=== PATIENT | female | born 1985 | race African-American/Black ===

== ENCOUNTER 2020-01-31 15:51 | Emergency (ER) | payer OTHER, SELFPAY ==
[2020-01-31 16:11] VITALS: BP 137/83; PULSE 110; RESP 18; TEMP 36.8; O2SAT 100
--- NOTE | 2020-01-31 16:49 | ED.GENADULT ---
HPI - General Adult General Chief complaint: Wound/Laceration Stated complaint: cyst on vagina Time Seen by Provider: 01/31/20 16:15 Source: patient Mode of arrival: ambulatory Limitations: no limitations History of Present Illness HPI narrative: Patient is a 34-year-old female who presents to emergency department for evaluation of small tender swollen area in the vaginal area for the last 2 days noting mild aching pain worse with touch and activity patient notes similar occurrence but in the axilla patient has not been seen for this complaint presents in no distress Related Data Allergies Allergy/AdvReac Type Severity Reaction Status Date / Time Penicillins Allergy Intermediate Swelling Verified 01/05/16 15:25 Review of Systems Review of Systems: All systems reviewed & are unremarkable except as noted in HPI and below PMFSH Past Medical History Medical History (Updated 01/31/20 @ 17:43 by Charles Lang PA-C) Obesity Social History Social History Gender identity (if verbalized by the patient): Female Exam Narrative: Exam Narrative: GENERAL: Well-appearing, obese, and in no acute distress. HEAD: Normocephalic, atraumatic. EYES: PERRLA and EOMI. ENT: Nares clear, no rhinorrhea or epistaxis. Mucous membranes moist. CHEST: Clear to auscultation. No respiratory distress. No wheezes rales or rhonchi HEART: Regular rate and rhythm. No murmur heard. EXTREMITIES: Normal range of motion. No edema. SKIN: Warm, dry, no rash. Patient with red tender draining lesion along the right labia groin region without surrounding cellulitic changes area measures 1 cm in diameter with large central opening draining purulent drainage NEURO: No focal deficits. Alert and oriented x3. Cranial nerves II through XII grossly intact. Normal speech and gait PSYCH: Normal mood and affect. Course Course Emergency Course: Patient with draining lesion of the right groin no deformity afebrile nontoxic-appearing Vital Signs Vital signs: Vital Signs Temperature 98.3 F 01/31/20 16:11 Pulse Rate 110 H 01/31/20 16:11 Respiratory Rate 18 01/31/20 16:11 Blood Pressure 137/83 01/31/20 16:11 Pulse Oximetry 100 01/31/20 16:11 Temperature 98.3 F 01/31/20 16:11 Pulse Rate 110 H 01/31/20 16:11 Respiratory Rate 18 01/31/20 16:11 Blood Pressure 137/83 01/31/20 16:11 Pulse Oximetry 100 01/31/20 16:11 Medical Decision Making MDM Narrative Medical decision making narrative: Patient with abscess draining to the right groin with out cellulitic changes already draining felt appropriate for outpatient reevaluation advised to follow with gynecology given reasons to return Vital Signs Vital Signs: Vital Signs Temperature 98.3 F 01/31/20 16:11 Pulse Rate 110 H 01/31/20 16:11 Respiratory Rate 18 01/31/20 16:11 Blood Pressure 137/83 01/31/20 16:11 Pulse Oximetry 100 01/31/20 16:11 Temperature 98.3 F 01/31/20 16:11 Pulse Rate 110 H 01/31/20 16:11 Respiratory Rate 18 01/31/20 16:11 Blood Pressure 137/83 01/31/20 16:11 Pulse Oximetry 100 01/31/20 16:11 Discharge Plan Discharge Clinical Impression: Abscess Patient Disposition: Home, Self-Care Condition: Stable Instructions: Antibiotic Form, Abscess (ED) Additional Instructions: Follow up with teacher industrial arts in the next 2-3 days for re-evaluation take antibiotics as directed. return if symptoms worsen or concerns, any increase in redness swelling pain or fever over 100.5 Clean wound with mild soapy water. Apply antibiotic ointment and clean dressing at least three times daily Warm compresses 4 times a day for 15 minutes each Prescriptions: New doxycycline hyclate 100 mg capsule 100 mg PO Q12H 10 Days Qty: 20 RF: 0 Follow-up/Referrals: PHYSICIAN,BASEBALL PITCHER [Primary Care Provider] - Mulugeta Moore MD [Physician] - Stand Alone Forms: Work/School Release
== END 2020-01-31 18:20 | disposition home or self-care (01) ==
LOC: ANHED 17:46
PROVIDERS: Emergency Provider Emergency Medicine
DX: L02.214 Cutaneous abscess of groin (principal)
CPT/HCPCS: 99283

== ENCOUNTER 2020-03-21 17:49 | Emergency (ER) | payer OTHER, SELFPAY ==
--- NOTE | ~2020-03-21 | XR_ITS ---
EXAMINATION: XR chest 2V DATE: 03/21/2020 20:45 INDICATION: Midsternal chest pain TECHNIQUE: PA and lateral views of the chest were obtained. COMPARISON: None FINDINGS: Small lung volumes with no focal airspace opacities, pulmonary edema, pleural effusion or pneumothora x. The cardiomediastinal silhouette is normal. Visualized bones and soft tissues are unremarkable. IMPRESSION: 1. No acute cardiopulmonary disease. Reviewed, dictated and finalized at location A.
--- NOTE | 2020-03-21 18:11 | ECG_ITS ---
Measurements Intervals [place] Rate: 89 P: 29 NE: 156 QRS: 5 QRSD: 88 T: 13 QT: 332 QTc: 404 Interpretive Statements SINUS RHYTHM VOLTAGE CRITERIA FOR LVH MINIMAL Q WAVES- HIGH LATERAL LEADS BASELINE WANDER- I, II BORDERLINE ECG Electronically Signed On 03-21-2020 21:06:46 CDT by Collin Gonzalez D.O.
[2020-03-21 18:12] VITALS: BP 162/84; PULSE 98; RESP 15; TEMP 36.9; O2SAT 99
[2020-03-21 18:36] LABS: Basophils Percent Auto 0.2 % (0.2-1.2); Eosinophils Absolute Auto 0.5 K/mm3 (0-0.3); Hematocrit 40.2 % (37.0-47.0); Hemoglobin 12.5 g/dL (12.0-15.0); Immature Granulocyte Absolute 0.03 K/mm3 (0.00-0.031); Immature Granulocyte Percent A 0.3 % (0-0.5); Lymphocytes Absolute Auto 4.12 K/mm3 (0.9-3.2); Lymphocytes Percent Auto 41.8 % (18.3-44.2); Mean Corpuscular HGB Conc 31.1 g/dl (32-36); Mean Corpuscular Hemoglobin 25.6 pg (26-34); Mean Corpuscular Volume 82.4 fl (80-100); Mean Platelet Volume 11.1 fl (7.4-10.4); Monocytes Absolute Auto 0.6 K/mm3 (0.1-0.6); Monocytes Percent Auto 6.2 % (2.6-8.5); Neutrophils Absolute Auto 4.6 K/mm3 (1.3-6.7); Neutrophils Percent Auto 46.5 % (45.5-73.1); Platelet Count Result 251 k/mm3 (150-375); Red Blood Count 4.88 M/mm3 (4.2-5.4); Red Cell Distribution Width 13.8 % (11.5-14.5); White Blood Count 9.9 K/mm3 (4.5-10.0)
[2020-03-21 18:46] LABS: Prothrombin Time 12.7 Seconds (11.1-14.7)
[2020-03-21 18:49] LABS: Anion Gap 6 mmol/L (8-16); Blood Urea Nitrogen 16 mg/dL (7-17); Calcium 9.1 mg/dL (8.4-10.2); Carbon Dioxide 30 mmol/L (22-30); Chloride 102 mmol/L (98-107); Estimated CRCL calculation 99 ml/min; Estimated Glomerular Filt Rate > 60; Glucose 132 mg/dL (65-105); Potassium 4.1 mmol/L (3.4-5.0); Sodium 138 mmol/L (137-145)
[2020-03-21 19:00] LABS: Troponin I < 0.012 ng/mL (0.000-0.034)
[2020-03-21 19:08] LABS: Atypical Lymphocytes Present; Platelet Estimate Adequate (Adequate)
[2020-03-21 22:20] VITALS: BP 145/79; PULSE 89; RESP 20; TEMP 37.3; O2SAT 100
--- NOTE | 2020-03-21 22:38 | PC.NURSE ---
Patient's named called multiple times in waiting room to go back to emergency room bed. Patient not in waiting room at this time.
--- NOTE | 2020-03-21 22:50 | PC.NURSE ---
Pt called again no answer
== END 2020-03-21 20:50 | disposition left against medical advice (07) ==
PROVIDERS: Emergency Provider Emergency Medicine
DX: R07.9 Chest pain, unspecified (principal)
CPT/HCPCS: 36415; 71046; 80048; 81025; 84484; 85025; 85610; 85730; 93005; 99199

== ENCOUNTER 2020-06-15 13:10 | Emergency (ER) | payer OTHER, SELFPAY ==
[2020-06-15 13:21] VITALS: BP 150/76; PULSE 103; RESP 16; TEMP 36.7; O2SAT 100
--- NOTE | 2020-06-15 13:55 | ED.GENADULT ---
HPI - General Adult General Chief complaint: Extremity Injury, Upper Stated complaint: INJURED FINGER Time Seen by Provider: 06/15/20 13:48 Source: patient and RN notes reviewed Mode of arrival: ambulatory Limitations: no limitations History of Present Illness HPI narrative: Patient presents today complaining of pain and swelling to her right third finger. States symptoms began 3 days ago. States she had a manicure 2 days prior to onset of symptoms. Currently rates her pain 9/10 and has been taking ibuprofen with mild relief. Denies numbness or tingling in the finger. MD complaint: Swelling and pain to finger Related Data Allergies Allergy/AdvReac Type Severity Reaction Status Date / Time Penicillins Allergy Intermediate Swelling Verified 06/15/20 13:23 Review of Systems Review of Systems: Narrative: CONSTITUTIONAL: Denies body aches, fever, chills, or sweats. EYES: Denies visual changes, redness, or discharge. ENT: Denies rhinorrhea, congestion, sore throat, or otalgia. CARDIOVASCULAR: Denies chest pain, palpitations, or edema. RESPIRATORY: Denies cough or dyspnea. GASTROINTESTINAL: Denies abdominal pain, nausea, vomiting, or diarrhea. GENITOURINARY: Denies dysuria or hematuria. SKIN: Denies rash, itching, or wounds. MUSCULOSKELETAL: Denies back pain, or myalgia. + Right third finger swelling and pain NEUROLOGIC: Denies headache, numbness, tingling, or weakness. PSYCH: Denies depression or anxiety. [facility] Past Medical History Medical History Obesity Social History Social History Gender identity (if verbalized by the patient): Female Comments At time of signature, I have reviewed and agree with nursing past medical, surgical, social and family history unless otherwise noted. Please see nursing chart for further information. There is no relevant family history pertinent to the presenting complaint Exam Narrative: Exam Narrative: GENERAL: Well-appearing, well-nourished, and in no acute distress. HEAD: Normocephalic, atraumatic. EYES: EOMI. No redness or drainage. Conjunctivae normal. ENT: Mucous membranes pink and moist. NECK: Normal AROM. CHEST: No respiratory distress. EXTREMITIES: Right third finger: Distal phalanx is erythematous and edematous. No fluctuance noted. No purulence or pustular area noted. No induration. Distal sensation intact. Capillary refill normal. Tender to palpation. Full range of motion with increased pain. SKIN: Warm, dry, no rash. Capillary refill normal. Normal skin turgor. NEURO: No focal deficits. Alert and oriented x3. Gait steady. PSYCH: Normal affect. No signs of depression or anxiety. Course Vital Signs Vital signs: Vital Signs Temperature 98.1 F 06/15/20 13:21 Pulse Rate 103 H 06/15/20 13:21 Respiratory Rate 16 06/15/20 13:21 Blood Pressure 150/76 H 06/15/20 13:21 Pulse Oximetry 100 06/15/20 13:21 Temperature 98.1 F 06/15/20 13:21 Pulse Rate 103 H 06/15/20 13:21 Respiratory Rate 16 06/15/20 13:21 Blood Pressure 150/76 H 06/15/20 13:21 Pulse Oximetry 100 06/15/20 13:21 Reviewed. Pt has been instructed to follow up with her PCP regarding her elevated blood pressure today. Medical Decision Making Differential Diagnosis Differential Diagnosis: Cellulitis, paronychia, abscess, felon, herpetic fish Vital Signs Vital Signs: Vital Signs Temperature 98.1 F 06/15/20 13:21 Pulse Rate 103 H 06/15/20 13:21 Respiratory Rate 16 06/15/20 13:21 Blood Pressure 150/76 H 06/15/20 13:21 Pulse Oximetry 100 06/15/20 13:21 Temperature 98.1 F 06/15/20 13:21 Pulse Rate 103 H 06/15/20 13:21 Respiratory Rate 16 06/15/20 13:21 Blood Pressure 150/76 H 06/15/20 13:21 Pulse Oximetry 100 06/15/20 13:21 Critical Care Time Critical Care Time Critical Care Time: No Discharge Plan Discharg
== END 2020-06-15 14:06 | disposition home or self-care (01) ==
PROVIDERS: Emergency Provider Nurse Practitioner
DX: L03.011 Cellulitis of right finger (principal); E66.9 Obesity, unspecified; Z68.30 Body mass index [BMI] 30.0-30.9, adult; R03.0 Elevated blood-pressure reading, without diagnosis of hypertension
CPT/HCPCS: 99213; G0463

== ENCOUNTER 2020-11-09 18:35 | Observation (INO) | payer OTHER, SELFPAY ==
--- NOTE | ~2020-11-09 | CT_ITS ---
EXAMINATION: CT abdomen pelvis w con INDICATION: Abdominal pain TECHNIQUE: Computed tomographic images of the abdomen and pelvis were obtained after the administrati on of 100 cc of Omnipaque 350 intravenous contrast. The dose-length product (DLP) was 1546.59 mGy-cm. Automated exposure control and iterative reconstruction technique were employed. COMPARISON: None available FINDINGS: Minimal dependent atelectasis is present in the lung bases. The heart size is normal. The l iver, spleen, pancreas, gallbladder, and left adrenal gland are normal. There is a 10 mm low-attenuat ion mass of the right adrenal gland. The kidneys are unremarkable. No pathologically enlarged abdomin al or pelvic lymph nodes are identified. There is no free intraperitoneal gas or evidence of bowel ob struction. The appendix is normal. There is a fat-containing umbilical hernia. IMPRESSION: 1. No CT correlate for the patient's symptoms. 2. 10 mm low-attenuation mass of the right adrenal gland, probably benign in the absence of known mal ignancy. Consider follow-up adrenal CT in 12 months. Reviewed, dictated and finalized at location A. IMPRESSION: 1. No CT correlate for the patient's symptoms. 2. 10 mm low-attenuation mass of the right adrenal gland, probably benign in th e absence of known malignancy. Consider follow-up adrenal CT in 12 months.
[2020-11-09 19:22] VITALS: BP 133/71; PULSE 92; RESP 16; TEMP 36.6; O2SAT 100
[2020-11-09 19:48] VITALS: BP 162/107; PULSE 99; RESP 20; O2SAT 96
--- NOTE | 2020-11-09 20:09 | ED.GENADULT ---
HPI - General Adult General Chief complaint: Abdominal Pain Stated complaint: ABD since this morning Time Seen by Provider: 11/09/20 19:45 Source: RN notes reviewed History of Present Illness HPI narrative: Patient presents to emergency department from home for abdominal pain. Patient states abdominal pain began this morning and is located across the mid abdomen. Describes pain as cramping in nature and she denies any fevers or chills, chest pain, shortness of breath, nausea, vomiting, diarrhea or any other symptoms states she took Advil earlier for the pain with minimal relief. Patient states she did work out a little harder than normal yesterday but states she had no pain when she initially woke this morning Related Data Allergies Allergy/AdvReac Type Severity Reaction Status Date / Time Penicillins Allergy Intermediate Swelling Verified 06/15/20 13:23 Review of Systems Review of Systems: Narrative: Gen.: Denies fevers or chills ENT: Denies congestion Respiratory: Denies shortness of breath or cough CV: Denies chest pain or palpitations GI: HPI denies burning, urgency, frequency or hematuria Musculoskeletal: Denies back pain or muscle pain Neuro: Denies numbness, tingling, weakness or focal weakness Skin: Denies rash Except as documented, all other systems reviewed and negative [facility] Past Medical History Medical History (Updated 11/09/20 @ 22:36 by Devin Gaitan DO) Obesity Patient denies significant medical history Social History Social History (Updated 11/09/20 @ 20:10 by Devin Gaitan DO) Smoking status: Current every day smoker Gender identity (if verbalized by the patient): Female Exam Narrative: Exam Narrative: APPEARANCE: No acute distress, nontoxic, resting in bed HEENT: Normocephalic, atraumatic, OMM RESPIRATORY: No respiratory distress, clear to auscultation bilaterally with no rhonchi wheezing or rales CARDIOVASCULAR: RRR s murmur ABDOMINAL: Soft nondistended diffusely tender to palpation no rebound or guarding MUSCULOSKELETAl: Moves all extremities. No clubbing, cyanosis or edema. NEURO: Awake and alert. Following commands, speech normal, no focal deficits SKIN:: Warm, dry. Normal Color PSYCHIATRIC: Normal affect/mood Course Course Emergency Course: Discussed with Dr. Gordillo presentation work-up agrees with admission at this time Discussed with patient and family results of workup and diagnosis. Discussed need for admission. Patient and family understand and agree to current treatment plan Vital Signs Vital signs: Vital Signs Temperature 97.8 F 11/09/20 19:22 Pulse Rate 92 11/09/20 19:22 Respiratory Rate 16 11/09/20 19:22 Blood Pressure 133/71 11/09/20 19:22 Pulse Oximetry 100 11/09/20 19:22 Temperature 98.2 F 11/09/20 20:50 Pulse Rate 86 11/09/20 20:50 Respiratory Rate 20 11/09/20 20:50 Blood Pressure 162/107 H 11/09/20 20:50 Pulse Oximetry 99 11/09/20 20:50 Medical Decision Making MDM Narrative Medical decision making narrative: Patient's abdomen is soft without significant pain or signs of surgical abdomen on serial exams. Lab and x-ray evaluations are reviewed and patient is felt to be a reasonable candidate for outpatient management. Patient was instructed as to limitations of x-ray and laboratory evaluation and encouraged to return to ED or primary physician for repeat exam in 12 hours if continued or worsening pain Vital Signs Vital Signs: Vital Signs Temperature 97.8 F 11/09/20 19:22 Pulse Rate 92 11/09/20 19:22 Respiratory Rate 16 11/09/20 19:22 Blood Pressure 133/71 11/09/20 19:22 Pulse Oximetry 100 11/09/20 19:22 Temperature 98.2 F 11/09/20 20:50 Pulse Rate 86 11/09/20 20:50 Respiratory Rate 20 11/09/20 20:50 Blood Pressure 162/107 H 11/09/20 20:50 Pulse Oximetry 99 11/09/20 20:50 Lab Data Result diagrams: 11/09/20 20:13 11/09/20 20:13 Labs: Lab Result
[2020-11-09] MEDS: SODIUM CHLORIDE 0.9% IV 1,000 ML 999 ML IV CONT ×2 (20:23→22:24)
[2020-11-09 20:39] LABS: Basophils Percent Auto 0.3 % (0.2-1.2); Eosinophils Absolute Auto 0.6 K/mm3 (0-0.3); Eosinophils Percent Auto 6.8 % (0-4.4); Hemoglobin 11.7 g/dL (12.0-15.0); Immature Granulocyte Absolute 0.05 K/mm3 (0.00-0.031); Immature Granulocyte Percent A 0.5 % (0-0.5); Lymphocytes Absolute Auto 3.69 K/mm3 (0.9-3.2); Lymphocytes Percent Auto 39.8 % (18.3-44.2); Mean Corpuscular HGB Conc 30.8 g/dl (32-36); Mean Corpuscular Hemoglobin 25.8 pg (26-34); Mean Corpuscular Volume 83.7 fl (80-100); Monocytes Absolute Auto 0.6 K/mm3 (0.1-0.6); Monocytes Percent Auto 6.8 % (2.6-8.5); Neutrophils Absolute Auto 4.3 K/mm3 (1.3-6.7); Neutrophils Percent Auto 45.8 % (45.5-73.1); Platelet Count Result 230 k/mm3 (150-375); Red Blood Count 4.54 M/mm3 (4.2-5.4); Red Cell Distribution Width 14.3 % (11.5-14.5); White Blood Count 9.3 K/mm3 (4.5-10.0)
[2020-11-09 20:49] LABS: Add Urine Microscopic? YES; Appearance Urine Clear (Clear); Bilirubin Urine Negative (Negative); Blood Urine Negative (Negative); Color Urine Yellow (Yellow); Glucose Urine UA 2+ mg/dL (Negative); Ketones Urine Negative (Negative); Leukocyte Esterase Ur Negative LEU/UL (Negative); Mucus Urine Few /lpf; Nitrate Urine Negative (Negative); Protein Urine 1+ mg/dL (Negative); RBC Urine 0-2 /hpf (0-2); Squamous Epithelial Cell Urine Many /hpf (Few); Urobilinogen Urine Negative mg/dL (<2.0); WBC Urine 0-3 /hpf
[2020-11-09 20:50] VITALS: BP 162/107; PULSE 86; RESP 20; TEMP 36.8; O2SAT 99
[2020-11-09 20:50] LABS: Alanine Aminotransferase 30 U/L (4-35); Albumin Level 3.6 g/dL (3.5-5.1); Alkaline Phosphatase 84 U/L (38-126); Anion Gap 5 mmol/L (8-16); Aspartate Amino Transferase 60 U/L (14-36); Bilirubin,Total 0.2 mg/dL (0.2-1.3); Blood Urea Nitrogen 12 mg/dL (7-17); Calcium 8.6 mg/dL (8.4-10.2); Carbon Dioxide 27 mmol/L (22-30); Chloride 103 mmol/L (98-107); Estimated CRCL calculation 140 ml/min; Estimated Glomerular Filt Rate > 60; Glucose 253 mg/dL (65-105); Lipase 28 U/L (23-300); Sodium 135 mmol/L (137-145)
[2020-11-09 20:51] LABS: Specific Grav Ur 1.031 (1.001-1.035)
[2020-11-09 21:57] LABS: Creatine Kinase 1538 U/L (30-135)
--- NOTE | 2020-11-09 22:13 | PM.IMHP ---
H&P: HPI History of Present Illness Date/Time: 11/09/20 22:13 Chief Complaint: abdominal pain Narrative: Patient presents to emergency department from home for abdominal pain. abdominal pain starte this am which is mid abdomen in location. the pain is rated at 9/10. assocaited nausea, no vomiting. no fever, chills. chest pian or sob. she rpeorts she worked out yesterday after a very logn time. CT abodmen without any acute findings exxcept for right adrenal gland nodule. she is noted to have elevated CK level but normal renal function.she is admitted for observation for iv hydration. she denies any other complaints except for the abdominal pain. Review of Systems Review of Systems: Narrative: - CONSTITUTIONAL: Denies weight loss, fever and chills. - HEENT: Denies changes in vision and hearing - RESPIRATORY: Denies SOB and cough. - CV: Denies palpitations and CP. - GI: reports abdominal pain, nausea, denies vomiting and diarrhea. - : Denies dysuria and urinary frequency. - MSK: Denies myalgia and joint pain. - SKIN: Denies rash and pruritus. - NEUROLOGICAL: Denies headache and syncope. - PSYCHIATRIC: Denies recent changes in mood. Denies anxiety and depression. All systems reviewed & are unremarkable except as noted in HPI and below PMFSH Past Medical History Medical History (Updated 11/09/20 @ 23:03 by Steve Gordillo MD) Obesity Patient denies significant medical history Social History Social History (Updated 11/09/20 @ 20:10 by Devin Gaitan DO) Smoking status: Current every day smoker Gender identity (if verbalized by the patient): Female Meds Home Medications and Allergies Home Medications Medication Instructions Recorded Confirmed Type clindamycin HCl 300 mg PO Q6H 10 Days #40 cap 06/15/20 Rx Allergies Allergy/AdvReac Type Severity Reaction Status Date / Time Penicillins Allergy Intermediate Swelling Verified 06/15/20 13:23 Vital Signs Vital Signs - 24 hr 11/09/20 19:22 11/09/20 19:48 11/09/20 20:50 Temperature 97.8 F 98.2 F Pulse Rate 92 99 86 Respiratory Rate 16 20 20 Blood Pressure 133/71 162/107 H 162/107 H Pulse Oximetry 100 96 99 Exam Narrative: Exam Narrative: GENERAL: The patient is well developed, not in acute distress HEENT: Nonicteric sclerae, PERRLA, EOMI. Oropharynx clear. Moist mucous membranes. Conjunctivae appear well perfused. CHEST: Chest wall is nontender. HEART: Regular rate and rhythm without murmur, rubs, or gallops LUNGS: Clear to auscultation bilaterally. no respiratory distress ABDOMEN: Soft, positive bowel sounds, tender epigastrium and periumbilical area, no organomegaly. SKIN: No rash, no excessive bruising, petechiae, or purpura. NEUROLOGIC: Cranial nerves II-XII intact, alert and oriented x 3, no gross motor deficits EXTREMITIES: no edema, cyanosis or clubbing H&P: Results Labs Labs: Short CBC 11/09/20 11/09/20 Range/Units 20:12 20:13 WBC 9.3 (4.5-10.0) K/mm3 Hgb 11.7 L (12.0-15.0) g/dL Hct 38.0 (37.0-47.0) % Plt Count 230 (150-375) k/mm3 Total Creatine Kinase 1538 H (30-135) U/L BMP 11/09/20 20:13 Sodium 135 L Potassium 4.0 Chloride 103 Carbon Dioxide 27 BUN 12 Creatinine 0.70 Glucose 253 H Calcium 8.6 Cardiac Enzymes 11/09/20 Range/Units 20:12 Total Creatine Kinase 1538 H (30-135) U/L Liver Function 11/09/20 Range/Units 20:13 Total Bilirubin 0.2 (0.2-1.3) mg/dL AST 60 H (14-36) U/L ALT 30 (4-35) U/L Alkaline Phosphatase 84 (38-126) U/L Albumin 3.6 (3.5-5.1) g/dL Urine 11/09/20 Range/Units 20:33 Urine Color Yellow (Yellow) Urine Appearance Clear (Clear) Urine pH 6.0 (5.0-9.0) Ur Specific [place] 1.031 (1.001-1.035) Urine Protein 1+ H (Negative) mg/dL Urine Glucose (UA) 2+ H (Negative) mg/dL Assessment and Plan Assessment and plan (1) Abdominal pain: Qualifiers: Abdominal
[2020-11-09] MEDS: MORPHINE SULFATE (*CRX) 4 MG/ML INJ IV PUSH (22:24)
[2020-11-09 22:57] LABS: Hemoglobin A1C 7.7 % (<5.7)
[2020-11-09 23:03] VITALS: BP 160/97; PULSE 86; RESP 20; O2SAT 100
[2020-11-09] MEDS: SODIUM CHLORIDE 0.9% IV 1,000 ML 150 ML IV CONT (23:13)
--- NOTE | 2020-11-09 23:14 | ADMGEN ---
This patient, Nancy Trevino, was admitted to Medical Room 250-01. Patient/family oriented to hospital policies and general routines including ID bracelet, bed and alarms, visiting hours, pain management, procedures, bathroom and other care routines, personal items, smoking policy, room service/diet, and visiting hours. Information on how to activate the Rapid Response Team has been discussed. Patient/Family are encouraged to report perceived risks to care and to ask questions if they do not understand what they are told or what they should do.
[2020-11-09 23:46] VITALS: BMI 43.8
[2020-11-09 23:51] VITALS: BMI 43.8
[2020-11-10 00:17] VITALS: O2SAT 97
[2020-11-10] MEDS: MORPHINE SULFATE (*CRX) 2 MG/ML INJ IV PUSH (00:39)
[2020-11-10 00:48] LABS: Glucose Point of Care 126 mg/dl (65-105)
[2020-11-10 02:00] VITALS: BP 121/72; PULSE 77; RESP 21; TEMP 36.1; O2SAT 100
[2020-11-10 05:41] LABS: Basophils Percent Auto 0.3 % (0.2-1.2); Eosinophils Absolute Auto 0.5 K/mm3 (0-0.3); Eosinophils Percent Auto 7.8 % (0-4.4); Hematocrit 35.5 % (37.0-47.0); Hemoglobin 11.3 g/dL (12.0-15.0); Immature Granulocyte Absolute 0.02 K/mm3 (0.00-0.031); Immature Granulocyte Percent A 0.3 % (0-0.5); Lymphocytes Absolute Auto 3.44 K/mm3 (0.9-3.2); Lymphocytes Percent Auto 49.7 % (18.3-44.2); Mean Corpuscular HGB Conc 31.8 g/dl (32-36); Mean Corpuscular Hemoglobin 25.9 pg (26-34); Mean Corpuscular Volume 81.4 fl (80-100); Mean Platelet Volume 10.4 fl (7.4-10.4); Monocytes Absolute Auto 0.5 K/mm3 (0.1-0.6); Monocytes Percent Auto 7.1 % (2.6-8.5); Neutrophils Absolute Auto 2.4 K/mm3 (1.3-6.7); Neutrophils Percent Auto 34.8 % (45.5-73.1); Platelet Count Result 202 k/mm3 (150-375); Red Blood Count 4.36 M/mm3 (4.2-5.4); Red Cell Distribution Width 14.2 % (11.5-14.5); White Blood Count 6.9 K/mm3 (4.5-10.0)
[2020-11-10 05:58] LABS: Alanine Aminotransferase 27 U/L (4-35); Alkaline Phosphatase 74 U/L (38-126); Anion Gap 2 mmol/L (8-16); Aspartate Amino Transferase 44 U/L (14-36); Bilirubin,Total 0.3 mg/dL (0.2-1.3); Blood Urea Nitrogen 9 mg/dL (7-17); Carbon Dioxide 28 mmol/L (22-30); Chloride 105 mmol/L (98-107); Creatine Kinase 1013 U/L (30-135); Estimated CRCL calculation 136 ml/min; Estimated Glomerular Filt Rate > 60; Glucose 132 mg/dL (65-105); Potassium 4.2 mmol/L (3.4-5.0); Sodium 135 mmol/L (137-145)
[2020-11-10 06:00] VITALS: BP 108/53; PULSE 81; RESP 21; TEMP 36.3; O2SAT 100
[2020-11-10] MEDS: ACETAMINOPHEN 325 MG TABLET 650 MG PO ×3 (06:25→16:14)
[2020-11-10] MEDS: SODIUM CHLORIDE 0.9% IV 1,000 ML 150 ML IV CONT ×2 (06:29→14:13)
[2020-11-10 07:22] LABS: Glucose Point of Care 142 mg/dl (65-105)
[2020-11-10] MEDS: NICOTINE (*PBKC) 14 MG PATCH 1 PATCH TRANSDERM (08:08)
--- NOTE | 2020-11-10 10:30 | PC.NURSE ---
Wood Planer called and left message for clinical educator to see pt with new onset DM
--- NOTE | 2020-11-10 10:52 | PC.NURSE ---
Fuel Management Handler called and reports will not likely be able to see pt today, Mysql Database Administrator notified Lorena Waldrop for trace clerk consult.
--- NOTE | 2020-11-10 11:39 | PCDIET ---
Nutrition Consult for new on set of DM type 2. Please see Nutritional Teaching Intervention.
[2020-11-10 12:27] LABS: Glucose Point of Care 88 mg/dl (65-105)
[2020-11-10 14:00] VITALS: BP 131/74; PULSE 86; RESP 20; TEMP 35.7; O2SAT 100
[2020-11-10 14:59] LABS: Creatine Kinase 738 U/L (30-135)
--- NOTE | 2020-11-10 15:34 | PM.DS ---
DS: Admitting Diagnosis Admitting Diagnosis Admitting Diagnosis: Rhabdomyolysis DS: Discharge Diagnosis Discharge Diagnosis (1) Abdominal pain: Qualifiers: Abdominal location: generalized Qualified Code(s): R10.84 - Generalized abdominal pain Code(s): R10.9 - Unspecified abdominal pain Status: Acute (2) Rhabdomyolysis: Code(s): M62.82 - Rhabdomyolysis Status: Acute (3) Hyperglycemia: Code(s): R73.9 - Hyperglycemia, unspecified Status: Acute (4) Elevated blood pressure reading without diagnosis of hypertension: Code(s): R03.0 - Elevated blood-pressure reading, without diagnosis of hypertension Status: Acute (5) Adrenal nodule: Code(s): E27.8 - Other specified disorders of adrenal gland Status: Acute (6) Diabetes mellitus: Code(s): E11.9 - Type 2 diabetes mellitus without complications Status: Acute DS: Summary Hospital Course Hospital Course: Patient is a 34-year-old female who presented emergency room for abdominal pain after a hard workout the day prior. Vitals in the ER were temperature 97.8?, pulse 92, respiratory rate 16, blood pressure 133/71, pulse ox 100 on room air. Initial white blood cell count 9.3, hemoglobin 11.7, hematocrit 38.0, platelets 230. BMP within normal limits with the exception of random glucose 253. CK was 1538. Hemoglobin A1c was 7.7. UA negative for infection. Urine test negative. CT of the abdomen pelvis showed no correlation with the patient's symptoms. It did, however, show a 10 mm low-attenuation mass of the right adrenal gland which is likely benign the absence of known malignancy. It is recommended that she repeat a CT in 12 months. Patient was admitted to the hospitalist service and started on IV fluids. Her CK improved with IV hydration and was down to 738 the afternoon of discharge. Her abdominal pain improved was very minimal the day of discharge. She also had no muscle pain. She had no diarrhea, nausea or problems eating. She was ready for discharge. I spoke with her extensively about her new diagnosis of her diabetes and she also saw the dietitian. She was unable to see the hematology nurse educator and I gave her her information. She was given a glucometer by the nursing staff and educated on how to use it. I talked to the patient about metformin and the side effects to look out for. The patient is going to continue with diet control and an exercise routine but will start slowly this time. I educated her about the worrisome signs and symptoms come back to emergency room for and discharged stable condition. She does not have a primary care physician is going to follow up with 1. A list of primary care physicians was provided and when she establishes with 1 she is going to be sure to schedule a repeat CT in 1 year for the adrenal nodule. She was also told to come back to emergency room if she has Tea/blood/dark urine or she starts to feel worse. She verbalized understanding and was discharged in stable condition. Status at Discharge Functional status at discharge: independent ambulation Overall status at discharge: patient is back to baseline Time Spent with Patient Time attestation: Total time spent providing and/or coordinating discharge services:36 min Time spent: Greater than 30 minutes Exam Narrative: Exam Narrative: General: Overweight patient resting comfortably in bed in no acute distress HEENT: normocephalic Neck: supple Neuro: Alert and oriented x4 CV:RRR Resp:CTA Abd: Soft, non distended. No pain to palpation. Positive bowel sounds. Extremities: No swelling, erythema, or pain to palpation. DS: Data Data Completed and Pending Labs on day of discharge: Labs from last 24 hours 11/10/20 11/10/20 11/10/20 14:04 12:14 07:13 WBC RBC Hgb Hct MCV MCH MCHC RDW Plt Count MPV Immature Gran % (Auto) Neut % (Auto) Lymph % (Auto) M
[2020-11-10 16:48] LABS: Glucose Point of Care 98 mg/dl (65-105)
--- NOTE | 2020-11-15 07:14 | PC.NURSE ---
Outpatient referral for Initial DSMT started. [facility]
== END 2020-11-10 17:13 | disposition home or self-care (01) ==
LOC: ANHED 22:36 → ANH2MED 23:16
PROVIDERS: Admitting Provider Internal Medicine; Emergency Provider Emergency Medicine; PCP Internal Medicine; Visit Provider Physician Assistant
DX: R10.84 Generalized abdominal pain (principal); M62.82 Rhabdomyolysis; E11.65 Type 2 diabetes mellitus with hyperglycemia; R03.0 Elevated blood-pressure reading, without diagnosis of hypertension; E27.8 Other specified disorders of adrenal gland; E66.01 Morbid (severe) obesity due to excess calories; Z68.41 Body mass index [BMI] 40.0-44.9, adult
CPT/HCPCS: 36415; 74177; 80053; 81001; 81025; 82550; 82948; 83036; 83690; 85025; 96360; 96361; 96365; 96375; 99285; A9270; G0378; G0379; J0131; J2270; J7030; Q9967

== ENCOUNTER 2022-01-05 16:26 | Emergency (ER) | payer OTHER, SELFPAY ==
--- NOTE | ~2022-01-05 | XR_ITS ---
EXAMINATION: XR chest 2V 01/05/2022 19:32 INDICATION: Left-sided chest pain PROCEDURE: 2 view chest COMPARISON: 03/21/2020 FINDINGS: The lungs are clear. The cardiomediastinal silhouette is within normal limits. There are no pleural effusions. There is no pneumothorax suspected. IMPRESSION: 1: NO ACUTE CARDIOPULMONARY DISEASE. Reviewed, dictated and finalized at location A.
[2022-01-05 16:59] VITALS: BP 144/77; PULSE 85; RESP 16; TEMP 36.3; O2SAT 100
--- NOTE | 2022-01-05 18:51 | ECG_ITS ---
Measurements Intervals [place] Rate: 64 P: 96 [place]: 128 QRS: 12 QRSD: 74 T: 7 QT: 369 QTc: 382 Interpretive Statements SINUS RHYTHM VOLTAGE CRITERIA FOR LVH BORDERLINE T WAVE ABNORMALITY- ANTERIOR LEADS BORDERLINE ECG Electronically Signed On 01-05-2022 20:39:38 CDT by Collin Gonzalez D.O.
--- NOTE | 2022-01-05 18:53 | ED.EXTPRO ---
HPI - Extremity Problem General Chief complaint: Extremity Problem,Nontraumatic <Craly Cobian PA-C - Last Filed: 01/06/22 02:29> Stated complaint: all over L sided pain <Carly Cobian PA-C - Last Filed: 01/06/22 02:29> Time Seen by Provider: 01/05/22 18:25 <Carly Cobian PA-C - Last Filed: 01/06/22 02:29> History of Present Illness HPI Narrative: Patient is a 36-year-old female with history of hypertension and diabetes here for evaluation of left arm pain and chest pain for the past day. Pain is sharp and shooting in nature, starts in her neck and radiates down her left arm and into her left chest. Patient states that she was seated when she developed her pain. She states is intermittent in nature, coming and going without obvious triggers. Denies any alleviating factors including ibuprofen or positions. Denies shortness of breath, cough, fevers, chills, back pain, weakness, numbness or tingling. <Carly Cobian PA-C - Last Filed: 01/06/22 02:29> Related Data Allergies/Adverse reactions: Allergies Allergy/AdvReac Type Severity Reaction Status Date / Time Penicillins Allergy Intermediate Swelling Verified 11/09/20 23:25 <Carly Cobian PA-C - Last Filed: 01/06/22 02:29> Review of Systems Review of Systems: Gen: Denies fevers or chills Eyes: Denies eye pain or visual change ENT: Denies congestion Respiratory: Denies shortness of breath or cough CV: Reports left chest pain GI: Denies abdominal pain nausea, emesis or diarrhea denies burning, urgency, frequency or hematuria Musculoskeletal: Reports left arm pain Neuro: Denies numbness, tingling, weakness or focal weakness Skin: Denies rash Except as documented, all other systems reviewed and negative <Carly Cobian PA-C - Last Filed: 01/06/22 02:29> [facility] Past Medical History Medical History: Medical History Obesity Patient denies significant medical history <Carly Cobian PA-C - Last Filed: 01/06/22 02:29> Family History Family History: Family History (Updated 11/09/20 @ 23:31 by Brianna Trinh RN) Father Diabetes mellitus <Carly Cobian PA-C - Last Filed: 01/06/22 02:29> Social History Social History: Social History (Updated 11/09/20 @ 20:10 by Devin Gaitan DO) Smoking packs per day: 0.5 Smoking cigarettes per day: 10.0 Smoking status: Current every day smoker Tobacco type: cigarettes Second hand tobacco smoke exposure: Yes Alcohol intake: current Substance use: never Substance use type: does not use Gender identity (if verbalized by the patient): Female Spiritual care concerns: No <Carly Cobian PA-C - Last Filed: 01/06/22 02:29> Exam Narrative: APPEARANCE: Well appearing, no pain in distress, well-nourished. Head: Normocephalic and atraumatic. EYES: PERRLA/EOMI, conjunctivae clear NOSE: No nasal drainage EARS: External ear normal in appearance THROAT: Oropharynx is clear. Mucous membranes are moist. NECK: Supple. No adenopathy, no masses. RESPIRATORY: Airway patent, respirations nonlabored. Clear to auscultation bilaterally, no rales, rhonchi, wheezing. CARDIOVASCULAR: Regular rate and rhythm without murmurs, rubs, or gallops. ABDOMINAL: Normoactive bowel sounds. Soft, nontender, nondistended. No rebound tenderness or guarding. MUSCULOSKELETAL: Spurling's test positive. No bony tenderness along hand or forearm. Mildly tender along deltoid muscle. Equal line puller strength bilaterally. NEURO: Normal speech. No focal neurologic deficits. SKIN: Skin is warm and dry. No rashes. PSYCHIATRIC: Normal affect/mood. <Carly Cobian PA-C - Last Filed: 01/06/22 02:29> Course FISHING VESSEL MATE/PA Physician Supervision I saw and evaluated the patient. Discussed the patient and plan with SANJU Cobian and agree with the findings and plan as
[2022-01-05 19:06] LABS: Basophils Percent Auto 0.4 % (0.2-1.2); Eosinophils Absolute Auto 0.3 K/mm3 (0-0.3); Eosinophils Percent Auto 2.7 % (0-4.4); Hematocrit 41.1 % (37.0-47.0); Hemoglobin 12.9 g/dL (12.0-15.0); Immature Granulocyte Absolute 0.02 K/mm3 (0.00-0.031); Immature Granulocyte Percent A 0.2 % (0-0.5); Lymphocytes Absolute Auto 4.78 K/mm3 (0.9-3.2); Lymphocytes Percent Auto 47.9 % (18.3-44.2); Mean Corpuscular HGB Conc 31.4 g/dl (32-36); Mean Corpuscular Hemoglobin 26.9 pg (26-34); Mean Corpuscular Volume 85.8 fl (80-100); Mean Platelet Volume 10.5 fl (7.4-10.4); Monocytes Absolute Auto 0.5 K/mm3 (0.1-0.6); Monocytes Percent Auto 5.4 % (2.6-8.5); Neutrophils Absolute Auto 4.3 K/mm3 (1.3-6.7); Neutrophils Percent Auto 43.4 % (45.5-73.1); Platelet Count Result 244 k/mm3 (150-375); Red Blood Count 4.79 M/mm3 (4.2-5.4); Red Cell Distribution Width 15.1 % (11.5-14.5)
[2022-01-05 19:19] LABS: Alanine Aminotransferase 15 U/L (6-35); Albumin Level 3.7 g/dL (3.5-5.1); Alkaline Phosphatase 62 U/L (38-126); Anion Gap 1 mmol/L (8-16); Aspartate Amino Transferase 21 U/L (14-36); Bilirubin,Total 0.3 mg/dL (0.2-1.3); Blood Urea Nitrogen 13 mg/dL (7-17); Calcium 8.1 mg/dL (8.4-10.2); Carbon Dioxide 27 mmol/L (22-30); Chloride 107 mmol/L (98-107); Estimated CRCL calculation 111 ml/min; Estimated Glomerular Filt Rate > 60; Glucose 82 mg/dL (65-110); Potassium 4.1 mmol/L (3.4-5.0); Sodium 135 mmol/L (137-145)
[2022-01-05] MEDS: ASPIRIN 81 MG CHEWABLE TABLET 324 MG PO (19:29)
[2022-01-05 19:30] LABS: Troponin I < 0.012 ng/mL (0.000-0.034)
[2022-01-05 20:04] VITALS: BP 133/77; PULSE 65; RESP 16; TEMP 36.6; O2SAT 100
[2022-01-05 20:20] LABS: INR 1.1; Partial Thromboplastin Time 28.8 SECONDS (22.3-36.8); Prothrombin Time 13.5 Seconds (11.1-14.7)
[2022-01-05 21:13] LABS: Creatine Kinase 89 U/L (30-135)
[2022-01-05 22:34] LABS: Troponin I < 0.012 ng/mL (0.000-0.034)
[2022-01-05 22:54] VITALS: BP 132/70; PULSE 78; RESP 18; O2SAT 99
== END 2022-01-05 22:56 | disposition home or self-care (01) ==
PROVIDERS: Physician Assistant; Emergency Provider Preventive Medicine Aerospace Medicine; PCP Internal Medicine
DX: M54.12 Radiculopathy, cervical region (principal); I10 Essential (primary) hypertension; E11.9 Type 2 diabetes mellitus without complications; E66.9 Obesity, unspecified; Z68.39 Body mass index [BMI] 39.0-39.9, adult; F17.210 Nicotine dependence, cigarettes, uncomplicated; R94.31 Abnormal electrocardiogram [ECG] [EKG]
CPT/HCPCS: 36415; 71046; 80053; 82550; 84484; 85025; 85610; 85730; 93005; 99284; A9270

== ENCOUNTER 2022-08-18 02:39 | Emergency (ER) | payer OTHER, SELFPAY ==
--- NOTE | ~2022-08-18 | XR_ITS ---
XR shoulder LT min 2V DATE: 08/18/2022 04:23 INDICATION: Fall. Left shoulder injury, pain TECHNIQUE: 4 views COMPARISON: None FINDINGS: No fracture or dislocation. Normal alignment at the acromioclavicular and glenohumeral join ts. No abnormal soft tissue calcification. IMPRESSION: Negative Reviewed, dictated and finalized at location A. DRILLER HELPER IMPRESSION: Negative
--- NOTE | ~2022-08-18 | CT_ITS ---
EXAMINATION: CT cervical spine wo con DATE: 08/18/2022 03:41 INDICATION: Previous fall at work. Left arm radiculopathy for one week. TECHNIQUE: Computed tomography (CT) of the cervical spine was performed without intravenous contrast. Automated exposure control and iterative reconstruction technique were employed. Exam dose: 565.57 mGy-cm total exam DLP. COMPARISON: None FINDINGS: There is straightening of the cervical spine which may be due to muscle spasm or positionin g. C1 and C2 are normally aligned and the odontoid process is intact. No fracture or dislocation or lock ed facet or prevertebral soft tissue swelling. Mild cervical spondylosis... IMPRESSION: Mild cervical spondylosis; no fracture or dislocation or locked facet Reviewed, dictated and finalized at Location A. Reviewed, dictated and finalized at location A. WARE IMPLEMENTATION PROJECT MANAGER IMPRESSION: Mild cervical spondylosis; no fracture or dislocation or locked fa cet
[2022-08-18 02:39] VITALS: PULSE 79; RESP 14; TEMP 36.9; O2SAT 100
--- NOTE | 2022-08-18 03:31 | ED.GENADULT ---
HPI - General Adult General Chief complaint: Extremity Injury, Upper <Tino Zaragoza MD - Last Filed: 08/18/22 03:32> Stated complaint: shoulder pain <Tino Zaragoza MD - Last Filed: 08/18/22 03:32> Time Seen by Provider: 08/18/22 03:09 <Tino Zaragoza MD - Last Filed: 08/18/22 03:32> History of Present Illness HPI narrative: Patient 36-year-old female who presents emergency department with chief complaint of left arm pain and left arm numbness. Patient states approximately 1 week ago she fell and reports that she has been having pain in her left shoulder and her left side of her neck since that time. Patient states she is noticed that she has some tingling and has developed and that has been ongoing for over a week. Patient states that she does not feel as strong in that arm as well but this is also been ongoing for the week as well. <Tino Zaragoza MD - Last Filed: 08/18/22 03:32> Related Data Allergies/adverse reactions: Allergies Allergy/AdvReac Type Severity Reaction Status Date / Time Penicillins Allergy Intermediate Swelling Verified 08/18/22 02:44 <Tino Zaragoza MD - Last Filed: 08/18/22 03:32> Review of Systems Review of Systems: A 10 system review of systems was completed on the patient and is negative except for what is stated in the HPI. Nursing and ancillary documentation was reviewed. <Tino Zaragoza MD - Last Filed: 08/18/22 03:32> [facility] Past Medical History Medical History: Medical History Obesity Patient denies significant medical history <Tino Zaragoza MD - Last Filed: 08/18/22 03:32> Family History Family History: Family History Father Diabetes mellitus <Tino Zaragoza MD - Last Filed: 08/18/22 03:32> Social History Social History: Social History Smoking packs per day: 0.5 Smoking cigarettes per day: 10.0 Smoking status: Current every day smoker Tobacco type: cigarettes Second hand tobacco smoke exposure: Yes Alcohol intake: current Substance use: never Substance use type: does not use Gender identity (if verbalized by the patient): Female Spiritual care concerns: No <Tino Zaragoza MD - Last Filed: 08/18/22 03:32> Exam Narrative: GENERAL: Well-appearing, well-nourished, and in no acute distress. HEAD: Normocephalic, atraumatic. EYES: PERRLA and EOMI. ENT: Nares clear, no rhinorrhea or epistaxis. Mucous membranes moist. NECK: Supple. Tenderness to palpation the paraspinous muscles of the left side of the neck CHEST: Clear to auscultation. No respiratory distress. HEART: Regular rate and rhythm. No murmur heard. Normal peripheral pulses. ABDOMEN: Soft, nontender, nondistended, normal active bowel sounds. EXTREMITIES: Normal range of motion. No edema. SKIN: Warm, dry, no rash. NEURO: No focal deficits. Alert and oriented x3. PSYCH: Normal mood and affect. <Tino Zaragoza MD - Last Filed: 08/18/22 03:32> Course Course Emergency Course: Patient resting comfortably. Pain improved. Discussed results. Discharge home with anti-inflammatories muscle lectures. <Ross Briceno MD - Last Filed: 08/18/22 08:23> Vital Signs Vital signs: Vital Signs Temperature 98.4 F 08/18/22 02:39 Pulse Rate 79 08/18/22 02:39 Respiratory Rate 14 08/18/22 02:39 Pulse Oximetry 100 08/18/22 02:39 Oxygen Delivery Room Air 08/18/22 02:39 Temperature 98.4 F 08/18/22 02:39 Pulse Rate 84 08/18/22 07:32 Respiratory Rate 15 08/18/22 07:32 Blood Pressure 134/93 H 08/18/22 07:32 Pulse Oximetry 100 08/18/22 07:32 Oxygen Delivery Room Air 08/18/22 02:39 <Tino Zaragoza MD - Last Filed: 08/18/22 03
[2022-08-18] MEDS: KETOROLAC 30 MG/ML VIAL (*BKC) IV PUSH (03:32)
[2022-08-18] MEDS: CYCLOBENZAPRINE HCL 10 MG TABLET PO (03:32)
[2022-08-18 05:27] VITALS: BP 135/79; PULSE 79; O2SAT 99
[2022-08-18 07:02] VITALS: BP 127/80; PULSE 83; O2SAT 98
[2022-08-18 07:32] VITALS: BP 134/93; PULSE 84; RESP 15; O2SAT 100
[2022-08-18 08:39] VITALS: BP 124/87; PULSE 81; RESP 14; TEMP 36.8; O2SAT 100
== END 2022-08-18 08:40 | disposition home or self-care (01) ==
PROVIDERS: Emergency Provider Emergency Medicine; PCP Internal Medicine
DX: S16.1XXA Strain of muscle, fascia and tendon at neck level, initial encounter (principal); M54.12 Radiculopathy, cervical region; E66.9 Obesity, unspecified; Z68.36 Body mass index [BMI] 36.0-36.9, adult; F17.210 Nicotine dependence, cigarettes, uncomplicated; W19.XXXA Unspecified fall, initial encounter
CPT/HCPCS: 72125; 73030; 96374; 99284; A9270; J1885

== ENCOUNTER 2023-04-26 15:27 | Emergency (ER) | payer OTHER, SELFPAY ==
--- NOTE | ~2023-04-26 | XR_ITS ---
XR_[id number] 04/26/2023 18:01 Indication: Left-sided neck pain Procedure: 4 view cervical spine Comparison: No prior studies for comparison. Findings: Straightening of cervical lordosis. Vertebral body heights are maintained. No significant d isc narrowing. No prevertebral soft tissue abnormality. Lung apices are normal. Odontoid process with in normal limits. Impression: 1: No acute abnormality of the cervical spine. Reviewed, dictated and finalized at location A. Impression: 1: No acute abnormality of the cervical spine.
[2023-04-26 15:55] VITALS: BP 143/80; PULSE 72; RESP 16; TEMP 36.4; O2SAT 100
--- NOTE | 2023-04-26 17:50 | ED.NECK ---
HPI - Neck Pain/Injury General Chief Complaint: Neck Pain/Injury Stated Complaint: left sided neck pain x4 days Time Seen by Provider: 04/26/23 17:11 Source: patient Mode of arrival: ambulatory Limitations: no limitations History of Present Illness HPI Narrative: This is a 37-year-old female that presents to the emergency department for left-sided neck pain. Ongoing over the last 4 days. No known injury or trauma. Reports the pain radiates from the left side of her neck into her shoulder. Her neck feels stiff. She has been taking anti-inflammatories with little relief. Denies fever, headache, numbness or weakness. Related Data Allergies Allergy/AdvReac Type Severity Reaction Status Date / Time Penicillins Allergy Intermediate Swelling Verified 04/26/23 15:27 Review of Systems Review of Systems: CONSTITUTIONAL: Denies fever SKIN: Denies rash MUSCULOSKELETAL: Reports joint pain, and myalgia. NEUROLOGIC: Denies headache, numbness, or weakness. All systems reviewed & are unremarkable except as noted in HPI and below PMFSH Past Medical History Medical History Obesity Patient denies significant medical history Family History Family History Father Diabetes mellitus Social History Social History Smoking packs per day: 0.5 Smoking cigarettes per day: 10.0 Smoking status: Current every day smoker Tobacco type: cigarettes Second hand tobacco smoke exposure: Yes Alcohol intake: current Substance use: never Substance use type: does not use Gender identity (if verbalized by the patient): Female Spiritual care concerns: No Exam Narrative: GENERAL: Well-appearing, well-nourished, and in no acute distress. HEAD: Normocephalic, atraumatic. EYES: EOMI. NECK: Supple. No adenopathy or masses. Tender to palpation of the left trapezius musculature CHEST: Clear to auscultation. No respiratory distress. No wheezes rales or rhonchi HEART: Regular rate and rhythm. No murmur heard. Normal peripheral pulses. EXTREMITIES: Normal range of motion. No edema. Strength equal in bilateral upper and lower extremities (5/5) SKIN: Warm, dry, no rash. NEURO: No focal deficits. Alert and oriented x3. PSYCH: Normal mood and affect 60 Course Course Emergency Course: Patient updated on work-up and agrees with plan of care. Resting comfortably Vital Signs Vital signs: Vital Signs Temperature 97.6 F 04/26/23 15:55 Pulse Rate 72 04/26/23 15:55 Respiratory Rate 16 04/26/23 15:55 Blood Pressure 143/80 H 04/26/23 15:55 Pulse Oximetry 100 04/26/23 15:55 Oxygen Delivery Room Air 04/26/23 15:55 Temperature 97.6 F 04/26/23 15:55 Pulse Rate 72 04/26/23 15:55 Respiratory Rate 16 04/26/23 15:55 Blood Pressure 143/80 H 04/26/23 15:55 Pulse Oximetry 100 04/26/23 15:55 Oxygen Delivery Room Air 04/26/23 15:55 MDM - Neck Pain/Injury MDM Narrative Medical decision making narrative: Patient presents to the emergency department for left-sided neck pain. No recent injury or trauma. Patient is neurologically intact. Cervical spine x-rays without acute abnormalities. Does show straightening of normal cervical lordosis consistent with muscle spasm. Patient given muscle relaxer, anti-inflammatory and Tylenol with improvement. Instructed on continued care. She is to follow-up with primary provider. She was given warnings to return to the ER Differential Diagnosis Differential diagnosis: Likely disc disorder of cervical region, cervical radiculopathy, cervical spondylosis and strain of neck muscle Imaging Data Radiologist's impression: ITS Impressions Cervical Spine X-Ray 04/26/23 18:07 Impression: 1: No acute abnormality of the cervical spine. Critical Care Time Critical Care
[2023-04-26] MEDS: ACETAMINOPHEN 500 MG TABLET 1000 MG PO (18:04)
[2023-04-26] MEDS: diazePAM INJ (*CRX) 10 MG/2 ML SYRINGE 5 MG IM (18:05)
[2023-04-26] MEDS: KETOROLAC 30 MG/ML VIAL (*BKC) IM (18:05)
== END 2023-04-26 19:12 | disposition home or self-care (01) ==
PROVIDERS: Emergency Provider Physician Assistant; PCP Internal Medicine
DX: M62.838 Other muscle spasm (principal); E66.9 Obesity, unspecified; F17.210 Nicotine dependence, cigarettes, uncomplicated
CPT/HCPCS: 72040; 96372; 99284; A9270; J1885; J3360

== ENCOUNTER 2023-08-13 07:18 | Emergency (ER) | payer OTHER, SELFPAY ==
[2023-08-13 07:38] VITALS: BP 127/67; PULSE 89; RESP 16; TEMP 36.6; O2SAT 99
--- NOTE | 2023-08-13 10:59 | PC.NURSE ---
called for to place in room. not found in lobby.
== END 2023-08-13 10:59 | disposition left against medical advice (07) ==
PROVIDERS: PCP Internal Medicine
DX: L02.92 Furuncle, unspecified (principal)
CPT/HCPCS: 99199

== ENCOUNTER 2024-09-25 19:05 | Observation (INO) | payer OTHER, SELFPAY ==
--- NOTE | 2024-09-25 19:05 | PC.NURSE ---
PT OF DR. GRAHAM PRESENTS VIA EMS WITH COMPLAINTS OF LOWER LEFT ABDOMINAL PAIN AND RIGHT ARM NUMBNESS FROM THE SHOULDER TO THE FINGERTIPS. PT STATED THAT THE NUMBNESS BEGAN AROUND 0945 WHILE SHE WAS ARGUING OVER THE PHONE WITH HER BOYFRIEND. EDC 12/31/2024, [place] 26.1. PT DENIES LOF OR VAGINAL BLEEDING. PT STATES SHE HASN'T FELT MOVEMENT SINCE LAST EVENING. PT THINKS HER FEET APPEAR MORE SWOLLEN THAN NORMAL. NO EDEMA NOTED TO LOWER EXTREMITIES. 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
--- OUTSIDE RECORDS SUMMARY | 2024-09-25 19:20 | XMS_ITS | Clinical Summary ---
Author Organization [facility] Address [address] [place] [id number] Care Team Providers Care Parts Data Writer Name Role Phone None, Provider Primary Care Provider Unavaila ble Allergies Active Allergy Reactions Criticality Noted Date Comments Codeine Swelling 07/20/2023 Medications No known medications Social History Tobacco Use Types Packs/Day Years Used Date Smoking Tobacco: Never Smokeless Tobacco: Never Tobacco Cessation:Counseling Given: Not Answered Alcohol Use Standard Drinks/Week Comments Not Currently 0 (1 standard drink = 0.6 oz pur e alcohol) Comments No Sex and Gender Information Value Date Recorded Sex Assigned at Not on file Legal Sex Female 11:21 PM CDT Gender Identity Not on file Sexual Orientation Not on file Last Filed Vital Signs Vital Sign Reading Time Taken Comments Blood Pressure 146/82 07/20/2023 6:49 PM SALES DEVELOPMENT DIRECTOR Pulse 98 07/20/2023 6:49 PM SALES DEVELOPMENT DIRECTOR Temperature 36.7 C (98 F) 07/20/2023 6:49 PM SALES DEVELOPMENT DIRECTOR Respiratory Rate 16 07/20/2023 6:49 PM SALES DEVELOPMENT DIRECTOR Oxygen Saturation 100% 07/20/2023 6:49 PM SALES DEVELOPMENT DIRECTOR Inhaled Oxygen Concentration - - Weight 90.7 kg (200 lb) 07/20/2023 6:49 PM SALES DEVELOPMENT DIRECTOR Height 167.6 cm (5' 6 ) 07/20/2023 6:49 PM SALES DEVELOPMENT DIRECTOR Body Mass Index 32.28 07/20/2023 6:49 PM SALES DEVELOPMENT DIRECTOR Plan of Treatment Health Maintenance Due Date Last Done Comments Cervical Cancer Screening Pa p Smear (Age 30 to 64) Every 3 Years 1986 Annual Physical 1989 Hepatitis C 2004 DTaP, Tdap and Td Vaccines ( 1 - Tdap) 2005 Hepatitis B Vaccines (1 of 3 - 19+ 3-dose series) 2005 Cervical Cancer Screening Pa p with HPV Testing (Age 30 to 64) Every 5 Years 2016 Cervical Cancer Screening with HPV 2016 COVID-19 Vaccine ( - 2023-2 5 season) 2024 HPV Vaccines Aged Out No longer eligi ble based on patient's age to complete this topic Meningococcal B Vaccine Aged Out No l onger eligible based on patient's age to complete this topic Meningococcal Vaccine Aged Out No aliyah thor eligible based on patient's age to complete this topic Pneumococcal Vaccine: Pediat rics (0 to 5 Years) and At-Risk Patients (6 to 64 Years) Aged Out No longer eligible b ased on patient's age to complete this topic RSV Immunizations Under 20 Months Aged Out No longer eligible based on patient's age to complete this topic Insurance [employer] Care Teams Parts Data Writer Relationship Specialty Start Date End Date None, Provider, MD PCP - General UNKNOWN PHYSICIAN SPECIALTY 07/20/23
[2024-09-25 19:21] VITALS: BP 134/78; PULSE 97
[2024-09-25 19:45] VITALS: BP 132/67; PULSE 101
--- NOTE | 2024-09-25 19:46 | PC.NURSE ---
DR. GRAHAM NOTIFIED OF PT ARRIVAL AND CURRENT PT STATUS. FHR DOPPLED. PT ABLE TO YOUTH COURT JUDGE AND SQUEEZE EQUALLY. DISCHARGE ORDERS RECEIVED.
[2024-09-25 20:00] VITALS: BMI 35.4
[2024-09-25 20:01] VITALS: BP 137/78; PULSE 99
--- NOTE | 2024-09-25 20:04 | OBADM ---
This patient, Nancy Trevino, admitted to the OB room OB Post 117 for observation. Patient/family oriented to hospital policies and general routines including ID bracelet, bed and alarms, visiting hours, pain management, procedures, bathroom and other care routines, personal items, smoking policy, room service/diet, and visiting hours. Patient/Family are encouraged to report perceived risks to care and to ask questions if they do not understand what they are told or what they should do.
--- NOTE | 2024-09-25 20:15 | PC.NURSE ---
PT GIVEN OB DISCHARGE INSTRUCTIONS. PT DENIES QUESTIONS OR CONCERNS AND VERBALIZES UNDERSTANDING. PT TAKEN TO THE ER FOR FURTHER EVALUATION OF HER ARM NUMBNESS.
--- NOTE | 2024-10-21 09:15 | PM.OBTRLD ---
OB - Triage/Final Diagnosis Visit Information Comments/Additional reasons for admission: I have assessed the risk for this patient, Nancy Trevino, and determined that she would benefit from observation care. Final Diagnosis (1) Abdominal pain: Qualifiers: Abdominal location: generalized Qualified Code(s): R10.84 - Generalized abdominal pain Code(s): R10.9 - Unspecified abdominal pain Status: Acute
== END 2024-09-25 20:15 | disposition home or self-care (01) ==
PROVIDERS: Admitting Provider Obstetrics & Gynecology; PCP Internal Medicine; Visit Provider Obstetrics & Gynecology
DX: O26.892 Other specified pregnancy related conditions, second trimester (principal); R10.84 Generalized abdominal pain; Z3A.26 26 weeks gestation of pregnancy
CPT/HCPCS: G0378; G0379

== ENCOUNTER 2024-09-25 20:14 | Emergency (ER) | payer OTHER, SELFPAY ==
--- NOTE | ~2024-09-25 | XR_ITS ---
HISTORY: R shoulder pain 5 MONTHS (SHIELDED) COMPARISON: None TECHNIQUE: 2 views of the right shoulder were performed FINDINGS: No acute fracture. The glenohumeral and acromioclavicular joint space is maintained The visualized portion of the adjacent right lung is clear. The humeral head is well seated within the glenoid fossa. IMPRESSION: No acute fracture or anterior dislocation is identified. Reviewed, dictated and finalized at location A.
--- OUTSIDE RECORDS SUMMARY | 2024-09-25 20:16 | XMS_ITS | Clinical Summary ---
Author Organization [facility] Address [facility] [place] [address] Care Team Providers Care Seaming Machine Operator Name Role Phone Khanh Blackwood MD Primary Care Provider [phone] Allergies Active Allergy Reactions Criticality Noted Date Comments Codeine Hives Medium 01/18/2018 Penicillins Angioedema High 01/07/2022 Medications ondansetron (ZOFRAN) 4 mg tablet Take 1 tablet (4 mg total) by mouth daily as needed for nausea 30 tablet 4 Active polyethylene glycol (Miralax) 17 gram/dose bulk powder Take 17 g by mouth daily Mix 1 scoop (17g) in 8oz of water and drink daily. 255 g 4 Active PNV with [id number] 27 mg iron- 1 mg tablet Take 1 tablet by mouth daily 30 tablet 4 Active lidocaine (LIDODERM) 5 % Place 1 patch on the skin once for 1 dose Remove & discard patch within 12 hours or as directed by . 9 patch 1 5 Active acetaminophen (TYLENOL) 500 mg tablet Take 2 tablets (1,000 mg total) by mouth every 6 (six) hours as needed for pain 30 tablet 1 5 Active PNV with [id number]-SD 27 mg iron- 1 mg tablet Take 1 tablet by mouth daily 30 tablet 1 5 Active ketorolac (TORADOL) 10 mg tablet Take 1 tablet (10 mg total) by mouth every 6 (six) hours as needed for pain 20 tablet 2 09/03/19 25 Discontinu ed(Stop Taking at Discharge) lidocaine (LIDODERM) 5 % Place 1 patch on the skin daily Remove & discard patch within 12 hours or as directed by . 30 patch 2 09/03/19 25 Discontinu ed(Stop Taking at Discharge) cyclobenzaprine (FLEXERIL) 10 mg tablet Take 1 tablet (10 mg total) by mouth 2 (two) times a day as needed for muscle spasms 20 tablet 2 09/03/19 25 Discontinu ed(Stop Taking at Discharge) lidocaine (LIDODERM) 5 % Place 1 patch on the skin daily Remove & discard patch within 12 hours or as directed by MD. 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 Estimated Date of Delivery Comme nts Yes 12/19/2024 Based on Ultraso und Encounters Date Type Department Care Team Description 09/02/2024 6:16 PM CDT - 09/02/2024 9:00 PM CDT Hospital Encounter [address] [address] Sherly Amin MD Discharge Disposition: Discharge to home or self care 09/02/2024 4:58 PM CDT - 09/02/2024 6:16 PM CDT Emergency [facility] Emergency Department [address] [place] [id number] Abdominal pain (Primary Dx); Chest pain, unspecified type; 21 weeks gestation of Discharge Disposition: Discharge to home or self care 07/11/2024 11:50 PM PROFESSOR OF MUSICOLOGY - 07/12/2024 6:50 AM [facility] Emergency [facility] Emergency Department [address] [place] [phone] Eric Arevalo MD Abdominal pain (Primary Dx); , unspecified gestational age Discharge Disposition: Discharge to home or self care from Last 3 Months Surgical History Surgery Date Site/Laterality Comments OTHER SURGICAL HISTORY Exc left axillary abscess 2008 Family History Medical History Relation Name Comments Diabetes Father Diabetes mellit us; Hypertension Father Hypertension; Breast cancer Paternal Grandmother Cancer , breast; Diabetes Paternal Grandmother Diabete s mellitus; Heart disease Paternal Grandmother Heart disease; Hypertension Paternal Grandmother Hyperte nsion; Relation Name Status Comments Father Paternal Grandmother Social History Tobacco Use Types Packs/Day Years Used Date Smoking Tobacco: Never Smokeless Tobacco: Never Tobacco Cessation:Counseling Given: Not Answered Alcohol Use Standard Drinks/Week Comments No 0 (1 standard drink = 0.6 oz pur e alcohol) Personal Safety Answer Date Recorded Have you ever been in or are you currently in a harmful physical or emotional relationship or is someone making you feel afraid or unsafe? Denies 09/02/2024 Estimated Date of Delivery Comme nts Yes 12/19/2024 Based on Ultraso und Sex and Gender Information Value Date Recorded Sex Assigned at Not on file Legal Sex Female 9:33 PM PROFESSOR OF MUSICOLOGY Gender Identity Not on file Sexual Orientation Not on file Obstetrics History Para Term AB IAB SAB Ectopic Multiple Livin g Live Births 2 1 1 1 1 Date Outcome GA Total Labor Labor/2nd/3rd Weight Sex Type Anes PTL Vilma A1 A5 Name Clin 2016 Term CS-Un spec Living Current Summary Episode Dates Number of Fetuses Estimated Date of Delivery 09/02/2024 - Present (09/25/2024) 12/19/2024 (set by Lorena Scales RN on 09/02/2024 based on Ultrasound on 09/02/2024) Dating Summary Based On JAIR GA Diff Last Menstrual Period on 04/04/2024 (Exact Date) 01/09/2025 -3w0d Ultrasound on 09/02/2024 12/19/2024 Working GA:24w4d Vitals Date GA Fund Present FHR Mvmt BP Weight Edema Alb Glu Ket Dil/ Eff/Sta 24w4d Inpatient data not displayed here. See encounter summary. Last Filed Vital Signs Vital Sign Reading Time Taken Comments Blood Pressure 116/63 09/02/2024 6:17 PM CDT Pulse 91 09/02/2024 6:17 PM CDT Temperature 36.7 C (98.1 F) 09/02/2024 6:17 PM CDT Respiratory Rate 18 09/02/2024 6:17 PM CDT Oxygen Saturation 100% 09/02/2024 6:17 PM CDT Inhaled Oxygen Concentration - - Weight 104.3 kg (230 lb) 09/02/2024 4:20 PM CDT Height 168.9 cm (5' 6.5 ) 09/02/2024 4:20 PM CDT Body Mass Index 36.57 09/02/2024 4:20 PM CDT Plan of Treatment Upcoming Encounters Date Type Department Care Team (Late st Contact Info) Description 12/19/2024 Hospital Encounter [facility] [address] [place] [address] Sherly Amin MD [address] [place] [address] Health Maintenance Due Date Last Done Comments Cervical Cancer Screening 1986 Depression Screening 1986 Hepatitis C Screening 1986 Varicella Vaccines (1 of 2 - 13+ 2-dose series) 11/26/1999 Regular Well Visit/Exam 18-64 2004 Covid-19 Vaccine ( season) 2024 04/19/2021, 08/26/2020, 08/05/2020 Influenza Vaccine (#1) 2024 04/06/2021 DTaP/Tdap/Td Vaccine (7 - Td or Tdap) 01/14/2026 01/15/2016, 10/04/1997, 01/09/1991, Additional history exists Hepatitis B Screening Completed 01/27/1997 , 09/16/1996, 07/14/1996 HPV Vaccines Aged Out No longer eligi ble based on patient's age to complete this topic Pneumococcal vaccine <65 Aged Out No longer eligible based on patient's age to complete this topic Procedures Procedure Name Priority Date/Time Associated Diagnosis Comments URINALYSIS AND REFLEX TO MICROSCOPIC STAT 09/02/2024 5:48 PM CDT POCT HCG, URINE Routine 09/02/2024 5:47 PM CDT EGFR STAT 09/02/2024 4:28 PM CDT DIFFERENTIAL AUTO STAT 09/02/2024 4:2 8 PM CDT TYPE AND SCREEN STAT 09/02/2024 4:28 PM CDT HCG, BLOOD, QUANTITATIVE STAT 09/02/2024 4:28 PM CDT LIPASE STAT 09/02/2024 4:28 PM CDT COMPREHENSIVE METABOLIC PANEL STAT 09/02/2024 4:28 PM CDT CBC WITH AUTO DIFFERENTIAL STAT 09/02/2024 4:28 PM CDT ECG 12-LEAD STAT 09/02/2024 3:52 PM CDT ECG 12-LEAD STAT 07/12/2024 7:52 AM PROFESSOR OF MUSICOLOGY POCT GLUCOSE DEVICE Routine 07/12/2024 3 :15 AM PROFESSOR OF MUSICOLOGY URINALYSIS, MICROSCOPIC ONLY STAT 07/12/2024 3:09 AM PROFESSOR OF MUSICOLOGY URINALYSIS AND REFLEX TO MICROSCOPIC AND CULTURE STAT 07/12/2024 3:09 AM PROFESSOR OF MUSICOLOGY B CHECK SAMPLE STAT 07/12/2024 1:52 AM PROFESSOR OF MUSICOLOGY TROPONIN I HIGH-SENSITIVITY 2-HOUR Timed 07/12/2024 1:52 AM PROFESSOR OF MUSICOLOGY POCUS FEMALE TAB PELVIC, NON- 07/12/2024 12:22 AM PROFESSOR OF MUSICOLOGY TROPONIN I HIGH-SENSITIVITY SERIES (BASELINE, 2HR, 4HR, 6HR) STAT 07/12/2024 12:12 AM PROFESSOR OF MUSICOLOGY EGFR STAT 07/12/2024 12:10 AM PROFESSOR OF MUSICOLOGY DIFFERENTIAL AUTO STAT 07/12/2024 12: 10 AM PROFESSOR OF MUSICOLOGY TYPE AND SCREEN STAT 07/12/2024 12:10 AM PROFESSOR OF MUSICOLOGY HCG, BLOOD, QUANTITATIVE STAT 07/12/2024 12:10 AM PROFESSOR OF MUSICOLOGY LIPASE STAT 07/12/2024 12:10 AM PROFESSOR OF MUSICOLOGY COMPREHENSIVE METABOLIC PANEL STAT 07/12/2024 12:10 AM PROFESSOR OF MUSICOLOGY CBC WITH AUTO DIFFERENTIAL STAT 07/12/2024 12:10 AM PROFESSOR OF MUSICOLOGY POCT GLUCOSE DEVICE Routine 07/11/2024 1 1:47 PM PROFESSOR OF MUSICOLOGY from Last 3 Months Results * (ABNORMAL) Urinalysis reflex to microscopic (09/02/2024 5:48 PM CDT) Color, ur Straw Yellow Clarity, ur Clear Clear [facility] Specific gravity, ur 1.027 1.003 - 1.030 [facility] pH, urine 6.5 [facility] Comment: Interpretive Data U rine pH is affected by diet, medications, systemic acid-base disturbances, and renal tubular function. pH may affect urinary stone formation. For example, urine pH below 6.0 may help reduce the tendency for calcium phosphate stones and pH greater than 6.0 may reduce the tendency for uric acid stone formation. Source: [facility] [employer] Current Interpretive Data was last revised on 2017 Protein, ur ql Trace Negative [facility] Glucose, ur ql Negative Negative [facility] Ketones, ur 1+(A) Negative [facility] Bilirubin, ur Negative Negative [facility] Blood, ur Negative Negative [facility] Urobilinogen, ur <2.0 <2.0 mg/dL [facility] Nitrite, ur Negative Negative [facility] Leukocyte esterase, ur Negative Negative [facility] UA reflex comment Reflex conditions for microscopic UA not met. [facility] Urine 09/02/2024 5:48 PM CDT 09/02/2024 5:53 PM CDT us Nicolle Abbasi MD LAB URINE ORDERABLES Jenni sauceda Result [facility] Department [place] [address] * (ABNORMAL) POCT hCG, urine (09/02/2024 5:47 PM CDT) HCG, ur, POC Positive(A) Negative Lot Number [id number] QC Backgroud Clear Acceptable QC Control Line Acceptable Urine 09/02/2024 5:47 PM CDT Nicolle Abbasi MD POINT OF CARE TEST ORDERA BLES Final Result * eGFR (09/02/2024 4:28 PM CDT) Pathologist [facility] eGFR >90 >=60 mL/min/1. 73 m2 Comment: Interpretive Data Reference Interval Normal >/= 90 mL/min/1.73m2 Mildly decreased* 60 - 89 mL/min/1.73m2 Mildly to moderately decreased 45 - 59 mL/min/1.73m2 Moderately to severely decreased 30 - 44 mL/min/1.73m2 Severely decreased 15 - 29 mL/min/1.73m2 Kidney Failure < 15 mL/min/1.73m2 *Relative to young adult level Estimated glomerular filtration rate is determined by the 2020 CKD-EPI equation recommended by the National Kidney Foundation (A Unifying Approach to GFR Estimation: Recommendations of the NKF-ASK Task Force on Reassessing the Inclusion of Race in Diagnosing Kidney Disease, JASN 2020). The CKD-EPI equation should not be used for patients with unstable renal function and has not been validated in children and those over 70. Current interpretive data was last reviewed 2021. Blood 09/02/2024 4:28 PM CDT 09/02/2024 4:38 PM CDT Nicolle Abbasi MD LAB BLOOD ORDERABLES Jenni l Result ESTHELA [facility] [place] [address] * Differential, auto (09/02/2024 4:28 PM CDT) Pathologist [facility] Neutrophil abs 5.3 1.5 - 6.5 K/cumm Imm gran abs 0.0 0.0 - 0.1 K/cumm [facility] Lymphocyte abs 2.6 0.8 - 3.3 K/cumm [facility] Monocyte abs 0.5 0.2 - 0.8 K/cumm [facility] Eosinophil abs 0.1 0.0 - 0.5 K/cumm [facility] Basophil abs 0.0 0.0 - 0.1 K/cumm [facility] Neutrophil pct 61.9 % [facility] Comment: Interpretive Data Percent cell count reference ranges are not reported, since discordance with absolute values may lead to misinterpretation of CBC data. Current Interpretive Data was last revised on 2017. Imm gran pct 0.5 % [facility] Comment: Interpretive Data Percent cell count reference ranges are not reported, since discordance with absolute values may lead to misinterpretation of CBC data. Current Interpretive Data was last revised on 2017. Lymphocyte pct 30.6 % [facility] Comment: Interpretive Data Percent cell count reference ranges are not reported, since discordance with absolute values may lead to misinterpretation of CBC data. Current Interpretive Data was last revised on 2017. Monocyte pct 6.2 % [facility] Comment: Interpretive Data Percent cell count reference ranges are not reported, since discordance with absolute values may lead to misinterpretation of CBC data. Current Interpretive Data was last revised on 2017. Eosinophil pct 0.7 % [facility] Comment: Interpretive Data Percent cell count reference ranges are not reported, since discordance with absolute values may lead to misinterpretation of CBC data. Current Interpretive Data was last revised on 2017. Basophil pct 0.1 % [facility] Comment: Interpretive Data Percent cell count reference ranges are not reported, since discordance with absolute values may lead to misinterpretation of CBC data. Current Interpretive Data was last revised on 2017. Blood 09/02/2024 4:28 PM CDT 09/02/2024 4:38 PM CDT us Nicolle Abbasi MD LAB BLOOD ORDERABLES Jenni sauceda Result [facility] Department [place] [address] * (ABNORMAL) CBC with auto differential (09/02/2024 4:28 PM CDT) [facility] WBC 8.5 3.8 - 9.9 K/cumm Hgb 10.9(L) 11.9 - 15.5 g/dL [facility] Hct 32.8(L) 35.6 - 45.5 % [facility] Plt 187 150 - 400 K/cumm [facility] MPV 10.8 9.1 - 12.3 fL [facility] RBC 3.89(L) 3.90 - 5.20 M/cumm [facility] MCV 84.3 81.3 - 96.4 fL [facility] MCH 28.0 27.1 - 33.3 pg [facility] MCHC 33.2 32.3 - 35.7 g/dL [facility] RDW CV 17.0(H) 11.1 - 14.9 % [facility] RDW SD 51.8(H) 35.7 - 48.1 fL [facility] NRBC abs 0.00 0.00 - 0.01 K/cumm [facility] Blood Venous blood specimen / Unknown 09/02/2024 4:28 PM CDT 09/02/2024 4:38 PM CDT Nicolle Abbasi MD LAB BLOOD ORDERABLES Jenni l Result [facility] Department [place] [address] * Type and screen (09/02/2024 4:28 PM CDT) [facility] Maye, indirect Negative ABO Rh O Negative [facility] Blood 09/02/2024 4:28 PM CDT 09/02/2024 5:11 PM CDT Narrative [facility] - 09/02/2024 6:02 PM CDT Has the patient had Daratumumab or Isatuximab in the past 6 months?->Unknown Nicolle Abbasi MD LAB BLOOD BANK TEST ORDER RICO Final Result Performing Organization Address City/[facility] Co de Phone Number ESTHELA [facility] Department [place] [employer] [place] [address] * (ABNORMAL) hCG, blood, quantitative (09/02/2024 4:28 PM CDT) Pathologist [facility] hCG, quant 22,893.0( H) 0.0 - 5.0 IUnits/L Comment: Interpretive Data Male: < 5 IU/L Non- premenopausal Female: <5 IU/L The Jerry hCG Beta Quant assay procedure was used. Results from different manufacturers or methods may not be comparable. Serial testing should be performed using the same method. Interpretive Data was last revised on 2023 Blood 09/02/2024 4:28 PM CDT 09/02/2024 4:38 PM CDT Nicolle Abbasi MD LAB BLOOD ORDERABLES Jenni l Result Performing Organization Address [facility] Co de Phone Number [facility] Department [place] [employer] [place] [address] * (ABNORMAL) Lipase (09/02/2024 4:28 PM CDT) Pathologist [facility] Lipase 7(L) 10 - 99 Units/L Blood Venous blood specimen / Unknown 09/02/2024 4:28 PM CDT 09/02/2024 4:38 PM CDT Nicolle Abbasi MD LAB BLOOD ORDERABLES Jenni l Result Performing Organization Address City/[facility]/ZIP Co de Phone Number [facility] [place] [address] * Comprehensive metabolic panel (09/02/2024 4:28 PM CDT) Pathologist [facility] Sodium 136 135 - 145 mmol/L Potassium, pl 4.0 3.3 - 4.9 mmol/L [facility] Chloride 105 97 - 110 mmol/L [facility] CO2 24 22 - 32 mmol/L [facility] Anion gap 7 2 - 15 mmol/L [facility] BUN 6 6 - 25 mg/dL [facility] Creatinine 0.68 0.60 - 1.10 mg/dL [facility] Glucose 77 70 - 199 mg/dL [facility] Comment: Interpretive Data Fasting glucose >/= 126 mg/dl is diagnostic for diabetes. Fasting is defined as no caloric intake for at least 8 hours. Fasting glucose between 100 mg/dl to 125 mg/dl is diagnostic of prediabetes. In a patient with classic symptoms of hyperglycemia or hyperglycemic crisis, a random glucose >/= 200 mg/dl is diagnostic for diabetes. In the absence of unequivocal hyperglycemia, results should be confirmed by repeat testing. The classification and Diagnosis of Diabetes Diabetes Care 2021; 46: S19-S40. Current interpretive data was last revised 2022. Calcium 8.9 8.5 - 10.3 mg/dL [facility] Bilirubin, total 0.3 0.1 - 1.2 mg/dL [facility] Protein, pl 7.0 6.5 - 8.5 g/dL [facility] Albumin 3.6 3.5 - 5.0 g/dL [facility] Alk phos 70 40 - 130 Units/L [facility] ALT 25 7 - 45 Units/L [facility] AST 27 10 - 45 Units/L [facility] Blood 09/02/2024 4:28 PM CDT 09/02/2024 4:38 PM CDT us Nicolle Abbasi MD LAB BLOOD ORDERABLES Jenni l Result [facility] Department [place] [address] * ECG 12-LEAD (09/02/2024 3:52 PM CDT) Narrative [facility] - 09/02/2024 3:52 PM CDT Saloni Becerra MD 09/02/2024 3:53 PM ECG 12 lead Date/Time: 09/02/2024 3:52 PM Performed by: Saloni Becerra MD Authorized by: Nicolle Abbasi MD Rate: ECG rate: 87 ECG rate assessment: normal Rhythm: Rhythm: sinus rhythm QRS: QRS axis: Normal QRS intervals: Normal Conduction: Conduction: normal ST segments: ST segments: Normal T waves: T waves: normal Other findings: Other findings: LVH Previous ECG: Previous ECG: Compared to current Date of previous EC07/12/2024 Similarity: No change Interpretation: Interpretation: No significant change Recommended Follow-up: Recommended follow up: further workup in the ED Procedure Note Saloni Becerra MD - 09/02/2024 3:52 PM CDT Procedure ECG 12 lead Date/Time: 09/02/2024 3:52 PM Performed by: Saloni Becerra MD Authorized by: Nicolle Abbasi MD Rate: ECG rate: 87 ECG rate assessment: normal Rhythm: Rhythm: sinus rhythm QRS: QRS axis: Normal QRS intervals: Normal Conduction: Conduction: normal ST segments: ST segments: Normal T waves: T waves: normal Other findings: Other findings: LVH Previous ECG: Previous ECG: Compared to current Date of previous EC07/12/2024 Similarity: No change Interpretation: Interpretation: No significant change Recommended Follow-up: Recommended follow up: further workup in the ED Saloni Becerra MD 09/02/24 [id number] Nicolle Abbasi MD ECG ORDERABLES Final Res ult [facility] * ECG 12-LEAD (07/12/2024 7:52 AM PROFESSOR OF MUSICOLOGY) Narrative [facility] - 07/12/2024 7:52 AM PROFESSOR OF MUSICOLOGY Eric Arevalo MD 07/12/2024 7:52 AM ECG 12 lead Date/Time: 07/12/2024 7:52 AM Performed by: Eric Arevalo MD Authorized by: Lorena Salazar MD Rate: ECG rate assessment comment: 84, nsr, normal axis normal intervals, borderline LVh, otherwise normal intervals Procedure Note Eric Arevalo MD - 07/12/2024 6:50 AM CST Procedure ECG 12 lead Date/Time: 07/12/2024 7:52 AM Performed by: Eric Arevalo MD Authorized by: Lorena Salazar MD Rate: ECG rate assessment comment: 84, nsr, normal axis normal intervals,borderline LVh, otherwise normal intervals Eric Arevalo MD 07/12/24 0752 us Lorena Salazar MD ECG ORDERABLES Final Resu lt [facility] * POCT glucose (07/12/2024 3:15 AM PROFESSOR OF MUSICOLOGY) Glucose, POC 86 70 - 199 mg/dL Blood 07/12/2024 3:15 AM PROFESSOR OF MUSICOLOGY 07/12/2024 3:15 AM PROFESSOR OF MUSICOLOGY us Eric Arevalo MD LAB POCT ORDERABLES - DEVICE Final Result [facility] Department [place] [address] * (ABNORMAL) Urinalysis reflex to microscopic and culture Urine (07/12/2024 3:09 AM PROFESSOR OF MUSICOLOGY) Color, ur Yellow Yellow Clarity, ur Clear Clear [facility] Specific gravity, ur 1.037(H) 1.003 - 1.030 [facility] pH, urine 6.0 [facility] Comment: Interpretive Data U rine pH is affected by diet, medications, systemic acid-base disturbances, and renal tubular function. pH may affect urinary stone formation. For example, urine pH below 6.0 may help reduce the tendency for calcium phosphate stones and pH greater than 6.0 may reduce the tendency for uric acid stone formation. Source: [facility] [employer] Current Interpretive Data was last revised on 2017 Protein, ur ql 1+(A) Negative [facility] Glucose, ur ql Negative Negative [facility] Ketones, ur 2+(A) Negative [facility] Bilirubin, ur Negative Negative [facility] Blood, ur Negative Negative [facility] Urobilinogen, ur <2.0 <2.0 mg/dL [facility] Nitrite, ur Negative Negative [facility] Leukocyte esterase, ur Negative Negative [facility] UA reflex comment Reflex to microscopic UA will be performed. [facility] Urine 07/12/2024 3:09 AM PROFESSOR OF MUSICOLOGY 07/12/2024 5:17 AM PROFESSOR OF MUSICOLOGY Lorena Salazar MD LAB MICROBIOLOGY - GENERAL ORDERABLES Final Result Performing Organization Address [facility] Co de Phone Number [facility] Department [place] [address] * (ABNORMAL) Urinalysis, microscopic only (07/12/2024 3:09 AM PROFESSOR OF MUSICOLOGY) WBC, ur 0-5 0 - 5 /HPF RBC, ur 11-20(A) 0 - 2 /HPF [facility] Epithelial cells, squamous, ur 1-5 0 - 5 /HPF [facility] Mucous, ur Present(A) [facility] Calcium oxalate crystals, ur 3+(A) [facility] Culture Reflex Comment Reflex conditions for urine culture (WBC >10) not met. [facility] Urine 07/12/2024 3:09 AM PROFESSOR OF MUSICOLOGY 07/12/2024 5:17 AM PROFESSOR OF MUSICOLOGY Lorena Salazar MD LAB URINE ORDERABLES Final Result Performing Organization Address City/[facility]/ZIP Co de Phone Number [facility] Department [place] [address] * Troponin I high-sensitivity 2-hour (07/12/2024 1:52 AM PROFESSOR OF MUSICOLOGY) Trop I hs <4 <=17 ng/L Comment: Interpretive Data For further hscTnI resources including the diagnostic algorithm and an aid in interpretation, copy and paste this link: [email or web address].[email or web address]/show/[email or web address] Current Interpretive Data last revised 2020. Trop I hs delta 0 ng/L [facility] Trop I hs interp Insignificant [facility] Blood 07/12/2024 1:52 AM PROFESSOR OF MUSICOLOGY 07/12/2024 1:59 AM PROFESSOR OF MUSICOLOGY Lorena Salazar MD LAB BLOOD ORDERABLES Final Result Performing Organization Address [facility] de Phone Number [facility] Department [place] [address] * Check Sample (07/12/2024 1:52 AM PROFESSOR OF MUSICOLOGY) ABO Rh O Negative [facility] HCLL OTHER 07/12/2024 1:52 AM PROFESSOR OF MUSICOLOGY 07/12/2024 2:06 AM PROFESSOR OF MUSICOLOGY us Hernando Little MD LAB BLOOD ORDERABLES Final R esult Performing Organization Address [facility] de Phone Number [facility] Department [place] [address] [facility] * POCUS Female TAB Pelvic, Non- (07/12/2024 12:22 AM PROFESSOR OF MUSICOLOGY) Anatomical Region Laterality Modality Other 07/12/2024 12:0 9 AM PROFESSOR OF MUSICOLOGY Narrative 07/21/2024 4:37 PM PROFESSOR OF MUSICOLOGY Performed by: Lorena Salazar Transabdominal: Exam Information: Exam type: Diagnostic Indication(s) for Exam: by history, Abdominal/pelvic pain Findings: IUP: Present Intrauterine findings: heart rate heart rate =: 169 Pelvic free fluid: Absent Interpretation: Live IUP Electronically signed by Lorena Salazar on Friday, July 12, 2024 at 7:06 AM I have reviewed the images & the resident's interpretation. I agree with the findings. Electronically signed by John Arevalo on Sunday, July 21, 2024 at 4:37 PM I have reviewed the images & the resident's interpretation. I agree with the findings. Procedure Note Eric Arevalo MD - 07/21/2024 Performed by: Lorena Salzaar Transabdominal: Exam Information: Exam type: Diagnostic Indication(s) for Exam: by history, Abdominal/pelvic pain Findings: IUP: Present Intrauterine findings: heart rate heart rate =: 169 Pelvic free fluid: Absent Interpretation: Live IUP Electronically signed by Lorena Salazar on Friday, July 12, 2024 at7:06 AM I have reviewed the images & the resident's interpretation. I agree withthe findings. Electronically signed by John Arevalo on Sunday, July 21, 2024 at 4:37PM I have reviewed the images & the resident's interpretation. I agree withthe findings. us Eric Arevalo MD POCUS ORDERABLES Final Result * Troponin I high-sensitivity series (baseline, 2hr, 4hr, 6hr) (07/12/2024 12:12 AM PROFESSOR OF MUSICOLOGY) Trop I hs <4 <=17 ng/L Comment: Interpretive Data For further hscTnI resources including the diagnostic algorithm and an aid in interpretation, copy and paste this link: https://bjhlab.testcatalog.org/show/[email or web address]-[email or web address] Current Interpretive Data last revised 2020. Blood 07/12/2024 12:1 2 AM PROFESSOR OF MUSICOLOGY 07/12/2024 12:23 AM PROFESSOR OF MUSICOLOGY us Lorena Salazar MD LAB BLOOD ORDERABLES Final Result [facility] Department [place] [address] * eGFR (07/12/2024 12:10 AM PROFESSOR OF MUSICOLOGY) eGFR >90 >=60 mL/min/1. 73 m2 Comment: Interpretive Data Reference Interval Normal >/= 90 mL/min/1.73m2 Mildly decreased* 60 - 89 mL/min/1.73m2 Mildly to moderately decreased 45 - 59 mL/min/1.73m2 Moderately to severely decreased 30 - 44 mL/min/1.73m2 Severely decreased 15 - 29 mL/min/1.73m2 Kidney Failure < 15 mL/min/1.73m2 *Relative to young adult level Estimated glomerular filtration rate is determined by the 2020 CKD-EPI equation recommended by the National Kidney Foundation (A Unifying Approach to GFR Estimation: Recommendations of the NKF-ASK Task Force on Reassessing the Inclusion of Race in Diagnosing Kidney Disease, JASN 2020). The CKD-EPI equation should not be used for patients with unstable renal function and has not been validated in children and those over 70. Current interpretive data was last reviewed 2021. Blood 07/12/2024 12:1 0 AM PROFESSOR OF MUSICOLOGY 07/12/2024 12:22 AM PROFESSOR OF MUSICOLOGY us Hernando Little MD LAB BLOOD ORDERABLES Final R esult [facility] Department [place] [address] * Differential, auto (07/12/2024 12:10 AM PROFESSOR OF MUSICOLOGY) Neutrophil abs 5.7 1.5 - 6.5 K/cumm Imm gran abs 0.1 0.0 - 0.1 K/cumm [facility] Lymphocyte abs 2.7 0.8 - 3.3 K/cumm [facility] Monocyte abs 0.8 0.2 - 0.8 K/cumm [facility] Eosinophil abs 0.1 0.0 - 0.5 K/cumm [facility] Basophil abs 0.0 0.0 - 0.1 K/cumm [facility] Neutrophil pct 61.2 % [facility] Comment: Interpretive Data Percent cell count reference ranges are not reported, since discordance with absolute values may lead to misinterpretation of CBC data. Current Interpretive Data was last revised on 2017. Imm gran pct 0.8 % [facility] Comment: Interpretive Data Percent cell count reference ranges are not reported, since discordance with absolute values may lead to misinterpretation of CBC data. Current Interpretive Data was last revised on 2017. Lymphocyte pct 28.9 % [facility] Comment: Interpretive Data Percent cell count reference ranges are not reported, since discordance with absolute values may lead to misinterpretation of CBC data. Current Interpretive Data was last revised on 2017. Monocyte pct 8.1 % [facility] Comment: Interpretive Data Percent cell count reference ranges are not reported, since discordance with absolute values may lead to misinterpretation of CBC data. Current Interpretive Data was last revised on 2017. Eosinophil pct 0.8 % [facility] Comment: Interpretive Data Percent cell count reference ranges are not reported, since discordance with absolute values may lead to misinterpretation of CBC data. Current Interpretive Data was last revised on 2017. Basophil pct 0.2 % [facility] Comment: Interpretive Data Percent cell count reference ranges are not reported, since discordance with absolute values may lead to misinterpretation of CBC data. Current Interpretive Data was last revised on 2017. Blood 07/12/2024 12:1 0 AM PROFESSOR OF MUSICOLOGY 07/12/2024 12:23 AM PROFESSOR OF MUSICOLOGY us Eric Arevalo MD LAB BLOOD ORDERABLES Final Re sult [facility] Department [place] [address] * (ABNORMAL) CBC with auto differential (07/12/2024 12:10 AM PROFESSOR OF MUSICOLOGY) WBC 9.3 3.8 - 9.9 K/cumm Hgb 11.3(L) 11.9 - 15.5 g/dL [facility] Hct 35.1(L) 35.6 - 45.5 % [facility] Plt 220 150 - 400 K/cumm [facility] MPV 10.6 9.1 - 12.3 fL [facility] RBC 4.42 3.90 - 5.20 M/cumm [facility] MCV 79.4(L) 81.3 - 96.4 fL [facility] MCH 25.6(L) 27.1 - 33.3 pg [facility] MCHC 32.2(L) 32.3 - 35.7 g/dL [facility] RDW CV 16.0(H) 11.1 - 14.9 % [facility] RDW SD 46.3 35.7 - 48.1 fL [facility] NRBC abs 0.00 0.00 - 0.01 K/cumm [facility] Blood Venous blood specimen / Unknown 07/12/2024 12:10 AM PROFESSOR OF MUSICOLOGY 07/12/2024 12:23 AM PROFESSOR OF MUSICOLOGY Eric Arevalo MD LAB BLOOD ORDERABLES Final Re sult Performing Organization Address City/[facility]/ZIP Co de Phone Number [facility] Department [place] [address] * Type and screen (07/12/2024 12:10 AM PROFESSOR OF MUSICOLOGY) Maye, indirect Negative ABO Rh O Negative [facility] Blood 07/12/2024 12:1 0 AM PROFESSOR OF MUSICOLOGY 07/12/2024 12:23 AM PROFESSOR OF MUSICOLOGY Narrative [facility] - 07/12/2024 1:13 AM PROFESSOR OF MUSICOLOGY Has the patient had Daratumumab or Isatuximab in the past 6 months?->Unknown Eric Arevalo MD LAB BLOOD BANK TEST ORDERABLE S Final Result Performing Organization Address City/[facility]/ZIP Co de Phone Number [facility] Department [place] [address] * (ABNORMAL) hCG, blood, quantitative (07/12/2024 12:10 AM PROFESSOR OF MUSICOLOGY) hCG, quant 41,075.0( H) 0.0 - 5.0 IUnits/L Comment: Interpretive Data Male: < 5 IU/L Non- premenopausal Female: <5 IU/L The Jerry hCG Beta Quant assay procedure was used. Results from different manufacturers or methods may not be comparable. Serial testing should be performed using the same method. Interpretive Data was last revised on 2023 Blood 07/12/2024 12:1 0 AM PROFESSOR OF MUSICOLOGY 07/12/2024 12:22 AM PROFESSOR OF MUSICOLOGY us Eric Arevalo MD LAB BLOOD ORDERABLES Final Re sult Performing Organization Address City/[facility]/ZIP Co de Phone Number [facility] [place] [address] * (ABNORMAL) Lipase (07/12/2024 12:10 AM PROFESSOR OF MUSICOLOGY) Pathologist [facility] Lipase 8(L) 10 - 99 Units/L Blood Venous blood specimen / Unknown 07/12/2024 12:10 AM PROFESSOR OF MUSICOLOGY 07/12/2024 12:22 AM PROFESSOR OF MUSICOLOGY Eric Arevalo MD LAB BLOOD ORDERABLES Final Re sult Performing Organization Address [facility] de Phone Number [facility] [place] [address] * Comprehensive metabolic panel (07/12/2024 12:10 AM PROFESSOR OF MUSICOLOGY) [facility] Sodium 135 135 - 145 mmol/L Potassium, pl 4.2 3.3 - 4.9 mmol/L [facility] Chloride 103 97 - 110 mmol/L [facility] CO2 23 22 - 32 mmol/L [facility] Anion gap 9 2 - 15 mmol/L [facility] BUN 11 6 - 25 mg/dL [facility] Creatinine 0.76 0.60 - 1.10 mg/dL [facility] Glucose 88 70 - 199 mg/dL [facility] Comment: Interpretive Data Fasting glucose >/= 126 mg/dl is diagnostic for diabetes. Fasting is defined as no caloric intake for at least 8 hours. Fasting glucose between 100 mg/dl to 125 mg/dl is diagnostic of prediabetes. In a patient with classic symptoms of hyperglycemia or hyperglycemic crisis, a random glucose >/= 200 mg/dl is diagnostic for diabetes. In the absence of unequivocal hyperglycemia, results should be confirmed by repeat testing. The classification and Diagnosis of Diabetes Diabetes Care 2021; 46: S19-S40. Current interpretive data was last revised 2022. Calcium 9.5 8.5 - 10.3 mg/dL [facility] Bilirubin, total 0.3 0.1 - 1.2 mg/dL [facility] Protein, pl 7.5 6.5 - 8.5 g/dL [facility] Albumin 4.0 3.5 - 5.0 g/dL [facility] Alk phos 73 40 - 130 Units/L [facility] ALT 14 7 - 45 Units/L [facility] AST 18 10 - 45 Units/L [facility] Blood 07/12/2024 12:1 0 AM PROFESSOR OF MUSICOLOGY 07/12/2024 12:22 AM PROFESSOR OF MUSICOLOGY Eric Arevalo MD LAB BLOOD ORDERABLES Final Re sult Performing Organization Address [facility]/ZIP Co de Phone Number [facility] Department [place] [address] * POCT glucose (07/11/2024 11:47 PM PROFESSOR OF MUSICOLOGY) Glucose, POC 87 70 - 199 mg/dL Blood 07/11/2024 11:4 7 PM PROFESSOR OF MUSICOLOGY 07/11/2024 11:47 PM PROFESSOR OF MUSICOLOGY Notinfile Unknown LAB POCT ORDERABLES - DEVICE F inal Result Performing Organization Address [facility] Co de Phone Number [facility] Department [place] [address] from Last 3 Months Insurance [facility] Care Teams Seaming Machine Operator Relationship Specialty Start Date End Date Khanh Blackwood MD PCP - General 01/18/18
--- OUTSIDE RECORDS SUMMARY | 2024-09-25 20:17 | XMS_ITS | Encounter Summary ---
Author Organization [facility] Healthcare Address [address] [place] [address] Care Team Providers Care Noteman Name Role Phone Khanh Blackwood MD Primary Care Provider [phone] Encounter Details Date Type Department Care Team (Late st Contact Info) Description 03/02/2024 Documentation [facility] Social Work [address] [place] [phone] Trinity Swann Social History Tobacco Use Types Packs/Day Years Used Date Smoking Tobacco: Never Assessed Alcohol Use Standard Drinks/Week Comments No 0 (1 standard drink = 0.6 oz pur e alcohol) Personal Safety Answer Date Recorded Have you ever been in or are you currently in a harmful physical or emotional relationship or is someone making you feel afraid or unsafe? 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
--- OUTSIDE RECORDS SUMMARY | 2024-09-25 20:17 | XMS_ITS | Referral Summary ---
Author Organization [facility] Address [address] [place] [phone] Care Team Providers Care Copper Flotation Operator Name Role Phone Khanh Blackwood MD Primary Care Provider Encounters Date Type Department Care Team Description 09/02/2024 6:16 PM CDT - 09/02/2024 9:00 PM CDT Hospital Encounter [address] [phone] Sherly Amin MD Discharge Disposition: Discharge to home or self care 09/02/2024 4:58 PM CDT - 09/02/2024 6:16 PM CDT Emergency [facility] Emergency Department [address] [place] [phone] Abdominal pain (Primary Dx); Chest pain, unspecified type; 21 weeks gestation of Discharge Disposition: Discharge to home or self care 07/11/2024 11:50 PM HEALTH INFORMATION CLERK - 07/12/2024 6:50 AM HEALTH INFORMATION CLERK Emergency [facility] Emergency Department [address] [place] [phone] Eric Arevalo MD Abdominal pain (Primary Dx); , unspecified gestational age Discharge Disposition: Discharge to home or self care from Last 3 Months Allergies Active Allergy Reactions Criticality Noted Date Comments Codeine Hives Medium 01/18/2018 Penicillins Angioedema High 01/07/2022 Medications ondansetron (ZOFRAN) 4 mg tablet Take 1 tablet (4 mg total) by mouth daily as needed for nausea 30 tablet Active polyethylene glycol (Miralax) 17 gram/dose bulk powder Take 17 g by mouth daily Mix 1 scoop (17g) in 8oz of water and drink daily. 255 g 4 Active PNV with [id number] 27 mg iron- 1 mg tablet Take 1 tablet by mouth daily 30 tablet 4 Active lidocaine (LIDODERM) 5 % Place 1 patch on the skin once for 1 dose Remove & discard patch within 12 hours or as directed by MD. 9 patch 1 5 Active acetaminophen (TYLENOL) 500 mg tablet Take 2 tablets (1,000 mg total) by mouth every 6 (six) hours as needed for pain 30 tablet 1 5 Active PNV with [id number] 27 mg iron- 1 mg tablet Take [...] 12 hours or as directed by . 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 Estimated Date of Delivery Comme nts Yes 12/19/2024 Based on Ultraso und Social History Tobacco Use Types Packs/Day Years [...] on file Legal Sex Female 9:33 PM HEALTH INFORMATION CLERK Gender Identity Not on file Sexual Orientation [...] st Contact Info) Description 12/19/2024 Hospital Encounter [address] [phone] Sherly Amin MD [address] [place] [address] Procedures Procedure Name Priority Date/Time Associated Diagnosis [...] CDT ECG 12-LEAD STAT 07/12/2024 7:52 AM HEALTH INFORMATION CLERK POCT GLUCOSE DEVICE Routine 07/12/2024 3 :15 AM HEALTH INFORMATION CLERK URINALYSIS, MICROSCOPIC ONLY STAT 07/12/2024 3:09 AM HEALTH INFORMATION CLERK URINALYSIS AND REFLEX TO MICROSCOPIC AND CULTURE STAT 07/12/2024 3:09 AM HEALTH INFORMATION CLERK B CHECK SAMPLE STAT 07/12/2024 1:52 AM HEALTH INFORMATION CLERK TROPONIN I HIGH-SENSITIVITY 2-HOUR Timed 07/12/2024 1:52 AM HEALTH INFORMATION CLERK POCUS FEMALE TAB PELVIC, NON- 07/12/2024 12:22 AM HEALTH INFORMATION CLERK TROPONIN I HIGH-SENSITIVITY SERIES (BASELINE, 2HR, 4HR, 6HR) STAT 07/12/2024 12:12 AM HEALTH INFORMATION CLERK EGFR STAT 07/12/2024 12:10 AM HEALTH INFORMATION CLERK DIFFERENTIAL AUTO STAT 07/12/2024 12: 10 AM HEALTH INFORMATION CLERK TYPE AND SCREEN STAT 07/12/2024 12:10 AM HEALTH INFORMATION CLERK HCG, BLOOD, QUANTITATIVE STAT 07/12/2024 12:10 AM HEALTH INFORMATION CLERK LIPASE STAT 07/12/2024 12:10 AM HEALTH INFORMATION CLERK COMPREHENSIVE METABOLIC PANEL STAT 07/12/2024 12:10 AM HEALTH INFORMATION CLERK CBC WITH AUTO DIFFERENTIAL STAT 07/12/2024 12:10 AM HEALTH INFORMATION CLERK POCT GLUCOSE DEVICE Routine 07/11/2024 1 1:47 PM HEALTH INFORMATION CLERK from Last 3 Months Results * (ABNORMAL) Urinalysis reflex to microscopic (09/02/2024 5:48 PM CDT) Color, ur Straw Yellow Clarity, ur Clear Clear [facility] Specific gravity, ur 1.027 1.003 - 1.030 [facility] pH, urine 6.5 [facility] Comment: Interpretive Data U rine pH is affected by diet, medications, systemic acid-base disturbances, and renal tubular function. pH may affect urinary stone formation. For example, urine pH below 6.0 may help reduce the tendency for calcium phosphate stones and pH greater than 6.0 may reduce the tendency for uric acid stone formation. Source: [facility] [place] Current Interpretive Data was last revised on 2017 Protein, ur ql Trace Negative [facility] Glucose, ur ql Negative Negative [facility] Ketones, ur 1+(A) Negative [facility] Bilirubin, ur Negative Negative [facility] Blood, ur Negative Negative [facility] Urobilinogen, ur <2.0 <2.0 mg/dL [facility] Nitrite, ur Negative Negative [facility] Leukocyte esterase, ur Negative Negative [facility] UA reflex comment Reflex conditions for microscopic UA not met. [facility] Urine 09/02/2024 5:48 PM CDT 09/02/2024 5:53 PM CDT us Nicolle Abbasi MD LAB URINE ORDERABLES Jenni sauceda Result [facility] Department [place] [address] * (ABNORMAL) POCT hCG, urine (09/02/2024 5:47 PM CDT) HCG, ur, POC Positive(A) Negative Lot Number [id number] QC Backgroud Clear Acceptable QC Control Line Acceptable Urine 09/02/2024 5:47 PM CDT Nicolle Abbasi MD POINT OF CARE TEST ORDERA BLES Final Result * eGFR (09/02/2024 4:28 PM CDT) Pathologist [facility] [place] eGFR >90 >=60 mL/min/1. 73 m2 Comment: [...] MD LAB BLOOD ORDERABLES Jenni l Result [facility] Department [place] [address] * Differential, auto (09/02/2024 4:28 PM CDT) Pathologist [facility] [place] Neutrophil abs 5.3 1.5 - 6.5 K/cumm Imm gran abs 0.0 0.0 - 0.1 K/cumm [facility] Lymphocyte abs 2.6 0.8 - 3.3 K/cumm [facility] Monocyte abs 0.5 0.2 - 0.8 K/cumm [facility] Eosinophil abs 0.1 0.0 - 0.5 K/cumm [facility] Basophil abs 0.0 0.0 - 0.1 K/cumm [facility] Neutrophil pct 61.9 % [facility] Comment: Interpretive Data Percent cell count reference ranges are not reported, since discordance with absolute values may lead to misinterpretation of CBC data. Current Interpretive Data was last revised on 2017. Imm gran pct 0.5 % [facility] Comment: Interpretive Data Percent cell count reference ranges are not reported, since discordance with absolute values may lead to misinterpretation of CBC data. Current Interpretive Data was last revised on 2017. Lymphocyte pct 30.6 % [facility] Comment: Interpretive Data Percent cell count reference ranges are not reported, since discordance with absolute values may lead to misinterpretation of CBC data. Current Interpretive Data was last revised on 2017. Monocyte pct 6.2 % [facility] Comment: Interpretive Data Percent cell count reference ranges are not reported, since discordance with absolute values may lead to misinterpretation of CBC data. Current Interpretive Data was last revised on 2017. Eosinophil pct 0.7 % [facility] Comment: Interpretive Data Percent cell count reference ranges are not reported, since discordance with absolute values may lead to misinterpretation of CBC data. Current Interpretive Data was last revised on 2017. Basophil pct 0.1 % [facility] Comment: Interpretive Data Percent cell count reference ranges are not reported, since discordance with absolute values may lead to misinterpretation of CBC data. Current Interpretive Data was last revised on 2017. Blood 09/02/2024 4:28 PM CDT 09/02/2024 4:38 PM CDT us Nicolle Abbasi MD LAB BLOOD ORDERABLES Jenni sauceda Result [facility] [place] [address] * (ABNORMAL) CBC with auto differential (09/02/2024 4:28 PM CDT) WBC 8.5 3.8 - 9.9 K/cumm Hgb 10.9(L) 11.9 - 15.5 g/dL [facility] Hct 32.8(L) 35.6 - 45.5 % [facility] Plt 187 150 - 400 K/cumm [facility] MPV 10.8 9.1 - 12.3 fL [facility] RBC 3.89(L) 3.90 - 5.20 M/cumm [facility] MCV 84.3 81.3 - 96.4 fL [facility] MCH 28.0 27.1 - 33.3 pg [facility] MCHC 33.2 32.3 - 35.7 g/dL [facility] RDW CV 17.0(H) 11.1 - 14.9 % [facility] RDW SD 51.8(H) 35.7 - 48.1 fL [facility] NRBC abs 0.00 0.00 - 0.01 K/cumm [facility] Blood Venous blood specimen / Unknown 09/02/2024 4:28 PM CDT 09/02/2024 4:38 PM CDT Nicolle Abbasi MD LAB BLOOD ORDERABLES Jenni l Result [facility] Department [place] [address] * Type and screen (09/02/2024 4:28 PM CDT) Pathologist [facility] [place] Maye, indirect Negative ABO Rh O Negative [facility] Blood 09/02/2024 4:28 PM CDT 09/02/2024 5:11 PM CDT Narrative [facility] - 09/02/2024 6:02 PM CDT Has the patient had Daratumumab or Isatuximab in the past 6 months?->Unknown Nicolle Abbasi MD LAB BLOOD BANK TEST ORDER RICO Final Result [facility] [place] [address] * (ABNORMAL) hCG, blood, quantitative (09/02/2024 4:28 PM CDT) Pathologist [facility] [place] hCG, quant 22,893.0( H) 0.0 - 5.0 [...] ORDERABLES Jenni l Result Performing Organization Address City/[facility]/ZIP Co de Phone Number [facility] [place] [address] * (ABNORMAL) Lipase (09/02/2024 4:28 PM CDT) [facility] Lipase 7(L) 10 - 99 Units/L Blood Venous blood specimen / Unknown 09/02/2024 4:28 PM CDT 09/02/2024 4:38 PM CDT Nicolle Abbasi MD LAB BLOOD ORDERABLES Jenni l Result [facility] [place] [address] * Comprehensive metabolic panel (09/02/2024 4:28 PM CDT) Pathologist [facility] [place] Sodium 136 135 - 145 mmol/L Potassium, pl 4.0 3.3 - 4.9 mmol/L [facility] Chloride 105 97 - 110 mmol/L [facility] CO2 24 22 - 32 mmol/L [facility] Anion gap 7 2 - 15 mmol/L [facility] BUN 6 6 - 25 mg/dL [facility] Creatinine 0.68 0.60 - 1.10 mg/dL [facility] Glucose 77 70 - 199 mg/dL [facility] Comment: Interpretive Data Fasting glucose >/= 126 [...] 2022. Calcium 8.9 8.5 - 10.3 mg/dL [facility] Bilirubin, total 0.3 0.1 - 1.2 mg/dL [facility] Protein, pl 7.0 6.5 - 8.5 g/dL [facility] Albumin 3.6 3.5 - 5.0 g/dL [facility] Alk phos 70 40 - 130 Units/L [facility] ALT 25 7 - 45 Units/L [facility] AST 27 10 - 45 Units/L [facility] Blood 09/02/2024 4:28 PM CDT 09/02/2024 4:38 PM CDT us Nicolle Abbasi MD LAB BLOOD ORDERABLES Jenni l Result [facility] Department [place] [address] * ECG 12-LEAD (09/02/2024 3:52 PM CDT) Narrative [facility] - 09/02/2024 3:52 PM CDT Saloni Becerra [...] in the ED Saloni Becerra MD 09/02/24 1553 Nicolle Abbasi MD ECG ORDERABLES Final Res ult [facility] * ECG 12-LEAD (07/12/2024 7:52 AM HEALTH INFORMATION CLERK) Narrative [facility] - 07/12/2024 7:52 AM HEALTH INFORMATION CLERK Eric Arevalo MD 07/12/2024 7:52 AM ECG [...] Salazar MD ECG ORDERABLES Final Resu lt [facility] * POCT glucose (07/12/2024 3:15 AM HEALTH INFORMATION CLERK) Glucose, POC 86 70 - 199 mg/dL Blood 07/12/2024 3:15 AM HEALTH INFORMATION CLERK 07/12/2024 3:15 AM HEALTH INFORMATION CLERK Eric Arevalo MD LAB POCT ORDERABLES - DEVICE Final Result Performing Organization Address [facility]/ZIP Co de Phone Number [facility] Department [place] [address] * (ABNORMAL) Urinalysis reflex to microscopic and culture Urine (07/12/2024 3:09 AM HEALTH INFORMATION CLERK) Color, ur Yellow Yellow Clarity, ur Clear Clear [facility] Specific gravity, ur 1.037(H) 1.003 - 1.030 [facility] pH, urine 6.0 [facility] Comment: Interpretive Data U rine pH is affected by diet, medications, systemic acid-base disturbances, and renal tubular function. pH may affect urinary stone formation. For example, urine pH below 6.0 may help reduce the tendency for calcium phosphate stones and pH greater than 6.0 may reduce the tendency for uric acid stone formation. Source: [employer] Current Interpretive Data was last revised on 2017 Protein, ur ql 1+(A) Negative [facility] Glucose, ur ql Negative Negative [facility] Ketones, ur 2+(A) Negative [facility] Bilirubin, ur Negative Negative [facility] Blood, ur Negative Negative [facility] Urobilinogen, ur <2.0 <2.0 mg/dL [facility] Nitrite, ur Negative Negative [facility] Leukocyte esterase, ur Negative Negative [facility] UA reflex comment Reflex to microscopic UA will be performed. [facility] Urine 07/12/2024 3:09 AM HEALTH INFORMATION CLERK 07/12/2024 5:17 AM HEALTH INFORMATION CLERK Lorena Salazar MD LAB MICROBIOLOGY - GENERAL ORDERABLES Final Result Performing Organization Address [facility] de Phone Number [facility] Department [place] [address] * (ABNORMAL) Urinalysis, microscopic only (07/12/2024 3:09 AM HEALTH INFORMATION CLERK) WBC, ur 0-5 0 - 5 /HPF RBC, ur 11-20(A) 0 - 2 /HPF [facility] Epithelial cells, squamous, ur 1-5 0 - 5 /HPF [facility] Mucous, ur Present(A) [facility] Calcium oxalate crystals, ur 3+(A) [facility] Culture Reflex Comment Reflex conditions for urine culture (WBC >10) not met. [facility] Urine 07/12/2024 3:09 AM HEALTH INFORMATION CLERK 07/12/2024 5:17 AM HEALTH INFORMATION CLERK us Lorena Salazar MD LAB URINE ORDERABLES Final Result Performing Organization Address [facility] Co de Phone Number [facility] Department [place] [address] * Troponin I high-sensitivity 2-hour (07/12/2024 1:52 AM HEALTH INFORMATION CLERK) Trop I hs <4 <=17 ng/L Comment: Interpretive Data For further hscTnI resources including the diagnostic algorithm and an aid in interpretation, copy and paste this link: https://bjhlab.testcatalog.org/show/hsTrop-1 Current Interpretive Data last revised 2020. Trop I hs delta 0 ng/L [facility] Trop I hs interp Insignificant [facility] Blood 07/12/2024 1:52 AM HEALTH INFORMATION CLERK 07/12/2024 1:59 AM HEALTH INFORMATION CLERK us Lorena Salazar MD LAB BLOOD ORDERABLES Final Result Performing Organization Address [facility] de Phone Number [facility] Department [place] [address] * Check Sample (07/12/2024 1:52 AM HEALTH INFORMATION CLERK) ABO Rh O Negative [facility] HCLL OTHER 07/12/2024 1:52 AM HEALTH INFORMATION CLERK 07/12/2024 2:06 AM HEALTH INFORMATION CLERK us Hernando Little MD LAB BLOOD ORDERABLES Final R esult Performing Organization Address [facility] de Phone Number [facility] [place] [address] [facility] * POCUS Female TAB Pelvic, Non- (07/12/2024 12:22 AM HEALTH INFORMATION CLERK) Anatomical Region Laterality Modality Other 07/12/2024 12:0 9 AM HEALTH INFORMATION CLERK Narrative 07/21/2024 4:37 PM HEALTH INFORMATION CLERK Performed by: Lorena Salazar Transabdominal: Exam Information: [...] Arevalo MD - 07/21/2024 Performed by: Lorena Salazar Transabdominal: Exam Information: [...] (baseline, 2hr, 4hr, 6hr) (07/12/2024 12:12 AM HEALTH INFORMATION CLERK) Pathologist [facility] [place] Trop I hs <4 <=17 ng/L Comment: Interpretive Data For further hscTnI resources including the diagnostic algorithm and an aid in interpretation, copy and paste this link: https://bjhlab.testcatalog.org/show/hsTrop-1 Current Interpretive Data last revised 2020. Blood 07/12/2024 12:1 2 AM HEALTH INFORMATION CLERK 07/12/2024 12:23 AM HEALTH INFORMATION CLERK Lorena Salazar MD LAB BLOOD ORDERABLES Final Result [facility] Department of Laboratories [place], [place] [id number] * eGFR (07/12/2024 12:10 AM HEALTH INFORMATION CLERK) Pathologist [facility] [place] eGFR >90 >=60 mL/min/1. 73 m2 Comment: [...] of Race in Diagnosing Kidney Disease, JASN 202). The CKD-EPI equation should not be used for patients with unstable renal function and has not been validated in children and those over 70. Current interpretive data was last reviewed 2021. Blood 07/12/2024 12:1 0 AM HEALTH INFORMATION CLERK 07/12/2024 12:22 AM HEALTH INFORMATION CLERK us Hernando Little MD LAB BLOOD ORDERABLES Final R esult [facility] Department [place] [address] * Differential, auto (07/12/2024 12:10 AM HEALTH INFORMATION CLERK) Neutrophil abs 5.7 1.5 - 6.5 K/cumm Imm gran abs 0.1 0.0 - 0.1 K/cumm [facility] Lymphocyte abs 2.7 0.8 - 3.3 K/cumm [facility] Monocyte abs 0.8 0.2 - 0.8 K/cumm [facility] Eosinophil abs 0.1 0.0 - 0.5 K/cumm [facility] Basophil abs 0.0 0.0 - 0.1 K/cumm [facility] Neutrophil pct 61.2 % [facility] Comment: Interpretive Data Percent cell count reference ranges are not reported, since discordance with absolute values may lead to misinterpretation of CBC data. Current Interpretive Data was last revised on 2017. Imm gran pct 0.8 % [facility] Comment: Interpretive Data Percent cell count reference ranges are not reported, since discordance with absolute values may lead to misinterpretation of CBC data. Current Interpretive Data was last revised on 2017. Lymphocyte pct 28.9 % [facility] Comment: Interpretive Data Percent cell count reference ranges are not reported, since discordance with absolute values may lead to misinterpretation of CBC data. Current Interpretive Data was last revised on 2017. Monocyte pct 8.1 % [facility] Comment: Interpretive Data Percent cell count reference ranges are not reported, since discordance with absolute values may lead to misinterpretation of CBC data. Current Interpretive Data was last revised on 2017. Eosinophil pct 0.8 % [facility] Comment: Interpretive Data Percent cell count reference ranges are not reported, since discordance with absolute values may lead to misinterpretation of CBC data. Current Interpretive Data was last revised on 2017. Basophil pct 0.2 % [facility] Comment: Interpretive Data Percent cell count reference ranges are not reported, since discordance with absolute values may lead to misinterpretation of CBC data. Current Interpretive Data was last revised on 2017. Blood 07/12/2024 12:1 0 AM HEALTH INFORMATION CLERK 07/12/2024 12:23 AM HEALTH INFORMATION CLERK us Eric Arevalo MD LAB BLOOD ORDERABLES Final Re sult [facility] [place] [address] * (ABNORMAL) CBC with auto differential (07/12/2024 12:10 AM HEALTH INFORMATION CLERK) WBC 9.3 3.8 - 9.9 K/cumm Hgb 11.3(L) 11.9 - 15.5 g/dL [facility] Hct 35.1(L) 35.6 - 45.5 % [facility] Plt 220 150 - 400 K/cumm [facility] MPV 10.6 9.1 - 12.3 fL [facility] RBC 4.42 3.90 - 5.20 M/cumm [facility] MCV 79.4(L) 81.3 - 96.4 fL [facility] MCH 25.6(L) 27.1 - 33.3 pg [facility] MCHC 32.2(L) 32.3 - 35.7 g/dL [facility] RDW CV 16.0(H) 11.1 - 14.9 % [facility] RDW SD 46.3 35.7 - 48.1 fL [facility] NRBC abs 0.00 0.00 - 0.01 K/cumm [facility] Blood Venous blood specimen / Unknown 07/12/2024 12:10 AM HEALTH INFORMATION CLERK 07/12/2024 12:23 AM HEALTH INFORMATION CLERK Eric Arevalo MD LAB BLOOD ORDERABLES Final Re sult [facility] [place] [address] * Type and screen (07/12/2024 12:10 AM HEALTH INFORMATION CLERK) Maye, indirect Negative ABO Rh O Negative [facility] Blood 07/12/2024 12:1 0 AM HEALTH INFORMATION CLERK 07/12/2024 12:23 AM HEALTH INFORMATION CLERK Narrative [facility] - 07/12/2024 1:13 AM HEALTH INFORMATION CLERK Has the patient had Daratumumab or Isatuximab in the past 6 months?->Unknown Eric Arevalo MD LAB BLOOD BANK TEST ORDERABLE S Final Result Performing Organization Address City/[facility]/ZIP Co de Phone Number [facility] [place] [address] * (ABNORMAL) hCG, blood, quantitative (07/12/2024 12:10 AM HEALTH INFORMATION CLERK) hCG, quant 41,075.0( H) 0.0 - 5.0 IUnits/L Comment: Interpretive Data Male: < 5 IU/L Non- premenopausal Female: <5 IU/L The Jerry hCG Beta Quant assay procedure was used. Results from different manufacturers or methods may not be comparable. Serial testing should be performed using the same method. Interpretive Data was last revised on 2023 Blood 07/12/2024 12:1 0 AM HEALTH INFORMATION CLERK 07/12/2024 12:22 AM HEALTH INFORMATION CLERK Eric Arevalo MD LAB BLOOD ORDERABLES Final Re sult [facility] [place] [address] * (ABNORMAL) Lipase (07/12/2024 12:10 AM HEALTH INFORMATION CLERK) Pathologist [facility] [place] Lipase 8(L) 10 - 99 Units/L Blood Venous blood specimen / Unknown 07/12/2024 12:10 AM HEALTH INFORMATION CLERK 07/12/2024 12:22 AM HEALTH INFORMATION CLERK Eric Arevalo MD LAB BLOOD ORDERABLES Final Re sult Performing Organization Address City/[facility] Co de Phone Number [facility] [place] [address] * Comprehensive metabolic panel (07/12/2024 12:10 AM HEALTH INFORMATION CLERK) Pathologist [facility] [place] Sodium 135 135 - 145 mmol/L Potassium, pl 4.2 3.3 - 4.9 mmol/L [facility] Chloride 103 97 - 110 mmol/L [facility] CO2 23 22 - 32 mmol/L [facility] Anion gap 9 2 - 15 mmol/L [facility] BUN 11 6 - 25 mg/dL [facility] Creatinine 0.76 0.60 - 1.10 mg/dL [facility] Glucose 88 70 - 199 mg/dL [facility] Comment: Interpretive Data Fasting glucose >/= 126 [...] 2022. Calcium 9.5 8.5 - 10.3 mg/dL [facility] Bilirubin, total 0.3 0.1 - 1.2 mg/dL [facility] Protein, pl 7.5 6.5 - 8.5 g/dL [facility] Albumin 4.0 3.5 - 5.0 g/dL [facility] Alk phos 73 40 - 130 Units/L [facility] ALT 14 7 - 45 Units/L [facility] AST 18 10 - 45 Units/L [facility] Blood 07/12/2024 12:1 0 AM HEALTH INFORMATION CLERK 07/12/2024 12:22 AM HEALTH INFORMATION CLERK us Eric Arevalo MD LAB BLOOD ORDERABLES Final Re sult Performing Organization Address City/[facility]/ZIP Co de Phone Number [facility] [place] [address] * POCT glucose (07/11/2024 11:47 PM HEALTH INFORMATION CLERK) Glucose, POC 87 70 - 199 mg/dL Blood 07/11/2024 11:4 7 PM HEALTH INFORMATION CLERK 07/11/2024 11:47 PM HEALTH INFORMATION CLERK Notinfile Unknown LAB POCT ORDERABLES - DEVICE F inal Result Performing Organization Address City/[facility]/ZIP Co de Phone Number [facility] [place] [address] from Last 3 Months Insurance [facility] [place] Care Teams Copper Flotation Operator Relationship Specialty Start Date End Date Khanh Blackwood MD PCP - General 01/18/18
--- OUTSIDE RECORDS SUMMARY | 2024-09-25 20:17 | XMS_ITS | Clinical Summary ---
Author Organization [facility] Address [address] [place] [id number] Care Team Providers Care Optician Name Role Phone None, Provider Primary Care [...] Comments Blood Pressure 146/82 07/20/2023 6:49 PM TRAIN OPERATIONS SUPERVISOR Pulse 98 07/20/2023 6:49 PM TRAIN OPERATIONS SUPERVISOR Temperature 36.7 C (98 F) 07/20/2023 6:49 PM TRAIN OPERATIONS SUPERVISOR Respiratory Rate 16 07/20/2023 6:49 PM TRAIN OPERATIONS SUPERVISOR Oxygen Saturation 100% 07/20/2023 6:49 PM TRAIN OPERATIONS SUPERVISOR Inhaled Oxygen Concentration - - Weight 90.7 kg (200 lb) 07/20/2023 6:49 PM TRAIN OPERATIONS SUPERVISOR Height 167.6 cm (5' 6 ) 07/20/2023 6:49 PM TRAIN OPERATIONS SUPERVISOR Body Mass Index 32.28 07/20/2023 6:49 PM TRAIN OPERATIONS SUPERVISOR Plan of Treatment Health Maintenance Due Date [...] complete this topic Insurance [employer] Care Teams Optician Relationship Specialty Start Date End Date None, Provider, MD PCP - General UNKNOWN PHYSICIAN SPECIALTY 07/20/23
--- OUTSIDE RECORDS SUMMARY | 2024-09-25 20:17 | XMS_ITS | Clinical Summary ---
Author Organization [facility] Address [address] [place] [address] Care Team Providers Care Engagement Mgr Name Role Phone Unavailable Primary Care Provider Unavailabl e Source Comments [facility],non-owned Affiliates and Associated Physician Practices is amultiple site organization consisting of ambulatory clinics and hospital sitesin [place], [place], [place] and [place]. This disclosure is being madepursuant to the Care Everywhere program and may not contain all information available regarding this patient. Last updated 18.[facility] Allergies Active Allergy Reactions Criticality Noted Date Comments Codeine 02/22/2011 Medications * Be aware that medications may not be up to date on this document. Alwaysverify current medications with the patient. Medication Sig Dispensed Refills Start Date End Date Status hydrocodone-acetamino phen (VICODIN ES) 7.5-750 MG tablet Take 1 Tab by mouth every 6 hours as needed for Pain. 20 Tab 0 02/22/2011 Active omeprazole (PRILOSEC) 40 MG capsule Take 1 Cap by mouth daily before breakfast 30 Cap 0 04/26/2015 Active traMADol (ULTRAM) 50 MG tablet Take 1 Tab by mouth every 4 hours as needed for Pain 20 Tab 0 04/26/2015 Active promethazine (PHENERGAN) 25 MG tablet Take 1 Tab by mouth every 6 hours as needed for Nausea/Vomiting 10 Tab 0 04/26/2015 Active Encounters Date Type Department Care Team Description 09/04/2024 Telephone [facility] [address] [place] [address] John Riggins Scheduling 09/02/2024 Telephone [facility] [address] [place] [address] Yuliya Shrestha Appointment 09/02/2024 Telephone [facility] [address] [place] [address] Yuliya Shrestha Appointment 08/21/2024 Telephone [facility] [address] [place] [address] Yuliya Shrestha Appointment 07/30/2024 Telephone [facility] [address] [place] [address] Yuliya Shrestha Appointment from Last 3 Months Social History Tobacco Use Types Packs/Day Years Used Date Smoking Tobacco: Never Smokeless Tobacco: Never Alcohol Use Standard Drinks/Week Comments Yes 0 (1 standard drink = 0.6 oz pur e alcohol) socially Sex and Gender Information Value Date Recorded Sex Assigned at Not on file Gender Identity Not on file Sexual Orientation Not on file Last Filed Vital Signs Vital Sign Reading Time Taken Comments Blood Pressure 119/62 04/26/2015 9:11 AM AIR FORCE PILOT Pulse 67 04/26/2015 9:11 AM AIR FORCE PILOT Temperature 36.6 C (97.8 F) 04/26/2015 9:11 AM AIR FORCE PILOT Respiratory Rate 16 04/26/2015 9:11 AM AIR FORCE PILOT Oxygen Saturation 100% 04/26/2015 9:11 AM AIR FORCE PILOT Inhaled Oxygen Concentration - - Weight 86.6 kg (191 lb) 04/26/2015 6:29 AM AIR FORCE PILOT Height 170.2 cm (5' 7 ) 04/26/2015 6:29 AM AIR FORCE PILOT Body Mass Index 29.91 04/26/2015 6:29 AM AIR FORCE PILOT Plan of Treatment Health Maintenance Due Date Last Done Comments HIV SCREENING 2001 HEPATITIS C SCREENING 11/20/2004 DTAP/TDAP/TD VACCINES (1 - Tdap) 2005 HEPATITIS B VACCINE (1 of 3 - 19+ 3-dose series) 2005 PAP SMEAR 12/28/2013 12/28/2010 COVID-19 VACCINE (4 - 2023-2 5 season) 2024 04/19/2021, 08/26/2020, 08/05/2020 DEPRESSION SCREENING 06/24/2024 INFLUENZA VACCINE (Season Ended) 2025 ZOSTER VACCINE (1 of 2) 2036 HIB VACCINE Aged Out No longer eligi ble based on patient's age to complete this topic HPV VACCINE Aged Out No longer eligi ble based on patient's age to complete this topic MENINGOCOCCAL (Group B) VACCINE SHARED DECISION-MAKING Aged Out No longer eligible based on patient's age to complete this topic MENINGOCOCCAL GROUPS A/C/Y/W VACCINE Aged Out No longer eligible b ased on patient's age to complete this topic PNEUMOCOCCAL VACCINE Aged Out No long er eligible based on patient's age to complete this topic Procedures Procedure Name Priority Date/Time Associated Diagnosis Comments PAP THINPREP Routine 12/28/2010 from Last 3 Months or Most Recently Relevant to Health Maintenance Results * PAP THINPREP (12/28/2010) Other (qualifier value) PART OF UTERINE CERVIX / Unknown 12/28/2010 Narrative [facility] - 01/08/2011 10:37 AM CDT Preferred Lab:->OTHER EXTERNAL LAB Osei Cervantes MD LAB - PATHOLOGY/CYTO LOGY ORDERABLES [facility] from Last 3 Months or Most Recently Relevant to Health Maintenance
[2024-09-25 20:53] VITALS: BP 111/64; PULSE 91; RESP 15; O2SAT 100
--- OUTSIDE RECORDS SUMMARY | 2024-09-25 20:56 | XMS_ITS | Clinical Summary ---
Author Organization 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 REPAIRER Pulse 98 07/20/2023 6:49 PM BRAKESHOE REPAIRER Temperature 36.7 C (98 F) 07/20/2023 6:49 PM BRAKESHOE REPAIRER Respiratory Rate 16 07/20/2023 6:49 PM BRAKESHOE REPAIRER Oxygen Saturation 100% 07/20/2023 6:49 PM BRAKESHOE REPAIRER Inhaled Oxygen Concentration - - Weight 90.7 kg (200 lb) 07/20/2023 6:49 PM BRAKESHOE REPAIRER Height 167.6 cm (5' 6 ) 07/20/2023 6:49 PM BRAKESHOE REPAIRER Body Mass Index 32.28 07/20/2023 6:49 PM BRAKESHOE REPAIRER Plan of Treatment Health Maintenance Due Date [...] Insurance [employer] Care Teams Youth Associate Relationship Specialty Start Date End Date None, Provider, MD PCP - General UNKNOWN PHYSICIAN SPECIALTY 07/20/23
--- OUTSIDE RECORDS SUMMARY | 2024-09-25 20:56 | XMS_ITS | Clinical Summary ---
Author Organization [facility] Address [address] [facility] [place] [address] Care Team Providers Care Belting Cutter Name Role Phone Unavailable Primary Care Provider Unavailabl e Source Comments [facility],non-owned Affiliates and Associated Physician Practices is amultiple site organization consisting of ambulatory clinics and hospital sitesin [place], [place], [place] and [place]. This disclosure is being madepursuant to the Care Everywhere program and may not contain all information available regarding this patient. Last updated 18.[facility] Allergies Active Allergy Reactions Criticality Noted Date [...] Type Department Care Team Description 09/04/2024 Telephone [facility] [address] [place] [address] John Riggins Scheduling 09/02/2024 Telephone [facility] [address] [place] [address] Yuliya Shrestha Appointment 09/02/2024 Telephone [facility]/ [facility] [address] [place] [address] Yuliya Shrestha Appointment 08/21/2024 Telephone [facility]/ [facility] [address] [place] [address] Yuliya Shrestha Appointment 07/30/2024 Telephone [facility]/ [facility] [address] [place] [address] Yuliya Shrestha Appointment from Last 3 Months [...] Comments Blood Pressure 119/62 04/26/2015 9:11 AM RAW STOCK DYEING MACHINE TENDER Pulse 67 04/26/2015 9:11 AM RAW STOCK DYEING MACHINE TENDER Temperature 36.6 C (97.8 F) 04/26/2015 9:11 AM RAW STOCK DYEING MACHINE TENDER Respiratory Rate 16 04/26/2015 9:11 AM RAW STOCK DYEING MACHINE TENDER Oxygen Saturation 100% 04/26/2015 9:11 AM RAW STOCK DYEING MACHINE TENDER Inhaled Oxygen Concentration - - Weight 86.6 kg (191 lb) 04/26/2015 6:29 AM RAW STOCK DYEING MACHINE TENDER Height 170.2 cm (5' 7 ) 04/26/2015 6:29 AM RAW STOCK DYEING MACHINE TENDER Body Mass Index 29.91 04/26/2015 6:29 AM RAW STOCK DYEING MACHINE TENDER Plan of Treatment Health Maintenance Due Date [...] OF UTERINE CERVIX / Unknown 12/28/2010 Narrative [facility] - 01/08/2011 10:37 AM CDT Preferred Lab:->OTHER EXTERNAL LAB Osei Cervantes MD LAB - PATHOLOGY/CYTO LOGY ORDERABLES [facility] from Last 3 Months or Most Recently Relevant to Health Maintenance
--- OUTSIDE RECORDS SUMMARY | 2024-09-25 20:56 | XMS_ITS | Referral Summary ---
Author Organization [facility] Address [address] [place] [phone] Care Team Providers Care Floral Manager Name Role Phone Khanh Blackwood MD Primary Care Provider Encounters Date Type Department Care Team Description 09/02/2024 6:16 PM CDT - 09/02/2024 9:00 PM CDT Hospital Encounter [address] [phone] Sherly Amin MD Discharge Disposition: Discharge to home or self care 09/02/2024 4:58 PM CDT - 09/02/2024 6:16 PM CDT Emergency [facility] Emergency Department [address] [place] [phone] Abdominal pain (Primary Dx); Chest pain, unspecified type; 21 weeks gestation of Discharge Disposition: Discharge to home or self care 07/11/2024 11:50 PM GAS BLENDER - 07/12/2024 6:50 AM GAS BLENDER Emergency [facility] Emergency Department [address] [place] [phone] Eric Arevalo MD Abdominal pain (Primary Dx); [...] daily. 255 g 4 Active PNV with [id number] 27 mg iron- 1 mg tablet Take [...] 30 tablet 1 5 Active PNV with [id number] 27 mg iron- 1 mg tablet Take [...] on file Legal Sex Female 9:33 PM GAS BLENDER Gender Identity Not on file Sexual Orientation [...] st Contact Info) Description 12/19/2024 Hospital Encounter [address] [phone] Sherly Amin MD [address] [place] [address] Procedures Procedure Name Priority Date/Time Associated Diagnosis [...] CDT ECG 12-LEAD STAT 07/12/2024 7:52 AM GAS BLENDER POCT GLUCOSE DEVICE Routine 07/12/2024 3 :15 AM GAS BLENDER URINALYSIS, MICROSCOPIC ONLY STAT 07/12/2024 3:09 AM GAS BLENDER URINALYSIS AND REFLEX TO MICROSCOPIC AND CULTURE STAT 07/12/2024 3:09 AM GAS BLENDER B CHECK SAMPLE STAT 07/12/2024 1:52 AM GAS BLENDER TROPONIN I HIGH-SENSITIVITY 2-HOUR Timed 07/12/2024 1:52 AM GAS BLENDER POCUS FEMALE TAB PELVIC, NON- 07/12/2024 12:22 AM GAS BLENDER TROPONIN I HIGH-SENSITIVITY SERIES (BASELINE, 2HR, 4HR, 6HR) STAT 07/12/2024 12:12 AM GAS BLENDER EGFR STAT 07/12/2024 12:10 AM GAS BLENDER DIFFERENTIAL AUTO STAT 07/12/2024 12: 10 AM GAS BLENDER TYPE AND SCREEN STAT 07/12/2024 12:10 AM GAS BLENDER HCG, BLOOD, QUANTITATIVE STAT 07/12/2024 12:10 AM GAS BLENDER LIPASE STAT 07/12/2024 12:10 AM GAS BLENDER COMPREHENSIVE METABOLIC PANEL STAT 07/12/2024 12:10 AM GAS BLENDER CBC WITH AUTO DIFFERENTIAL STAT 07/12/2024 12:10 AM GAS BLENDER POCT GLUCOSE DEVICE Routine 07/11/2024 1 1:47 PM GAS BLENDER from Last 3 Months Results * (ABNORMAL) Urinalysis reflex to microscopic (09/02/2024 5:48 PM CDT) Color, ur Straw Yellow Clarity, ur Clear Clear [facility] Specific gravity, ur 1.027 1.003 - 1.030 [facility] pH, urine 6.5 [facility] Comment: Interpretive Data U rine pH is affected by diet, medications, systemic acid-base disturbances, and renal tubular function. pH may affect urinary stone formation. For example, urine pH below 6.0 may help reduce the tendency for calcium phosphate stones and pH greater than 6.0 may reduce the tendency for uric acid stone formation. Source: [facility] [employer] Current Interpretive Data was last revised on 2017 Protein, ur ql Trace Negative [facility] Glucose, ur ql Negative Negative [facility] Ketones, ur 1+(A) Negative [facility] Bilirubin, ur Negative Negative [facility] Blood, ur Negative Negative [facility] Urobilinogen, ur <2.0 <2.0 mg/dL [facility] Nitrite, ur Negative Negative [facility] Leukocyte esterase, ur Negative Negative [facility] UA reflex comment Reflex conditions for microscopic UA not met. [facility] Urine 09/02/2024 5:48 PM CDT 09/02/2024 5:53 PM CDT us Nicolle Abbasi MD LAB URINE ORDERABLES Jenni sauceda Result [facility] Department [place] [address] * (ABNORMAL) POCT hCG, urine (09/02/2024 5:47 [...] MD LAB BLOOD ORDERABLES Jenni l Result [facility] [place] [address] * Differential, auto (09/02/2024 4:28 PM CDT) Pathologist [facility] Neutrophil abs 5.3 1.5 - 6.5 K/cumm Imm gran abs 0.0 0.0 - 0.1 K/cumm [facility] Lymphocyte abs 2.6 0.8 - 3.3 K/cumm [facility] Monocyte abs 0.5 0.2 - 0.8 K/cumm [facility] Eosinophil abs 0.1 0.0 - 0.5 K/cumm [facility] Basophil abs 0.0 0.0 - 0.1 K/cumm [facility] Neutrophil pct 61.9 % [facility] Comment: Interpretive Data Percent cell count reference ranges are not reported, since discordance with absolute values may lead to misinterpretation of CBC data. Current Interpretive Data was last revised on 2017. Imm gran pct 0.5 % [facility] Comment: Interpretive Data Percent cell count reference ranges are not reported, since discordance with absolute values may lead to misinterpretation of CBC data. Current Interpretive Data was last revised on 2017. Lymphocyte pct 30.6 % [facility] Comment: Interpretive Data Percent cell count reference ranges are not reported, since discordance with absolute values may lead to misinterpretation of CBC data. Current Interpretive Data was last revised on 2017. Monocyte pct 6.2 % [facility] Comment: Interpretive Data Percent cell count reference ranges are not reported, since discordance with absolute values may lead to misinterpretation of CBC data. Current Interpretive Data was last revised on 2017. Eosinophil pct 0.7 % [facility] Comment: Interpretive Data Percent cell count reference ranges are not reported, since discordance with absolute values may lead to misinterpretation of CBC data. Current Interpretive Data was last revised on 2017. Basophil pct 0.1 % [facility] Comment: Interpretive Data Percent cell count reference ranges are not reported, since discordance with absolute values may lead to misinterpretation of CBC data. Current Interpretive Data was last revised on 2017. Blood 09/02/2024 4:28 PM CDT 09/02/2024 4:38 PM CDT us Nicolle Abbasi MD LAB BLOOD ORDERABLES Jenni sauceda Result [facility] [place] [address] * (ABNORMAL) CBC with auto differential (09/02/2024 4:28 PM CDT) WBC 8.5 3.8 - 9.9 K/cumm Hgb 10.9(L) 11.9 - 15.5 g/dL [facility] Hct 32.8(L) 35.6 - 45.5 % [facility] Plt 187 150 - 400 K/cumm [facility] MPV 10.8 9.1 - 12.3 fL [facility] RBC 3.89(L) 3.90 - 5.20 M/cumm [facility] MCV 84.3 81.3 - 96.4 fL [facility] MCH 28.0 27.1 - 33.3 pg [facility] MCHC 33.2 32.3 - 35.7 g/dL [facility] RDW CV 17.0(H) 11.1 - 14.9 % [facility] RDW SD 51.8(H) 35.7 - 48.1 fL [facility] NRBC abs 0.00 0.00 - 0.01 K/cumm [facility] Blood Venous blood specimen / Unknown 09/02/2024 4:28 PM CDT 09/02/2024 4:38 PM CDT Nicolle Abbasi MD LAB BLOOD ORDERABLES Jenni l Result [facility] Department [place] [address] * Type and screen (09/02/2024 4:28 PM CDT) Pathologist [facility] Maye, indirect Negative ABO Rh O Negative [facility] Blood 09/02/2024 4:28 PM CDT 09/02/2024 5:11 PM CDT Narrative [facility] - 09/02/2024 6:02 PM CDT Has the patient had Daratumumab or Isatuximab in the past 6 months?->Unknown Nicolle Abbasi MD LAB BLOOD BANK TEST ORDER RICO Final Result [facility] [place] [employer] [place] [address] * (ABNORMAL) hCG, blood, quantitative (09/02/2024 4:28 [...] ORDERABLES Jenni l Result Performing Organization Address City/[facility]/ZIP Co de Phone Number [facility] [place] [address] * (ABNORMAL) Lipase (09/02/2024 4:28 PM CDT) [facility] Lipase 7(L) 10 - 99 Units/L Blood Venous blood specimen / Unknown 09/02/2024 4:28 PM CDT 09/02/2024 4:38 PM CDT Nicolle Abbasi MD LAB BLOOD ORDERABLES Jenni l Result [facility] [place] [address] * Comprehensive metabolic panel (09/02/2024 4:28 PM CDT) Pathologist [facility] Sodium 136 135 - 145 mmol/L Potassium, pl 4.0 3.3 - 4.9 mmol/L [facility] Chloride 105 97 - 110 mmol/L [facility] CO2 24 22 - 32 mmol/L [facility] Anion gap 7 2 - 15 mmol/L [facility] BUN 6 6 - 25 mg/dL [facility] Creatinine 0.68 0.60 - 1.10 mg/dL [facility] Glucose 77 70 - 199 mg/dL [facility] Comment: Interpretive Data Fasting glucose [...] 2022. Calcium 8.9 8.5 - 10.3 mg/dL [facility] Bilirubin, total 0.3 0.1 - 1.2 mg/dL [facility] Protein, pl 7.0 6.5 - 8.5 g/dL [facility] Albumin 3.6 3.5 - 5.0 g/dL [facility] Alk phos 70 40 - 130 Units/L [facility] ALT 25 7 - 45 Units/L [facility] AST 27 10 - 45 Units/L [facility] Blood 09/02/2024 4:28 PM CDT 09/02/2024 4:38 PM CDT us Nicolle Abbasi MD LAB BLOOD ORDERABLES Jenni l Result [facility] [place] [address] * ECG 12-LEAD (09/02/2024 3:52 PM CDT) Narrative [facility] - 09/02/2024 3:52 PM CDT Saloni Becerra [...] MD ECG ORDERABLES Final Res ult [facility] * ECG 12-LEAD (07/12/2024 7:52 AM GAS BLENDER) Narrative [facility] - 07/12/2024 7:52 AM GAS BLENDER Eric Arevalo MD 07/12/2024 7:52 AM ECG [...] Salazar MD ECG ORDERABLES Final Resu lt [facility] * POCT glucose (07/12/2024 3:15 AM GAS BLENDER) Glucose, POC 86 70 - 199 mg/dL Blood 07/12/2024 3:15 AM GAS BLENDER 07/12/2024 3:15 AM GAS BLENDER Eric Arevalo MD LAB POCT ORDERABLES - DEVICE Final Result Performing Organization Address [facility]/ZIP Co de Phone Number [facility] Department [place] [address] * (ABNORMAL) Urinalysis reflex to microscopic and culture Urine (07/12/2024 3:09 AM GAS BLENDER) Color, ur Yellow Yellow Clarity, ur Clear Clear [facility] Specific gravity, ur 1.037(H) 1.003 - 1.030 [facility] pH, urine 6.0 [facility] Comment: Interpretive Data U rine pH is affected by diet, medications, systemic acid-base disturbances, and renal tubular function. pH may affect urinary stone formation. For example, urine pH below 6.0 may help reduce the tendency for calcium phosphate stones and pH greater than 6.0 may reduce the tendency for uric acid stone formation. Source: [facility] [employer] [facility] [employer] Current Interpretive Data was last revised on 2017 Protein, ur ql 1+(A) Negative [facility] Glucose, ur ql Negative Negative [facility] Ketones, ur 2+(A) Negative [facility] Bilirubin, ur Negative Negative [facility] Blood, ur Negative Negative [facility] Urobilinogen, ur <2.0 <2.0 mg/dL [facility] Nitrite, ur Negative Negative [facility] Leukocyte esterase, ur Negative Negative [facility] UA reflex comment Reflex to microscopic UA will be performed. [facility] Urine 07/12/2024 3:09 AM GAS BLENDER 07/12/2024 5:17 AM GAS BLENDER Lorena Salazar MD LAB MICROBIOLOGY - GENERAL ORDERABLES Final Result Performing Organization Address [facility] de Phone Number [facility] Department [place] [address] * (ABNORMAL) Urinalysis, microscopic only (07/12/2024 3:09 AM GAS BLENDER) WBC, ur 0-5 0 - 5 /HPF RBC, ur 11-20(A) 0 - 2 /HPF [facility] Epithelial cells, squamous, ur 1-5 0 - 5 /HPF [facility] Mucous, ur Present(A) [facility] Calcium oxalate crystals, ur 3+(A) [facility] Culture Reflex Comment Reflex conditions for urine culture (WBC >10) not met. [facility] Urine 07/12/2024 3:09 AM GAS BLENDER 07/12/2024 5:17 AM GAS BLENDER us Lorena Salazar MD LAB URINE ORDERABLES Final Result Performing Organization Address [facility] Co de Phone Number [facility] Department [place] [address] * Troponin I high-sensitivity 2-hour (07/12/2024 1:52 AM GAS BLENDER) Trop I hs <4 <=17 ng/L Comment: Interpretive Data For further hscTnI resources including the diagnostic algorithm and an aid in interpretation, copy and paste this link: https://bjhlab.testcatalog.org/show/[email or web address] Current Interpretive Data last revised 2020. Trop I hs delta 0 ng/L [facility] Trop I hs interp Insignificant [facility] Blood 07/12/2024 1:52 AM GAS BLENDER 07/12/2024 1:59 AM GAS BLENDER us Lorena Salazar MD LAB BLOOD ORDERABLES Final Result Performing Organization Address [facility] de Phone Number [facility] Department [place] [address] * Check Sample (07/12/2024 1:52 AM GAS BLENDER) ABO Rh O Negative [facility] HCLL OTHER 07/12/2024 1:52 AM GAS BLENDER 07/12/2024 2:06 AM GAS BLENDER us Hernando Little MD LAB BLOOD ORDERABLES Final R esult Performing Organization Address [facility] de Phone Number [facility] [place] [address] [facility] * POCUS Female TAB Pelvic, Non- (07/12/2024 12:22 AM GAS BLENDER) Anatomical Region Laterality Modality Other 07/12/2024 12:0 9 AM GAS BLENDER Narrative 07/21/2024 4:37 PM GAS BLENDER Performed by: Lorena Salazar Transabdominal: Exam Information: [...] (baseline, 2hr, 4hr, 6hr) (07/12/2024 12:12 AM GAS BLENDER) Pathologist [facility] Trop I hs <4 <=17 ng/L Comment: Interpretive Data For further hscTnI resources including the diagnostic algorithm and an aid in interpretation, copy and paste this link: https://bjhlab.testcatalog.org/show/[email or web address] Current Interpretive Data last revised 2020. Blood 07/12/2024 12:1 2 AM GAS BLENDER 07/12/2024 12:23 AM GAS BLENDER Lorena Salazar MD LAB BLOOD ORDERABLES Final Result [facility] Department of Laboratories [place], [place] [id number] * eGFR (07/12/2024 12:10 AM GAS BLENDER) Pathologist [facility] eGFR >90 >=60 [...] reviewed 2021. Blood 07/12/2024 12:1 0 AM GAS BLENDER 07/12/2024 12:22 AM GAS BLENDER us Hernando Little MD LAB BLOOD ORDERABLES Final R esult [facility] Department [place] [address] * Differential, auto (07/12/2024 12:10 AM GAS BLENDER) Neutrophil abs 5.7 1.5 - 6.5 K/cumm Imm gran abs 0.1 0.0 - 0.1 K/cumm [facility] Lymphocyte abs 2.7 0.8 - 3.3 K/cumm [facility] Monocyte abs 0.8 0.2 - 0.8 K/cumm [facility] Eosinophil abs 0.1 0.0 - 0.5 K/cumm [facility] Basophil abs 0.0 0.0 - 0.1 K/cumm [facility] Neutrophil pct 61.2 % [facility] Comment: Interpretive Data Percent cell count reference ranges are not reported, since discordance with absolute values may lead to misinterpretation of CBC data. Current Interpretive Data was last revised on 2017. Imm gran pct 0.8 % [facility] Comment: Interpretive Data Percent cell count reference ranges are not reported, since discordance with absolute values may lead to misinterpretation of CBC data. Current Interpretive Data was last revised on 2017. Lymphocyte pct 28.9 % [facility] Comment: Interpretive Data Percent cell count reference ranges are not reported, since discordance with absolute values may lead to misinterpretation of CBC data. Current Interpretive Data was last revised on 2017. Monocyte pct 8.1 % [facility] Comment: Interpretive Data Percent cell count reference ranges are not reported, since discordance with absolute values may lead to misinterpretation of CBC data. Current Interpretive Data was last revised on 2017. Eosinophil pct 0.8 % [facility] Comment: Interpretive Data Percent cell count reference ranges are not reported, since discordance with absolute values may lead to misinterpretation of CBC data. Current Interpretive Data was last revised on 2017. Basophil pct 0.2 % [facility] Comment: Interpretive Data Percent cell count reference ranges are not reported, since discordance with absolute values may lead to misinterpretation of CBC data. Current Interpretive Data was last revised on 2017. Blood 07/12/2024 12:1 0 AM GAS BLENDER 07/12/2024 12:23 AM GAS BLENDER us Eric Arevalo MD LAB BLOOD ORDERABLES Final Re sult [facility] [place] [address] * (ABNORMAL) CBC with auto differential (07/12/2024 12:10 AM GAS BLENDER) WBC 9.3 3.8 - 9.9 K/cumm Hgb 11.3(L) 11.9 - 15.5 g/dL [facility] Hct 35.1(L) 35.6 - 45.5 % [facility] Plt 220 150 - 400 K/cumm [facility] MPV 10.6 9.1 - 12.3 fL [facility] RBC 4.42 3.90 - 5.20 M/cumm [facility] MCV 79.4(L) 81.3 - 96.4 fL [facility] MCH 25.6(L) 27.1 - 33.3 pg [facility] MCHC 32.2(L) 32.3 - 35.7 g/dL [facility] RDW CV 16.0(H) 11.1 - 14.9 % [facility] RDW SD 46.3 35.7 - 48.1 fL [facility] NRBC abs 0.00 0.00 - 0.01 K/cumm [facility] Blood Venous blood specimen / Unknown 07/12/2024 12:10 AM GAS BLENDER 07/12/2024 12:23 AM GAS BLENDER Eric Arevalo MD LAB BLOOD ORDERABLES Final Re sult [facility] [place] [address] * Type and screen (07/12/2024 12:10 AM GAS BLENDER) Maye, indirect Negative ABO Rh O Negative [facility] Blood 07/12/2024 12:1 0 AM GAS BLENDER 07/12/2024 12:23 AM GAS BLENDER Narrative [facility] - 07/12/2024 1:13 AM GAS BLENDER Has the patient had Daratumumab or Isatuximab in the past 6 months?->Unknown Eric Arevalo MD LAB BLOOD BANK TEST ORDERABLE S Final Result Performing Organization Address City/[facility]/ZIP Co de Phone Number [facility] [place] [address] * (ABNORMAL) hCG, blood, quantitative (07/12/2024 12:10 AM GAS BLENDER) hCG, quant 41,075.0( H) 0.0 - 5.0 IUnits/L Comment: Interpretive Data Male: < 5 IU/L Non- premenopausal Female: <5 IU/L The Jerry hCG Beta Quant assay procedure was used. Results from different manufacturers or methods may not be comparable. Serial testing should be performed using the same method. Interpretive Data was last revised on 2023 Blood 07/12/2024 12:1 0 AM GAS BLENDER 07/12/2024 12:22 AM GAS BLENDER Eric Arevalo MD LAB BLOOD ORDERABLES Final Re sult [facility] [place] [address] * (ABNORMAL) Lipase (07/12/2024 12:10 AM GAS BLENDER) Pathologist [facility] Lipase 8(L) 10 - 99 Units/L Blood Venous blood specimen / Unknown 07/12/2024 12:10 AM GAS BLENDER 07/12/2024 12:22 AM GAS BLENDER Eric Arevalo MD LAB BLOOD ORDERABLES Final Re sult Performing Organization Address City/[facility] Co de Phone Number [facility] [place] [address] * Comprehensive metabolic panel (07/12/2024 12:10 AM GAS BLENDER) Pathologist [facility] Sodium 135 135 - 145 mmol/L Potassium, pl 4.2 3.3 - 4.9 mmol/L [facility] Chloride 103 97 - 110 mmol/L [facility] CO2 23 22 - 32 mmol/L [facility] Anion gap 9 2 - 15 mmol/L [facility] BUN 11 6 - 25 mg/dL [facility] Creatinine 0.76 0.60 - 1.10 mg/dL [facility] Glucose 88 70 - 199 mg/dL [facility] Comment: Interpretive Data Fasting glucose [...] 2022. Calcium 9.5 8.5 - 10.3 mg/dL [facility] [place] Bilirubin, total 0.3 0.1 - 1.2 mg/dL [facility] Protein, pl 7.5 6.5 - 8.5 g/dL [facility] Albumin 4.0 3.5 - 5.0 g/dL [facility] Alk phos 73 40 - 130 Units/L [facility] ALT 14 7 - 45 Units/L [facility] AST 18 10 - 45 Units/L [facility] Blood 07/12/2024 12:1 0 AM GAS BLENDER 07/12/2024 12:22 AM GAS BLENDER us Eric Arevalo MD LAB BLOOD ORDERABLES Final Re sult Performing Organization Address City/[facility]/ZIP Co de Phone Number [facility] [place] [address] * POCT glucose (07/11/2024 11:47 PM GAS BLENDER) Glucose, POC 87 70 - 199 mg/dL Blood 07/11/2024 11:4 7 PM GAS BLENDER 07/11/2024 11:47 PM GAS BLENDER Notinfile Unknown LAB POCT ORDERABLES - DEVICE F inal Result Performing Organization Address City/[facility]/ZIP Co de Phone Number [facility] [place] [address] from Last 3 Months Insurance [facility] [employer] [place] Care Teams Floral Manager Relationship Specialty Start Date End Date Khanh Blackwood MD PCP - General 01/18/18
--- OUTSIDE RECORDS SUMMARY | 2024-09-25 20:56 | XMS_ITS | Clinical Summary ---
Author Organization [facility] Address [facility] [place] [address] Care Team Providers Care Data Processing Manager Name Role Phone Khanh Blackwood MD Primary Care Provider [phone] Allergies Active Allergy Reactions Criticality Noted Date [...] daily. 255 g 4 Active PNV with [id number] 27 mg iron- 1 mg tablet Take [...] 30 tablet 1 5 Active PNV with [id number] 27 mg iron- 1 mg tablet Take [...] - 09/02/2024 9:00 PM CDT Hospital Encounter [address] [phone] Sherly Amin MD Discharge Disposition: Discharge to home or self care 09/02/2024 4:58 PM CDT - 09/02/2024 6:16 PM CDT Emergency [facility] Emergency Department [address] [place] [phone] Abdominal pain (Primary Dx); Chest pain, unspecified type; 21 weeks gestation of Discharge Disposition: Discharge to home or self care 07/11/2024 11:50 PM SHUTTLECOCK ASSEMBLER - 07/12/2024 6:50 AM [facility] Emergency [facility] Emergency Department [address] [place] [phone] Eric Arevalo MD Abdominal pain (Primary Dx); [...] on file Legal Sex Female 9:33 PM SHUTTLECOCK ASSEMBLER Gender Identity Not on file Sexual Orientation [...] st Contact Info) Description 12/19/2024 Hospital Encounter [facility] [address] [place] [address] Sherly Amin MD [address] [facility] [place] [address] Health Maintenance Due Date Last Done Comments [...] CDT ECG 12-LEAD STAT 07/12/2024 7:52 AM SHUTTLECOCK ASSEMBLER POCT GLUCOSE DEVICE Routine 07/12/2024 3 :15 AM SHUTTLECOCK ASSEMBLER URINALYSIS, MICROSCOPIC ONLY STAT 07/12/2024 3:09 AM SHUTTLECOCK ASSEMBLER URINALYSIS AND REFLEX TO MICROSCOPIC AND CULTURE STAT 07/12/2024 3:09 AM SHUTTLECOCK ASSEMBLER B CHECK SAMPLE STAT 07/12/2024 1:52 AM SHUTTLECOCK ASSEMBLER TROPONIN I HIGH-SENSITIVITY 2-HOUR Timed 07/12/2024 1:52 AM SHUTTLECOCK ASSEMBLER POCUS FEMALE TAB PELVIC, NON- 07/12/2024 12:22 AM SHUTTLECOCK ASSEMBLER TROPONIN I HIGH-SENSITIVITY SERIES (BASELINE, 2HR, 4HR, 6HR) STAT 07/12/2024 12:12 AM SHUTTLECOCK ASSEMBLER EGFR STAT 07/12/2024 12:10 AM SHUTTLECOCK ASSEMBLER DIFFERENTIAL AUTO STAT 07/12/2024 12: 10 AM SHUTTLECOCK ASSEMBLER TYPE AND SCREEN STAT 07/12/2024 12:10 AM SHUTTLECOCK ASSEMBLER HCG, BLOOD, QUANTITATIVE STAT 07/12/2024 12:10 AM SHUTTLECOCK ASSEMBLER LIPASE STAT 07/12/2024 12:10 AM SHUTTLECOCK ASSEMBLER COMPREHENSIVE METABOLIC PANEL STAT 07/12/2024 12:10 AM SHUTTLECOCK ASSEMBLER CBC WITH AUTO DIFFERENTIAL STAT 07/12/2024 12:10 AM SHUTTLECOCK ASSEMBLER POCT GLUCOSE DEVICE Routine 07/11/2024 1 1:47 PM SHUTTLECOCK ASSEMBLER from Last 3 Months Results * (ABNORMAL) Urinalysis reflex to microscopic (09/02/2024 5:48 PM CDT) Color, ur Straw Yellow Clarity, ur Clear Clear [facility] Specific gravity, ur 1.027 1.003 - 1.030 [facility] pH, urine 6.5 [facility] Comment: Interpretive Data U rine pH is affected by diet, medications, systemic acid-base disturbances, and renal tubular function. pH may affect urinary stone formation. For example, urine pH below 6.0 may help reduce the tendency for calcium phosphate stones and pH greater than 6.0 may reduce the tendency for uric acid stone formation. Source: [facility] i.Meter Current Interpretive Data was last revised on 2017 Protein, ur ql Trace Negative [facility] Glucose, ur ql Negative Negative [facility] Ketones, ur 1+(A) Negative [facility] Bilirubin, ur Negative Negative [facility] Blood, ur Negative Negative [facility] Urobilinogen, ur <2.0 <2.0 mg/dL [facility] Nitrite, ur Negative Negative [facility] Leukocyte esterase, ur Negative Negative [facility] UA reflex comment Reflex conditions for microscopic UA not met. [facility] Urine 09/02/2024 5:48 PM CDT 09/02/2024 5:53 PM CDT us Nicolle Abbasi MD LAB URINE ORDERABLES Jenni sauceda Result [facility] Department [place] [address] * (ABNORMAL) POCT hCG, urine (09/02/2024 5:47 PM CDT) HCG, ur, POC Positive(A) Negative Lot Number [id number] QC Backgroud Clear Acceptable QC Control Line Acceptable Urine 09/02/2024 5:47 PM CDT Nicolle Abbasi MD POINT OF CARE TEST ORDERA BLES Final Result * eGFR (09/02/2024 4:28 PM CDT) Pathologist [facility] eGFR >90 >=60 mL/min/1. 73 m2 Comment: [...] ORDERABLES Jenni l Result ESTHELA SINGH [facility] Department [place] [address] * Differential, auto (09/02/2024 4:28 PM CDT) Pathologist [facility] Neutrophil abs 5.3 1.5 - 6.5 K/cumm Imm gran abs 0.0 0.0 - 0.1 K/cumm [facility] Lymphocyte abs 2.6 0.8 - 3.3 K/cumm [facility] Monocyte abs 0.5 0.2 - 0.8 K/cumm [facility] Eosinophil abs 0.1 0.0 - 0.5 K/cumm [facility] Basophil abs 0.0 0.0 - 0.1 K/cumm [facility] Neutrophil pct 61.9 % [facility] Comment: Interpretive Data Percent cell count reference ranges are not reported, since discordance with absolute values may lead to misinterpretation of CBC data. Current Interpretive Data was last revised on 2017. Imm gran pct 0.5 % [facility] Comment: Interpretive Data Percent cell count reference ranges are not reported, since discordance with absolute values may lead to misinterpretation of CBC data. Current Interpretive Data was last revised on 2017. Lymphocyte pct 30.6 % [facility] Comment: Interpretive Data Percent cell count reference ranges are not reported, since discordance with absolute values may lead to misinterpretation of CBC data. Current Interpretive Data was last revised on 2017. Monocyte pct 6.2 % [facility] Comment: Interpretive Data Percent cell count reference ranges are not reported, since discordance with absolute values may lead to misinterpretation of CBC data. Current Interpretive Data was last revised on 2017. Eosinophil pct 0.7 % [facility] Comment: Interpretive Data Percent cell count reference ranges are not reported, since discordance with absolute values may lead to misinterpretation of CBC data. Current Interpretive Data was last revised on 2017. Basophil pct 0.1 % [facility] Comment: Interpretive Data Percent cell count reference ranges are not reported, since discordance with absolute values may lead to misinterpretation of CBC data. Current Interpretive Data was last revised on 2017. Blood 09/02/2024 4:28 PM CDT 09/02/2024 4:38 PM CDT us Nicolle Abbasi MD LAB BLOOD ORDERABLES Jenni sauceda Result [facility] Department [place] [address] * (ABNORMAL) CBC with auto differential (09/02/2024 4:28 PM CDT) [facility] WBC 8.5 3.8 - 9.9 K/cumm Hgb 10.9(L) 11.9 - 15.5 g/dL [facility] Hct 32.8(L) 35.6 - 45.5 % [facility] Plt 187 150 - 400 K/cumm [facility] MPV 10.8 9.1 - 12.3 fL [facility] RBC 3.89(L) 3.90 - 5.20 M/cumm [facility] MCV 84.3 81.3 - 96.4 fL [facility] MCH 28.0 27.1 - 33.3 pg [facility] MCHC 33.2 32.3 - 35.7 g/dL [facility] RDW CV 17.0(H) 11.1 - 14.9 % [facility] RDW SD 51.8(H) 35.7 - 48.1 fL [facility] NRBC abs 0.00 0.00 - 0.01 K/cumm [facility] Blood Venous blood specimen / Unknown 09/02/2024 4:28 PM CDT 09/02/2024 4:38 PM CDT Nicolle Abbasi MD LAB BLOOD ORDERABLES Jenni l Result [facility] Department [place] [address] * Type and screen (09/02/2024 4:28 PM CDT) [facility] Maye, indirect Negative ABO Rh O Negative [facility] Blood 09/02/2024 4:28 PM CDT 09/02/2024 5:11 PM CDT Narrative [facility] - 09/02/2024 6:02 PM CDT Has the patient had Daratumumab or Isatuximab in the past 6 months?->Unknown Nicolle Abbasi MD LAB BLOOD BANK TEST ORDER RICO Final Result Performing Organization Address City/[facility] Co de Phone Number ESTHELA [facility] Department [place] [address] * (ABNORMAL) hCG, blood, quantitative (09/02/2024 4:28 PM CDT) Pathologist [facility] hCG, quant 22,893.0( H) 0.0 - 5.0 [...] ORDERABLES Jenni l Result Performing Organization Address [facility] Co de Phone Number [facility] Department [place] [address] * (ABNORMAL) Lipase (09/02/2024 4:28 PM CDT) Pathologist [facility] Lipase 7(L) 10 - 99 Units/L Blood Venous blood specimen / Unknown 09/02/2024 4:28 PM CDT 09/02/2024 4:38 PM CDT Nicolle Abbasi MD LAB BLOOD ORDERABLES Jenni l Result Performing Organization Address City/[facility]/ZIP Co de Phone [facility] [place] [address] * Comprehensive metabolic panel (09/02/2024 4:28 PM CDT) Pathologist [facility] Sodium 136 135 - 145 mmol/L Potassium, pl 4.0 3.3 - 4.9 mmol/L [facility] Chloride 105 97 - 110 mmol/L [facility] CO2 24 22 - 32 mmol/L [facility] Anion gap 7 2 - 15 mmol/L [facility] BUN 6 6 - 25 mg/dL [facility] Creatinine 0.68 0.60 - 1.10 mg/dL [facility] Glucose 77 70 - 199 mg/dL [facility] Comment: Interpretive Data Fasting glucose >/= 126 [...] Calcium 8.9 8.5 - 10.3 mg/dL [facility] Bilirubin, total 0.3 0.1 - 1.2 mg/dL [facility] Protein, pl 7.0 6.5 - 8.5 g/dL [facility] Albumin 3.6 3.5 - 5.0 g/dL [facility] Alk phos 70 40 - 130 Units/L [facility] ALT 25 7 - 45 Units/L [facility] AST 27 10 - 45 Units/L [facility] Blood 09/02/2024 4:28 PM CDT 09/02/2024 4:38 PM CDT us Nicolle Abbasi MD LAB BLOOD ORDERABLES Jenni l Result [facility] Department [place] [address] * ECG 12-LEAD (09/02/2024 3:52 PM CDT) [...] in the ED Saloni Becerra MD 09/02/24 [id number] Nicolle Abbasi MD ECG ORDERABLES Final Res ult [facility] * ECG 12-LEAD (07/12/2024 7:52 AM SHUTTLECOCK ASSEMBLER) Narrative [facility] - 07/12/2024 7:52 AM SHUTTLECOCK ASSEMBLER Eric Arevalo MD 07/12/2024 7:52 AM ECG [...] Salazar MD ECG ORDERABLES Final Resu lt [facility] * POCT glucose (07/12/2024 3:15 AM SHUTTLECOCK ASSEMBLER) Glucose, POC 86 70 - 199 mg/dL Blood 07/12/2024 3:15 AM SHUTTLECOCK ASSEMBLER 07/12/2024 3:15 AM SHUTTLECOCK ASSEMBLER us Eric Arevalo MD LAB POCT ORDERABLES - DEVICE Final Result [facility] Department [place] [address] * (ABNORMAL) Urinalysis reflex to microscopic and culture Urine (07/12/2024 3:09 AM SHUTTLECOCK ASSEMBLER) Color, ur Yellow Yellow Clarity, ur Clear Clear [facility] Specific gravity, ur 1.037(H) 1.003 - 1.030 [facility] pH, urine 6.0 [facility] Comment: Interpretive Data U rine pH is affected by diet, medications, systemic acid-base disturbances, and renal tubular function. pH may affect urinary stone formation. For example, urine pH below 6.0 may help reduce the tendency for calcium phosphate stones and pH greater than 6.0 may reduce the tendency for uric acid stone formation. Source: [facility] i.Meter Current Interpretive Data was last revised on 2017 Protein, ur ql 1+(A) Negative [facility] Glucose, ur ql Negative Negative [facility] Ketones, ur 2+(A) Negative [facility] Bilirubin, ur Negative Negative [facility] Blood, ur Negative Negative [facility] Urobilinogen, ur <2.0 <2.0 mg/dL [facility] Nitrite, ur Negative Negative [facility] Leukocyte esterase, ur Negative Negative [facility] UA reflex comment Reflex to microscopic UA will be performed. [facility] Urine 07/12/2024 3:09 AM SHUTTLECOCK ASSEMBLER 07/12/2024 5:17 AM SHUTTLECOCK ASSEMBLER Lorena Salazar MD LAB MICROBIOLOGY - GENERAL ORDERABLES Final Result Performing Organization Address [facility] Co de Phone Number [facility] Department [place] [address] * (ABNORMAL) Urinalysis, microscopic only (07/12/2024 3:09 AM SHUTTLECOCK ASSEMBLER) WBC, ur 0-5 0 - 5 /HPF RBC, ur 11-20(A) 0 - 2 /HPF [facility] Epithelial cells, squamous, ur 1-5 0 - 5 /HPF [facility] Mucous, ur Present(A) [facility] Calcium oxalate crystals, ur 3+(A) [facility] Culture Reflex Comment Reflex conditions for urine culture (WBC >10) not met. [facility] Urine 07/12/2024 3:09 AM SHUTTLECOCK ASSEMBLER 07/12/2024 5:17 AM SHUTTLECOCK ASSEMBLER Lorena Salazar MD LAB URINE ORDERABLES Final Result Performing Organization Address City/[facility]/ZIP Co de Phone Number [facility] Department [place] [address] * Troponin I high-sensitivity 2-hour (07/12/2024 1:52 AM SHUTTLECOCK ASSEMBLER) Trop I hs <4 <=17 ng/L Comment: Interpretive Data For further hscTnI resources including the diagnostic algorithm and an aid in interpretation, copy and paste this link: https://bjhlab.testcatalog.org/show/hsTrop-1 Current Interpretive Data last revised 2020. Trop I hs delta 0 ng/L [facility] Trop I hs interp Insignificant [facility] Blood 07/12/2024 1:52 AM SHUTTLECOCK ASSEMBLER 07/12/2024 1:59 AM SHUTTLECOCK ASSEMBLER Lorena Salazar MD LAB BLOOD ORDERABLES Final Result Performing Organization Address [facility] de Phone Number [facility] Department [place] [address] * Check Sample (07/12/2024 1:52 AM SHUTTLECOCK ASSEMBLER) ABO Rh O Negative [facility] HCLL OTHER 07/12/2024 1:52 AM SHUTTLECOCK ASSEMBLER 07/12/2024 2:06 AM SHUTTLECOCK ASSEMBLER us Hernando Little MD LAB BLOOD ORDERABLES Final R esult Performing Organization Address [facility] de Phone Number [facility] Department [place] [address] [facility] * POCUS Female TAB Pelvic, Non- (07/12/2024 12:22 AM SHUTTLECOCK ASSEMBLER) Anatomical Region Laterality Modality Other 07/12/2024 12:0 9 AM SHUTTLECOCK ASSEMBLER Narrative 07/21/2024 4:37 PM SHUTTLECOCK ASSEMBLER Performed by: Lorena Salazar Transabdominal: Exam Information: [...] (baseline, 2hr, 4hr, 6hr) (07/12/2024 12:12 AM SHUTTLECOCK ASSEMBLER) Trop I hs <4 <=17 ng/L Comment: Interpretive Data For further hscTnI resources including the diagnostic algorithm and an aid in interpretation, copy and paste this link: https://bjhlab.testcatalog.org/show/hsTrop-1 Current Interpretive Data last revised 2020. Blood 07/12/2024 12:1 2 AM SHUTTLECOCK ASSEMBLER 07/12/2024 12:23 AM SHUTTLECOCK ASSEMBLER us Lorena Salazar MD LAB BLOOD ORDERABLES Final Result ESTHELA [facility] Department [place] [address] * eGFR (07/12/2024 12:10 AM SHUTTLECOCK ASSEMBLER) eGFR >90 >=60 mL/min/1. 73 m2 Comment: [...] reviewed 2021. Blood 07/12/2024 12:1 0 AM SHUTTLECOCK ASSEMBLER 07/12/2024 12:22 AM SHUTTLECOCK ASSEMBLER us Hernando Little MD LAB BLOOD ORDERABLES Final R esult [facility] Department [place] [address] * Differential, auto (07/12/2024 12:10 AM SHUTTLECOCK ASSEMBLER) Neutrophil abs 5.7 1.5 - 6.5 K/cumm Imm gran abs 0.1 0.0 - 0.1 K/cumm [facility] Lymphocyte abs 2.7 0.8 - 3.3 K/cumm [facility] Monocyte abs 0.8 0.2 - 0.8 K/cumm [facility] Eosinophil abs 0.1 0.0 - 0.5 K/cumm [facility] Basophil abs 0.0 0.0 - 0.1 K/cumm [facility] Neutrophil pct 61.2 % [facility] Comment: Interpretive Data Percent cell count reference ranges are not reported, since discordance with absolute values may lead to misinterpretation of CBC data. Current Interpretive Data was last revised on 2017. Imm gran pct 0.8 % [facility] Comment: Interpretive Data Percent cell count reference ranges are not reported, since discordance with absolute values may lead to misinterpretation of CBC data. Current Interpretive Data was last revised on 2017. Lymphocyte pct 28.9 % [facility] Comment: Interpretive Data Percent cell count reference ranges are not reported, since discordance with absolute values may lead to misinterpretation of CBC data. Current Interpretive Data was last revised on 2017. Monocyte pct 8.1 % [facility] Comment: Interpretive Data Percent cell count reference ranges are not reported, since discordance with absolute values may lead to misinterpretation of CBC data. Current Interpretive Data was last revised on 2017. Eosinophil pct 0.8 % [facility] Comment: Interpretive Data Percent cell count reference ranges are not reported, since discordance with absolute values may lead to misinterpretation of CBC data. Current Interpretive Data was last revised on 2017. Basophil pct 0.2 % [facility] Comment: Interpretive Data Percent cell count reference ranges are not reported, since discordance with absolute values may lead to misinterpretation of CBC data. Current Interpretive Data was last revised on 2017. Blood 07/12/2024 12:1 0 AM SHUTTLECOCK ASSEMBLER 07/12/2024 12:23 AM SHUTTLECOCK ASSEMBLER us Eric Arevalo MD LAB BLOOD ORDERABLES Final Re sult [facility] Department [place] [address] * (ABNORMAL) CBC with auto differential (07/12/2024 12:10 AM SHUTTLECOCK ASSEMBLER) WBC 9.3 3.8 - 9.9 K/cumm Hgb 11.3(L) 11.9 - 15.5 g/dL [facility] Hct 35.1(L) 35.6 - 45.5 % [facility] Plt 220 150 - 400 K/cumm [facility] MPV 10.6 9.1 - 12.3 fL [facility] RBC 4.42 3.90 - 5.20 M/cumm [facility] MCV 79.4(L) 81.3 - 96.4 fL [facility] MCH 25.6(L) 27.1 - 33.3 pg [facility] MCHC 32.2(L) 32.3 - 35.7 g/dL [facility] RDW CV 16.0(H) 11.1 - 14.9 % [facility] RDW SD 46.3 35.7 - 48.1 fL [facility] NRBC abs 0.00 0.00 - 0.01 K/cumm [facility] Blood Venous blood specimen / Unknown 07/12/2024 12:10 AM SHUTTLECOCK ASSEMBLER 07/12/2024 12:23 AM SHUTTLECOCK ASSEMBLER Eric Arevalo MD LAB BLOOD ORDERABLES Final Re sult Performing Organization Address City/[facility]/ZIP Co de Phone Number [facility] Department [place] [address] * Type and screen (07/12/2024 12:10 AM SHUTTLECOCK ASSEMBLER) Maye, indirect Negative ABO Rh O Negative [facility] Blood 07/12/2024 12:1 0 AM SHUTTLECOCK ASSEMBLER 07/12/2024 12:23 AM SHUTTLECOCK ASSEMBLER Narrative [facility] - 07/12/2024 1:13 AM SHUTTLECOCK ASSEMBLER Has the patient had Daratumumab or Isatuximab in the past 6 months?->Unknown Eric Arevalo MD LAB BLOOD BANK TEST ORDERABLE S Final Result Performing Organization Address City/[facility]/ZIP Co de Phone Number [facility] Department [place] [address] * (ABNORMAL) hCG, blood, quantitative (07/12/2024 12:10 AM SHUTTLECOCK ASSEMBLER) hCG, quant 41,075.0( H) 0.0 - 5.0 IUnits/L Comment: Interpretive Data Male: < 5 IU/L Non- premenopausal Female: <5 IU/L The Jerry hCG Beta Quant assay procedure was used. Results from different manufacturers or methods may not be comparable. Serial testing should be performed using the same method. Interpretive Data was last revised on 2023 Blood 07/12/2024 12:1 0 AM SHUTTLECOCK ASSEMBLER 07/12/2024 12:22 AM SHUTTLECOCK ASSEMBLER us Eric Arevalo MD LAB BLOOD ORDERABLES Final Re sult Performing Organization Address City/[facility]/ZIP Co de Phone Number [facility] [place] [address] * (ABNORMAL) Lipase (07/12/2024 12:10 AM SHUTTLECOCK ASSEMBLER) Pathologist [facility] Lipase 8(L) 10 - 99 Units/L Blood Venous blood specimen / Unknown 07/12/2024 12:10 AM SHUTTLECOCK ASSEMBLER 07/12/2024 12:22 AM SHUTTLECOCK ASSEMBLER Eric Arevalo MD LAB BLOOD ORDERABLES Final Re sult Performing Organization Address [facility] de Phone Number [facility] [place] [address] * Comprehensive metabolic panel (07/12/2024 12:10 AM SHUTTLECOCK ASSEMBLER) [facility] Sodium 135 135 - 145 mmol/L Potassium, pl 4.2 3.3 - 4.9 mmol/L [facility] Chloride 103 97 - 110 mmol/L [facility] CO2 23 22 - 32 mmol/L [facility] Anion gap 9 2 - 15 mmol/L [facility] BUN 11 6 - 25 mg/dL [facility] Creatinine 0.76 0.60 - 1.10 mg/dL [facility] Glucose 88 70 - 199 mg/dL [facility] Comment: Interpretive Data Fasting glucose >/= 126 [...] Calcium 9.5 8.5 - 10.3 mg/dL [facility] Bilirubin, total 0.3 0.1 - 1.2 mg/dL [facility] Protein, pl 7.5 6.5 - 8.5 g/dL [facility] Albumin 4.0 3.5 - 5.0 g/dL [facility] Alk phos 73 40 - 130 Units/L [facility] ALT 14 7 - 45 Units/L [facility] AST 18 10 - 45 Units/L [facility] Blood 07/12/2024 12:1 0 AM SHUTTLECOCK ASSEMBLER 07/12/2024 12:22 AM SHUTTLECOCK ASSEMBLER Eric Arevalo MD LAB BLOOD ORDERABLES Final Re sult Performing Organization Address [facility]/ZIP Co de Phone Number [facility] Department [place] [address] * POCT glucose (07/11/2024 11:47 PM SHUTTLECOCK ASSEMBLER) Glucose, POC 87 70 - 199 mg/dL Blood 07/11/2024 11:4 7 PM SHUTTLECOCK ASSEMBLER 07/11/2024 11:47 PM SHUTTLECOCK ASSEMBLER Notinfile Unknown LAB POCT ORDERABLES - DEVICE F inal Result Performing Organization Address [facility] Co de Phone Number [facility] Department [place] [address] from Last 3 Months Insurance [facility] Care Teams Data Processing Manager Relationship Specialty Start Date End Date Khanh Blackwood MD PCP - General 01/18/18
--- OUTSIDE RECORDS SUMMARY | 2024-09-25 20:56 | XMS_ITS | Encounter Summary ---
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
--- NOTE | 2024-09-25 21:48 | ED_ITS ---
HPI - General Adult General Chief complaint: Unspecified Stated complaint: 26 wks, Numbness right arm since AM Time Seen by Provider: 09/25/24 20:45 History of Present Illness HPI narrative: Patient is a 38-year-old female who presents to the ER with right shoulder pain. She reports the pain started abruptly around 930 this morning. She endorses numbness and tingling down her arm. Patient reports her shoulder joint is tender to the touch and worsens with movement. She reports she has never had this sensation before. Patient also reports she is 5 months . She denies any recent injury or strenuous movement to the joint. Patient denies any chest pain, shortness of breath, recent fevers, decreased range of motion in R elbow, decreased range of motion in her R wrist or R hand. Related Data Allergies Allergy/AdvReac Type Severity Reaction Status Date / Time Penicillins Allergy Intermediate Swelling Verified 09/25/24 20:16 codeine Allergy Unknown Verified 09/25/24 20:16 Review of Systems Review of Systems: All systems reviewed & are unremarkable except as noted in HPI and below PMFSH Past Medical History Medical History Patient denies significant medical history Obesity Family History Family History Father Diabetes mellitus Social History Social History Smoking packs per day: 0.5 Smoking cigarettes per day: 10.0 Smoking status: Current every day smoker Tobacco type: cigarettes Second hand tobacco smoke exposure: Yes Alcohol intake: current Substance use: never Substance use type: does not use Do You Feel Safe in your Home?: Yes Lack of Transportation: YES Lack of Food: Sometimes True Current Housing: I Do Not Have Housing Concerned About Future Housing: No Difficulty Paying Gas/Electric Bills: No Difficulty Paying for Meds: No Currently Unemployed: YES Education: High School Diploma/GED Difficulty w/ Childcare or Family Care: No Gender identity (if verbalized by the patient): Female Spiritual care concerns: No Exam Narrative: GENERAL: Well appearing, well-nourished, non-toxic, in no acute distress. HEAD: Normocephalic, atraumatic. NECK: Supple. No adenopathy, no masses. RESPIRATORY: Airway patent, respirations nonlabored. Clear to auscultation bilaterally, no rales, rhonchi, wheezing. CARDIOVASCULAR: Regular rate and rhythm without murmurs, rubs, or gallops. Peripheral pulses 2+ and equal bilaterally. ABDOMINAL: Soft, nontender, nondistended, no hepatosplenomegaly. Normoactive BS. MUSCULOSKELETAL: Moves all extremities. Strength/ROM intact without gross deformities. + tenderness with any manipulation or palpation of R shoulder, + point tenderness SKIN: Warm, dry, normal color. No rashes. NEURO: A&O X3. Speech clear. Cranial nerves II-XII intact. No ataxic movements. PSYCHIATRIC: Appropriate mood and affect. Normal interaction. Course Vital Signs Vital signs: Vital Signs Pulse Rate 91 09/25/24 20:53 Respiratory Rate 15 09/25/24 20:53 Blood Pressure 111/64 09/25/24 20:53 Pulse Oximetry 100 09/25/24 20:53 Pulse Rate 83 09/26/24 00:20 Respiratory Rate 15 09/26/24 00:20 Blood Pressure 132/74 09/26/24 00:20 Pulse Oximetry 100 09/26/24 00:20 Medical Decision Making MDM Narrative Medical decision making narrative: Patient is a 38-year-old female who presents to the ER with right shoulder pain. She reports the pain started abruptly around 930 this morning. She endorses numbness and tingling down her arm. Patient reports her shoulder joint is tender to the touch and worsens with movement. She reports she has never had this sensation before. Patient also reports she is 5 months . She denies any recent injury or strenuous movement to the joint. Patient denies any chest pain, shortness of breath, recent fevers, decreased range of motion in R elbow, decreased range of motion in her R wrist or R hand. Labs Ordered: None necessary Imaging Ordered: Her right shoulder x-ray Medications Ordered: Tylenol 1000 mg p.o. Results: Pt's x-ray indicates no acute fracture. The glenohumeral and acromioclavicular joint space is maintained The visualized portion of the adjacent right lung is clear. The humeral head is well seated within the glenoid fossa. Diagnosis: Right shoulder pain, R shoulder bursitis Patient Education/Shared MDM: Results of imaging shared with patient. She endorses mild improvement following pain medication administration. Patient will be given a 1 time dose of a muscle relaxant and be placed in a sling for comfort prior to discharge. Patient strongly advised to maintain hydration status upon discharge and follow-up with her PCP as soon as possible. She will be discharged home with no new prescriptions. Strict return precautions provided. Patient verbalized understanding is in agreement with plan. Vital signs stable at time of discharge. All questions answered. Differential Diagnosis Differential Diagnosis: Right shoulder strain, right shoulder bursitis, R shoulder dislocation, R dena l fracture Vital Signs Vital Signs: Vital Signs Pulse Rate 91 09/25/24 20:53 Respiratory Rate 15 09/25/24 20:53 Blood Pressure 111/64 09/25/24 20:53 Pulse Oximetry 100 09/25/24 20:53 Pulse Rate 83 09/26/24 00:20 Respiratory Rate 15 09/26/24 00:20 Blood Pressure 132/74 09/26/24 00:20 Pulse Oximetry 100 09/26/24 00:20 Imaging Data Attestation: I personally reviewed and interpreted this imaging study as follows: Radiologist's impression: Impressions Shoulder X-Ray 09/25/24 21:59 IMPRESSION: No acute fracture or anterior dislocation is identified. Discharge Plan Discharge Clinical Impression: Pain in right shoulder, Acute bursitis of right shoulder Patient Disposition: Home, Self-Care Condition: Stable Instructions: Antibiotic Form, Shoulder Pain (ED) Additional Instructions: Please return to the ER with any worsening symptoms. Follow-up with primary care provider as soon as possible. You may take Tylenol as needed for pain control. Patient Language: Chinese Prescriptions: No Action (DME) blood-glucose meter [OneTouch Verio Flex meter] [facility] Qty: 1 0RF Rx Instructions: May substitute to in-stock meter and/or covered by insurance. Use As Directed (DME) OneTouch Verio test strips Strip Qty: 1 0RF Rx Instructions: May substitute to in-stock and/or covered by insurance strips. Use As Directed (DME) lancets [OneTouch Delica Plus Lancet] 30 gauge Misc Qty: 1 0RF Rx Instructions: May substitute to in-stock and/or covered by insurance lancets. Use As Directed cyclobenzaprine 10 mg tablet 10 mg PO TID PRN (Reason: muscle spasm) Qty: 20 0RF cyclobenzaprine 10 mg tablet 10 mg PO TID PRN (Reason: muscle spasm) Qty: 20 0RF naproxen 375 mg tablet 375 mg PO BID Qty: 14 0RF Follow-up/Referrals: Ampadu,MD Khanh [Primary Care Provider] - Time of Disposition: 01:42
[2024-09-25] MEDS: ACETAMINOPHEN 500 MG TABLET 1000 MG PO (21:57)
[2024-09-25 23:39] VITALS: BP 127/69; PULSE 79; RESP 16; O2SAT 100
[2024-09-26 00:20] VITALS: BP 132/74; PULSE 83; RESP 15; O2SAT 100
[2024-09-26] MEDS: CYCLOBENZAPRINE HCL 10 MG TABLET PO (01:46)
[2024-09-26 02:22] VITALS: BP 130/84; PULSE 84; RESP 16; O2SAT 99
[2024-09-26 02:23] VITALS: BP 130/84; PULSE 84; RESP 16; O2SAT 99
== END 2024-09-26 02:24 | disposition home or self-care (01) ==
PROVIDERS: Emergency Provider Registered Nurse; PCP Internal Medicine
DX: O26.892 Other specified pregnancy related conditions, second trimester (principal); M75.51 Bursitis of right shoulder; O99.332 Smoking (tobacco) complicating pregnancy, second trimester; F17.210 Nicotine dependence, cigarettes, uncomplicated; Z3A.26 26 weeks gestation of pregnancy
CPT/HCPCS: 73030; 99283; A4565; A9270

== ENCOUNTER 2024-10-05 10:04 | Outpatient (RCR) | payer OTHER, SELFPAY ==
--- OUTSIDE RECORDS SUMMARY | 2024-10-05 11:14 | XMS_ITS | Clinical Summary ---
Author Organization [facility] Address [facility] [place] [address] Care Team Providers Care Line Producer Name Role Phone Khanh Blackwood MD Primary Care Provider Allergies Active Allergy Reactions Criticality Noted Date Comments Codeine Hives Medium 01/18/2018 Penicillins Angioedema High 01/07/2022 Medications ondansetron (ZOFRAN) 4 mg tablet Take 1 tablet (4 mg total) by mouth daily as needed for nausea 30 tablet 03/02/2024 Active polyethylene glycol (Miralax) 17 gram/dose bulk powder Take 17 g by mouth daily Mix 1 scoop (17g) in 8oz of water and drink daily. 255 g 06/21/2024 Active PNV with [id number] 27 mg iron- 1 mg tablet Take 1 tablet by mouth daily 30 tablet 06/21/2024 Active lidocaine (LIDODERM) 5 % Place 1 patch on the skin once for 1 dose Remove & discard patch within 12 hours or as directed by MD. 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 Estimated Date of Delivery Comme nts Yes 12/19/2024 Based on Ultraso und Encounters Date Type Department Care Team Description 09/02/2024 6:16 PM CDT - 09/02/2024 9:00 PM CDT Hospital Encounter [address] [phone] Sherly Amin MD Discharge Disposition: Discharge to home or self care 09/02/2024 4:58 PM CDT - 09/02/2024 6:16 PM CDT Emergency [facility] Emergency Department [address] [place] [address] Abdominal pain (Primary Dx); Chest pain, unspecified type; 21 weeks gestation of Discharge Disposition: Discharge to home or self care 07/11/2024 11:50 PM PHYSIOGNOMIST - 07/12/2024 6:50 AM PHYSIOGNOMIST Emergency [facility] Emergency Department [address] [place] [address] Eric Arevalo MD Abdominal pain (Primary Dx); [...] on file Legal Sex Female 9:33 PM PHYSIOGNOMIST Gender Identity Not on file Sexual Orientation Not on file Obstetrics History Para Term AB IAB SAB Ectopic Multiple Livin g Live Births 2 1 1 1 1 Date Outcome GA Total Labor Labor/2nd/3rd Weight Sex Type Anes PTL Vilma A1 A5 Name Clin 2016 Term CS-Un spec Living Current Summary Episode Dates Number of Fetuses Estimated Date of Delivery 09/02/2024 - Present (10/05/2024) 12/19/2024 (set by Lorena Scales RN on [...] 4:20 PM CDT Height 168.9 cm (5' 6.5) 09/02/2024 4:20 PM CDT Body Mass Index 36.57 09/02/2024 4:20 PM CDT Plan of Treatment Upcoming Encounters Date Type Department Care Team (Late st Contact Info) Description 12/19/2024 Hospital Encounter [address] [phone] Sherly Amin MD [address] [place] [address] Health Maintenance Due Date Last Done Comments [...] CDT ECG 12-LEAD STAT 07/12/2024 7:52 AM PHYSIOGNOMIST POCT GLUCOSE DEVICE Routine 07/12/2024 3 :15 AM PHYSIOGNOMIST URINALYSIS, MICROSCOPIC ONLY STAT 07/12/2024 3:09 AM PHYSIOGNOMIST URINALYSIS AND REFLEX TO MICROSCOPIC AND CULTURE STAT 07/12/2024 3:09 AM PHYSIOGNOMIST B CHECK SAMPLE STAT 07/12/2024 1:52 AM PHYSIOGNOMIST TROPONIN I HIGH-SENSITIVITY 2-HOUR Timed 07/12/2024 1:52 AM PHYSIOGNOMIST POCUS FEMALE TAB PELVIC, NON- 07/12/2024 12:22 AM PHYSIOGNOMIST TROPONIN I HIGH-SENSITIVITY SERIES (BASELINE, 2HR, 4HR, 6HR) STAT 07/12/2024 12:12 AM PHYSIOGNOMIST EGFR STAT 07/12/2024 12:10 AM PHYSIOGNOMIST DIFFERENTIAL AUTO STAT 07/12/2024 12: 10 AM PHYSIOGNOMIST TYPE AND SCREEN STAT 07/12/2024 12:10 AM PHYSIOGNOMIST HCG, BLOOD, QUANTITATIVE STAT 07/12/2024 12:10 AM PHYSIOGNOMIST LIPASE STAT 07/12/2024 12:10 AM PHYSIOGNOMIST COMPREHENSIVE METABOLIC PANEL STAT 07/12/2024 12:10 AM PHYSIOGNOMIST CBC WITH AUTO DIFFERENTIAL STAT 07/12/2024 12:10 AM PHYSIOGNOMIST POCT GLUCOSE DEVICE Routine 07/11/2024 1 1:47 PM PHYSIOGNOMIST from Last 3 Months Results * (ABNORMAL) Urinalysis reflex to microscopic (09/02/2024 5:48 PM CDT) Color, ur Straw Yellow Clarity, ur Clear Clear [facility] Specific gravity, ur 1.027 1.003 - 1.030 [facility] pH, urine 6.5 [facility] Comment: Interpretive Data U rine pH is affected by diet, medications, systemic acid-base disturbances, and renal tubular function. pH may affect urinary stone formation. For example, urine pH below 6.0 may help reduce the tendency for calcium phosphate stones and pH greater than 6.0 may reduce the tendency for uric acid stone formation. Source: [facility] Current Interpretive Data was last revised on 2017 Protein, ur ql Trace Negative [facility] Glucose, ur ql Negative Negative [facility] Ketones, ur 1+(A) Negative [facility] Bilirubin, ur Negative Negative [facility] Blood, ur Negative Negative [facility] Urobilinogen, ur <2.0 <2.0 mg/dL [facility] Nitrite, ur Negative Negative [facility] Leukocyte esterase, ur Negative Negative [facility] UA reflex comment Reflex conditions for microscopic UA not met. [facility] Urine 09/02/2024 5:48 PM CDT 09/02/2024 5:53 PM CDT Nicolle Abbasi MD LAB URINE ORDERABLES Jenni l Result [facility] Department [place] [address] * (ABNORMAL) POCT hCG, urine (09/02/2024 5:47 PM CDT) Pathologist [facility] HCG, ur, POC Positive(A) Negative Lot Number [id number] QC Backgroud Clear Acceptable QC Control Line Acceptable Urine 09/02/2024 5:47 PM CDT Nicolle Abbasi MD POINT OF CARE TEST ORDERA BLES Final Result * eGFR (09/02/2024 4:28 PM CDT) Pathologist [facility] eGFR >90 >=60 mL/min/1. 73 m2 [...] MD LAB BLOOD ORDERABLES Jenni sauceda Result [facility] Department [place] [address] * Differential, auto (09/02/2024 4:28 PM CDT) Pathologist [facility] Neutrophil abs 5.3 1.5 - 6.5 K/cumm Imm gran abs 0.0 0.0 - 0.1 K/cumm [facility] Lymphocyte abs 2.6 0.8 - 3.3 K/cumm [facility] Monocyte abs 0.5 0.2 - 0.8 K/cumm [facility] Eosinophil abs 0.1 0.0 - 0.5 K/cumm [facility] Basophil abs 0.0 0.0 - 0.1 K/cumm [facility] Neutrophil pct 61.9 % [facility] Comment: Interpretive Data Percent cell count reference ranges are not reported, since discordance with absolute values may lead to misinterpretation of CBC data. Current Interpretive Data was last revised on 2017. Imm gran pct 0.5 % [facility] Comment: Interpretive Data Percent cell count reference ranges are not reported, since discordance with absolute values may lead to misinterpretation of CBC data. Current Interpretive Data was last revised on 2017. Lymphocyte pct 30.6 % [facility] Comment: Interpretive Data Percent cell count reference ranges are not reported, since discordance with absolute values may lead to misinterpretation of CBC data. Current Interpretive Data was last revised on 2017. Monocyte pct 6.2 % [facility] Comment: Interpretive Data Percent cell count reference ranges are not reported, since discordance with absolute values may lead to misinterpretation of CBC data. Current Interpretive Data was last revised on 2017. Eosinophil pct 0.7 % [facility] Comment: Interpretive Data Percent cell count reference ranges are not reported, since discordance with absolute values may lead to misinterpretation of CBC data. Current Interpretive Data was last revised on 2017. Basophil pct 0.1 % [facility] Comment: Interpretive Data Percent cell count reference ranges are not reported, since discordance with absolute values may lead to misinterpretation of CBC data. Current Interpretive Data was last revised on 2017. Blood 09/02/2024 4:28 PM CDT 09/02/2024 4:38 PM CDT us Nicolle Abbasi MD LAB BLOOD ORDERABLES Jenni l Result [facility] Department [place] [address] * (ABNORMAL) CBC with auto differential (09/02/2024 4:28 PM CDT) WBC 8.5 3.8 - 9.9 K/cumm Hgb 10.9(L) 11.9 - 15.5 g/dL [facility] Hct 32.8(L) 35.6 - 45.5 % [facility] Plt 187 150 - 400 K/cumm [facility] MPV 10.8 9.1 - 12.3 fL [facility] RBC 3.89(L) 3.90 - 5.20 M/cumm [facility] MCV 84.3 81.3 - 96.4 fL [facility] MCH 28.0 27.1 - 33.3 pg [facility] MCHC 33.2 32.3 - 35.7 g/dL [facility] RDW CV 17.0(H) 11.1 - 14.9 % [facility] RDW SD 51.8(H) 35.7 - 48.1 fL [facility] NRBC abs 0.00 0.00 - 0.01 K/cumm [facility] Blood Venous blood specimen / Unknown 09/02/2024 4:28 PM CDT 09/02/2024 4:38 PM CDT Nicolle Abbasi MD LAB BLOOD ORDERABLES Jenni l Result Performing Organization Address City/[facility] Co de Phone Number [facility] [place] [address] * Type and screen (09/02/2024 4:28 PM CDT) Maye, indirect Negative ABO Rh O Negative [facility] Blood 09/02/2024 4:28 PM CDT 09/02/2024 5:11 PM CDT Narrative [facility] - 09/02/2024 6:02 PM CDT Has the patient had Daratumumab or Isatuximab in the past 6 months?->Unknown Nicolle Abbasi MD LAB BLOOD BANK TEST ORDER RICO Final Result Performing Organization Address [facility] de Phone Number [facility] [place] [address] * (ABNORMAL) hCG, blood, quantitative (09/02/2024 4:28 PM CDT) hCG, quant 22,893.0( H) 0.0 - 5.0 [...] MD LAB BLOOD ORDERABLES Jenni l Result [facility] Department [place] [address] * (ABNORMAL) Lipase (09/02/2024 4:28 PM CDT) [facility] Lipase 7(L) 10 - 99 Units/L Blood Venous blood specimen / Unknown 09/02/2024 4:28 PM CDT 09/02/2024 4:38 PM CDT Nicolle Abbasi MD LAB BLOOD ORDERABLES Jenni l Result Performing Organization Address [facility] Co de Phone Number [facility] Department [place] [address] * Comprehensive metabolic panel (09/02/2024 4:28 PM CDT) [facility] Sodium 136 135 - 145 mmol/L Potassium, pl 4.0 3.3 - 4.9 mmol/L [facility] Chloride 105 97 - 110 mmol/L [facility] CO2 24 22 - 32 mmol/L [facility] Anion gap 7 2 - 15 mmol/L [facility] BUN 6 6 - 25 mg/dL [facility] Creatinine 0.68 0.60 - 1.10 mg/dL [facility] Glucose 77 70 - 199 mg/dL [facility] Comment: Interpretive Data Fasting glucose >/= 126 [...] classification and Diagnosis of Diabetes Diabetes Care 202; 46: S19-S40. Current interpretive data was last revised 2022. Calcium 8.9 8.5 - 10.3 mg/dL [facility] Bilirubin, total 0.3 0.1 - 1.2 mg/dL [facility] Protein, pl 7.0 6.5 - 8.5 g/dL [facility] Albumin 3.6 3.5 - 5.0 g/dL [facility] Alk phos 70 40 - 130 Units/L [facility] ALT 25 7 - 45 Units/L [facility] AST 27 10 - 45 Units/L [facility] Blood 09/02/2024 4:28 PM CDT 09/02/2024 4:38 PM CDT us Nicolle Abbasi MD LAB BLOOD ORDERABLES Jenni l Result [facility] Department [place] [address] * ECG 12-LEAD (09/02/2024 3:52 PM CDT) [...] in the ED Saloni Becerra MD 09/02/24 [id number] us Nicolle Abbasi MD ECG ORDERABLES Final Res ult Performing Organization Address [facility] Co de Phone Number [facility] * ECG 12-LEAD (07/12/2024 7:52 AM PHYSIOGNOMIST) Narrative [facility] - 07/12/2024 7:52 AM PHYSIOGNOMIST Eric Arevalo MD 07/12/2024 7:52 AM ECG [...] Salazar MD ECG ORDERABLES Final Resu lt Performing Organization Address [facility] Co de Phone Number [facility] * POCT glucose (07/12/2024 3:15 AM PHYSIOGNOMIST) Glucose, POC 86 70 - 199 mg/dL Blood 07/12/2024 3:15 AM PHYSIOGNOMIST 07/12/2024 3:15 AM PHYSIOGNOMIST us Eric Arevalo MD LAB POCT ORDERABLES - DEVICE Final Result Performing Organization Address [facility]/ZIP Co de Phone Number [facility] Department [place] [address] * (ABNORMAL) Urinalysis reflex to microscopic and culture Urine (07/12/2024 3:09 AM PHYSIOGNOMIST) Color, ur Yellow Yellow Clarity, ur Clear Clear [facility] Specific gravity, ur 1.037(H) 1.003 - 1.030 [facility] pH, urine 6.0 [facility] Comment: Interpretive Data U rine pH is affected by diet, medications, systemic acid-base disturbances, and renal tubular function. pH may affect urinary stone formation. For example, urine pH below 6.0 may help reduce the tendency for calcium phosphate stones and pH greater than 6.0 may reduce the tendency for uric acid stone formation. Source: [facility] Current Interpretive Data was last revised on 2017 Protein, ur ql 1+(A) Negative [facility] Glucose, ur ql Negative Negative [facility] Ketones, ur 2+(A) Negative [facility] Bilirubin, ur Negative Negative [facility] Blood, ur Negative Negative [facility] Urobilinogen, ur <2.0 <2.0 mg/dL [facility] Nitrite, ur Negative Negative [facility] Leukocyte esterase, ur Negative Negative [facility] UA reflex comment Reflex to microscopic UA will be performed. [facility] Urine 07/12/2024 3:09 AM PHYSIOGNOMIST 07/12/2024 5:17 AM PHYSIOGNOMIST us Lorena Salazar MD LAB MICROBIOLOGY - GENERAL ORDERABLES Final Result Performing Organization Address [facility] Co de Phone Number [facility] Department [place] [address] * (ABNORMAL) Urinalysis, microscopic only (07/12/2024 3:09 AM PHYSIOGNOMIST) Pathologist [facility] WBC, ur 0-5 0 - 5 /HPF RBC, ur 11-20(A) 0 - 2 /HPF [facility] Epithelial cells, squamous, ur 1-5 0 - 5 /HPF [facility] Mucous, ur Present(A) [facility] Calcium oxalate crystals, ur 3+(A) [facility] Culture Reflex Comment Reflex conditions for urine culture (WBC >10) not met. [facility] Urine 07/12/2024 3:09 AM PHYSIOGNOMIST 07/12/2024 5:17 AM PHYSIOGNOMIST us Lorena Salazar MD LAB URINE ORDERABLES Final Result Performing Organization Address City/[facility]/ZIP Co de Phone Number [facility] [place] [address] * Troponin I high-sensitivity 2-hour (07/12/2024 1:52 AM PHYSIOGNOMIST) Pathologist [facility] Trop I hs <4 <=17 ng/L Comment: Interpretive Data For further hscTnI resources including the diagnostic algorithm and an aid in interpretation, copy and paste this link: https://bjhlab.testcatalog.org/show/hsTrop-1 Current Interpretive Data last revised 2020. Trop I hs delta 0 ng/L [facility] Trop I hs interp Insignificant [facility] Blood 07/12/2024 1:52 AM PHYSIOGNOMIST 07/12/2024 1:59 AM PHYSIOGNOMIST us Lorena Salazar MD LAB BLOOD ORDERABLES Final Result [facility] [place] [address] * Check Sample (07/12/2024 1:52 AM PHYSIOGNOMIST) Pathologist [facility] ABO Rh O Negative [facility] HCLL OTHER 07/12/2024 1:52 AM PHYSIOGNOMIST 07/12/2024 2:06 AM PHYSIOGNOMIST us Hernando Little MD LAB BLOOD ORDERABLES Final R esult [facility] Department [place] [address] [facility] * POCUS Female TAB Pelvic, Non- (07/12/2024 12:22 AM PHYSIOGNOMIST) Anatomical Region Laterality Modality Other 07/12/2024 12:0 9 AM PHYSIOGNOMIST Narrative 07/21/2024 4:37 PM PHYSIOGNOMIST Performed by: Lorena Salazar Transabdominal: Exam Information: [...] (baseline, 2hr, 4hr, 6hr) (07/12/2024 12:12 AM PHYSIOGNOMIST) Trop I hs <4 <=17 ng/L Comment: Interpretive Data For further hscTnI resources including the diagnostic algorithm and an aid in interpretation, copy and paste this link: https://bjhlab.testcatalog.org/show/hsTrop-1 Current Interpretive Data last revised 2020. Blood 07/12/2024 12:1 2 AM PHYSIOGNOMIST 07/12/2024 12:23 AM PHYSIOGNOMIST us Lorena Salazar MD LAB BLOOD ORDERABLES Final Result [facility] Department [place] [address] * eGFR (07/12/2024 12:10 AM PHYSIOGNOMIST) eGFR >90 >=60 mL/min/1. 73 m2 Comment: [...] reviewed 2021. Blood 07/12/2024 12:1 0 AM PHYSIOGNOMIST 07/12/2024 12:22 AM PHYSIOGNOMIST us Hernando Little MD LAB BLOOD ORDERABLES Final R esult [facility] Department [place] [address] * Differential, auto (07/12/2024 12:10 AM PHYSIOGNOMIST) Neutrophil abs 5.7 1.5 - 6.5 K/cumm Imm gran abs 0.1 0.0 - 0.1 K/cumm [facility] Lymphocyte abs 2.7 0.8 - 3.3 K/cumm [facility] Monocyte abs 0.8 0.2 - 0.8 K/cumm [facility] Eosinophil abs 0.1 0.0 - 0.5 K/cumm [facility] Basophil abs 0.0 0.0 - 0.1 K/cumm [facility] Neutrophil pct 61.2 % [facility] Comment: Interpretive Data Percent cell count reference ranges are not reported, since discordance with absolute values may lead to misinterpretation of CBC data. Current Interpretive Data was last revised on 2017. Imm gran pct 0.8 % [facility] Comment: Interpretive Data Percent cell count reference ranges are not reported, since discordance with absolute values may lead to misinterpretation of CBC data. Current Interpretive Data was last revised on 2017. Lymphocyte pct 28.9 % [facility] Comment: Interpretive Data Percent cell count reference ranges are not reported, since discordance with absolute values may lead to misinterpretation of CBC data. Current Interpretive Data was last revised on 2017. Monocyte pct 8.1 % [facility] Comment: Interpretive Data Percent cell count reference ranges are not reported, since discordance with absolute values may lead to misinterpretation of CBC data. Current Interpretive Data was last revised on 2017. Eosinophil pct 0.8 % [facility] Comment: Interpretive Data Percent cell count reference ranges are not reported, since discordance with absolute values may lead to misinterpretation of CBC data. Current Interpretive Data was last revised on 2017. Basophil pct 0.2 % [facility] Comment: Interpretive Data Percent cell count reference ranges are not reported, since discordance with absolute values may lead to misinterpretation of CBC data. Current Interpretive Data was last revised on 2017. Blood 07/12/2024 12:1 0 AM PHYSIOGNOMIST 07/12/2024 12:23 AM PHYSIOGNOMIST Eric Arevalo MD LAB BLOOD ORDERABLES Final Re sult Performing Organization Address City/[facility]/ZIP Co de Phone Number [facility] Department [place] [address] * (ABNORMAL) CBC with auto differential (07/12/2024 12:10 AM PHYSIOGNOMIST) Pathologist [facility] WBC 9.3 3.8 - 9.9 K/cumm Hgb 11.3(L) 11.9 - 15.5 g/dL [facility] Hct 35.1(L) 35.6 - 45.5 % [facility] Plt 220 150 - 400 K/cumm [facility] MPV 10.6 9.1 - 12.3 fL [facility] RBC 4.42 3.90 - 5.20 M/cumm [facility] MCV 79.4(L) 81.3 - 96.4 fL [facility] MCH 25.6(L) 27.1 - 33.3 pg [facility] MCHC 32.2(L) 32.3 - 35.7 g/dL [facility] RDW CV 16.0(H) 11.1 - 14.9 % [facility] RDW SD 46.3 35.7 - 48.1 fL [facility] NRBC abs 0.00 0.00 - 0.01 K/cumm [facility] Blood Venous blood specimen / Unknown 07/12/2024 12:10 AM PHYSIOGNOMIST 07/12/2024 12:23 AM PHYSIOGNOMIST Eric Arevalo MD LAB BLOOD ORDERABLES Final Re sult [facility] Department [place] [address] * Type and screen (07/12/2024 12:10 AM PHYSIOGNOMIST) Maye, indirect Negative ABO Rh O Negative [facility] Blood 07/12/2024 12:1 0 AM PHYSIOGNOMIST 07/12/2024 12:23 AM PHYSIOGNOMIST Narrative [facility] - 07/12/2024 1:13 AM PHYSIOGNOMIST Has the patient had Daratumumab or Isatuximab in the past 6 months?->Unknown Eric Arevalo MD LAB BLOOD BANK TEST ORDERABLE S Final Result Performing Organization Address City/[facility] Co de Phone Number [facility] Department [place] [address] * (ABNORMAL) hCG, blood, quantitative (07/12/2024 12:10 AM PHYSIOGNOMIST) hCG, quant 41,075.0( H) 0.0 - 5.0 IUnits/L Comment: Interpretive Data Male: < 5 IU/L Non- premenopausal Female: <5 IU/L The Jerry hCG Beta Quant assay procedure was used. Results from different manufacturers or methods may not be comparable. Serial testing should be performed using the same method. Interpretive Data was last revised on 2023 Blood 07/12/2024 12:1 0 AM PHYSIOGNOMIST 07/12/2024 12:22 AM PHYSIOGNOMIST Eric Arevalo MD LAB BLOOD ORDERABLES Final Re sult [facility] [place] [address] * (ABNORMAL) Lipase (07/12/2024 12:10 AM PHYSIOGNOMIST) Lipase 8(L) 10 - 99 Units/L Blood Venous blood specimen / Unknown 07/12/2024 12:10 AM PHYSIOGNOMIST 07/12/2024 12:22 AM PHYSIOGNOMIST Eric Arevalo MD LAB BLOOD ORDERABLES Final Re sult Performing Organization Address City/[facility]/ZIP Co de Phone Number [facility] Department [place] [address] * Comprehensive metabolic panel (07/12/2024 12:10 AM PHYSIOGNOMIST) Sodium 135 135 - 145 mmol/L Potassium, pl 4.2 3.3 - 4.9 mmol/L [facility] Chloride 103 97 - 110 mmol/L [facility] CO2 23 22 - 32 mmol/L [facility] Anion gap 9 2 - 15 mmol/L [facility] BUN 11 6 - 25 mg/dL [facility] Creatinine 0.76 0.60 - 1.10 mg/dL [facility] Glucose 88 70 - 199 mg/dL [facility] Comment: Interpretive Data Fasting glucose >/= 126 [...] classification and Diagnosis of Diabetes Diabetes Care 202; 46: S19-S40. Current interpretive data was last revised 2022. Calcium 9.5 8.5 - 10.3 mg/dL [facility] Bilirubin, total 0.3 0.1 - 1.2 mg/dL [facility] Protein, pl 7.5 6.5 - 8.5 g/dL [facility] Albumin 4.0 3.5 - 5.0 g/dL [facility] Alk phos 73 40 - 130 Units/L [facility] ALT 14 7 - 45 Units/L [facility] AST 18 10 - 45 Units/L [facility] Blood 07/12/2024 12:1 0 AM PHYSIOGNOMIST 07/12/2024 12:22 AM PHYSIOGNOMIST Eric Arevalo MD LAB BLOOD ORDERABLES Final Re sult Performing Organization Address City/[facility]/ZIP Co de Phone Number [facility] Department [place] [address] * POCT glucose (07/11/2024 11:47 PM PHYSIOGNOMIST) Glucose, POC 87 70 - 199 mg/dL Blood 07/11/2024 11:4 7 PM PHYSIOGNOMIST 07/11/2024 11:47 PM PHYSIOGNOMIST us Notinfile Unknown LAB POCT ORDERABLES - DEVICE F inal Result [facility] [place] [address] from Last [address] [place] [address] [facility] [place] [address] Care Teams Line Producer Relationship Specialty Start Date End Date Khanh Blackwood MD PCP - General 01/18/18
--- OUTSIDE RECORDS SUMMARY | 2024-10-05 11:14 | XMS_ITS | Referral Summary ---
Author Organization [facility] Address [address] [place] [id number] Care Team Providers Care Rod Straightener Name Role Phone Khanh Blackwood MD Primary Care Provider Encounters Date Type Department Care Team Description 09/02/2024 6:16 PM CDT - 09/02/2024 9:00 PM CDT Hospital Encounter [address] [phone] Sherly Amin MD Discharge Disposition: Discharge to home or self care 09/02/2024 4:58 PM CDT - 09/02/2024 6:16 PM CDT Emergency [facility] Emergency Department [address] [place] [phone] Abdominal pain (Primary Dx); Chest pain, unspecified type; 21 weeks gestation of Discharge Disposition: Discharge to home or self care 07/11/2024 11:50 PM GRADUATE STUDIES DEAN - 07/12/2024 6:50 AM GRADUATE STUDIES DEAN Emergency [facility] Emergency Department [address] [place] [phone] Eric Arevalo MD Abdominal pain (Primary Dx); [...] daily. 255 g 06/21/2024 Active PNV with [id number]-caai-BI 27 mg iron- 1 mg tablet Take 1 tablet by mouth daily 30 tablet 06/21/2024 Active lidocaine (LIDODERM) 5 % Place 1 patch on the skin once for 1 dose Remove & discard patch within 12 hours or as directed by . 9 patch 1 09/02/2024 Active acetaminophen (TYLENOL) 500 mg tablet Take 2 tablets (1,000 mg total) by mouth every 6 (six) hours as needed for pain 30 tablet 1 09/02/2024 Active PNV with pkoqjvo-etep-YF 27 mg iron- 1 mg tablet Take [...] on file Legal Sex Female 9:33 PM GRADUATE STUDIES DEAN Gender Identity Not on file Sexual Orientation [...] st Contact Info) Description 12/19/2024 Hospital Encounter [facility] [address] [place] [address] Sherly Amin MD [address] [place] [address] Procedures Procedure Name Priority Date/Time Associated Diagnosis [...] CDT ECG 12-LEAD STAT 07/12/2024 7:52 AM GRADUATE STUDIES DEAN POCT GLUCOSE DEVICE Routine 07/12/2024 3 :15 AM GRADUATE STUDIES DEAN URINALYSIS, MICROSCOPIC ONLY STAT 07/12/2024 3:09 AM GRADUATE STUDIES DEAN URINALYSIS AND REFLEX TO MICROSCOPIC AND CULTURE STAT 07/12/2024 3:09 AM GRADUATE STUDIES DEAN B CHECK SAMPLE STAT 07/12/2024 1:52 AM GRADUATE STUDIES DEAN TROPONIN I HIGH-SENSITIVITY 2-HOUR Timed 07/12/2024 1:52 AM GRADUATE STUDIES DEAN POCUS FEMALE TAB PELVIC, NON- 07/12/2024 12:22 AM GRADUATE STUDIES DEAN TROPONIN I HIGH-SENSITIVITY SERIES (BASELINE, 2HR, 4HR, 6HR) STAT 07/12/2024 12:12 AM GRADUATE STUDIES DEAN EGFR STAT 07/12/2024 12:10 AM GRADUATE STUDIES DEAN DIFFERENTIAL AUTO STAT 07/12/2024 12: 10 AM GRADUATE STUDIES DEAN TYPE AND SCREEN STAT 07/12/2024 12:10 AM GRADUATE STUDIES DEAN HCG, BLOOD, QUANTITATIVE STAT 07/12/2024 12:10 AM GRADUATE STUDIES DEAN LIPASE STAT 07/12/2024 12:10 AM GRADUATE STUDIES DEAN COMPREHENSIVE METABOLIC PANEL STAT 07/12/2024 12:10 AM GRADUATE STUDIES DEAN CBC WITH AUTO DIFFERENTIAL STAT 07/12/2024 12:10 AM GRADUATE STUDIES DEAN POCT GLUCOSE DEVICE Routine 07/11/2024 1 1:47 PM GRADUATE STUDIES DEAN from Last 3 Months Results * (ABNORMAL) Urinalysis reflex to microscopic (09/02/2024 5:48 PM CDT) Color, ur Straw Yellow Clarity, ur Clear Clear [facility] Specific gravity, ur 1.027 1.003 - 1.030 [facility] pH, urine 6.5 [facility] Comment: Interpretive Data U rine pH is affected by diet, medications, systemic acid-base disturbances, and renal tubular function. pH may affect urinary stone formation. For example, urine pH below 6.0 may help reduce the tendency for calcium phosphate stones and pH greater than 6.0 may reduce the tendency for uric acid stone formation. Source: [facility] Current Interpretive Data was last revised on 2017 Protein, ur ql Trace Negative [facility] Glucose, ur ql Negative Negative [facility] Ketones, ur 1+(A) Negative [facility] Bilirubin, ur Negative Negative [facility] Blood, ur Negative Negative [facility] Urobilinogen, ur <2.0 <2.0 mg/dL [facility] Nitrite, ur Negative Negative [facility] Leukocyte esterase, ur Negative Negative [facility] UA reflex comment Reflex conditions for microscopic UA not met. [facility] Urine 09/02/2024 5:48 PM CDT 09/02/2024 5:53 PM CDT Nicolle Abbasi MD LAB URINE ORDERABLES Jenni l Result [facility] Department [place] [address] * (ABNORMAL) POCT hCG, urine (09/02/2024 5:47 PM CDT) Pathologist [facility] HCG, ur, POC Positive(A) Negative Lot Number [id number] QC Backgroud Clear Acceptable QC Control Line Acceptable Urine 09/02/2024 5:47 PM CDT Nicolle Abbasi MD POINT OF CARE TEST ORDERA BLES Final Result * eGFR (09/02/2024 4:28 PM CDT) eGFR >90 >=60 mL/min/1. 73 m2 Comment: [...] MD LAB BLOOD ORDERABLES Jenni sauceda Result [facility] Department [place] [address] * Differential, auto (09/02/2024 4:28 PM CDT) Pathologist [facility] Neutrophil abs 5.3 1.5 - 6.5 K/cumm Imm gran abs 0.0 0.0 - 0.1 K/cumm [facility] Lymphocyte abs 2.6 0.8 - 3.3 K/cumm [facility] Monocyte abs 0.5 0.2 - 0.8 K/cumm [facility] Eosinophil abs 0.1 0.0 - 0.5 K/cumm [facility] Basophil abs 0.0 0.0 - 0.1 K/cumm [facility] Neutrophil pct 61.9 % [facility] Comment: Interpretive Data Percent cell count reference ranges are not reported, since discordance with absolute values may lead to misinterpretation of CBC data. Current Interpretive Data was last revised on 2017. Imm gran pct 0.5 % [facility] Comment: Interpretive Data Percent cell count reference ranges are not reported, since discordance with absolute values may lead to misinterpretation of CBC data. Current Interpretive Data was last revised on 2017. Lymphocyte pct 30.6 % [facility] Comment: Interpretive Data Percent cell count reference ranges are not reported, since discordance with absolute values may lead to misinterpretation of CBC data. Current Interpretive Data was last revised on 2017. Monocyte pct 6.2 % [facility] Comment: Interpretive Data Percent cell count reference ranges are not reported, since discordance with absolute values may lead to misinterpretation of CBC data. Current Interpretive Data was last revised on 2017. Eosinophil pct 0.7 % [facility] Comment: Interpretive Data Percent cell count reference ranges are not reported, since discordance with absolute values may lead to misinterpretation of CBC data. Current Interpretive Data was last revised on 2017. Basophil pct 0.1 % [facility] Comment: Interpretive Data Percent cell count reference ranges are not reported, since discordance with absolute values may lead to misinterpretation of CBC data. Current Interpretive Data was last revised on 2017. Blood 09/02/2024 4:28 PM CDT 09/02/2024 4:38 PM CDT Nicolle Abbasi MD LAB BLOOD ORDERABLES Jenni l Result [facility] Department [place] [address] * (ABNORMAL) CBC with auto differential (09/02/2024 4:28 PM CDT) WBC 8.5 3.8 - 9.9 K/cumm Hgb 10.9(L) 11.9 - 15.5 g/dL [facility] Hct 32.8(L) 35.6 - 45.5 % [facility] Plt 187 150 - 400 K/cumm [facility] MPV 10.8 9.1 - 12.3 fL [facility] RBC 3.89(L) 3.90 - 5.20 M/cumm [facility] MCV 84.3 81.3 - 96.4 fL [facility] MCH 28.0 27.1 - 33.3 pg [facility] MCHC 33.2 32.3 - 35.7 g/dL [facility] RDW CV 17.0(H) 11.1 - 14.9 % [facility] RDW SD 51.8(H) 35.7 - 48.1 fL [facility] NRBC abs 0.00 0.00 - 0.01 K/cumm [facility] Blood Venous blood specimen / Unknown 09/02/2024 4:28 PM CDT 09/02/2024 4:38 PM CDT Nicolle Abbasi MD LAB BLOOD ORDERABLES Jenni l Result Performing Organization Address City/[facility] Co de Phone Number [facility] Department [place] [address] * Type and screen (09/02/2024 4:28 PM CDT) Maye, indirect Negative ABO Rh O Negative [facility] Blood 09/02/2024 4:28 PM CDT 09/02/2024 5:11 PM CDT Narrative [facility] - 09/02/2024 6:02 PM CDT Has the patient had Daratumumab or Isatuximab in the past 6 months?->Unknown Nicolle Abbasi MD LAB BLOOD BANK TEST ORDER RICO Final Result Performing Organization Address [facility] de Phone Number [facility] Department [place] [employer] [place] [address] * (ABNORMAL) hCG, blood, quantitative (09/02/2024 4:28 [...] ORDERABLES Jenni l Result Performing Organization Address City/[facility]/ZIP Co de Phone Number [facility] Department [place] [address] * (ABNORMAL) Lipase (09/02/2024 4:28 PM CDT) [facility] Lipase 7(L) 10 - 99 Units/L Blood Venous blood specimen / Unknown 09/02/2024 4:28 PM CDT 09/02/2024 4:38 PM CDT Nicolle Abbasi MD LAB BLOOD ORDERABLES Jenni l Result Performing Organization Address [facility] de Phone Number [facility] [place] [address] * Comprehensive metabolic panel (09/02/2024 4:28 PM CDT) [facility] Sodium 136 135 - 145 mmol/L Potassium, pl 4.0 3.3 - 4.9 mmol/L [facility] Chloride 105 97 - 110 mmol/L [facility] CO2 24 22 - 32 mmol/L [facility] Anion gap 7 2 - 15 mmol/L [facility] BUN 6 6 - 25 mg/dL [facility] Creatinine 0.68 0.60 - 1.10 mg/dL [facility] Glucose 77 70 - 199 mg/dL [facility] Comment: Interpretive Data Fasting glucose >/= [...] 2022. Calcium 8.9 8.5 - 10.3 mg/dL [facility] Bilirubin, total 0.3 0.1 - 1.2 mg/dL [facility] Protein, pl 7.0 6.5 - 8.5 g/dL [facility] Albumin 3.6 3.5 - 5.0 g/dL [facility] Alk phos 70 40 - 130 Units/L [facility] ALT 25 7 - 45 Units/L [facility] AST 27 10 - 45 Units/L [facility] Blood 09/02/2024 4:28 PM CDT 09/02/2024 4:38 PM CDT Nicolle Abbasi MD LAB BLOOD ORDERABLES Jenni l Result [facility] Department [place] [address] * ECG 12-LEAD (09/02/2024 3:52 PM CDT) [...] in the ED Saloni Becerra MD 09/02/24 [id number] us Nicolle Abbasi MD ECG ORDERABLES Final Res ult Performing Organization Address [facility] Co de Phone Number [facility] * ECG 12-LEAD (07/12/2024 7:52 AM GRADUATE STUDIES DEAN) Narrative [facility] - 07/12/2024 7:52 AM GRADUATE STUDIES DEAN Eric Arevalo MD 07/12/2024 7:52 AM ECG [...] ORDERABLES Final Resu lt Performing Organization Address [facility]/ZIP Co de Phone Number [facility] * POCT glucose (07/12/2024 3:15 AM GRADUATE STUDIES DEAN) Glucose, POC 86 70 - 199 mg/dL Blood 07/12/2024 3:15 AM GRADUATE STUDIES DEAN 07/12/2024 3:15 AM GRADUATE STUDIES DEAN us Eric Arevalo MD LAB POCT ORDERABLES - DEVICE Final Result Performing Organization Address [facility] Co de Phone Number [facility] [place] [address] * (ABNORMAL) Urinalysis reflex to microscopic and culture Urine (07/12/2024 3:09 AM GRADUATE STUDIES DEAN) Color, ur Yellow Yellow Clarity, ur Clear Clear [facility] Specific gravity, ur 1.037(H) 1.003 - 1.030 [facility] pH, urine 6.0 [facility] Comment: Interpretive Data U rine pH is affected by diet, medications, systemic acid-base disturbances, and renal tubular function. pH may affect urinary stone formation. For example, urine pH below 6.0 may help reduce the tendency for calcium phosphate stones and pH greater than 6.0 may reduce the tendency for uric acid stone formation. Source: [facility] [employer] Current Interpretive Data was last revised on 2017 Protein, ur ql 1+(A) Negative [facility] Glucose, ur ql Negative Negative [facility] Ketones, ur 2+(A) Negative [facility] Bilirubin, ur Negative Negative [facility] Blood, ur Negative Negative [facility] Urobilinogen, ur <2.0 <2.0 mg/dL [facility] Nitrite, ur Negative Negative [facility] Leukocyte esterase, ur Negative Negative [facility] UA reflex comment Reflex to microscopic UA will be performed. [facility] Urine 07/12/2024 3:09 AM GRADUATE STUDIES DEAN 07/12/2024 5:17 AM GRADUATE STUDIES DEAN us Lorena Salazar MD LAB MICROBIOLOGY - GENERAL ORDERABLES Final Result Performing Organization Address [facility] Co de Phone Number [facility] [place] [address] * (ABNORMAL) Urinalysis, microscopic only (07/12/2024 3:09 AM GRADUATE STUDIES DEAN) WBC, ur 0-5 0 - 5 /HPF RBC, ur 11-20(A) 0 - 2 /HPF [facility] Epithelial cells, squamous, ur 1-5 0 - 5 /HPF [facility] Mucous, ur Present(A) [facility] Calcium oxalate crystals, ur 3+(A) [facility] Culture Reflex Comment Reflex conditions for urine culture (WBC >10) not met. [facility] Urine 07/12/2024 3:09 AM GRADUATE STUDIES DEAN 07/12/2024 5:17 AM GRADUATE STUDIES DEAN Lorena Salazar MD LAB URINE ORDERABLES Final Result Performing Organization Address City/[facility]/ZIP Co de Phone Number [facility] Department [place] [address] * Troponin I high-sensitivity 2-hour (07/12/2024 1:52 AM GRADUATE STUDIES DEAN) Trop I hs <4 <=17 ng/L Comment: Interpretive Data For further hscTnI resources including the diagnostic algorithm and an aid in interpretation, copy and paste this link: https://bjhlab.testcatalog.org/show/hsTrop-1 Current Interpretive Data last revised 2020. Trop I hs delta 0 ng/L [facility] Trop I hs interp Insignificant [facility] Blood 07/12/2024 1:52 AM GRADUATE STUDIES DEAN 07/12/2024 1:59 AM GRADUATE STUDIES DEAN Lorena Salazar MD LAB BLOOD ORDERABLES Final Result [facility] Department [place] [address] * Check Sample (07/12/2024 1:52 AM GRADUATE STUDIES DEAN) ABO Rh O Negative [facility] OTHER 07/12/2024 1:52 AM GRADUATE STUDIES DEAN 07/12/2024 2:06 AM GRADUATE STUDIES DEAN us Hernando Little MD LAB BLOOD ORDERABLES Final R esult [facility] [place] [address] [facility] * POCUS Female TAB Pelvic, Non- (07/12/2024 12:22 AM GRADUATE STUDIES DEAN) Anatomical Region Laterality Modality Other 07/12/2024 12:0 9 AM GRADUATE STUDIES DEAN Narrative 07/21/2024 4:37 PM GRADUATE STUDIES DEAN Performed by: Lorena Salazar Transabdominal: Exam Information: [...] (baseline, 2hr, 4hr, 6hr) (07/12/2024 12:12 AM GRADUATE STUDIES DEAN) Trop I hs <4 <=17 ng/L Comment: Interpretive Data For further hscTnI resources including the diagnostic algorithm and an aid in interpretation, copy and paste this link: https://bjhlab.testcatalog.org/show/hsTrop-1 Current Interpretive Data last revised 2020. Blood 07/12/2024 12:1 2 AM GRADUATE STUDIES DEAN 07/12/2024 12:23 AM GRADUATE STUDIES DEAN us Lorena Salazar MD LAB BLOOD ORDERABLES Final Result [facility] Department [place] [address] * eGFR (07/12/2024 12:10 AM GRADUATE STUDIES DEAN) eGFR >90 >=60 mL/min/1. 73 m2 Comment: [...] reviewed 2021. Blood 07/12/2024 12:1 0 AM GRADUATE STUDIES DEAN 07/12/2024 12:22 AM GRADUATE STUDIES DEAN us Hernando Little MD LAB BLOOD ORDERABLES Final R esult [facility] [place] [address] * Differential, auto (07/12/2024 12:10 AM GRADUATE STUDIES DEAN) Neutrophil abs 5.7 1.5 - 6.5 K/cumm Imm gran abs 0.1 0.0 - 0.1 K/cumm [facility] Lymphocyte abs 2.7 0.8 - 3.3 K/cumm [facility] Monocyte abs 0.8 0.2 - 0.8 K/cumm [facility] Eosinophil abs 0.1 0.0 - 0.5 K/cumm [facility] Basophil abs 0.0 0.0 - 0.1 K/cumm [facility] Neutrophil pct 61.2 % [facility] Comment: Interpretive Data Percent cell count reference ranges are not reported, since discordance with absolute values may lead to misinterpretation of CBC data. Current Interpretive Data was last revised on 2017. Imm gran pct 0.8 % [facility] Comment: Interpretive Data Percent cell count reference ranges are not reported, since discordance with absolute values may lead to misinterpretation of CBC data. Current Interpretive Data was last revised on 2017. Lymphocyte pct 28.9 % [facility] Comment: Interpretive Data Percent cell count reference ranges are not reported, since discordance with absolute values may lead to misinterpretation of CBC data. Current Interpretive Data was last revised on 2017. Monocyte pct 8.1 % [facility] Comment: Interpretive Data Percent cell count reference ranges are not reported, since discordance with absolute values may lead to misinterpretation of CBC data. Current Interpretive Data was last revised on 2017. Eosinophil pct 0.8 % [facility] Comment: Interpretive Data Percent cell count reference ranges are not reported, since discordance with absolute values may lead to misinterpretation of CBC data. Current Interpretive Data was last revised on 2017. Basophil pct 0.2 % [facility] Comment: Interpretive Data Percent cell count reference ranges are not reported, since discordance with absolute values may lead to misinterpretation of CBC data. Current Interpretive Data was last revised on 2017. Blood 07/12/2024 12:1 0 AM GRADUATE STUDIES DEAN 07/12/2024 12:23 AM GRADUATE STUDIES DEAN Eric Arevalo MD LAB BLOOD ORDERABLES Final Re sult Performing Organization Address [facility] Co de Phone Number [facility] [place] [address] * (ABNORMAL) CBC with auto differential (07/12/2024 12:10 AM GRADUATE STUDIES DEAN) [facility] WBC 9.3 3.8 - 9.9 K/cumm Hgb 11.3(L) 11.9 - 15.5 g/dL [facility] Hct 35.1(L) 35.6 - 45.5 % [facility] Plt 220 150 - 400 K/cumm [facility] MPV 10.6 9.1 - 12.3 fL [facility] RBC 4.42 3.90 - 5.20 M/cumm [facility] MCV 79.4(L) 81.3 - 96.4 fL [facility] MCH 25.6(L) 27.1 - 33.3 pg [facility] MCHC 32.2(L) 32.3 - 35.7 g/dL [facility] RDW CV 16.0(H) 11.1 - 14.9 % [facility] RDW SD 46.3 35.7 - 48.1 fL [facility] NRBC abs 0.00 0.00 - 0.01 K/cumm [facility] Blood Venous blood specimen / Unknown 07/12/2024 12:10 AM GRADUATE STUDIES DEAN 07/12/2024 12:23 AM GRADUATE STUDIES DEAN Eric Arevalo MD LAB BLOOD ORDERABLES Final Re sult Performing Organization Address City/[facility]/ZIP Co de Phone Number [facility] [place] [address] * Type and screen (07/12/2024 12:10 AM GRADUATE STUDIES DEAN) [facility] Maye, indirect Negative ABO Rh O Negative [facility] Blood 07/12/2024 12:1 0 AM GRADUATE STUDIES DEAN 07/12/2024 12:23 AM GRADUATE STUDIES DEAN Narrative [facility] - 07/12/2024 1:13 AM GRADUATE STUDIES DEAN Has the patient had Daratumumab or Isatuximab in the past 6 months?->Unknown Eric Arevalo MD LAB BLOOD BANK TEST ORDERABLE S Final Result Performing Organization Address [facility] de Phone Number [facility] Department [place] [address] * (ABNORMAL) hCG, blood, quantitative (07/12/2024 12:10 AM GRADUATE STUDIES DEAN) [facility] hCG, quant 41,075.0( H) 0.0 - 5.0 IUnits/L Comment: Interpretive Data Male: < 5 IU/L Non- premenopausal Female: <5 IU/L The Jerry hCG Beta Quant assay procedure was used. Results from different manufacturers or methods may not be comparable. Serial testing should be performed using the same method. Interpretive Data was last revised on 2023 Blood 07/12/2024 12:1 0 AM GRADUATE STUDIES DEAN 07/12/2024 12:22 AM GRADUATE STUDIES DEAN Eric Arevalo MD LAB BLOOD ORDERABLES Final Re sult Performing Organization Address [facility] de Phone Number [facility] Department [place] [address] * (ABNORMAL) Lipase (07/12/2024 12:10 AM GRADUATE STUDIES DEAN) [facility] Lipase 8(L) 10 - 99 Units/L Blood Venous blood specimen / Unknown 07/12/2024 12:10 AM GRADUATE STUDIES DEAN 07/12/2024 12:22 AM GRADUATE STUDIES DEAN Eric Arevalo MD LAB BLOOD ORDERABLES Final Re sult Performing Organization Address [facility]/ZIP Co de Phone Number [facility] [place] [address] * Comprehensive metabolic panel (07/12/2024 12:10 AM GRADUATE STUDIES DEAN) Sodium 135 135 - 145 mmol/L Potassium, pl 4.2 3.3 - 4.9 mmol/L [facility] Chloride 103 97 - 110 mmol/L [facility] CO2 23 22 - 32 mmol/L [facility] Anion gap 9 2 - 15 mmol/L [facility] BUN 11 6 - 25 mg/dL [facility] Creatinine 0.76 0.60 - 1.10 mg/dL [facility] Glucose 88 70 - 199 mg/dL [facility] Comment: Interpretive Data Fasting glucose >/= [...] 2022. Calcium 9.5 8.5 - 10.3 mg/dL [facility] Bilirubin, total 0.3 0.1 - 1.2 mg/dL [facility] Protein, pl 7.5 6.5 - 8.5 g/dL [facility] Albumin 4.0 3.5 - 5.0 g/dL [facility] Alk phos 73 40 - 130 Units/L [facility] ALT 14 7 - 45 Units/L [facility] AST 18 10 - 45 Units/L [facility] Blood 07/12/2024 12:1 0 AM GRADUATE STUDIES DEAN 07/12/2024 12:22 AM GRADUATE STUDIES DEAN us Eric Arvealo MD LAB BLOOD ORDERABLES Final Re sult [facility] [place] [address] * POCT glucose (07/11/2024 11:47 PM GRADUATE STUDIES DEAN) Glucose, POC 87 70 - 199 mg/dL Blood 07/11/2024 11:4 7 PM GRADUATE STUDIES DEAN 07/11/2024 11:47 PM GRADUATE STUDIES DEAN us Notinfile Unknown LAB POCT ORDERABLES - DEVICE F inal Result Performing Organization Address City/State/[facility] Co de Phone Number [facility] Department [place] [address] from Last [address] [place] [address] [address] [address] [facility] [address] Care Teams Rod Straightener Relationship Specialty Start Date End Date Khanh Blackwood MD PCP - General 01/18/18
--- OUTSIDE RECORDS SUMMARY | 2024-10-05 11:15 | XMS_ITS | Clinical Summary ---
Author Organization [facility] Address [address] [place] [address] Care Team Providers Care Vp Of Customer Experience Strategy Name Role Phone Unavailable Primary Care Provider Unavailabl e Source Comments [facility],non-owned Affiliates and Associated Physician Practices is amultiple site organization consisting of ambulatory clinics and hospital sitesin [place], [place], [place] and [place]. This disclosure is being madepursuant to the Care Everywhere program and may not contain all information available regarding this patient. Last updated 18.[facility] Allergies Active Allergy Reactions Criticality Noted Date Comments Codeine 02/22/2011 Medications * Be aware that medications may not be up to date on this document. Alwaysverify current medications with the patient. hydrocodone-wayne taminophen (VICODIN ES) 7.5-750 MG tablet Take 1 Tab by mouth every 6 hours as needed for Pain. 20 Tab 0 1 Active omeprazole (PRILOSEC) 40 MG capsule Take 1 Cap by mouth daily before breakfast 30 Cap 0 5 Active traMADol (ULTRAM) 50 MG tablet Take 1 Tab by mouth every 4 hours as needed for Pain 20 Tab 0 5 Active promethazine (PHENERGAN) 25 MG tablet Take 1 Tab by mouth every 6 hours as needed for Nausea/Vomitin g 10 Tab 0 5 Active Encounters Date Type Department Care Team Description 09/04/2024 Telephone [facility]/ EVALUATION UNIT [address] [facility] [place] [address] John Riggins Scheduling 09/02/2024 Telephone [facility]/ EVALUATION UNIT [address] [place] [address] Yuliya Shrestha Appointment 09/02/2024 Telephone [facility]/ EVALUATION UNIT [address] [place] [address] Yuliya Shrestha Appointment 08/21/2024 Telephone [facility]/ EVALUATION UNIT [address] [place] [address] Yuliya Shrestha Appointment 07/30/2024 Telephone [facility]/ EVALUATION UNIT 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 Pulse 67 04/26/2015 9:11 AM [employer]NER BEAD OPERATOR Temperature 36.6 C (97.8 F) 04/26/2015 9:11 AM [employer]NER BEAD OPERATOR Respiratory Rate 16 04/26/2015 9:11 AM CORNER BEAD OPERATOR Oxygen Saturation 100% 04/26/2015 9:11 AM CORNER BEAD OPERATOR Inhaled Oxygen Concentration - - Weight 86.6 kg (191 lb) 04/26/2015 6:29 AM CORNER BEAD OPERATOR Height 170.2 cm (5' 7) 04/26/2015 6:29 AM CORNER BEAD OPERATOR Body Mass Index 29.91 04/26/2015 6:29 AM CORNER BEAD OPERATOR Plan of Treatment Health Maintenance Due Date Last Done Comments HIV SCREENING 2001 HEPATITIS C SCREENING 11/20/2004 DTAP/TDAP/TD VACCINES (1 - Tdap) 2005 HEPATITIS B VACCINE (1 of 3 - 19+ 3-dose series) 2005 PAP SMEAR 12/28/2013 12/28/2010 COVID-19 VACCINE (2023-2 5 season) 2024 04/19/2021, 08/26/2020, 08/05/2020 DEPRESSION [...] OF UTERINE CERVIX / Unknown 12/28/2010 Narrative [facility] - 01/08/2011 10:37 AM CDT Preferred Lab:->OTHER EXTERNAL LAB Osei Cervantes MD LAB - PATHOLOGY/CYTOLOGY ORDERAB LES Final Result Performing Organization Address [facility] Co de Phone Number [facility] [address] from Last 3 Months or Most Recently Relevant to Health Maintenance Insurance [facility]
--- OUTSIDE RECORDS SUMMARY | 2024-10-05 11:15 | XMS_ITS | Data Portability ---
Author Organization [place] - [facility], [employer] Address [address] [place] [address] Assessment Encounter Date Assessment Date Assessment LastModified by Organization Details LastModified Time 12/01/2020 12/01/2020 Medication Changes SELINA obtained. Records requested. Labs obtained to evaluate levels. Contacted [facility] regarding CDE who does take [place]. . Order faxed to CDE at . Signs and symptoms of when to seek further care reviewed with patient. Patient to follow up with primary care provider or return to clinic for any worsening signs and symptoms. Always present to ER or Urgent Care with any progression of/alarming symptoms, significant changes in symptoms or any concerning or urgent matters. Patient verbalized agreement and understanding of treatment plan. F/U 1 week, sooner if needed [email or web address] Not available 12/01/2020 14:11:47 12/06/2020 12/06/2020 Medication Changes Increased Metformin ER 500 mg to 1000 mg qD Vitamin D 5,000 units qD Signs and symptoms of when to seek further care reviewed with patient. Patient to follow up with primary care provider or return to clinic for any worsening signs and symptoms. Always present to ER or Urgent Care with any progression of/alarming symptoms, significant changes in symptoms or any concerning or urgent matters. Patient verbalized agreement and understanding of treatment plan. F/U 12 weeks, sooner if needed [email or web address] Not available 12/06/2020 13:57:51 Plan of Treatment Reminders Order Date Submit Date Provider Last Modified By Organization Details Last Modified Time Details Appointments None recorded. Lab vitamin D, 25-hydroxy , total, serum 2020 021 JOHN Not available 19:43:38 CMP, serum or plasma 2020 021 JOHN Not available 19:43:37 CBC 2020 JOHN Not available 19:43:38 magnesium, serum or plasma 2020 JOHN Not available 19:43:38 hemoglobin A1c, QN, blood 2020 JOHN Not available 19:43:38 lipid panel, serum 2020 JOHN Not available 19:43:37 TSH, serum, reflex free T4 2020 [email or web address] Not available 07:50:55 Referral diabetic nutrition education referral - Newly diagnosed Diabetic who needs a lot of education. 2020 ATHENAFAX [facility], [facility] , [address] [address], [place], [address], 14:16:56 Procedures None recorded. Surgeries None recorded. Imaging None recorded. Medication Orders Vitamin D3 125 mcg (5,000 unit) tablet 2020 [email or web address] [employer] #[id number], [address], [place], [id number], 14:56:33 metformin ER 500 mg tablet,ext ended release 24 hr 2020 [email or web address] [employer] #[id number], [address], [place], [id number], 14:56:14 Patient TargetsNo targets recorded. Patient Instructions Encounter Date Encounter Id Patient Instructions Last Modified By Organization Details Last Modified Time 12/01/2020 type 2 diabetes: care instructions [email or web address] Not available 12/01/2020 14:14:06 12/06/2020 smoking cessatio n counseling, greater than 3 minutes up to 10 minutes* [email or web address] Not available 12/06/2020 13:57:54 Reason for Referral Diabetic Nutrition Education Referral for Type 2 diabetes mellitus without complication Newly diagnosed Diabetic who needs a lot of education. Referring Physician: Flora Mabry, Internal Medicine, Encounter Date: 12/01/2020 Results Created Date Observation Date Name Description Value Unit Range Abnormal Flag Note LastModifiedBy Organization Detail LastModifiedTime 12/02/19 21 12/02/2020 lipid panel , serum cholesterol, total 164 mg/dL <200 normal Not Available [employer] [address] [address] [place], [address], 12/02/2020 14:00:41 12/02/19 21 12/02/2020 lipid panel , serum HDL cholesterol 37 mg/dL > or = 50 low Not Available [employer] [address] [address] [place], [address], 12/02/2020 14:00:41 12/02/19 21 12/02/2020 lipid panel , serum triglyceride s 129 mg/dL <150 normal Not Available [employer] [address] [address] [place], [address], 12/02/2020 14:00:41 12/02/1912/02/2020 lipid panel , serum LDL-choleste rol 104 mg/dL _(jaelyn c) high Refer ence range : <100 Jagdeep able range <100 mg/dL for prima ry preve ntion ; <70 mg/dL for patie nts with CHD or diabe tic patie nts with > or = 2 CHD risk facto rs. LDL-C is now calcu lated using the Ivy n-Hop kins calcu latelaine n, which is a valid ated novel tamra gerard than the Fried moose equat ion in the estim ation of LDL-C . Ivy reinoso SS et al. JOE. 2013; 310(1 9): 2061- 2068 (http ://ed cristoferati on.Qu estDi [employer] com/f aq/FA Q164) Not Available [employer] [address] [address] [place], [address], 12/02/2020 14:00:41 12/02/19 21 12/02/2020 lipid panel , serum chol/HDLC ratio 4.4 (calc ) <5.0 normal Not Available [address] [address] [place], [address], 12/02/2020 14:00:41 12/02/19 21 12/02/2020 lipid panel , serum non HDL cholesterol 127 mg/dL _(jaelyn c) <130 normal For patie nts with diabe yuri plus 1 major ASCVD risk facto r, treat ing to a non-H DL-C goal of <100 mg/dL (LDL- C of <70 mg/dL ) is consi dered a thera peuti c optio n. Not Available [address] [address] [place], [address], 12/02/2020 14:00:41 12/02/1912/02/2020 magne sium, serum or plasm a magnesium 2.2 mg/dL 1.5-2. 5 normal Not Available [facility] [address] [address] [place], [address], 12/02/2020 14:00:41 12/02/1912/02/2020 CMP, serum or plasm a glucose 101 mg/dL 65-99 high Fasti ng refer ence inter nolberto For someo ne witho ut known diabe yuri, a gluco se value betwe en 100 and 125 mg/dL is consi stent with predi abete s and shoul d be confi rmed with a follo w-up test. Not Available [facility] [address] [address] [place], [address], 12/02/2020 14:00:42 12/02/1912/02/2020 CMP, serum or plasm a urea nitrogen (BUN) 13 mg/dL 7-25 normal Not Available [facility] [address] [address] [place], [address], 12/02/2020 14:00:42 12/02/19 21 12/02/2020 CMP, serum or plasm a creatinine 0.79 mg/dL 0.50-1 .10 normal Not Available [address], [address], 12/02/2020 14:00:42 12/02/19 21 12/02/2020 CMP, serum or plasm a eGFR non-afr. chadian 98 mL/mi n/1.7 3m2 > or = 60 normal Not Available [address], [address], 12/02/2020 14:00:42 12/02/1912/02/2020 CMP, serum or plasm a eGFR 113 mL/mi n/1.7 3m2 > or = 60 normal Not Available [address], [address], 12/02/2020 14:00:42 12/02/1912/02/2020 CMP, serum or plasm a BUN/creatini ne ratio NOT APPLIC ABLE (calc ) 6-22 Not Available [address], [address], 12/02/2020 14:00:42 12/02/19 21 12/02/2020 CMP, serum or plasm a sodium 137 mmol/ L 135-14 6 normal Not Available [address], [address], 12/02/2020 14:00:42 12/02/1912/02/2020 CMP, serum or plasm a potassium 4.6 mmol/ L 3.5-5. 3 normal Not Available [address], [address], 12/02/2020 14:00:42 12/02/1912/02/2020 CMP, serum or plasm a chloride 105 mmol/ L 98-110 normal Not Available [address], [address], 12/02/2020 14:00:42 12/02/1912/02/2020 CMP, serum or plasm a carbon dioxide 23 mmol/ L 20-32 normal Not Available [address], [address], 12/02/2020 14:00:42 12/02/1912/02/2020 CMP, serum or plasm a calcium 9.1 mg/dL 8.6-10 .2 normal Not Available [address], [address], 12/02/2020 14:00:42 12/02/1912/02/2020 CMP, serum or plasm a protein, total 6.8 g/dL 6.1-8. 1 normal Not Available [address], [address], 12/02/2020 14:00:42 12/02/1912/02/2020 CMP, serum or plasm a albumin 4.1 g/dL 3.6-5. 1 normal Not Available [address], [address], 12/02/2020 14:00:42 12/02/1912/02/2020 CMP, serum or plasm a globulin 2.7 g/dL_ (calc ) 1.9-3. 7 normal Not Available [address], [address], 12/02/2020 14:00:42 12/02/1912/02/2020 CMP, serum or plasm a albumin/glob ulin ratio 1.5 (calc ) 1.0-2. 5 normal Not Available [address], [address], 12/02/2020 14:00:42 12/02/1912/02/2020 CMP, serum or plasm a bilirubin, total 0.4 mg/dL 0.2-1. 2 normal Not Available [address], [address], 12/02/2020 14:00:42 12/02/1912/02/2020 CMP, serum or plasm a alkaline phosphatase 81 U/L 31-125 normal Not Available [facility] [address], [address], 12/02/2020 14:00:42 12/02/19 21 12/02/2020 CMP, serum or plasm a AST 16 U/L 10-30 normal Not Available [address], [address], 12/02/2020 14:00:42 12/02/1912/02/2020 CMP, serum or plasm a ALT 16 U/L 6-29 normal Not Available [facility] [facility] [employer] [address], [address], 12/02/2020 14:00:42 12/02/1912/02/2020 CBC white blood cell count 8.2 thous and/u L 3.8-10 .8 normal Not Available [address], [address], 12/02/2020 14:00:43 12/02/1912/02/2020 CBC red blood cell count 4.96 reina on/uL 3.80-5 .10 normal Not Available [facility] [employer] [address], [address], 12/02/2020 14:00:43 12/02/19 21 12/02/2020 CBC hemoglobin 13.1 g/dL 11.7-1 5.5 normal Not Available [employer] [address], [address], 12/02/2020 14:00:43 12/02/19 21 12/02/2020 CBC hematocrit 40.3 % 35.0-4 5.0 normal Not Available [address], [address], 12/02/2020 14:00:43 12/02/19 21 12/02/2020 CBC MCV 81.3 fL 80.0-1 00.0 normal Not Available [address], [address], 12/02/2020 14:00:43 12/02/19 21 12/02/2020 CBC MCH 26.4 pg 27.0-3 3.0 low Not Available [address], [address], 12/02/2020 14:00:43 12/02/19 21 12/02/2020 CBC MCHC 32.5 g/dL 32.0-3 6.0 normal Not Available [address], [address], 12/02/2020 14:00:43 12/02/1912/02/2020 CBC RDW 14.7 % 11.0-1 5.0 normal Not Available [address], [address], 12/02/2020 14:00:43 12/02/19 21 12/02/2020 CBC platelet count 261 thous and/u L 140-40 0 normal Not Available [address], [address], 12/02/2020 14:00:43 12/02/1912/02/2020 CBC MPV 10.6 fL 7.5-12 .5 normal Not Available [address], [address], 12/02/2020 14:00:43 06/10/20 21 12/02/2020 TSH, serum or plasm a TSH w/reflex to FT4 1.05 mIU/L normal Refer ence Range > or = 20 Years 0.40- 4.50 Pregn shawn Range s First trime ster 0.26- 2.66 Secon d trime ster 0.55- 2.73 Third trime ster 0.43- 2.91 Not Available [facility] [address] [place], [address], 12/02/2020 14:00:43 12/02/19 21 12/02/2020 vitam in D, 25-hy droxy , total , serum vitamin D,25-oh,tota l,ia 10 NG/mL 30-100 low Vitam in D Statu s 25-OH Vitam in D: Defic iency : <20 ng/mL Insuf ficie ncy: 20 - 29 ng/mL Optim al: > or = 30 ng/mL For 25-OH Vitam in D testi ng on patie nts on D2-teixeira pplem entat ion and patie nts for whom quant itati on of D2 and D3 fract ions is requi red, the [facility] e[facility](TM ) 25-OH VIT D, (D2,D 3), LC/MS /MS is recom asif d: order code 96817 (kriss ents >2yrs ). See Note 1 Note 1 For addit ional infor ольга souza refer to http: //enrico reinoso.Minor stDia gnost ics.c om/fa q/FAQ 199 (This link is being provi ded for infor alex [place]lando/ eductaj sauceda purpo ses only. ) Not Available [facility] [address] [address], [place], [address], 12/02/2020 14:00:43 12/02/1912/02/2020 HbA1c (hemo globi n A1c), blood hemoglobin A1C 7.1 %_of_ total _HGB <5.7 high For someo ne witho ut known diabe yuri, a hemog lobin A1c value of 6.5% or great er indic ates that they may have diabe yuri and this shoul d be confi rmed with a follo w-up test. For someo ne with known diabe yuri, a value <7% indic ates that their diabe yuri is well contr olled and a value great er than or equal to 7% indic ates subop timal contr ol. A1c targe ts shoul d be indiv idual ized based on durat ion of diabe yuri, age, comor bid condi tions , and other consi derat ions. Curre ntly, no conse nsus exist s viet hutchinson use of hemog lobin A1c for diagn osis of diabe yuri for child jaqui. Not Available [facility] [address] [address] , [place], [address], 12/02/2020 14:00:44 Result Notes None recorded. Problems Name Problem SNOMED Code Status Onset Date Resolution Date Notes Provider Name and Address Organization Details Recorded Time Elevated blood-pressure reading without diagnosis of hypertension 525291006 Active 2020 CÉSAR Spence-, PMHNP-BC [address] [place], [place], [address] [place] [address] 4, [facility] 12:22:36 Type 2 diabetes mellitus without complication 197685455 Active 2020 CÉSAR Spence-, PMHNP-BC [address] [place], [address], [facility] 14:11:47 Vitamin D deficiency 44244436 [facility] 2020 [facility] [address] [place], [address], [facility] 13:50:20 Problem Notes None recorded. Procedures Surgical History Date Name Laterality Status Provider Name and Address Organization Details Recorded Time section completed Lamont Mabry [facility] 11/18/2020 14:08:17 operative procedure on foot completed Lamont Mabry [facility] 11/18/2020 14:08:37 excision of cyst completed Lamont Mabry [facility] 11/18/2020 14:08:44 Imaging Results None recorded. Procedure Notes None recorded. Medical Equipment None Reported. Allergies Allergen ID Allergen Name Allergen Category Reaction Reaction Severity Criticality Documentation Date Start Date Code Code System Note Provider Name and Address Organization Details Recorded Time 3609 Product containin g penicilli n (product) medicatio n facial swelling moderate Not available 11/18/2020 56254 8001 SNJENY Roberson [facility] 11:30:23 3611 codeine medicatio n Not available Not available Not available 11/18/2020 2670 RxNorm Lamont Mabry [facility], [facility] 14:08:03 Medications Name Sig Start Date Stop Date Status Note LastModified by Organization Details LastModified Time cyclobenzapr ine 10 mg tablet active Not Available Not Available Not Available metformin 500 mg tablet Take 1 tablet every day by oral route. 01/05 completed Not Available Not Available Not Available naproxen 375 mg tablet active Not Available Not Available No t Available ondansetron HCl 4 mg tablet 01/05 completed Not Available Not Available Not Available metformin ER 500 mg tablet,exten ded release 24 hr Take 2 tablets every day by oral route with meals for 30 days. active Not Available Not Available No t Available Vitamin D3 125 mcg (5,000 unit) tablet Take 1 tablet every day by oral route for 30 days. 01/05 completed Not Available Not Available Not Available OneTouch Verio test strips active Not Available Not Available Not Available OneTouch Delica Lancets 30 gauge 01/05 completed Not Available Not Available Not Available OneTouch Verio Flex meter 01/05 completed Not Available Not Available Not Available Vitals Date Recorded Body height Body mass index (BMI) Body weight Heart rate Respiratory rate Oxygen saturation Oxygen saturation in Arterial blood by Pulse oximetry Body temperature Systolic blood pressure Diastolic blood pressure Provider Name and Address Organization Details Last Updated DateTime 167.64 cm 45.4 kg/m2 048009. 46 g 96 /min 18 /min 96 % 96 % 98.4 [degF] 130 mm[Hg] 78 mm[Hg] Shamyra Lucien [facility] 12:01:57 Date Recorded Body height Body temperature Respiratory rate Oxygen saturation Oxygen saturation in Arterial blood by Pulse oximetry Heart rate Body mass index (BMI) Body weight Systolic blood pressure Diastolic blood pressure Provider Name and Address Organization Details Last Updated DateTime 167.64 cm 98.4 [degF] 18 /min 98 % 98 % 104 /min 45.4 kg/m2 625080. 46 g 130 mm[Hg] 82 mm[Hg] SCOTT ROMERO [facility] 13:54:51 Social History Question Answer Notes LastModified by Organizat ion Details LastModified Time Tobacco Smoking Status Current Some Day Smoker Lamont Mabry yakelin [facility] 11/18/2020 14:09:01 Do You Have An Advance Directive? No Information not available 12/01/2020 What Is Your Level Of Alcohol Consumption? Occasional Information not available 12/01/2020 What Is Your Level Of Caffeine Consumption? None Information not available 12/01/2020 Are You Currently Employed? Yes Information not available 12/01/2020 What Type Of Diet Are You Following? REGULAR Information not available 12/01/2020 Do You Or Have You Ever Used E-cigarettes Or Vape? Never Used Electronic Cigarettes Information not available 12/01/2020 Education 12 Information no t available 12/01/2020 What Is Your Occupation? [employer] Information not available 12/01/2020 Are There Any Guns Present In Your Home? No Information not available 12/01/2020 Hard Of Hearing Or Deaf In One Or Both Ears? No Information not available 12/01/2020 Legally Blind In One Or Both Eyes? No Information not available 12/01/2020 Live Alone Or With Others? With Others Information not available 12/01/2020 What Was The Date Of Your Most Recent Tobacco Screening? 12/01/2020 Information not available 12/01/2020 How Many Children Do You Have? 1 Information not available 12/01/2020 Seat Belts Used Routinely Yes Information not available 12/01/2020 Are You Sexually Active? No Information not available 12/01/2020 Smoke Alarm In Home Yes Information not available 12/01/2020 At What Age Did You Start Smoking Tobacco? 34 Information not available 12/01/2020 Are You Passively Exposed To Smoke? No Information not available 12/01/2020 Do You Or Have You Ever Used Smokeless Tobacco? Never Used Smokeless Tobacco Information not available 11/18/2020 How Much Tobacco Do You Smoke? 0.5 PPD Information not available 12/01/2020 General Stress Level High Information not available 12/01/2020 Do You Use Sunscreen Routinely? Yes Information not available 12/01/2020 How Many Years Have You Smoked Tobacco? 6 Information not available 12/01/2020 Sex: Female Functional Status Question Answer Note LastModified by Organization D etails LastModified Time Are you able to care for yourself? Yes Information n ot available 12/01/2020 Mental Status None recorded. Family History Relationship Description Onset Age of this Age Resolved Age Notes LastModified by Organization Details LastModified Time Paternal Grandmother Diabetes mellitus [email or web address] Not available 2020 12:02:04 Paternal Grandmother Heart failure [email or web address] Not available 2020 12:02:20 Paternal Grandmother Heart disease [email or web address] Not available 2020 12:02:28 Father Diabetes mellitus [email or web address] Not available 2020 12:02:04 Unspecified Relation Malignant tumor of breast great grandm other [email or web address] Not available 12/01/2020 12:05:26 Medical History Condition Response Diabetes Y Anxiety Disorder Y Musculoskeletal Diseases / Disorders Y Cellulitis Y Cardiac Diseases / Disorders Y Depression Y Gynecological History Statement/Question Response Date of LMP 11/28/2020 Obstetrics History GPAL:G 0 P 0 0 0 0 Immunizations Vaccine Type Date Status Note Provider Nam e and Address Organization Details Recorded Time Influenza, split virus, quadrivalent, PF 04/06/2021 completed Not Available [employer] 18:35:43 Past Encounters Encounter ID Performer Location Encounter Start Date Encounter Closed Date Diagnosis/Indication Diagnosis SNOMED-CT Code Diagnosis ICD10 Code Diagnosis Note Flora Mabry, [facility], PMHNP-BC Main Office [address] [place] [address] 12/01/2020 11:49:48 12/01/2020 14:34:43 Elevated blood-pressure reading without diagnosis of hypertension 131172043 R03.0 Type 2 sandra betes mellitus without complication 863316159 E11.9 Fatigue 39865275 R53.83 Vitamin D deficiency 347 48974 E55.9 Flora MicahJennifer Mabry [facility] Main Office [address] [place] [address] 12/06/2020 06:23:01 12/06/2020 15:06:51 Type 2 diabetes mellitus without complication 075185519 E11.9 Vitamin D deficiency 347 77089 E55.9 Nicotine d ependence with current use 222863283 F17.200 [id number] Flora SaucedaJenniefr Mabry [facility], [facility] Main Office [address] [place] [address] 04/06/2021 17:22:29 04/06/2021 18:19:48 Administration of influenza vaccine 49581414 Z23 Health Concerns Section Related Observation LastModified by Organization Detai ls LastModified Time None Recorded Concern Status LastModified by Organization Details LastModified Time None Recorded Advance Directives Directive N: Payers Encounter Date Sequence Insurance Name Policy Number Policy Fagan Covered Member ID Fagan Member ID Guarantor Name 12/01/2020 1 [facility] PRIOR TO 12/22/2020 (MEDICAID REPLACEMENT - HMO) Nancy Trevino [id number] Nancy Trevino 12/06/2020 1 [facility] PRIOR TO 12/22/2020 (MEDICAID REPLACEMENT - HMO) Nancy Trevino [id number] Nancy Trevino 04/06/2021 1 [facility] PRIOR TO 12/22/2020 (MEDICAID REPLACEMENT - HMO) Nancy Trevino [id number] Nancy Trevino Notes Date Note Type Note Provider Name and Address Organization Details Recorded Time 12/01/2020 text/html Diabetes F/URepo rted bypatient.Review finger sticks:Variable from 100 to 200s Labs:last A1C result: 7.7; She is newly diagnosed from hospital visit last month. Context:not seeing eye doctor yearly;not checking feet regularly Associated Symptoms:no weight gain; no weight loss; no dizziness; no sweats; no headaches; no confusion; no increased thirst; no increased appetite; no increased urination; no blurred vision; no numbness of feet; no calluses on feet Elevated BP - Does not report any HICKS, blurry vision, dizziness, CP, SOB, or palpitations. Not following a low diet. [facility]IDA Spence, [facility] [address] [place], [address], [facility] 12/01/2020 14:15:07 12/06/2020 text/html Diabetes F/URepo rted bypatient.Review finger sticks:Variable from 100 to 200s Labs:last A1C result: 7.1 Context:not seeing eye doctor yearly;not checking feet regularly Associated Symptoms:no weight gain; no weight loss; no dizziness; no sweats; no headaches; no confusion; no increased thirst; no increased appetite; no increased urination; no blurred vision; no numbness of feet; no calluses on feetHyperlipidemiaRepor evon bypatient.Type of hyperlipidemia:hypercho lesterolemia Duration:new onset Prior Tests:highest LDL level: 104 date: Control:not at goal Compliance:noncompliant with diet;does not exercise Risk Factors:diabetes ZAHIDA Spence, [facility]- [address] [place], [address], [facility] 12/06/2020 13:58:52 OBGyn Episode No OBEpisode recorded.
--- OUTSIDE RECORDS SUMMARY | 2024-10-05 11:15 | XMS_ITS | Encounter Summary ---
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
--- OUTSIDE RECORDS SUMMARY | 2024-10-05 11:15 | XMS_ITS | Data Portability ---
Author Organization [facility] [place] Address [address] [place] [address] [place] [address] Assessment Encounter Date Assessment Date Assessment LastModified by Organization Details LastModified Time 05/27/2023 05/27/2023 Patient left prior to being seen. [email or web address] Not available 05/27/2023 11:15:40 10/01/2024 10/01/2024 Patient is ___weeks . Discussed plan. Not available 10/01/2024 10:46:12 Plan of Treatment Reminders Order Date Submit Date Provider Last Modified By Organization Details Last Modified Time Details Appointments U/S OB GROWTH 2024 11:30A M ULTRASOUND Not available Not available Not available OB ROUTINE 2024 01:00P M Chin GARCIA MD Not available Not available Not available Lab drug screen, urine 2024 025 [address], [place], [address], 09/03/2024 16:57:13 Referral None recorde d. Procedures None recorde d. Surgeries None recorde d. Imaging US, obstetr ic, 2nd or 3rd trimest er 2024 025 [email or web address] [address], [place], [address], 09/05/2024 10:55:25 US, pelvis 2022 023 [email or web address] [address], [place], [address], 05/27/2023 19:42:18 Medication Orders None recorde d. Patient TargetsNo targets recorded. Patient InstructionsNo instructions recorded. Reason for Referral None Reported. Results Created Date Observation Date Name Description Value Unit Range Abnormal Flag Note LastModifiedBy Organization Detail LastModifiedTime 09/04/1909/03/2024 CBC W/DIF F WBC 7.4 10'3/ uL 3.5-10 .5 Not Available [facility] (Lab) [address] [facility], [place], [address], 09/04/2024 15:19:56 09/04/1909/03/2024 CBC W/DIF F RBC 4.07 10'6/ uL (based on docume nted legal sex) 3.80-5 .20 Not Available [facility] (Lab) [address] [facility], [place], [address], 09/04/2024 15:19:56 09/04/1909/03/2024 CBC W/DIF F HGB 11.1 g/dL (based on docume nted legal sex) 11.6-1 5.4 low Not Available [facility] (Lab) [address] [facility], [place], [address], 09/04/2024 15:19:56 09/04/1909/03/2024 CBC W/DIF F HCT 34.6 % (based on docume nted legal sex) 34.0-4 5.0 Not Available [facility] (Lab) [address] [facility], [place], [address], 09/04/2024 15:19:56 09/04/1909/03/2024 CBC W/DIF F MCV 85.0 fL 80.0-9 9.0 Not Available [facility] (Lab) [address] [place], [address], 09/04/2024 15:19:56 09/04/1909/03/2024 CBC W/DIF F MCH 27.3 pg 27.0-3 4.0 Not Available [facility] (Lab) [address] [facility], [place], [address], 09/04/2024 15:19:56 09/04/19 25 09/03/2024 CBC W/DIF F MCHC 32.1 g/dL 32.0-3 5.5 Not Available [facility] (Lab) [address] [facility], [place], [address], 09/04/2024 15:19:56 09/04/19 25 09/03/2024 CBC W/DIF F RDW 16.7 % 11.0-1 5.0 high Not Available [facility] (Lab) [address] [facility], [place], [address], 09/04/2024 15:19:56 09/04/19 25 09/03/2024 CBC W/DIF F plt 210 10'3/ uL 150-40 0 Not Available [facility] (Lab) [address] [facility], [place], [address], 09/04/2024 15:19:56 09/04/19 25 09/03/2024 CBC W/DIF F MPV 12.0 fL 8.8-12 .1 Not Available [facility] (Lab) [address] [facility], [place], [address], 09/04/2024 15:19:56 09/04/19 25 09/03/2024 CBC W/DIF F neutrophils 66.0 % 34.0-7 3.0 Not Available [facility] (Lab) [address], [place], [address], 09/04/2024 15:19:56 09/04/19 25 09/03/2024 CBC W/DIF F lymphocytes 26.4 % 15.0-5 0.0 Not Available [facility] (Lab) [address] [facility], [place], [address], 09/04/2024 15:19:56 09/04/19 25 09/03/2024 CBC W/DIF F monocytes 6.5 % 1.0-15 .0 Not Available [facility] (Lab) [address] [place], [address], 09/04/2024 15:19:56 09/04/19 25 09/03/2024 CBC W/DIF F eosinophils 0.7 % 0.0-8. 0 Not Available [facility] (Lab) [address] [facility], [place], [address], 09/04/2024 15:19:56 09/04/19 25 09/03/2024 CBC W/DIF F basophils 0.1 % 0.0-2. 0 Not Available [facility] (Lab) [address] [facility], [place], [address], 09/04/2024 15:19:56 09/04/19 25 09/03/2024 CBC W/DIF F immature granulocytes 0.3 % no define d refere nce range Immat ure Granu locyt es (IG) repre sents autom ated enume ratio n of Metam yeloc ytes, Myelo cytes and Promy elocy yuri when IG is < 5%. Blast s are not inclu ded in IG and repor evon separ ately if prese nt. Not Available [facility] (Lab) [address] [facility], [place], [address], 09/04/2024 15:19:56 09/04/19 25 09/03/2024 CBC W/DIF F absolute neutrophils 4.9 10'3/ uL 1.5-8. 0 Not Available [facility] (Lab) [address] [facility], [place], [address], 09/04/2024 15:19:56 09/04/19 25 09/03/2024 CBC W/DIF F absolute lymphocytes 1.9 10'3/ uL 1.0-4. 0 Not Available [facility] (Lab) [address] [facility], [place], [address], 09/04/2024 15:19:56 09/04/19 25 09/03/2024 CBC W/DIF F absolute monocytes 0.5 10'3/ uL 0.2-1. 0 Not Available [facility] (Lab) [address] [facility], [place], [address], 09/04/2024 15:19:56 09/04/19 25 09/03/2024 CBC W/DIF F absolute eosinophils 0.1 10'3/ uL 0.0-0. 6 Not Available [facility] (Lab) [address] [facility], [place], [address], 09/04/2024 15:19:56 09/04/19 25 09/03/2024 CBC W/DIF F absolute basophils 0.0 10'3/ uL 0.0-0. 3 Not Available [facility] (Lab) [address] [facility], [place], [address], 09/04/2024 15:19:56 09/04/19 25 09/03/2024 CBC W/DIF F absolute immature granulocytes 0.0 10'3/ uL 0.00-0 .10 : Not Hispa odessa or Latin o Refer ence range s for nonbi nary/ inter sex or unspe cifie d gende r patie nts have not been estab lishe d. Pleas e refer to the [facility] table for range s estab lishe d for cisge nder patie nts and evalu ate in the clini jaelyn bianca xt of the indiv idual patie nt: https ://héctor wetzel book. nm.or g/gen derx Not Available [facility] (Lab) [address], [place], [address], 09/04/2024 15:19:56 09/04/1909/03/2024 HEPAT ITIS B SURFA CE ANTIG EN hepatitis B surface antigen Non-re active non-re active This assay was perfo rmed using [employer] ratio n reage nts and test kits. Value s obtai ragini with other assay metho ds or kits canno t be used inter campos eably . : Not Hispa odessa or Latin o Not Available [facility] (Lab) [address], [place], [address], 09/04/2024 15:19:56 09/04/1909/03/2024 HIV 1/2 ANTIG EN/AN TIBOD Y, REFLE X CONFI RMATI ON HIV antigen/anti body Nonrea ctive nonrea ctive : Not Hispa odessa or Latin o HIV-1 antig en and HIV-1 /HIV- 2 antib odies were not detec evon. No labor atory evide nce of HIV infec tion. Not Available [facility] (Lab) [address], [place], [address], 09/04/2024 15:19:57 09/04/1909/03/2024 HEPAT ITIS C ANTIB LINDA SCREE N, REFLE X TO CONFI RMATI ON hepatitis C antibody Non-re active non-re active Antib odies to HCV Not Detec evon, does not exclu de the possi bilit y of expos ure to HCV. : Not [facility] odessa or Latin o Not Available [facility] (Lab) [address], [place], [address], 09/04/2024 15:19:57 09/04/1909/03/2024 RUBEL LA IGG ANTIB LINDA, QUANT rubella antibodies, IgG Reacti ve reacti ve Not Available [facility] (Lab) [address] [facility], [place], [address], 09/04/2024 15:19:57 09/04/1909/03/2024 RUBEL LA IGG ANTIB LINDA, QUANT rubella antibodies, IgG quant 16.3 IU/mL >=10 : Not Hispa odessa or Latin o Non-r eacti ve (Non- Immun e) <10 IU/mL React torri (Immu ne) > or = 10 IU/mL Not Available [facility] (Lab) [address] [place], [address], 09/04/2024 15:19:57 09/04/19 25 09/03/2024 TYPE/ RH/SC REEN ABO/Rh type O NEG Not Available [facility] (Lab) [address], [place], [address], 09/04/2024 15:19:58 09/04/19 25 09/03/2024 TYPE/ RH/SC REEN antibody screen NEG Not Available [facility] (Lab) [address], [place], [address], 09/04/2024 15:19:58 09/04/1909/03/2024 TYPE/ RH/SC REEN exp date 2024 23:59 Not Available [facility] (Lab) [address], [place], [address], 09/04/2024 15:19:58 09/04/19 25 09/03/2024 HEMOG LOBIN A1C hemoglobin A1C 5.8 % 4.0-5. 6 high : Not Hispa odessa or Latin o The Ameri can Diabe yuri Assoc iatio n recom mends that a prima ry goal of thera py rich rees be a HBA1C of < 7% and that physi cians natalioul d reeva luate the treat ment regim en in patie nts with HBA1C value s consi stent ly > 8%. <5.7% Kimberly l 5.7 - 6.4% Incre ased risk for diabe yuri >=6.5 % Diagn ostic of diabe yuri <7.0% Goal of thera py >8.0% Actio n sugge sted Not Available [facility] (Lab) [address], [place], [address], 09/04/2024 15:19:58 09/04/19 25 09/03/2024 RPR SCREE N, REFLE X TITER /CONF IRMAT ION RPR qualitative Nonrea ctive nonrea ctive : Not Hispa odessa or Latin o Not Available [facility] (Lab) [address], [place], [address], 09/04/2024 15:19:58 09/04/1909/03/2024 LEAD, BLOOD (ADUL T/PED IATRI C) lead, whole blood <1.0 mcg/d L <3.5 See Note 1 Casandra sis was perfo rmed by Anya Lemon ed Plasm a Mass Spect romet ry (ICPM S) Note 1 This test was devel oped and its casandra tical perfo rmanc e leah cteri stics have been deter mined by [employer]. It has not been clear ed or appro matilde by the FDA. This assay has been valid ated pursu ant to the CLIA regul ation s and is used for clini jaelyn purpo ses. : Not Hispa odessa or Latin o Perfo rming Organ izati on Infor matio n: Site ID: CB Name: [employer] [facility] [facility] Fish Addre ss: [id number] [place] [address] Direc tor: Kristie Field s Not Available [facility] (Lab) [address] [address] [facility], [place], [address], 09/04/2024 15:19:59 09/04/1909/03/2024 CT/GC AND TRICH OMONA S VAGIN SONU (RRNA ), URINE chlamydia trachomatis, PCR Negati ve negati ve Not Available [facility] (Lab) [address] [place], [address], 09/05/2024 14:00:57 09/04/19 25 09/03/2024 CT/GC AND TRICH OMONA S VAGIN SONU (RRNA ), URINE neisseria gonorrhoeae, PCR Negati ve negati ve Not Available [facility] (Lab) [address] [facility], [place], [address], 09/05/2024 14:00:57 09/04/19 25 09/03/2024 CT/GC AND TRICH OMONA S VAGIN SONU (RRNA ), URINE trichomonas vaginalis ribosomal RNA (rrna) Negati ve negati ve Not Available [facility] (Lab) [address] [place], [address], 09/05/2024 14:00:57 09/04/19 25 09/03/2024 CULTU RE: URINE result report SEE RESULT S BELOW Test: Cultu re: Urine Speci men Sourc e: Urine - Clean Catch Speci men Type: Urine Speci men Date: 2024 1606 Resul t Date: 2024 1257 Resul t Statu s: Final resul t Abnor mal: No Resul ting Lab: [facility] [address] [facility] [address] Tel: CULTU RE ----- ----- ----- --- Cultu re resul t (>=3 organ isms prese nt) indic ates possi ble conta minat ion. Repea t cultu re if sympt oms indic ate. Not Available [facility] (Lab) [address] [facility], [place], [address], 09/05/2024 14:00:58 09/04/19 25 09/03/2024 drug scree n, urine Amphetamines : negati ve Not Available [address], [place], [address], 09/03/2024 16:56:30 09/04/19 25 09/03/2024 drug scree n, urine Cannabinoids : positi ve Not Available [address], [place], [address], 09/03/2024 16:56:30 09/04/19 25 09/03/2024 drug scree n, urine Cocaine: negati ve Not Available [address], [place], [address], 09/03/2024 16:56:30 09/04/19 25 09/03/2024 drug scree n, urine Opiates: negati ve Not Available [address], [place], [address], 09/03/2024 16:56:30 09/04/19 25 09/03/2024 drug scree n, urine Phenocyclidi ne: negati ve Not Available [address], [place], [address], 09/03/2024 16:56:30 09/04/19 25 09/03/2024 drug scree n, urine Barbiturates : negati ve Not Available [address], [place], [address], 09/03/2024 16:56:30 09/04/19 25 09/03/2024 drug scree n, urine Benzodiazepi robson: negati ve Not Available [address], [place], [address], 09/03/2024 16:56:30 09/04/19 25 09/03/2024 drug scree n, urine Ethanol: negati ve Not Available [address], [place], [address], 09/03/2024 16:56:30 09/04/19 25 09/03/2024 drug scree n, urine Hallucinogen s: negati ve Not Available [address], [place], [address], 09/03/2024 16:56:30 09/04/19 25 09/03/2024 drug scree n, urine Inhalants: negati ve Not Available [address], [place], [address], 09/03/2024 16:56:30 09/04/19 25 09/03/2024 drug scree n, urine Anabolic Steroids: negati ve Not Available [address], [place], [address], 09/03/2024 16:56:30 09/04/19 25 09/03/2024 drug scree n, urine Other: negati ve Not Available [address], [place], [address], 09/03/2024 16:56:30 10/02/19 25 10/01/2024 GTT - GESTA LUCIE L SCREE N, ACOG OB glucose, 1 hour screen 105 mg/dL 70-135 Not Available [facility] (Lab) [address] [facility], [place], [address], 10/02/2024 13:22:15 10/02/19 25 10/01/2024 HIV 1/2 ANTIG EN/AN TIBOD Y, REFLE X CONFI RMATI ON HIV antigen/anti body Nonrea ctive nonrea ctive HIV-1 antig en and HIV-1 /HIV- 2 antib odies were not detec evon. No labor atory evide nce of HIV infec tion. Not Available [facility] (Lab) [address] [facility], [place], [address], 10/02/2024 13:22:15 10/02/19 25 10/01/2024 RPR SCREE N, REFLE X TITER /CONF IRMAT ION RPR qualitative Nonrea ctive nonrea ctive Not Available [facility] (Lab) [address] [facility], [place], [address], 10/02/2024 13:22:16 05/27/20 23 05/27/2023 US, pelvi s No observ ation record ed. [email or web address] [address], [place], [address], 05/27/2023 13:09:47 05/27/20 23 05/27/2023 US, pelvi s No observ ation record ed. [email or web address] [address], [place], [address], 05/28/2023 11:50:24 09/04/19 25 09/03/2024 US, obste tric, 2nd or 3rd trime ster No observ ation record ed. [facility] [address], [place], [address], 09/03/2024 16:45:55 09/04/19 25 09/03/2024 US, obste tric, follo w-up No observ ation record ed. [email or web address] [address], [place], [address], 10/01/2024 10:53:27 Result Notes None recorded. Problems Name Problem SNOMED Code Status Onset Date Resolution Date Notes Provider Name and Address Organization Details Recorded Time Gestation period, 37 weeks 18355072 Active 2015 37 weeks gestation of ;Recorded Elsewhere : No Locati on: [facility] So urce: EHR Chron ic: N Practic e ID: 0001 Bill able Time: 10:00:00 AM Not Available [facility] 0 14:24:21 Gestation period, 12 weeks 14453279 Active 2015 12 weeks gestation of ;Recorded Elsewhere : No Locati on: [facility] So urce: EHR Chron ic: N Practic e ID: 0001 Bill able Time: 02:00:00 PM Not Available [facility] 0 14:24:21 test negative 031977525 Active 2016 Encounter for test, result negative; Recorded Elsewhere : No Locati on: [facility] So urce: EHR Chron ic: N Practic e ID: 0001 Bill able Time: 08:30:00 AM Not Available [facility] 0 14:24:21 , childbirt h and puerperiu m finding Active 2015 Encounter for supervisi on of normal first , third trimester ;Recorded Elsewhere : No Locati on: [facility] So urce: EHR Chron ic: N Practic e ID: 0001 Bill able Time: 04:00:00 PM Not Available [facility] 0 14:24:21 , childbirt h and puerperiu m finding Active 2015 Encounter for supervisi on of normal first , second trimester ;Recorded Elsewhere : No Locati on: [facility] So urce: EHR Chron ic: N Practic e ID: 0001 Bill able Time: 11:30:00 AM Not Available [facility] 0 14:24:21 Depressiv e disorder 01096897 Active 2016 Depressio n;Recorde d Elsewhere : No Locati on: [facility] So urce: EHR Chron ic: N Practic e ID: 0001 Bill able Time: 10:00:00 AM Not Available [facility] 0 14:24:21 Uterine size for dates discrepan cy Active 2015 Uterine size-date discrepan cy, 1st trimester ;Recorded Elsewhere : No Locati on: [facility] So urce: EHR Chron ic: N Practic e ID: 0001 Bill able Time: 02:00:00 PM Not Available [facility] 0 14:24:[address] Concept Active 2016 Encntr for kiln tester exam (general) (routine) w/o abn findings; Recorded Elsewhere : No Locati on: [facility] So urce: EHR Chron ic: N Practic e ID: 0001 Bill able Time: 02:00:00 PM Not Available [facility] 0 14:24:21 Contracep tive sheath status 115853794 Active 2016 Encounter for initial prescript ion of other contracep tives;Rec orded Elsewhere : No Locati on: [facility] So urce: EHR Chron ic: N Practic e ID: 0001 Bill able Time: 03:30:00 PM Not Available [facility] 0 14:24:22 Single liveborn born in hospital by section 741519230 Active 2015 Single liveborn delivered by c section;R ecorded Elsewhere : No Locati on: [facility] So urce: EHR Chron ic: N Practic e ID: 0001 Bill able Time: 10:15:00 AM Not Available [facility] 0 14:24:22 Insertion of intrauter ine contracep tive device Active 2015 Encounter for insertion of intrauter ine contracep tive device;Re corded Elsewhere : No Locati on: [facility] So urce: EHR Chron ic: N Practic e ID: 0001 Bill able Time: 11:45:00 AM Not Available [facility] 0 14:24:22 finding Active 2015 Matern care for oth or susp poor fetl grth, 2nd tri, unsp;Norberto rded Elsewhere : No Locati on: [facility] So urce: EHR Chron ic: N Practic e ID: 0001 Bill able Time: 11:00:00 AM Not Available [facility] 0 14:24:22 Migraine 89177707 Active 2015 Migraine; Recorded Elsewhere : No Locati on: [facility] So urce: EHR Chron ic: N Practic e ID: 0001 Bill able Time: 02:45:00 PM Not Available [facility] 0 14:24:22 Syphilis test finding 057746189 Active 2016 Encntr screen for infection s w sexl mode of transmiss ;Recorded Elsewhere : No Locati on: [facility] So urce: EHR Chron ic: N Practic e ID: 0001 Bill able Time: 08:30:00 AM Not Available [facility] 0 14:24:22 Gestation period, 25 weeks 28321957 Active 2015 25 weeks gestation of ;Recorded Elsewhere : No Locati on: [facility] So urce: EHR Chron ic: N Practic e ID: 0001 Bill able Time: 01:30:00 PM Not Available [facility] 0 14:24:22 Normal in multigrav max 24694677704 4106 Active 2015 Encounter for suprvsn of normal , third trimester ;Recorded Elsewhere : No Locati on: [facility] So urce: EHR Chron ic: N Practic e ID: 0001 Bill able Time: 09:15:00 AM Not Available [facility] 0 14:24:22 Lochia finding Active 2015 Encounter for routine postpartu m follow-up ;Recorded Elsewhere : No Locati on: [facility] So urce: EHR Chron ic: N Practic e ID: 0001 Bill able Time: 02:45:00 PM Not Available [facility] 0 14:24:23 heart finding Active 2015 Abnlt in heart rate and rhythm comp labor and delivery; Recorded Elsewhere : No Locati on: [facility] So urce: EHR Chron ic: N Practic e ID: 0001 Bill able Time: 10:00:00 AM Not Available [facility] 0 14:24:23 Gestation period, 24 weeks 227556475 Active 2015 24 weeks gestation of ;Recorded Elsewhere : No Locati on: [facility] So urce: EHR Chron ic: N Practic e ID: 0001 Bill able Time: 11:00:00 AM Not Available [facility] 0 14:24:23 Infection screening Active 2016 Encounter for screening for oth infec/par astc diseases; Recorded Elsewhere : No Locati on: [facility] So urce: EHR Chron ic: N Practic e ID: 0001 Bill able Time: 08:30:00 AM Not Available [facility] 0 14:24:[address] Concept Active 2016 Encntr for general adult medical exam w/o abnormal findings; Recorded Elsewhere : No Locati on: [facility] So urce: EHR Chron ic: N Practic e ID: 0001 Bill able Time: 02:00:00 PM Not Available [facility] 0 14:24:23 Premature labor 2187927 Active 2015 labor without delivery, second trimester ;Recorded Elsewhere : No Locati on: [facility] So urce: EHR Chron ic: N Practic e ID: 0001 Bill able Time: 01:30:00 PM Not Available [facility] 0 14:24:23 detection examinati on Active 2015 Encounter for test, result positive; Recorded Elsewhere : No Locati on: [facility] So urce: EHR Chron ic: N Practic e ID: 0001 Bill able Time: 12:30:00 PM Not Available [facility] 0 14:24:23 , childbirt h and puerperiu m finding Active 2015 Encntr for suprvsn of normal first preg, first trimester ;Practice ID: 0001 Not Available [facility] 0 14:24:24 False labor at or after 37 completed weeks of gestation 526102081 Active 2015 False labor at or after 37 completed weeks of gestation ;Practice ID: 0001 Not Available [facility] 0 14:24:26 Gestation period, 38 weeks 37454657 Active 2015 38 weeks gestation of ;Practice ID: 0001 Not Available [facility] 0 14:24:26 Head not engaged 29008670 Active 2015 Maternal care for high head at term, not applicabl e or unsp;Prac dionisio ID: 0001 Not Available [facility] 0 14:24:26 Single live 328485359 Active 2015 Single live ;Pra ctice ID: 0001 Not Available [facility] 0 14:24:26 Removal of intrauter ine device Active 2016 Encounter for removal of intrauter ine contracep tive device;Pr actice ID: 0001 Not Available [facility] 0 14:24:27 Bleeding 663299408 Active 2016 Abnormal uterine and vaginal bleeding, unspecifi ed;Practi ce ID: 0001 Not Available [facility] 0 14:24:28 Clinical finding Active 2015 Presence of (intraute rine) contracep tive device;Re corded Elsewhere : No Locati on: [facility] So urce: EHR Chron ic: N Practic e ID: 0001 Bill able Time: 11:45:00 AM Not Available [facility] 0 14:24:29 75741124 Active 2024 Za Tejada null, [facility] 5 14:30:49 Hemoglobi n A1c measureme nt Active Elevated A1C 5.8 early 1hr gtt Lala Mercer null, [facility] 5 13:47:59 Hemoglobi n A1c measureme nt Active Elevated A1C 5.8 early 1hr gtt Lala Mercer null, [facility] 5 13:47:59 Blood group O Rh(D) negative 317544126 Active Rhogam @28wks Lala hamlin, [facility] 5 13:48:41 Body mass index 30+ - obesity 819855708 Active testing @ 37wks Lala hamlin, [facility] 5 13:49:12 Body mass index 30+ - obesity 232715110 Active testing @ 37wks Lala hamlin, [facility] 5 13:49:12 [facility] 13:49:52 section Active history of Lala hamlin, [facility] 5 13:49:52 Notes:Encounter for antenata l screening of mother Recorded Elsewhere: No Location: [facility] Source: EHR Chronic: N Practice ID: [id number] Billable Time: 10:30:00 AM Encounter for screening of mother Practice ID: [id number] Problem Notes None recorded. Procedures Surgical History Date Name Laterality Status Provider Name and Address Organization Details Recorded Time 5 Date of Last Pap Smear completed [place] [facility] 09/03/2024 14:25:22 6 Caesarean Section completed [facility] 09/03/2024 14:29:36 Imaging Results Imaging Date Name Status LastModified by Organiz ation Details LastModified Time 05/27/2023 US, pelvis completed [email or web address] [place] [address], [place], [address], 05/27/2023 13:09:47 05/27/2023 US, pelvis completed [email or web address] [address], [place], [address], 05/28/2023 11:50:24 09/03/2024 US, obstetric, 2nd or 3rd trimester completed [facility] [address], [place], [address], 09/03/2024 16:45:55 09/03/2024 US, obstetric, follow-up completed [email or web address] [address], [place], [address], 10/01/2024 10:53:27 Procedure Notes None recorded. Medical Equipment None Reported. Allergies Allergen ID Allergen Name Allergen Category Reaction Reaction Severity Criticality Documentation Date Start Date Code Code System Note Provider Name and Address Organization Details Recorded Time 9991 codeine medicatio n Not available Not available Not available 06/10/2020 1640 RxNorm Comme nt: [facility]; [facility] 14:14:46 Medications Name Sig Start Date Stop Date Status Note LastModified by Organization Details LastModified Time cyclobenz aprine 10 mg tablet 09/03 completed Not Available Not Available Not Available ondansetr on 8 mg disintegr ating tablet 2024 active Not Available Not Available Not Avai lable Microgest in FE 07/13 (28) 1 mg-20 mcg (21)/75 mg (7) tablet take 1 tablet by oral route every day 09/03 completed Prescrib ed Elsewher e: No Locat ion: [facility] odify By: sandro tz Encou nter DateTime : 12/11/19 17 03:30:00 PM Not Available Not Available Not Available Zoloft 50 mg tablet take 1 tablet by oral route every day 09/03 completed Prescrib ed Elsewher e: No Locat ion: [facility] odify By: nitin Fernandez ter DateTime : 11/15/19 17 03:22:02 PM Not Available Not Available Not Available Flagyl 500 mg tablet take 4 tablets by oral route all at once 04/12 completed Prescrib ed Elsewher e: No Locat ion: [facility] odify By: nitin Fernandez ter DateTime : 04/12/20 17 01:04:12 PM Not Available Not Available Not Available Vitamin D2 1,250 mcg (50,000 unit) capsule take 1 capsule by oral route every week 01/10 completed Prescrib ed Elsewher e: No Locat ion: [facility] odify By: nataly virk DateTime : 07/19/19 16 11:05:56 AM Not Available Not Available Not Available active Not Available Not Avai lable Not Available Triveen-D uo DHA 29 mg-1 mg-400 mg oral pack take 1 by Oral route every day 09/03 completed Prescrib ed Elsewher e: No Locat ion: [facility] odify By: nitin tompkins DateTime : 11/15/19 17 03:22:02 PM Not Available Not Available Not Available Vitals Date Recorded Body height Body mass index (BMI) Body weight Systolic blood pressure Diastolic blood pressure Provider Name and Address Organization Details Last Updated DateTime 09/03/2024 167.64 cm 36.6 kg/m2 041559.4 7 g 135 mm[Hg] 82 mm[Hg] Za Tejada [facility] 14:24:04 Date Recorded Body weight Systolic blood pressure Diastolic blood pressure Provider Name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
--- OUTSIDE RECORDS SUMMARY | 2024-10-05 11:15 | XMS_ITS | Clinical Summary ---
Author Organization [facility] Address [address] [place] [address] Care Team Providers Care Director Of Planning Name Role Phone None, Provider Primary Care [...] Comments Blood Pressure 146/82 07/20/2023 6:49 PM ELECTRONICS TECHNICIAN APPRENTICE Pulse 98 07/20/2023 6:49 PM ELECTRONICS TECHNICIAN APPRENTICE Temperature 36.7 C (98 F) 07/20/2023 6:49 PM ELECTRONICS TECHNICIAN APPRENTICE Respiratory Rate 16 07/20/2023 6:49 PM ELECTRONICS TECHNICIAN APPRENTICE Oxygen Saturation 100% 07/20/2023 6:49 PM ELECTRONICS TECHNICIAN APPRENTICE Inhaled Oxygen Concentration - - Weight 90.7 kg (200 lb) 07/20/2023 6:49 PM ELECTRONICS TECHNICIAN APPRENTICE Height 167.6 cm (5' 6) 07/20/2023 6:49 PM ELECTRONICS TECHNICIAN APPRENTICE Body Mass Index 32.28 07/20/2023 6:49 PM ELECTRONICS TECHNICIAN APPRENTICE Plan of Treatment Health Maintenance Due Date [...] 5 Years) and At-Risk Patients (6 to 49 Years) Aged Out No longer eligible b ased on patient's age to complete this topic RSV Immunizations Under 20 Months Aged Out No longer eligible based on patient's age to complete this topic Insurance [employer] Care Teams Director Of Planning Relationship Specialty Start Date End Date None, Provider, MD PCP - General UNKNOWN PHYSICIAN SPECIALTY 07/20/23
[2024-10-05] MEDS: RHO(D) IMMUNE GLOBULIN 300 MCG/2 ML SYRINGE IM (12:19)
== END 2025-01-03 23:59 | disposition home or self-care (01) ==
LOC: ANHLAB 10:04
PROVIDERS: PCP Internal Medicine; Visit Provider Obstetrics & Gynecology
DX: Z36.89 Encounter for other specified antenatal screening (principal); Z29.13 Encounter for prophylactic Rho(D) immune globulin
CPT/HCPCS: 36415; 85461; 86850; 86900; 86901; 90384; 96372; J2790

== ENCOUNTER 2024-10-31 11:48 | Observation (INO) | payer OTHER, SELFPAY ==
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
--- OUTSIDE RECORDS SUMMARY | 2024-10-31 11:57 | XMS_ITS | Clinical Summary ---
Author Organization [facility] Address [facility] [place] [address] Care Team Providers Care Energy Systems Engineer Name Role Phone Khanh Blackwood MD Primary [...] daily. 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 Estimated Date of Delivery Comme nts Yes 12/19/2024 Based on Ultraso und Encounters Date Type Department Care Team Description 09/02/2024 6:16 PM CDT - 09/02/2024 9:00 PM CDT Hospital Encounter [address] [phone] Sherly Amin MD Discharge Disposition: Discharge to home or self care 09/02/2024 4:58 PM CDT - 09/02/2024 6:16 PM CDT Emergency [facility] Emergency Department 1 [place] [address] Abdominal pain (Primary Dx); Chest pain, unspecified type; 21 weeks gestation of Discharge Disposition: Discharge to home or self care from Last 3 Months Surgical History Surgery Date Site/Laterality Comments OTHER SURGICAL HISTORY Exc left axillary abscess 2007, 2008 Family History Medical History Relation Name [...] on file 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 Gender Identity Not on file Sexual Orientation Not on file Obstetrics History Para Term AB IAB SAB Ectopic Multiple Livin g Live Births 2 1 1 1 1 Date Outcome GA Total Labor Labor/2nd/3rd Weight Sex Type Anes PTL Vilma A1 A5 Name Clin 2016 Term CS-Un spec Living Current Summary Episode Dates Number of Fetuses Estimated Date of Delivery 09/02/2024 - Present (10/31/2024) 12/19/2024 (set by Lorena Scales RN on [...] st Contact Info) Description 12/19/2024 Hospital Encounter [address] [phone] Sherly Amin MD 1 [place] [address] Health Maintenance Due Date Last Done Comments [...] ECG 12-LEAD STAT 09/02/2024 3:52 PM CDT from Last 3 Months Results * (ABNORMAL) Urinalysis reflex to microscopic (09/02/2024 5:48 PM CDT) Color, ur Straw Yellow Clarity, ur Clear Clear [facility] Specific gravity, ur 1.027 1.003 - 1.030 [facility] pH, urine 6.5 [facility] Comment: Interpretive Data U rine pH is affected by diet, medications, systemic acid-base disturbances, and renal tubular function. pH may affect urinary stone formation. For example, urine pH below 6.0 may help reduce the tendency for calcium phosphate stones and pH greater than 6.0 may reduce the tendency for uric acid stone formation. Source: [employer] Current Interpretive Data was last revised on 2017 Protein, ur ql Trace Negative [facility] Glucose, ur ql Negative Negative [facility] Ketones, ur 1+(A) Negative [facility] Bilirubin, ur Negative Negative [facility] Blood, ur Negative Negative [facility] Urobilinogen, ur <2.0 <2.0 mg/dL [facility] Nitrite, ur Negative Negative [facility] Leukocyte esterase, ur Negative Negative [facility] UA reflex comment Reflex conditions for microscopic UA not met. [facility] Urine 09/02/2024 5:48 PM CDT 09/02/2024 5:53 PM CDT Nicolle Abbasi MD LAB URINE ORDERABLES Jenni l Result [facility] Department [place] [address] * (ABNORMAL) POCT hCG, urine (09/02/2024 5:47 [...] Nicolle Abbasi MD LAB BLOOD ORDERABLES Jenni komal Result [facility] Department [place] [address] * Differential, auto (09/02/2024 4:28 PM CDT) Neutrophil abs 5.3 1.5 - 6.5 K/cumm Imm gran abs 0.0 0.0 - 0.1 K/cumm [facility] Lymphocyte abs 2.6 0.8 - 3.3 K/cumm [facility] Monocyte abs 0.5 0.2 - 0.8 K/cumm [facility] Eosinophil abs 0.1 0.0 - 0.5 K/cumm [facility] Basophil abs 0.0 0.0 - 0.1 K/cumm [facility] Neutrophil pct 61.9 % [facility] Comment: Interpretive Data Percent cell count reference ranges are not reported, since discordance with absolute values may lead to misinterpretation of CBC data. Current Interpretive Data was last revised on 2017. Imm gran pct 0.5 % [facility] Comment: Interpretive Data Percent cell count reference ranges are not reported, since discordance with absolute values may lead to misinterpretation of CBC data. Current Interpretive Data was last revised on 2017. Lymphocyte pct 30.6 % [facility] Comment: Interpretive Data Percent cell count reference ranges are not reported, since discordance with absolute values may lead to misinterpretation of CBC data. Current Interpretive Data was last revised on 2017. Monocyte pct 6.2 % [facility] Comment: Interpretive Data Percent cell count reference ranges are not reported, since discordance with absolute values may lead to misinterpretation of CBC data. Current Interpretive Data was last revised on 2017. Eosinophil pct 0.7 % [facility] Comment: Interpretive Data Percent cell count reference ranges are not reported, since discordance with absolute values may lead to misinterpretation of CBC data. Current Interpretive Data was last revised on 2017. Basophil pct 0.1 % [facility] Comment: Interpretive Data Percent cell count reference ranges are not reported, since discordance with absolute values may lead to misinterpretation of CBC data. Current Interpretive Data was last revised on 2017. Blood 09/02/2024 4:28 PM CDT 09/02/2024 4:38 PM CDT Nicolle Abbasi MD LAB BLOOD ORDERABLES Jenni sauceda Result [facility] Department [place] [address] * (ABNORMAL) CBC with auto differential (09/02/2024 4:28 PM CDT) WBC 8.5 3.8 - 9.9 K/cumm Hgb 10.9(L) 11.9 - 15.5 g/dL [facility] Hct 32.8(L) 35.6 - 45.5 % [facility] Plt 187 150 - 400 K/cumm [facility] MPV 10.8 9.1 - 12.3 fL [facility] RBC 3.89(L) 3.90 - 5.20 M/cumm [facility] MCV 84.3 81.3 - 96.4 fL [facility] MCH 28.0 27.1 - 33.3 pg [facility] MCHC 33.2 32.3 - 35.7 g/dL [facility] RDW CV 17.0(H) 11.1 - 14.9 % [facility] RDW SD 51.8(H) 35.7 - 48.1 fL [facility] NRBC abs 0.00 0.00 - 0.01 K/cumm [facility] Blood Venous blood specimen / Unknown 09/02/2024 4:28 PM CDT 09/02/2024 4:38 PM CDT Nicolle Abbasi MD LAB BLOOD ORDERABLES Jenni l Result Performing Organization Address City/[facility] Co de Phone Number [facility] [place] [address] * Type and screen (09/02/2024 4:28 PM CDT) Maye, indirect Negative ABO Rh O Negative [facility] Blood 09/02/2024 4:28 PM CDT 09/02/2024 5:11 PM CDT Narrative [facility] - 09/02/2024 6:02 PM CDT Has the patient had Daratumumab or Isatuximab in the past 6 months?->Unknown Nicolle Abbasi MD LAB BLOOD BANK TEST ORDER RICO Final Result Performing Organization Address [facility] [place] [address] * (ABNORMAL) hCG, blood, quantitative (09/02/2024 4:28 [...] MD LAB BLOOD ORDERABLES Jenni l Result [facility] Department [place] [address] * (ABNORMAL) Lipase (09/02/2024 4:28 PM CDT) [facility] Lipase 7(L) 10 - 99 Units/L Blood Venous blood specimen / Unknown 09/02/2024 4:28 PM CDT 09/02/2024 4:38 PM CDT Nicolle Abbasi MD LAB BLOOD ORDERABLES Jenni l Result Performing Organization Address [facility] Co de Phone Number [facility] Department [place] [address] * Comprehensive metabolic panel (09/02/2024 4:28 PM CDT) [facility] Sodium 136 135 - 145 mmol/L Potassium, pl 4.0 3.3 - 4.9 mmol/L [facility] Chloride 105 97 - 110 mmol/L [facility] CO2 24 22 - 32 mmol/L [facility] Anion gap 7 2 - 15 mmol/L [facility] BUN 6 6 - 25 mg/dL [facility] Creatinine 0.68 0.60 - 1.10 mg/dL [facility] Glucose 77 70 - 199 mg/dL [facility] Comment: Interpretive Data Fasting glucose [...] 2022. Calcium 8.9 8.5 - 10.3 mg/dL [facility] Bilirubin, total 0.3 0.1 - 1.2 mg/dL [facility] Protein, pl 7.0 6.5 - 8.5 g/dL [facility] Albumin 3.6 3.5 - 5.0 g/dL [facility] Alk phos 70 40 - 130 Units/L [facility] ALT 25 7 - 45 Units/L [facility] AST 27 10 - 45 Units/L [facility] Blood 09/02/2024 4:28 PM CDT 09/02/2024 4:38 PM CDT us Nicolle Abbasi MD LAB BLOOD ORDERABLES Jenni l Result [facility] Department [place] [address] * ECG 12-LEAD (09/02/2024 3:52 PM CDT) Narrative [facility] - 09/02/2024 3:52 PM CDT Saloni Becerra [...] in the ED Saloni Becerra MD 09/02/24 1552 us Nicolle Abbasi MD ECG ORDERABLES Final Res ult [facility] from Last 3 Months Insurance [facility] Care Teams Energy Systems Engineer Relationship Specialty Start Date End Date Khanh Blackwood MD PCP - General 01/18/18
--- OUTSIDE RECORDS SUMMARY | 2024-10-31 11:57 | XMS_ITS | Encounter Summary ---
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
--- OUTSIDE RECORDS SUMMARY | 2024-10-31 11:57 | XMS_ITS | Clinical Summary ---
Author Organization [facility] [employer] Address [address] [place] [address] Care Team Providers Care Assembly And Packing Supervisor Name Role Phone Unavailable Primary Care Provider Unavailabl e Source Comments [facility] [employer],non-owned Affiliates and Associated Physician Practices is amultiple site organization consisting of ambulatory clinics and hospital sitesin [place], [place], [place] and [place]. This disclosure is being madepursuant to the Care Everywhere program and may not contain all information available regarding this patient. Last updated 18.[facility] [employer] Allergies Active Allergy Reactions Criticality Noted Date [...] Type Department Care Team Description 09/04/2024 Telephone [facility]/ EVALUATION UNIT [address] [place] [address] John Riggins Scheduling 09/02/2024 Telephone [facility]/ EVALUATION UNIT [address] [place] [address] Yuliya Shrestha Appointment 09/02/2024 Telephone [facility]/ EVALUATION UNIT [address] [place] [address] Yuliya Shrestha Appointment 08/21/2024 Telephone [facility]/ EVALUATION UNIT [address] [place] [address] Yuliya Shrestha Appointment from Last 3 Months Social History Tobacco Use Types Packs/Day Years Used Date Smoking Tobacco: Never Smokeless Tobacco: Never Alcohol Use Standard Drinks/Week Comments Yes 0 (1 standard drink = 0.6 oz pur e alcohol) socially Comments Unknown Sex and Gender Information Value Date Recorded Sex Assigned at Not on file Legal Sex Female 12:14 PM CLIP BAKER Gender Identity Not on file Sexual Orientation Not on file Last Filed Vital Signs Vital Sign Reading Time Taken Comments Blood Pressure 119/62 04/26/2015 9:11 AM CLIP BAKER Pulse 67 04/26/2015 9:11 AM CLIP BAKER Temperature 36.6 C (97.8 F) 04/26/2015 9:11 AM CLIP BAKER Respiratory Rate 16 04/26/2015 9:11 AM CLIP BAKER Oxygen Saturation 100% 04/26/2015 9:11 AM CLIP BAKER Inhaled Oxygen Concentration - - Weight 86.6 kg (191 lb) 04/26/2015 6:29 AM CLIP BAKER Height 170.2 cm (5' 7) 04/26/2015 6:29 AM CLIP BAKER Body Mass Index 29.91 04/26/2015 6:29 AM CLIP BAKER Plan of Treatment Health Maintenance Due Date [...] OF UTERINE CERVIX / Unknown 12/28/2010 Narrative [facility] - 01/08/2011 10:37 AM CDT Preferred Lab:->OTHER EXTERNAL LAB Osei Cervantes MD LAB - PATHOLOGY/CYTOLOGY ORDERAB LES Final Result Performing Organization Address City/State/[facility] de Phone Number [facility] [address] from Last 3 Months or Most Recently Relevant to Health Maintenance Insurance [facility]
--- OUTSIDE RECORDS SUMMARY | 2024-10-31 11:57 | XMS_ITS | Referral Summary ---
Author Organization [facility] Address [address] [place] [phone] Care Team Providers Care Metallographic Technician Name Role Phone Khanh Blackwood MD Primary Care Provider Encounters Date Type Department Care Team Description 09/02/2024 6:16 PM CDT - 09/02/2024 9:00 PM CDT Hospital Encounter [address] [phone] Sherly Amin MD Discharge Disposition: Discharge to home or self care 09/02/2024 4:58 PM CDT - 09/02/2024 6:16 PM CDT Emergency [facility] Emergency Department [address] [place] [phone] Abdominal pain (Primary Dx); Chest pain, unspecified [...] daily. 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 pH may affect urinary stone formation. For example, urine pH below 6.0 may help reduce the tendency for calcium phosphate stones and pH greater than 6.0 may reduce the tendency for uric acid stone formation. Source: [employer] Interpretive Data was last revised on 2017 Protein, ur ql Trace Negative [facility] Glucose, ur ql Negative Negative [facility] Ketones, ur 1+(A) Negative [facility] Bilirubin, ur Negative Negative [facility] Blood, ur Negative Negative [facility] Urobilinogen, ur <2.0 <2.0 mg/dL [facility] Nitrite, ur Negative Negative [facility] Leukocyte esterase, ur Negative Negative [facility] UA reflex comment Reflex conditions for microscopic UA not met. [facility] Urine 09/02/2024 5:48 PM CDT 09/02/2024 5:53 PM CDT Nicolle Abbasi MD LAB URINE ORDERABLES Jenni l Result [facility] Department [place] [address] * (ABNORMAL) POCT hCG, urine (09/02/2024 5:47 [...] MD LAB BLOOD ORDERABLES Jenni komal Result [facility] Department [place] [address] * Differential, auto (09/02/2024 4:28 PM CDT) Neutrophil abs 5.3 1.5 - 6.5 K/cumm Imm gran abs 0.0 0.0 - 0.1 K/cumm [facility] Lymphocyte abs 2.6 0.8 - 3.3 K/cumm [facility] Monocyte abs 0.5 0.2 - 0.8 K/cumm [facility] Eosinophil abs 0.1 0.0 - 0.5 K/cumm [facility] Basophil abs 0.0 0.0 - 0.1 K/cumm [facility] Neutrophil pct 61.9 % [facility] Comment: Interpretive Data Percent cell count reference ranges are not reported, since discordance with absolute values may lead to misinterpretation of CBC data. Current Interpretive Data was last revised on 2017. Imm gran pct 0.5 % [facility] Comment: Interpretive Data Percent cell count reference ranges are not reported, since discordance with absolute values may lead to misinterpretation of CBC data. Current Interpretive Data was last revised on 2017. Lymphocyte pct 30.6 % [facility] Comment: Interpretive Data Percent cell count reference ranges are not reported, since discordance with absolute values may lead to misinterpretation of CBC data. Current Interpretive Data was last revised on 2017. Monocyte pct 6.2 % [facility] Comment: Interpretive Data Percent cell count reference ranges are not reported, since discordance with absolute values may lead to misinterpretation of CBC data. Current Interpretive Data was last revised on 2017. Eosinophil pct 0.7 % [facility] Comment: Interpretive Data Percent cell count reference ranges are not reported, since discordance with absolute values may lead to misinterpretation of CBC data. Current Interpretive Data was last revised on 2017. Basophil pct 0.1 % [facility] Comment: Interpretive Data Percent cell count reference ranges are not reported, since discordance with absolute values may lead to misinterpretation of CBC data. Current Interpretive Data was last revised on 2017. Blood 09/02/2024 4:28 PM CDT 09/02/2024 4:38 PM CDT Nicolle Abbasi MD LAB BLOOD ORDERABLES Jenni sauceda Result [facility] Department [place] [address] * (ABNORMAL) CBC with auto differential (09/02/2024 4:28 PM CDT) WBC 8.5 3.8 - 9.9 K/cumm Hgb 10.9(L) 11.9 - 15.5 g/dL [facility] Hct 32.8(L) 35.6 - 45.5 % [facility] Plt 187 150 - 400 K/cumm [facility] MPV 10.8 9.1 - 12.3 fL [facility] RBC 3.89(L) 3.90 - 5.20 M/cumm [facility] MCV 84.3 81.3 - 96.4 fL [facility] MCH 28.0 27.1 - 33.3 pg [facility] MCHC 33.2 32.3 - 35.7 g/dL [facility] RDW CV 17.0(H) 11.1 - 14.9 % [facility] RDW SD 51.8(H) 35.7 - 48.1 fL [facility] NRBC abs 0.00 0.00 - 0.01 K/cumm [facility] Blood Venous blood specimen / Unknown 09/02/2024 4:28 PM CDT 09/02/2024 4:38 PM CDT Nicolle Abbasi MD LAB BLOOD ORDERABLES Jenni l Result Performing Organization Address [facility] Co de Phone Number [facility] [place] [address] * Type and screen (09/02/2024 4:28 PM CDT) Maye, indirect Negative ABO Rh O Negative [facility] Blood 09/02/2024 4:28 PM CDT 09/02/2024 5:11 PM CDT Narrative [facility] - 09/02/2024 6:02 PM CDT Has the patient had Daratumumab or Isatuximab in the past 6 months?->Unknown Nicolle Abbasi MD LAB BLOOD BANK TEST ORDER RICO Final Result Performing Organization Address [facility] de Phone Number [facility] [place] [address] * (ABNORMAL) hCG, blood, quantitative (09/02/2024 4:28 [...] ORDERABLES Jenni l Result Performing Organization Address City/[facility]/ZIP Co de Phone Number [facility] Department [place] [address] * (ABNORMAL) Lipase (09/02/2024 4:28 PM CDT) Pathologist [facility] Lipase 7(L) 10 - 99 Units/L Blood Venous blood specimen / Unknown 09/02/2024 4:28 PM CDT 09/02/2024 4:38 PM CDT Nicolle Abbasi MD LAB BLOOD ORDERABLES Jenni l Result [facility] Department [place] [address] * Comprehensive metabolic panel (09/02/2024 4:28 PM CDT) [facility] Sodium 136 135 - 145 mmol/L Potassium, pl 4.0 3.3 - 4.9 mmol/L [facility] Chloride 105 97 - 110 mmol/L [facility] CO2 24 22 - 32 mmol/L [facility] Anion gap 7 2 - 15 mmol/L [facility] BUN 6 6 - 25 mg/dL [facility] Creatinine 0.68 0.60 - 1.10 mg/dL [facility] Glucose 77 70 - 199 mg/dL [facility] Comment: Interpretive Data Fasting glucose >/= [...] 2022. Calcium 8.9 8.5 - 10.3 mg/dL [facility] Bilirubin, total 0.3 0.1 - 1.2 mg/dL [facility] Protein, pl 7.0 6.5 - 8.5 g/dL [facility] Albumin 3.6 3.5 - 5.0 g/dL [facility] Alk phos 70 40 - 130 Units/L [facility] ALT 25 7 - 45 Units/L [facility] AST 27 10 - 45 Units/L [facility] Blood 09/02/2024 4:28 PM CDT 09/02/2024 4:38 PM CDT Nicolle Abbasi MD LAB BLOOD ORDERABLES Jenni l Result [facility] Department [place] [address] * ECG 12-LEAD (09/02/2024 3:52 PM CDT) Narrative [facility] - 09/02/2024 3:52 PM CDT Saloni Becerra [...] the ED Saloni Becerra MD 09/02/24 1553 us Nicolle Abbasi MD ECG ORDERABLES Final Res ult [facility] from Last 3 Months Insurance [facility] [place] [address] [place] [address] Care Teams Metallographic Technician Relationship Specialty Start Date End Date Khanh Blackwood MD PCP - General 01/18/18
--- OUTSIDE RECORDS SUMMARY | 2024-10-31 11:57 | XMS_ITS | Clinical Summary ---
Author Organization [facility] Address [address] [place] [id number] Care Team Providers Care Buttermaker Name Role Phone None, Provider Primary Care [...] Comments Blood Pressure 146/82 07/20/2023 6:49 PM HOG GRADER Pulse 98 07/20/2023 6:49 PM HOG GRADER Temperature 36.7 C (98 F) 07/20/2023 6:49 PM HOG GRADER Respiratory Rate 16 07/20/2023 6:49 PM HOG GRADER Oxygen Saturation 100% 07/20/2023 6:49 PM HOG GRADER Inhaled Oxygen Concentration - - Weight 90.7 kg (200 lb) 07/20/2023 6:49 PM HOG GRADER Height 167.6 cm (5' 6) 07/20/2023 6:49 PM HOG GRADER Body Mass Index 32.28 07/20/2023 6:49 PM HOG GRADER Plan of Treatment Health Maintenance Due Date [...] Insurance [facility] Care Teams Buttermaker Relationship Specialty Start Date End Date None, Provider, MD PCP - General UNKNOWN PHYSICIAN SPECIALTY 07/20/23
--- OUTSIDE RECORDS SUMMARY | 2024-10-31 11:57 | XMS_ITS | Data Portability ---
Author Organization [place] - [facility], [employer] Address [address] [place] [address] Assessment Encounter Date Assessment Date Assessment LastModified by Organization Details LastModified Time 12/01/2020 12/01/2020 Medication Changes SELINA obtained. Records requested. Labs obtained to evaluate levels. Contacted [facility] regarding CDE who does take [place]. . Order faxed to CDE at . [...] plan. F/U 1 week, sooner if needed [email or web address] Not available 12/01/2020 14:11:47 12/06/2020 12/06/2020 Medication [...] plan. F/U 12 weeks, sooner if needed [email or web address] Not available 12/06/2020 13:57:51 Plan of Treatment [...] 19:43:37 TSH, serum, reflex free T4 2020 [email or web address] Not available 07:50:55 Referral diabetic nutrition education referral - Newly diagnosed Diabetic who needs a lot of education. 2020 [facility], [facility] , [address] [address], [place], [address], 14:16:56 Procedures None recorded. Surgeries None recorded. Imaging None recorded. Medication Orders Vitamin D3 125 mcg (5,000 unit) tablet 2020 [email or web address] [facility] #[id number], [address], [place], [id number], 14:56:33 metformin ER 500 mg tablet,ext ended release 24 hr 2020 [email or web address] [facility] #[id number], [address], [place], [id number], 14:56:14 Patient TargetsNo targets recorded. Patient Instructions Encounter Date Encounter Id Patient Instructions Last Modified By Organization Details Last Modified Time 12/01/2020 type 2 diabetes: care instructions Not available 12/01/2020 14:14:06 12/06/2020 smoking cessatio n counseling, greater than 3 minutes up to 10 minutes* [email or web address] Not available 12/06/2020 13:57:54 Reason for Referral [...] total 164 mg/dL <200 normal Not Available [facility] [address] [address] [place], [address], 12/02/2020 14:00:41 12/02/19 21 12/02/2020 lipid panel , serum HDL cholesterol 37 mg/dL > or = 50 low Not Available [facility] [address] [address] [place], [address], 12/02/2020 14:00:41 12/02/19 21 12/02/2020 lipid panel , serum triglyceride s 129 mg/dL <150 normal Not Available [facility] [address] [address] [place], [address], 12/02/2020 14:00:41 12/02/1912/02/2020 lipid panel , serum [...] 2061- 2068 (http ://ed cristoferati on.Qu estDi Creative Artists [employer]ys. com/f aq/FA Q164) Not Available [facility] [address] [address] [place], [address], 12/02/2020 14:00:41 12/02/19 21 12/02/2020 lipid panel , serum chol/HDLC ratio 4.4 (calc ) <5.0 normal Not Available [address] [address] [place], [address], 12/02/2020 14:00:41 12/02/19 21 12/02/2020 lipid panel , serum non HDL cholesterol 127 mg/dL _(jaelyn c) <130 normal For patie nts with diabe yuri plus 1 major ASCVD risk facto r, treat ing to a non-H DL-C goal of <100 mg/dL (LDL- C of <70 mg/dL ) is consi dered a thera peuti c optio n. Not Available [address] [address] [place], [address], 12/02/2020 14:00:41 12/02/1912/02/2020 magne sium, serum or plasm a magnesium 2.2 mg/dL 1.5-2. 5 normal Not Available [facility] [address] [address] [place], [address], 12/02/2020 14:00:41 12/02/1912/02/2020 CMP, serum or plasm a glucose 101 mg/dL 65-99 high Fasti ng refer ence inter nolberto For someo ne witho ut known diabe yuri, a gluco se value betwe en 100 and 125 mg/dL is consi stent with predi abete s and shoul d be confi rmed with a follo w-up test. Not Available [facility] [address] [address] [place], [address], 12/02/2020 14:00:42 12/02/1912/02/2020 CMP, serum or plasm a urea nitrogen (BUN) 13 mg/dL 7-25 normal Not Available [facility] [address] [address] [place], [address], 12/02/2020 14:00:42 12/02/19 21 12/02/2020 CMP, serum or plasm a creatinine 0.79 mg/dL 0.50-1 .10 normal Not Available [address], [address], 12/02/2020 14:00:42 12/02/19 21 12/02/2020 CMP, serum or plasm a eGFR non-afr. tuvaluan 98 mL/mi n/1.7 3m2 > or = 60 normal Not Available [address], [address], 12/02/2020 14:00:42 12/02/1912/02/2020 CMP, serum or plasm a eGFR 113 mL/mi n/1.7 3m2 > or = 60 normal Not Available [address], [address], 12/02/2020 14:00:42 12/02/1912/02/2020 CMP, serum or plasm a BUN/creatini ne ratio NOT APPLIC ABLE (calc ) 6-22 Not Available [address], [address], 12/02/2020 14:00:42 12/02/19 21 12/02/2020 CMP, serum or plasm a sodium 137 mmol/ L 135-14 6 normal Not Available [address], [address], 12/02/2020 14:00:42 12/02/1912/02/2020 CMP, serum or plasm a potassium 4.6 mmol/ L 3.5-5. 3 normal Not Available [address], [address], 12/02/2020 14:00:42 12/02/1912/02/2020 CMP, serum or plasm a chloride 105 mmol/ L 98-110 normal Not Available [address], [address], 12/02/2020 14:00:42 12/02/1912/02/2020 CMP, serum or plasm a carbon dioxide 23 mmol/ L 20-32 normal Not Available [address], [address], 12/02/2020 14:00:42 12/02/1912/02/2020 CMP, serum or plasm a calcium 9.1 mg/dL 8.6-10 .2 normal Not Available [address], [address], 12/02/2020 14:00:42 12/02/1912/02/2020 CMP, serum or plasm a protein, total 6.8 g/dL 6.1-8. 1 normal Not Available [address], [address], 12/02/2020 14:00:42 12/02/1912/02/2020 CMP, serum or plasm a albumin 4.1 g/dL 3.6-5. 1 normal Not Available [address], [address], 12/02/2020 14:00:42 12/02/1912/02/2020 CMP, serum or plasm a globulin 2.7 g/dL_ (calc ) 1.9-3. 7 normal Not Available [address], [address], 12/02/2020 14:00:42 12/02/1912/02/2020 CMP, serum or plasm a albumin/glob ulin ratio 1.5 (calc ) 1.0-2. 5 normal Not Available [address], [address], 12/02/2020 14:00:42 12/02/1912/02/2020 CMP, serum or plasm a bilirubin, total 0.4 mg/dL 0.2-1. 2 normal Not Available [address], [address], 12/02/2020 14:00:42 12/02/1912/02/2020 CMP, serum or plasm a alkaline phosphatase 81 U/L 31-125 normal Not Available [facility] [address], [address], 12/02/2020 14:00:42 12/02/19 21 12/02/2020 CMP, serum or plasm a AST 16 U/L 10-30 normal Not Available [address], [address], 12/02/2020 14:00:42 12/02/1912/02/2020 CMP, serum or plasm a ALT 16 U/L 6-29 normal Not Available [facility] [address], [address], 12/02/2020 14:00:42 12/02/1912/02/2020 CBC white blood cell count 8.2 thous and/u L 3.8-10 .8 normal Not Available [address], [address], 12/02/2020 14:00:43 12/02/1912/02/2020 CBC red blood cell count 4.96 reina on/uL 3.80-5 .10 normal Not Available [facility] [address], [address], 12/02/2020 14:00:43 12/02/19 21 12/02/2020 CBC hemoglobin 13.1 g/dL 11.7-1 5.5 normal Not Available [facility] [address], [address], 12/02/2020 14:00:43 12/02/19 21 12/02/2020 CBC hematocrit 40.3 % 35.0-4 5.0 normal Not Available [address], [address], 12/02/2020 14:00:43 12/02/19 21 12/02/2020 CBC MCV 81.3 fL 80.0-1 00.0 normal Not Available [address], [address], 12/02/2020 14:00:43 12/02/19 21 12/02/2020 CBC MCH 26.4 pg 27.0-3 3.0 low Not Available [address], [address], 12/02/2020 14:00:43 12/02/19 21 12/02/2020 CBC MCHC 32.5 g/dL 32.0-3 6.0 normal Not Available [address], [address], 12/02/2020 14:00:43 12/02/1912/02/2020 CBC RDW 14.7 % 11.0-1 5.0 normal Not Available [address], [address], 12/02/2020 14:00:43 12/02/19 21 12/02/2020 CBC platelet count 261 thous and/u L 140-40 0 normal Not Available [address], [address], 12/02/2020 14:00:43 12/02/1912/02/2020 CBC MPV 10.6 fL 7.5-12 .5 normal Not Available [address], [address], 12/02/2020 14:00:43 06/10/20 21 12/02/2020 TSH, serum or plasm a TSH w/reflex to FT4 1.05 mIU/L normal Refer ence Range > or = 20 Years 0.40- 4.50 Pregn shawn Range s First trime ster 0.26- 2.66 Secon d trime ster 0.55- 2.73 Third trime ster 0.43- 2.91 Not Available [facility] [address] [place], [address], 12/02/2020 14:00:43 12/02/19 21 12/02/2020 vitam in [...] /MS is recom asif d: order code 67394 (kriss ents >2yrs ). See Note 1 Note 1 For addit ional infor ольга souza refer to http: //enrico reinoso.Minor stDia gnost ics.c om/fa q/FAQ 199 (This link is being provi ded for infor alex [place]/ eductaj sauceda purpo ses only. ) Not Available [facility] [address] [address], [place], [address], 12/02/2020 14:00:43 12/02/1912/02/2020 HbA1c (hemo globi n [...] diabe yuri for child jaqui. Not Available [facility] [address] [address] , [place], [address], 12/02/2020 14:00:44 Result Notes None recorded. Problems Name Problem SNOMED Code Status Onset Date Resolution Date Notes Provider Name and Address Organization Details Recorded Time Elevated blood-pressure reading without diagnosis of hypertension 740584712 Active 2020 CÉSAR Spence-, PMHNP-BC [address], [place], [address] [place] [address] 4, [facility] 12:22:36 Type 2 diabetes mellitus without complication 680550349 Active 2020 CÉSAR Spence-, PMHNP-BC [address] [place] [address], [address], [facility] 14:11:47 Vitamin D deficiency 93128296 [facility] 2020 [facility] [address] [place], [address], [facility] 13:50:20 Problem Notes None recorded. Procedures Surgical History Date Name Laterality Status Provider Name and Address Organization Details Recorded Time section completed Lamont Mabry [facility] 11/18/2020 14:08:17 operative procedure on foot completed Lamont Mabry [facility] 11/18/2020 14:08:37 excision of cyst completed Lamont Mabry [facility] 11/18/2020 14:08:44 Imaging Results None recorded. Procedure Notes None recorded. Medical Equipment None Reported. Allergies Allergen ID Allergen Name Allergen Category Reaction Reaction Severity Criticality Documentation Date Start Date Code Code System Note Provider Name and Address Organization Details Recorded Time 3609 Product containin g penicilli n (product) medicatio n facial swelling moderate Not available 11/18/2020 54544 8001 SNJENY Roberson [facility] 11:30:23 3611 codeine medicatio n Not available Not available Not available 11/18/2020 2670 RxNorm Lamont Mabry [facility], [facility] 14:08:03 Medications Name Sig Start Date [...] Last Updated DateTime 167.64 cm 45.4 kg/m2 539499. 46 g 96 /min 18 /min 96 % 96 % 98.4 [degF] 130 mm[Hg] 78 mm[Hg] Shamyra Stark [facility] 12:01:57 Date Recorded Body height Body temperature Respiratory rate Oxygen saturation Oxygen saturation in Arterial blood by Pulse oximetry Heart rate Body mass index (BMI) Body weight Systolic blood pressure Diastolic blood pressure Provider Name and Address Organization Details Last Updated DateTime 167.64 cm 98.4 [degF] 18 /min 98 % 98 % 104 /min 45.4 kg/m2 495555. 46 g 130 mm[Hg] 82 mm[Hg] SCOTT ROMERO [facility] 13:54:51 Social History Question Answer Notes LastModified by Organizat ion Details LastModified Time Tobacco Smoking Status Current Some Day Smoker Lamont Mabry yakelin [facility] 11/18/2020 14:09:01 Do You Have An [...] Details LastModified Time Paternal Grandmother Diabetes mellitus [email or web address] Not available 2020 12:02:04 Paternal Grandmother Heart failure [email or web address] Not available 2020 12:02:20 Paternal Grandmother Heart disease [email or web address] Not available 2020 12:02:28 Father Diabetes mellitus Not available 2020 12:02:04 Unspecified Relation Malignant tumor of breast great grandm other Not available 12/01/2020 12:05:26 Medical History Condition [...] Diagnosis ICD10 Code Diagnosis Note Flora Mabry, [employer]-BC, PMHNP-BC Main Office [address] [place] [address] 12/01/2020 11:49:48 12/01/2020 14:34:43 Elevated blood-pressure reading without diagnosis of hypertension 221631306 R03.0 Type 2 sandra betes mellitus without complication 583875145 E11.9 Fatigue 49113133 R53.83 Vitamin D deficiency 347 16737 E55.9 Flora MicahJennifer Mabry [facility], [facility] Main Office [address] [place] [address] 12/06/2020 06:23:01 12/06/2020 15:06:51 Type 2 diabetes mellitus without complication 380962284 E11.9 Vitamin D deficiency 347 78941 E55.9 Nicotine d ependence with current use 911138357 F17.200 50652 Flora SaucedaJennifer Mabry [facility] Main Office [address] [place] [address] 04/06/2021 17:22:29 04/06/2021 18:19:48 Administration of influenza vaccine 89027914 Z23 Health Concerns Section Related Observation LastModified by Organization Detai ls LastModified Time None Recorded Concern Status LastModified by Organization Details LastModified Time None Recorded Advance Directives Directive N: Payers Encounter Date Sequence Insurance Name Policy Number Policy Fagan Covered Member ID Fagan Member ID Guarantor Name 12/01/2020 1 [facility] PRIOR TO 12/22/2020 (MEDICAID REPLACEMENT - HMO) Nancy Trevino [id number] Nancy Trevino 12/06/2020 1 [facility] PRIOR TO 12/22/2020 (MEDICAID REPLACEMENT - HMO) Nancy Trevino [id number] Nancy Trevino 04/06/2021 1 [facility] PRIOR TO 12/22/2020 (MEDICAID REPLACEMENT - HMO) Nancy Trevino [id number] Nancy Trevino Notes Date Note Type Note [...] Not following a low diet. ZAHIDA Spence, [employer] [facility] [employer] [address] [place], [address], [facility] 12/01/2020 14:15:07 12/06/2020 text/html [...] diet;does not exercise Risk Factors:diabetes ZAHIDA Spence, [facility]- [address] [place], [address], [facility] 12/06/2020 13:58:52 OBGyn Episode No OBEpisode recorded.
[2024-10-31 12:10] VITALS: BMI 36.6
[2024-10-31 12:16] VITALS: BP 126/77; PULSE 92
[2024-10-31 12:26] LABS: Add Urine Microscopic? NO; Appearance Urine Clear (Clear); Bilirubin Urine Negative (Negative); Blood Urine Negative (Negative); Color Urine Yellow (Yellow); Glucose Urine UA Negative (Negative); Ketones Urine Negative (Negative); Leukocyte Esterase Ur Negative LEU/UL (Negative); Nitrate Urine Negative (Negative); Protein Urine Negative (Negative); Urobilinogen Urine 0.2 mg/dL (<2.0); pH Urine 7.5 (5.0-9.0)
[2024-10-31 12:30] VITALS: BP 121/83; PULSE 94
[2024-10-31 13:00] VITALS: BP 114/62; PULSE 92
[2024-10-31] MEDS: FAMOTIDINE 20 MG TABLET PO (13:32)
--- NOTE | 2024-10-31 14:58 | OBADM ---
This patient, Nancy Trevino, admitted to the OB room OB Post 116 for observation. Patient/family oriented to hospital policies and general routines including ID bracelet, bed and alarms, visiting hours, pain management, procedures, bathroom and other care routines, personal items, smoking policy, room service/diet, and visiting hours. Patient/Family are encouraged to report perceived risks to care and to ask questions if they do not understand what they are told or what they should do.
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
--- NOTE | 2024-11-30 21:25 | PM.OBTRLD ---
OB - Triage/Final Diagnosis Visit Information Comments/Additional reasons for admission: I have assessed the risk for this patient, Nancy Trevino, and determined that she would benefit from observation care. Evaluation Laboratory results: Laboratory Tests 10/31/24 12:16 Urine Color Yellow Urine Appearance Clear Urine pH 7.5 Ur Specific [place] 1.010 Urine Protein Negative Urine Glucose (UA) Negative Urine Ketones Negative Ur Blood (Man) Negative Urine Nitrate Negative Urine Bilirubin Negative Urine Urobilinogen 0.2 Leukocyte Esterase Rfl Negative Final Diagnosis (1) Abdominal pain: Qualifiers: Abdominal location: generalized Qualified Code(s): R10.84 - Generalized abdominal pain Code(s): R10.9 - Unspecified abdominal pain Status: Acute
== END 2024-10-31 14:44 | disposition home or self-care (01) ==
PROVIDERS: Admitting Provider Obstetrics & Gynecology; Visit Provider Obstetrics & Gynecology
DX: O26.893 Other specified pregnancy related conditions, third trimester (principal); R10.84 Generalized abdominal pain; Z3A.31 31 weeks gestation of pregnancy
CPT/HCPCS: 81003; A9270; G0378; G0379

== ENCOUNTER 2024-12-04 09:21 | Observation (INO) | payer OTHER, SELFPAY ==
--- NOTE | 2024-12-04 09:21 | OBADM ---
This patient, Nancy Trevino, admitted to the OB room Labor/Delivery/Recovery 119 for observation. Patient/family oriented to hospital policies and general routines including ID bracelet, bed and alarms, visiting hours, pain management, procedures, bathroom and other care routines, personal items, smoking policy, room service/diet, and visiting hours. Patient/Family are encouraged to report perceived risks to care and to ask questions if they do not understand what they are told or what they should do.
--- OUTSIDE RECORDS SUMMARY | 2024-12-04 09:32 | XMS_ITS | Encounter Summary ---
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
--- OUTSIDE RECORDS SUMMARY | 2024-12-04 09:32 | XMS_ITS | Clinical Summary ---
Author Organization [facility] Address [address] [place] [place] [address] Care Team Providers Care Strategic Sourcing Specialist Name Role Phone Unavailable Primary Care Provider Unavailabl e Source Comments [facility],non-owned Affiliates and Associated Physician Practices is amultiple site organization consisting of ambulatory clinics and hospital sitesin [place], [place], [place] and [place]. This disclosure is being madepursuant to the Care Everywhere program and may not contain all information available regarding this patient. Last updated 18.[facility] Allergies Active Allergy Reactions Criticality Noted Date [...] Type Department Care Team Description 09/04/2024 Telephone [facility]ERNAL/ EVALUATION UNIT [address] [place] [address] John Riggins Scheduling from Last 3 Months Social History Tobacco Use Types Packs/Day Years Used Date Smoking Tobacco: Never Smokeless Tobacco: Never Alcohol Use Standard Drinks/Week Comments Yes 0 (1 standard drink = 0.6 oz pur e alcohol) socially Comments Unknown Sex and Gender Information Value Date Recorded Sex Assigned at Not on file Legal Sex Female 12:14 PM PHYSICIAN GYNECOLOGIST Gender Identity Not on file Sexual Orientation Not on file Last Filed Vital Signs Vital Sign Reading Time Taken Comments Blood Pressure 119/62 04/26/2015 9:11 AM PHYSICIAN GYNECOLOGIST Pulse 67 04/26/2015 9:11 AM PHYSICIAN GYNECOLOGIST Temperature 36.6 C (97.8 F) 04/26/2015 9:11 AM PHYSICIAN GYNECOLOGIST Respiratory Rate 16 04/26/2015 9:11 AM PHYSICIAN GYNECOLOGIST Oxygen Saturation 100% 04/26/2015 9:11 AM PHYSICIAN GYNECOLOGIST Inhaled Oxygen Concentration - - Weight 86.6 kg (191 lb) 04/26/2015 6:29 AM PHYSICIAN GYNECOLOGIST Height 170.2 cm (5' 7) 04/26/2015 6:29 AM PHYSICIAN GYNECOLOGIST Body Mass Index 29.91 04/26/2015 6:29 AM PHYSICIAN GYNECOLOGIST Plan of Treatment Health Maintenance Due Date [...] OF UTERINE CERVIX / Unknown 12/28/2010 Narrative [facility] - 01/08/2011 10:37 AM CDT Preferred Lab:->OTHER EXTERNAL LAB us Osei Cervantes MD LAB - PATHOLOGY/CYTOLOGY ORDERAB LES Final Result Performing Organization Address City/State/[facility] Co de Phone Number [facility] [address] [place] [address], [facility] from Last 3 Months or Most Recently Relevant to Health Maintenance Insurance [facility]
--- OUTSIDE RECORDS SUMMARY | 2024-12-04 09:32 | XMS_ITS | Referral Summary ---
Author Organization [facility] Address [facility] [place] [address] Care Team Providers Care Tricot Knitting Machine Operator Name Role Phone Khanh Blackwood MD Primary Care Provider [phone] Allergies Active Allergy Reactions Criticality Noted Date [...] daily. 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
--- OUTSIDE RECORDS SUMMARY | 2024-12-04 09:32 | XMS_ITS | Clinical Summary ---
Author Organization [facility] Address [facility] [place] [address] Care Team Providers Care [employer] Manager Name Role Phone Khanh Blackwood MD [...] daily. 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 Estimated Date of Delivery Comme nts Yes 12/19/2024 Based on Ultraso und Surgical History Surgery Date Site/Laterality Comments OTHER [...] on file Legal Sex Female 9:33 PM RN OTOLARYNGOLOGY Gender Identity Not on file Sexual Orientation Not on file Obstetrics History Para Term AB IAB SAB Ectopic Multiple Livin g Live Births 2 1 1 1 1 Date Outcome GA Total Labor Labor/2nd/3rd Weight Sex Type Anes PTL Vilma A1 A5 Name Clin 2016 Term CS-Un spec Living Current Summary Episode Dates Number of Fetuses Estimated Date of Delivery 09/02/2024 - Present (12/04/2024) 12/19/2024 (set by Lorena Scales RN on [...] st Contact Info) Description 12/19/2024 Hospital Encounter [facility] 1 [place] [address] Sherly Amin MD 1 [place] [address] Health Maintenance Due Date Last Done Comments Cervical Cancer Screening 1986 Depression Screening 1986 Hepatitis C Screening 1986 Varicella Vaccines (1 of 2 - 13+ 2-dose series) 11/26/1999 Regular Well Visit/Exam 18-64 2004 Covid-19 Vaccine ( season) 2024 04/19/2021, 08/26/2020, 08/05/2020 Influenza Vaccine (Season Ended) 2025 04/06/2021 DTaP/Tdap/Td Vaccine (7 - Td or Tdap) 01/14/2026 01/15/2016, 10/04/1997, 01/09/1991, Additional history exists Hepatitis B Screening Completed 01/27/1997 , 09/16/1996, 07/14/1996 HPV Vaccines Aged Out No longer eligi ble based on patient's age to complete this topic Pneumococcal vaccine <65 Aged Out No longer eligible based on patient's age to complete this topic Insurance [facility] [place] Care Teams [employer] Manager Relationship Specialty Start Date End Date Khanh Blackwood MD PCP - General 01/18/18
[2024-12-04 09:35] VITALS: BP 124/70; PULSE 90
[2024-12-04 09:46] VITALS: BP 110/65; PULSE 93
[2024-12-04 10:01] VITALS: BP 106/56; PULSE 93
[2024-12-04 10:02] VITALS: BMI 37.3
--- NOTE | 2024-12-04 11:12 | PC.NURSE ---
CARL Howard phoned in. Informed of pt admission for abdominal pain. SVE closed. Irregular contractions noted on tracing. Tracing reactive. Orders received for IV fluids and regular diet. Call with UA results.
[2024-12-04 11:15] LABS: Add Urine Microscopic? NO; Appearance Urine Clear (Clear); Bilirubin Urine Negative (Negative); Blood Urine Negative (Negative); Color Urine Yellow (Yellow); Glucose Urine UA Negative (Negative); Ketones Urine Negative (Negative); Leukocyte Esterase Ur Negative LEU/UL (Negative); Nitrate Urine Negative (Negative); Protein Urine Negative (Negative); Specific Grav Ur 1.009 (1.001-1.035); Urobilinogen Urine 0.2 mg/dL (<2.0)
[2024-12-04] MEDS: LACTATED RINGERS 1,000 ML 999 ML IV CONT (11:39)
[2024-12-04] MEDS: ACETAMINOPHEN 500 MG TABLET 1000 MG PO (12:50)
--- NOTE | 2024-12-04 13:55 | PC.NURSE ---
Lindsey Prescott CNM called with pt update. Contractions decreased. Pt sleeping. October D/S home.
--- NOTE | 2024-12-07 07:56 | PM.OBTRLD ---
OB - Triage/Final Diagnosis Visit Information Date of evaluation: 12/04/24 Reason for evaluation: other (abd pain) Comments/Additional reasons for admission: I have assessed the risk for this patient, Nancy Maria Eugenia WalshTrevino, and determined that she would benefit from observation care. Evaluation Laboratory results: Laboratory Tests 12/04/24 10:25 Urine Color Yellow Urine Appearance Clear Urine pH 7.0 Ur Specific [place] 1.009 Urine Protein Negative Urine Glucose (UA) Negative Urine Ketones Negative Ur Blood (Man) Negative Urine Nitrate Negative Urine Bilirubin Negative Urine Urobilinogen 0.2 Ur Leukocyte Esterase Negative
== END 2024-12-04 14:45 | disposition home or self-care (01) ==
PROVIDERS: Admitting Provider Obstetrics & Gynecology; Visit Provider Obstetrics & Gynecology
DX: O26.893 Other specified pregnancy related conditions, third trimester (principal); R10.9 Unspecified abdominal pain; Z3A.36 36 weeks gestation of pregnancy
CPT/HCPCS: 81003; 87086; 96360; A9270; G0378; G0379; J7120

== ENCOUNTER 2024-12-06 17:01 | Observation (INO) | payer OTHER, SELFPAY ==
--- OUTSIDE RECORDS SUMMARY | 2024-12-06 18:15 | XMS_ITS | Referral Summary ---
Author Organization [facility] Address [facility] [place] [address] Care Team Providers Care Recovery Collector Name Role Phone Khanh Blackwood MD Primary [...] daily. 

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
--- OUTSIDE RECORDS SUMMARY | 2024-12-06 18:15 | XMS_ITS | Clinical Summary ---
Author Organization [facility] Address [facility] [place] [address] Care Team Providers Care Sound Effects Manager Name Role Phone Khanh Blackwood MD [...] daily. 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 Gender Identity Not on file Sexual [...] Estimated Date of Delivery 09/02/2024 - Present (12/06/2024) 12/19/2024 (set by Lorena Scales RN on [...] st Contact Info) Description 12/19/2024 Hospital Encounter [facility] 1 [place] [address] Sherly Amin MD 1 [place] [address] Health Maintenance Due Date Last Done Comments [...] patient's age to complete this topic Insurance [facility] [place] Care Teams Sound Effects Manager Relationship Specialty Start Date End Date Khanh Blackwood MD PCP - General 01/18/18
--- OUTSIDE RECORDS SUMMARY | 2024-12-06 18:16 | XMS_ITS | Encounter Summary ---
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
--- OUTSIDE RECORDS SUMMARY | 2024-12-06 18:16 | XMS_ITS | Clinical Summary ---
Author Organization [facility] [employer] Address [address] [place] [address] Care Team Providers Care Behaviour Support Teacher Name Role Phone Unavailable Primary Care Provider Unavailabl e Source Comments [facility] [employer] [employer],non-[facility] Affiliates and Associated Physician Practices is amultiple site organization consisting of ambulatory clinics and hospital sitesin [place], [place], [place] and [place]. This disclosure is being madepursuant to the Care Everywhere program and may not contain all information available regarding this patient. Last updated 18.[facility] Allergies Active Allergy Reactions Criticality Noted Date [...] Nausea/Vomitin g 10 Tab 0 5 Active Social History Tobacco Use Types Packs/Day Years Used Date Smoking Tobacco: Never Smokeless Tobacco: Never Alcohol Use Standard Drinks/Week Comments Yes 0 (1 standard drink = 0.6 oz pur e alcohol) socially Comments Unknown Sex and Gender Information Value Date Recorded Sex Assigned at Not on file Legal Sex Female 12:14 PM [employer] Gender Identity Not on file Sexual Orientation Not on file Last Filed Vital Signs Vital Sign Reading Time Taken Comments Blood Pressure 119/62 04/26/2015 9:11 AM [employer] Pulse 67 04/26/2015 9:11 AM [employer] Temperature 36.6 C (97.8 F) 04/26/2015 9:11 AM [employer] Respiratory Rate 16 04/26/2015 9:11 AM [employer]GER Oxygen Saturation 100% 04/26/2015 9:11 AM [employer] PL[employer] Inhaled Oxygen Concentration - - Weight 86.6 kg (191 lb) 04/26/2015 6:29 AM [employer] Height 170.2 cm (5' 7) 04/26/2015 6:29 AM [employer] Body Mass Index 29.91 04/26/2015 6:29 AM [employer] Plan of Treatment Health Maintenance Due Date [...] OF UTERINE CERVIX / Unknown 12/28/2010 Narrative [facility] - 01/08/2011 10:37 AM CDT Preferred Lab:->OTHER EXTERNAL LAB Osei Cervantes MD LAB - PATHOLOGY/CYTOLOGY ORDERAB LES Final Result [facility] [address] [place] [address], [facility] from Last 3 Months or Most Recently Relevant to Health Maintenance Insurance [facility]
--- OUTSIDE RECORDS SUMMARY | 2024-12-06 18:16 | XMS_ITS | Data Portability ---
Author Organization [place] [facility] [employer] Address [address] [place] [address] Assessment Encounter Date Assessment Date Assessment LastModified by Organization Details LastModified Time 12/01/2020 12/01/2020 Medication Changes SELINA obtained. Records requested. Labs obtained to evaluate levels. Contacted [place] [facility] regarding CDE who does take [place]. . Order faxed to CDE at . [...] plan. F/U 1 week, sooner if needed [email or web address] Not available 12/01/2020 14:11:47 12/06/2020 12/06/2020 Medication [...] plan. F/U 12 weeks, sooner if needed Not available 12/06/2020 13:57:51 Plan of Treatment [...] 19:43:37 TSH, serum, reflex free T4 2020 [email or web address] Not available 07:50:55 Referral diabetic nutrition education referral - Newly diagnosed Diabetic who needs a lot of education. 2020 [facility]HENA[employer] [facility], [facility] , [address] [address], [place], [address], 14:16:56 Procedures None recorded. Surgeries None recorded. Imaging None recorded. Medication Orders Vitamin D3 125 mcg (5,000 unit) tablet 2020 [email or web address] [facility] #[id number], [address], [place], [id number], 14:56:33 metformin ER 500 mg tablet,ext ended release 24 hr 2020 [email or web address] [facility] #[id number], [address], [place], [id number], 14:56:14 Patient TargetsNo targets recorded. Patient Instructions Encounter Date Encounter Id Patient Instructions Last Modified By Organization Details Last Modified Time 12/01/2020 type 2 diabetes: care instructions [email or web address] Not available 12/01/2020 14:14:06 12/06/2020 smoking cessatio n counseling, greater than 3 minutes up to 10 minutes* [email or web address] Not available 12/06/2020 13:57:54 Reason for Referral [...] total 164 mg/dL <200 normal Not Available [facility] [address] [address] [place], [address], 12/02/2020 14:00:41 12/02/19 21 12/02/2020 lipid panel , serum HDL cholesterol 37 mg/dL > or = 50 low Not Available [facility] [address] [address] [place], [address], 12/02/2020 14:00:41 12/02/19 21 12/02/2020 lipid panel , serum triglyceride s 129 mg/dL <150 normal Not Available [facility] [address] [address] [place], [address], 12/02/2020 14:00:41 12/02/1912/02/2020 lipid panel , serum [...] 2061- 2068 (http ://ed cristoferati on.Qu estDi Ariste Medicals. com/f aq/FA Q164) Not Available [facility] [address] [address] [place], [address], 12/02/2020 14:00:41 12/02/19 21 12/02/2020 lipid panel , serum chol/HDLC ratio 4.4 (calc ) <5.0 normal Not Available [address] [address] [place], [address], 12/02/2020 14:00:41 12/02/19 21 12/02/2020 lipid panel , serum non HDL cholesterol 127 mg/dL _(jaelyn c) <130 normal For patie nts with diabe yuir plus 1 major ASCVD risk facto r, treat ing to a non-H DL-C goal of <100 mg/dL (LDL- C of <70 mg/dL ) is consi dered a thera peuti c optio n. Not Available [address] [address] [place], [address], 12/02/2020 14:00:41 12/02/1912/02/2020 magne sium, serum or plasm a magnesium 2.2 mg/dL 1.5-2. 5 normal Not Available [facility] [address] [address] [place], [address], 12/02/2020 14:00:41 12/02/1912/02/2020 CMP, serum or plasm a glucose 101 mg/dL 65-99 high Fasti ng refer ence inter nolberto For someo ne witho ut known diabe yuri, a gluco se value betwe en 100 and 125 mg/dL is consi stent with predi abete s and shoul d be confi rmed with a follo w-up test. Not Available [facility] [address] [address] [place], [address], 12/02/2020 14:00:42 12/02/1912/02/2020 CMP, serum or plasm a urea nitrogen (BUN) 13 mg/dL 7-25 normal Not Available [facility] [address] [address] [place], [address], 12/02/2020 14:00:42 12/02/19 21 12/02/2020 CMP, serum or plasm a creatinine 0.79 mg/dL 0.50-1 .10 normal Not Available [address], [address], 12/02/2020 14:00:42 12/02/19 21 12/02/2020 CMP, serum or plasm a eGFR non-afr. cambodian 98 mL/mi n/1.7 3m2 > or = 60 normal Not Available [address], [address], 12/02/2020 14:00:42 12/02/1912/02/2020 CMP, serum or plasm a eGFR 113 mL/mi n/1.7 3m2 > or = 60 normal Not Available [address], [address], 12/02/2020 14:00:42 12/02/1912/02/2020 CMP, serum or plasm a BUN/creatini ne ratio NOT APPLIC ABLE (calc ) 6-22 Not Available [address], [address], 12/02/2020 14:00:42 12/02/19 21 12/02/2020 CMP, serum or plasm a sodium 137 mmol/ L 135-14 6 normal Not Available [address], [address], 12/02/2020 14:00:42 12/02/1912/02/2020 CMP, serum or plasm a potassium 4.6 mmol/ L 3.5-5. 3 normal Not Available [address], [address], 12/02/2020 14:00:42 12/02/1912/02/2020 CMP, serum or plasm a chloride 105 mmol/ L 98-110 normal Not Available [address], [address], 12/02/2020 14:00:42 12/02/1912/02/2020 CMP, serum or plasm a carbon dioxide 23 mmol/ L 20-32 normal Not Available [address], [address], 12/02/2020 14:00:42 12/02/1912/02/2020 CMP, serum or plasm a calcium 9.1 mg/dL 8.6-10 .2 normal Not Available [address], [address], 12/02/2020 14:00:42 12/02/1912/02/2020 CMP, serum or plasm a protein, total 6.8 g/dL 6.1-8. 1 normal Not Available [address], [address], 12/02/2020 14:00:42 12/02/1912/02/2020 CMP, serum or plasm a albumin 4.1 g/dL 3.6-5. 1 normal Not Available [address], [address], 12/02/2020 14:00:42 12/02/1912/02/2020 CMP, serum or plasm a globulin 2.7 g/dL_ (calc ) 1.9-3. 7 normal Not Available [address], [address], 12/02/2020 14:00:42 12/02/1912/02/2020 CMP, serum or plasm a albumin/glob ulin ratio 1.5 (calc ) 1.0-2. 5 normal Not Available [address], [address], 12/02/2020 14:00:42 12/02/1912/02/2020 CMP, serum or plasm a bilirubin, total 0.4 mg/dL 0.2-1. 2 normal Not Available [address], [address], 12/02/2020 14:00:42 12/02/1912/02/2020 CMP, serum or plasm a alkaline phosphatase 81 U/L 31-125 normal Not Available [facility] [employer] [address], [address], 12/02/2020 14:00:42 12/02/19 21 12/02/2020 CMP, serum or plasm a AST 16 U/L 10-30 normal Not Available [address], [address], 12/02/2020 14:00:42 12/02/1912/02/2020 CMP, serum or plasm a ALT 16 U/L 6-29 normal Not Available [facility] [address], [address], 12/02/2020 14:00:42 12/02/1912/02/2020 CBC white blood cell count 8.2 thous and/u L 3.8-10 .8 normal Not Available [address], [address], 12/02/2020 14:00:43 12/02/1912/02/2020 CBC red blood cell count 4.96 reina on/uL 3.80-5 .10 normal Not Available [facility] [address], [address], 12/02/2020 14:00:43 12/02/19 21 12/02/2020 CBC hemoglobin 13.1 g/dL 11.7-1 5.5 normal Not Available [facility] [address], [address], 12/02/2020 14:00:43 12/02/19 21 12/02/2020 CBC hematocrit 40.3 % 35.0-4 5.0 normal Not Available [address], [address], 12/02/2020 14:00:43 12/02/19 21 12/02/2020 CBC MCV 81.3 fL 80.0-1 00.0 normal Not Available [address], [address], 12/02/2020 14:00:43 12/02/19 21 12/02/2020 CBC MCH 26.4 pg 27.0-3 3.0 low Not Available [address], [address], 12/02/2020 14:00:43 12/02/19 21 12/02/2020 CBC MCHC 32.5 g/dL 32.0-3 6.0 normal Not Available [address], [address], 12/02/2020 14:00:43 12/02/1912/02/2020 CBC RDW 14.7 % 11.0-1 5.0 normal Not Available [address], [address], 12/02/2020 14:00:43 12/02/19 21 12/02/2020 CBC platelet count 261 thous and/u L 140-40 0 normal Not Available [address], [address], 12/02/2020 14:00:43 12/02/1912/02/2020 CBC MPV 10.6 fL 7.5-12 .5 normal Not Available [address], [address], 12/02/2020 14:00:43 06/10/20 21 12/02/2020 TSH, serum or plasm a TSH w/reflex to FT4 1.05 mIU/L normal Refer ence Range > or = 20 Years 0.40- 4.50 Pregn shawn Range s First trime ster 0.26- 2.66 Secon d trime ster 0.55- 2.73 Third trime ster 0.43- 2.91 Not Available [facility] [address] [place], [address], 12/02/2020 14:00:43 12/02/19 21 12/02/2020 vitam in [...] /MS is recom asif d: order code 89287 (kriss ents >2yrs ). See Note 1 Note 1 For addit ional infor ольга souza refer to http: //enrico reinoso.Minor stDia gnost ics.c om/fa q/FAQ 199 (This link is being provi ded for infor alex [place]/ eductaj sauceda purpo ses only. ) Not Available [facility] [address] [address], [place], [address], 12/02/2020 14:00:43 12/02/1912/02/2020 HbA1c (hemo globi n [...] diabe yuri for child jaqui. Not Available [facility] [address] [address] , [place], [address], 12/02/2020 14:00:44 Result Notes None recorded. Problems Name Problem SNOMED Code Status Onset Date Resolution Date Notes Provider Name and Address Organization Details Recorded Time Elevated blood-pressure reading without diagnosis of hypertension 512329791 Active 2020 CÉSAR Spence-, PMHNP-BC [address], [place], [address] [place] [address] 4, [facility] 12:22:36 Type 2 diabetes mellitus without complication 873129599 Active 2020 CÉSAR Spence-, PMHNP-BC [address] [place], [address], [facility] 14:11:47 Vitamin D deficiency 01481518 Active 2020 [facility] [address] [place], [address], [facility] 13:50:20 Problem Notes None recorded. Procedures Surgical History Date Name Laterality Status Provider Name and Address Organization Details Recorded Time section completed Lamont Mabry [facility] 11/18/2020 14:08:17 operative procedure on foot completed Lamont Mabry [facility] 11/18/2020 14:08:37 excision of cyst completed Lamont Mabry [facility] 11/18/2020 14:08:44 Imaging Results None recorded. Procedure Notes None recorded. Medical Equipment None Reported. Allergies Allergen ID Allergen Name Allergen Category Reaction Reaction Severity Criticality Documentation Date Start Date Code Code System Note Provider Name and Address Organization Details Recorded Time 3609 Product containin g penicilli n (product) medicatio n facial swelling moderate Not available 11/18/2020 07489 8001 SNJENY Roberson [facility] 11:30:23 3611 codeine medicatio n Not available Not available Not available 11/18/2020 2670 RxNorm Lamont Mabry [facility], [facility] 14:08:03 Medications Name Sig Start Date [...] Last Updated DateTime 167.64 cm 45.4 kg/m2 752129. 46 g 96 /min 18 /min 96 % 96 % 98.4 [degF] 130 mm[Hg] 78 mm[Hg] Shamyra Fairfield [facility] 12:01:57 Date Recorded Body height Body temperature Respiratory rate Oxygen saturation Oxygen saturation in Arterial blood by Pulse oximetry Heart rate Body mass index (BMI) Body weight Systolic blood pressure Diastolic blood pressure Provider Name and Address Organization Details Last Updated DateTime 167.64 cm 98.4 [degF] 18 /min 98 % 98 % 104 /min 45.4 kg/m2 416693. 46 g 130 mm[Hg] 82 mm[Hg] SCOTT ROMERO [facility] 13:54:51 Social History Question Answer Notes LastModified by Organizat ion Details LastModified Time Tobacco Smoking Status Current Some Day Smoker Lamont Mabry yakelin [facility] 11/18/2020 14:09:01 Do You Have An Advance Directive? No Information not available 12/01/2020 What Is Your Level Of Caffeine Consumption? None Information not available 12/01/2020 What Type Of Diet Are You Following? REGULAR Information not available 12/01/2020 Education 12 Information no t available 12/01/2020 Are There Any Guns Present [...] To Smoke? No Information not available 12/01/2020 How Much Tobacco Do You Smoke? 0.5 PPD Information not available 12/01/2020 General Stress Level High Information not available 12/01/2020 Do You Use Sunscreen Routinely? Yes Information not available 12/01/2020 How Many Years Have You Smoked Tobacco? 6 Information not available 12/01/2020 Sex: Female Functional Status Question Answer Note LastModified by Organizat ion Details LastModified Time What is your level of alcohol consumption? Occasional Information not available 12/01/2020 Do you or have you ever used smokeless tobacco? Never used smokeless tobacco [email or web address] Information not available 11/18/2020 Are you currently employed? Yes Information not available 12/01/2020 Are you able to care for yourself? Yes Information not available 12/01/2020 What is your occupation? still [employer] Information not available 12/01/2020 Do you or have you ever used e-cigarettes or vape? Never used electronic cigarettes Information not available 12/01/2020 Mental Status None recorded. Family History Relationship Description Onset Age of this Age Resolved Age Notes LastModified by Organization Details LastModified Time Paternal Grandmother Diabetes mellitus [email or web address] Not available 2020 12:02:04 Paternal Grandmother Heart failure Not available 2020 12:02:20 Paternal Grandmother Heart disease [email or web address] Not available 2020 12:02:28 Father Diabetes mellitus [email or web address] Not available 2020 12:02:04 Unspecified Relation Malignant tumor of breast great grandm other [email or web address] Not available 12/01/2020 12:05:26 Medical History Condition Response Depression Y Diabetes Y Anxiety Disorder Y Musculoskeletal Diseases / Disorders Y Cellulitis Y Cardiac Diseases / Disorders Y Gynecological History Statement/Question Response Date of [...] Diagnosis ICD10 Code Diagnosis Note Flora Mabry, [employer], PMHNP-BC Main Office [address] [place] [address] 12/01/2020 11:49:48 12/01/2020 14:34:43 Elevated blood-pressure reading without diagnosis of hypertension 263059195 R03.0 Type 2 sandra betes mellitus without complication 338169529 E11.9 Fatigue 56167758 R53.83 Vitamin D deficiency 347 24844 E55.9 Flora Kaiser Raghavendra [facility], [facility] Main Office [address] [place] [address] 12/06/2020 06:23:01 12/06/2020 15:06:51 Type 2 diabetes mellitus without complication 141159097 E11.9 Vitamin D deficiency 347 09482 E55.9 Nicotine d ependence with current use 955021123 F17.200 [address] Flora Kaiser Raghavendra [facility], [facility] Main Office [address] [place] [address] 04/06/2021 17:22:29 04/06/2021 18:19:48 Administration of influenza vaccine 16818034 Z23 Health Concerns Section Related Observation LastModified by Organization Detai ls LastModified Time None Recorded Concern Status LastModified by Organization Details LastModified Time None Recorded Advance Directives Directive N: Payers Insurance Date Sequence Insurance Name Policy Number Policy Fagan Covered Member ID Fagan Member ID Guarantor Name 08/22/2022 1 [facility] ON OR AFTER 12/22/20 (MEDICAID REPLACEMENT - HMO) Nancy Trevino [id number] Nancy rTevino 01/08/2022 1 [facility] PRIOR TO 12/22/2020 (MEDICAID REPLACEMENT - HMO) Nancy Trevino [id number] Nancy Trevino Notes Date Note Type Note [...] Not following a low diet. ZAHIDA Spence, [facility] [address] [place], [address], [facility] 12/01/2020 14:15:07 12/06/2020 text/html Diabetes [...] diet;does not exercise Risk Factors:diabetes ZAHIDA Spence, [facility] [address] [place], [address], [facility] 12/06/2020 13:58:52 OBGyn Episode No OBEpisode recorded.
[2024-12-06 18:31] VITALS: BP 111/67; PULSE 89
--- NOTE | 2024-12-09 03:33 | PM.OBTRLD ---
OB - Triage/Final Diagnosis Visit Information Comments/Additional reasons for admission: I have assessed the risk for this patient, Nancy Trevino, and determined that she would benefit from observation care. Final Diagnosis (1) Irregular contractions: Code(s): O47.9 - False labor, unspecified Status: Acute
== END 2024-12-06 19:45 | disposition home or self-care (01) ==
PROVIDERS: Admitting Provider Obstetrics & Gynecology; Visit Provider Obstetrics & Gynecology
DX: O47.03 False labor before 37 completed weeks of gestation, third trimester (principal); Z3A.36 36 weeks gestation of pregnancy
CPT/HCPCS: G0378; G0379

== ENCOUNTER 2024-12-18 07:33 | Inpatient (IN) | payer OTHER, SELFPAY ==
[2024-12-18] VITALS (71 sets, daily range): BP systolic 74–140; BP diastolic 39–107; PULSE 25–165; RESP 16–18; TEMP 35.8–37; O2SAT 80–100; BMI 38.1
--- NOTE | 2024-12-18 08:05 | LDADM ---
This patient, Nancy Trevino, was admitted to room 119 on 12/18/24 at 07:33. Plans for pain management and were discussed with patient. Patient/family oriented to hospital policies and general routines including ID bracelet, bed and alarms, visiting hours, pain management, procedures, bathroom and other care routines, personal items, smoking policy, room service/diet and guest tray routines, security routines, and visiting hours. Patient/Family are encouraged to report perceived risks to care and to ask questions if they do not understand what they are told or what they should do. See OBIX for further documentation.
[2024-12-18 08:15] LABS: Hematocrit 34.4 % (37.0-47.0); Hemoglobin 11.4 g/dL (12.0-15.0); Immature Granulocyte Percent A 1.2 % (0-0.5); Lymphocytes Absolute Auto 2.98 K/mm3 (0.9-3.2); Mean Corpuscular HGB Conc 33.1 g/dl (32-36); Mean Corpuscular Hemoglobin 28.1 pg (26-34); Mean Corpuscular Volume 84.9 fl (80-100); Nucleated Red Blood Cells Absolute Auto 0.000 K/mm3 (0.0-0.012); Nucleated Red Blood Cells Perc 0.0 % (0.0-0.2); Platelet Count Result 191 k/mm3 (150-375); Red Blood Count 4.05 M/mm3 (4.2-5.4); White Blood Count 9.5 K/mm3 (4.5-10.0)
[2024-12-18] MEDS: ACETAMINOPHEN 500 MG TABLET 1000 MG PO ×3 (08:37→23:30)
[2024-12-18] MEDS: LACTATED RINGERS 1,000 ML 125 ML IV CONT ×2 (08:38→09:41)
[2024-12-18] MEDS: SCOPOLAMINE 1 MG PATCH 1 PATCH TRANSDERM (08:38)
[2024-12-18] MEDS: AZITHROMYCIN 500 MG/NS 250 ML 500 MG/250 ML BAG 250 MG IVPB (08:39)
[2024-12-18 09:10] LABS: HIV 1/2 Ab P24 Ag Result Negative (Negative)
--- NOTE | 2024-12-18 09:18 | WPDANESEPPF ---
Anes - Initial Pre Proc Eval Date/Time: 12/18/24 09:18 Surgeon: Joel Garcia MD Pre Op Diagnosis: CONTRACTIONS/LEAKING Patient Data Age: 39 Gender: F Height: 1.7 m Weight: 110.5 kg Last Vital Signs Pulse 117 H 12/18/24 09:16 BP 74/61 L 12/18/24 09:16 Pulse Ox 100 12/18/24 09:16 O2 Del Method Room Air 12/18/24 08:04 Allergies Allergy/AdvReac Type Severity Reaction Status Date / Time Penicillins Allergy Intermediate Swelling Verified 12/18/24 08:48 codeine Allergy Unknown Verified 12/18/24 08:48 Home Medications ?Medication ?Instructions ?Recorded ?Confirmed ?Type blood sugar diagnostic (OneTouch #1 pkg 11/10/20 12/18/24 Rx Verio test strips) blood-glucose meter (OneTouch #1 pkg 11/10/20 12/18/24 Rx Verio Flex Meter) lancets 30 gauge (OneTouch Delica #1 pkg 11/10/20 12/18/24 Rx Plus Lancet) acetaminophen 325 mg tablet 650 mg PO ONCE PRN pain 12/18/24 12/18/24 History (Aminofen) vits no.130-ferrous fum 1 tablet PO DAILY 12/18/24 12/18/24 History 27 mg iron-folic acid 800 mcg tablet ( Vitamin) Laboratory Tests 12/18/24 08:02 WBC 9.5 K/mm3 (4.5-10.0) RBC 4.05 L M/mm3 (4.2-5.4) Hgb 11.4 L g/dL (12.0-15.0) Hct 34.4 L % (37.0-47.0) MCV 84.9 fl (80-100) MCH 28.1 pg (26-34) MCHC 33.1 g/dl (32-36) RDW 13.4 % (11.5-14.5) Plt Count 191 k/mm3 (150-375) MPV 11.1 H fl (7.4-10.4) Immature Gran % (Auto) 1.2 H % (0-0.5) Neut % (Auto) 55.2 % (45.5-73.1) Lymph % (Auto) 31.3 % (18.3-44.2) [place] % (Auto) 11.1 H % (2.6-8.5) Eos % (Auto) 0.9 % (0-4.4) Baso % (Auto) 0.3 % (0.2-1.2) Lymph # (Auto) 2.98 K/mm3 (0.9-3.2) [place] # (Auto) 1.1 H K/mm3 (0.1-0.6) Eos # (Auto) 0.1 K/mm3 (0-0.3) Baso # (Auto) 0.0 K/mm3 (0.0-0.1) Abs Immat Gran (auto) 0.11 H K/mm3 (0.00-0.031) Absolute Neuts (auto) 5.3 K/mm3 (1.3-6.7) Absolute Nucleated RBC 0.000 K/mm3 (0.0-0.012) Nucleated RBC % 0.0 % (0.0-0.2) HIV 1&2 Ab/P24 Ag 4thGn Negative (Negative) Blood Type O Negative Antibody Screen Pending Patient hx anesthesia problems: none Family hx anesthesia problems: none Results Review: All pre-operative results and documents have been reviewed as part of the pre-operative evaluation. [facility] Past Medical History Medical History Patient denies significant medical history Obesity Family History Family History Father Diabetes mellitus Social History Social History Smoking packs per day: 0.5 Smoking cigarettes per day: 10.0 Smoking status: Never smoker Tobacco type: cigarettes Second hand tobacco smoke exposure: No Alcohol intake: current Substance use: never Substance use type: does not use Do You Feel Safe in your Home?: Yes Lack of Transportation: No Lack of Food: Never True Current Housing: I Have Housing Concerned About Future Housing: No Difficulty Paying Gas/Electric Bills: No Difficulty Paying for Meds: No Currently Unemployed: No Education: High School Diploma/GED Difficulty w/ Childcare or Family Care: No Gender identity (if verbalized by the patient): Female Spiritual care concerns: No Anes - Eval Final PreProcedure Day of Procedure 12/18/24 09:18 Patient weight: obese Heart: regular rate and rhythm Lungs: clear to auscultation Airway: Mallampati scale class II Neurological: alert and oriented ASA classification: II Emergent: no Anesthetic plan: proceed Anesthesia type and monitoring: regional spinal and standard monitoring Results Review: All pre-operative results and documents have been reviewed as part of the pre-operative evaluation. Informed Consent: The patient's anesthetic plan and its attendant risks and benefits were discussed with the patient/family/POA. Questions were solicited and answers provided to the satisfaction of the patient/family/POA.
[2024-12-18 09:30] LABS: Syphilis IgG/IgM Antibody Non-Reactive (Nonreactive)
[2024-12-18] MEDS: FAMOTIDINE 20 MG/2 ML VIAL IV PUSH (09:39)
[2024-12-18] MEDS: ONDANSETRON INJ 4 MG/2 ML VIAL IV PUSH (09:40)
--- NOTE | 2024-12-18 09:57 | PM.IMHP ---
H&P: HPI History of Present Illness Date/Time: 12/18/24 09:57 Chief Complaint: Term with ruptured membranes Narrative: 39-year-old multi at term with previous delivery. We have agreed to perform repeat delivery. She understands risks, benefits, and alternatives. She has completed the informed consent process is ready to proceed. The patient understands the details of the procedure. The procedure has been explained in detail. She understands the risks. She understands that injuries may occur that result in hospitalization, more surgery, and severe illness. She understands risk of hemorrhage and infection. She denies any chest pain or shortness of breath. She denies any nausea, vomiting, fever, chills. Review of Systems Review of Systems: All systems reviewed & are unremarkable except as noted in HPI and below Constitutional: Constitutional: Denies chills, Denies fatigue, Denies fever(s) and Denies weakness Eyes: Eyes: Denies blurry vision, Denies change in vision, Denies loss of peripheral vision, Denies loss of vision, Denies other visual disturbances and Denies eye pain ENT: Denies vertigo, Denies dizziness, Denies hearing loss, Denies mouth pain, Denies nasal obstruction, Denies neck mass and Denies neck pain Cardiovascular: Cardiovascular: Denies chest pain, Denies diaphoresis, Denies syncope, Denies leg edema and Denies dyspnea Respiratory: Respiratory: Denies chest congestion, Denies cough, Denies hemoptysis, Denies dyspnea and Denies wheezing Gastrointestinal: Gastrointestinal: Denies abdominal pain, Denies constipation, Denies diarrhea, Denies nausea and Denies vomiting Genitourinary: Genitourinary: Denies hematuria, Denies change in libido, Denies nocturia, Denies genital lesions, Denies flank pain and Denies urinary urgency Musculoskeletal: Musculoskeletal: Denies abnormal gait, Denies back pain, Denies myalgias, Denies arthralgias, Denies joint swelling, Denies muscle weakness and Denies neck pain Integumentary/Breasts: Skin/Breast: Denies swelling, Denies breast pain, Denies breast mass, Denies dry skin, Denies nipple discharge, Denies unusual bruising and Denies jaundice Neurologic: Denies Neuro-related abnormal movements, Denies Abnormal speech present, Denies abnormal gait, Denies behavioral changes, Denies confusion, Denies vertigo, Denies dizziness, Denies syncope, Denies loss of vision, Denies memory loss, Denies convulsions and Denies weakness Psychiatric: Psychiatric: Denies abnormal sleep pattern, Denies behavioral changes, Denies change in libido, Denies confusion, Denies depression, Denies anhedonia and Denies memory loss Endocrine: Endocrine: Reports no additional endocrine complaints, Denies change in libido and Denies fatigue Hematologic/Lymphatic: Hematologic/Lymphatic: Reports no additional hematologic/lymphatic complaints Allergic/Immunologic: Allergic/Immunologic: Reports no additional allergic/immunologic complaints and Denies wheezing PMFSH Past Medical History Medical History Patient denies significant medical history Obesity Family History Family History Father Diabetes mellitus Social History Social History Smoking packs per day: 0.5 Smoking cigarettes per day: 10.0 Smoking status: Never smoker Tobacco type: cigarettes Second hand tobacco smoke exposure: No Alcohol intake: current Substance use: never Substance use type: does not use Do You Feel Safe in your Home?: Yes Lack of Transportation: No Lack of Food: Never True Current Housing: I Have Housing Concerned About Future Housing: No Difficulty Paying Gas/Electric Bills: No Difficulty Paying for Meds: No Currently Unemployed: No Education: High School Diploma/GED Difficulty w/ Childcare or Family Care: No Gender identity (if verbalized by the patient): Female Spiritual care concerns: No Meds Home Medications and Allergies Home Medications ?Medication ?Instructions ?Recorded ?Confirmed ?Type blood sugar diagnostic (OneTouch #1 pkg 11/10/20 12/18/24 Rx Verio test strips) blood-glucose meter (OneTouch #1 pkg 11/10/20 12/18/24 Rx Verio Flex Meter) lancets 30 gauge (OneTouch Delica #1 pkg 11/10/20 12/18/24 Rx Plus Lancet) acetaminophen 325 mg tablet 650 mg PO ONCE PRN pain 12/18/24 12/18/24 History (Aminofen) vits no.130-ferrous fum 1 tablet PO DAILY 12/18/24 12/18/24 History 27 mg iron-folic acid 800 mcg tablet ( Vitamin) Allergies Allergy/AdvReac Type Severity Reaction Status Date / Time Penicillins Allergy Intermediate Swelling Verified 12/18/24 08:48 codeine Allergy Unknown Verified 12/18/24 08:48 Vital Signs Vital Signs - 24 hr 12/18/24 08:04 12/18/24 08:14 12/18/24 08:19 Pulse Rate Blood Pressure Pulse Oximetry 99 100 Oxygen Delivery Room Air 12/18/24 08:22 12/18/24 08:24 12/18/24 08:29 Pulse Rate 89 Blood Pressure 131/70 Pulse Oximetry 100 100 Oxygen Delivery 12/18/24 08:31 12/18/24 08:34 12/18/24 08:39 Pulse Rate 85 Blood Pressure 120/65 Pulse Oximetry 100 100 Oxygen Delivery 12/18/24 08:44 12/18/24 08:46 12/18/24 08:49 Pulse Rate 82 Blood Pressure 131/84 Pulse Oximetry 100 100 Oxygen Delivery 12/18/24 08:54 12/18/24 08:59 12/18/24 09:01 Pulse Rate 92 Blood Pressure 115/79 Pulse Oximetry 100 100 94 Oxygen Delivery 12/18/24 09:06 12/18/24 09:11 12/18/24 09:16 Pulse Rate 117 H Blood Pressure 74/61 L Pulse Oximetry 100 100 100 Oxygen Delivery 12/18/24 09:21 12/18/24 09:26 12/18/24 09:31 Pulse Rate Blood Pressure Pulse Oximetry 100 99 100 Oxygen Delivery 12/18/24 09:32 12/18/24 09:36 12/18/24 09:41 Pulse Rate 87 Blood Pressure 100/50 L Pulse Oximetry 100 100 Oxygen Delivery 12/18/24 09:46 12/18/24 09:51 12/18/24 09:56 Pulse Rate 84 Blood Pressure 113/66 Pulse Oximetry 100 100 100 Oxygen Delivery Exam Const: General: cooperative, healthy appearing, comfortable and no acute distress Orientation/consciousness: oriented to person, oriented to place and oriented to time HENMT: Head: normal to inspection Ears: external ears normal Face/Nose/Sinus: Normal external nose present and normal facial exam Face and sinus: normal facial exam Eyes: General: appearance normal, both eyes and all related structures Neck: Neck: normal visual inspection, trachea midline and supple Resp: Auscultation: clear to auscultation bilaterally, no crackles, no rales, no rhonchi and no wheezes Cardio: Rate: regular rate Rhythm: regular rhythm Heart sounds: no click, no murmurs and no rubs GI: GI Palp: No abdominal tenderness, No Soft to palpation, No Tenderness to palpation present (GI) and No Palpable mass present Auscultation: normal bowel sounds Skin: General skin exam: normal color and no rashes or lesions noted Neuro: General: oriented to person, oriented to place and oriented to time Extrem: General: normal to inspection, no joint enlargement, no clubbing, cyanosis or edema, no pedal edema and no calf tenderness Psych: Appearance: grossly normal Mental Status: mental status grossly normal Speech and movement: Normal speech and movement present H&P: Results Labs Labs: Short CBC 12/18/24 Range/Units 08:02 WBC 9.5 (4.5-10.0) K/mm3 Hgb 11.4 L (12.0-15.0) g/dL Hct 34.4 L (37.0-47.0) % Plt Count 191 (150-375) k/mm3 Assessment and Plan Assessment and plan (1) Previous delivery, delivered: Code(s): O34.219 - Maternal care for unspecified type scar from previous delivery Status: Acute Plan 39-year-old multi at term with previous delivery. We have agreed to perform repeat delivery. She understands risks, benefits, and alternatives. She has completed the informed consent process is ready to proceed.
--- NOTE | 2024-12-18 09:59 | WPDHPUPDATE1 ---
History and Physical Update Update Date/Time: 12/18/24 09:59 History and Physical has been reviewed, including an updated exam of the patient. There are NO changes in the patient's condition. Risks, benefits, and alternatives have been discussed and questions answered. Patient agrees to proceed with procedure.
[2024-12-18] MEDS: ceFAZolin 2 GM/D5W 50 ML 2 GM/50 ML BAG IVPB (10:24)
--- NOTE | 2024-12-18 11:46 | W.PM.OBCSD ---
OB - Delivery Note Procedure Delivery date: 12/18/24 Pre-op diagnosis: Previous Delivery Post-op Diagnosis: Same Procedure Performed: Repeat Surgeon: Joel Garcia MD Anesthesia type: Spinal Description of Procedure/Findings: The patient was taken the operating room.? She was prepped and draped in dorsal supine position with a leftward tilt.? This was done after spinal anesthetic was applied.? A low-transverse skin incision was made and carried down till of the fascia with the knife.? The fascial incision was made with the knife.? The fascial incision was extended laterally with River scissors.? The fascia was tented upward superiorly and inferiorly the rectus muscles were dissected off bluntly.? The rectus muscles were the midline.? The preperitoneal fat and peritoneum were dissected open bluntly at the superior aspect of the rectus muscles.? The peritoneal incision was extended superior and inferior with good position of bladder.? The uterine incision was made with a scalpel down to the level of the amniotic cavity.? The amniotic cavity was entered bluntly.? The infant was delivered.? The cord was clamped and cut and the infant was handed off to waiting pediatric staff.? Cord bloods were obtained.? The placenta was removed manually.? The uterus was exteriorized.? The uterus was cleared of all clots, debris and membranes.? The uterus was closed in 0 Vicryl running lock fashion.? An imbricating over a was placed along the incision line as well.? The uterus was returned to the abdomen.? The gutters were cleared of all clots and debris.? The fascia was closed with 0 Vicryl running fashion.? The subcutaneous tissue was irrigated pinpoint bleeders were cauterized.? The skin was closed with subcuticular absorbable silvana.? The skin incision line was covered with glue.? The patient tolerated the procedure well.? She has taken recovery room in stable condition.? Sponge lap and needle counts were correct x2.? Pathology: None sent Complications: No immediate complications Condition: Stable Disposition: Floor
[2024-12-18 13:20] LABS: Cannabinoid Screen Urine Negative (Negative)
[2024-12-18] MEDS: OXYTOCIN 30 UNITS/NS 500 ML 30 UNITS/500 ML BAG 125 UNITS IV CONT (13:43)
--- NOTE | 2024-12-18 14:02 | PC.NURSE ---
Patient transferred to post room #282 via stretcher. Support person present. Oriented to unit, room, information board, rooming in, admission packet and security measures. Patient verbalizes understanding.
--- NOTE | 2024-12-18 14:30 | PC.NURSE ---
Introductions were made, then consulted with patient to assess needs related to . Per mother she had just had baby latched to her right breast for 10 minutes without any pain. CLC RN reviewed working with the infant, supporting breast, protecting her nipples with an optimal deep latch, good positioning, and good hand washing. Encouraged understanding the benefits of skin to skin, responding to feeding cues, frequencies of feeding 8-12 times in 24 hours (approximately 2-3 hours), duration of feedings, milk production, intake/output feeding sheet and signs of adequate intake encouraging swallowing at the breast. Reviewed positioning and alignment, supporting breast, off-centered (asymmetrical latch) and leading with the chin with big, open, wide gape. Education given to the mother of how to visualize the suckling (with good rocking jaw motion) swallows (dropping of the lower jaw) and how to listen for drinking at the breast (the ka sound). Nipple care reviewed with optimal latch, good positioning and using clean hands when touching her breast. Resources used to facilitate learning were used from the [visual handouts/ tool/mom and baby guide]. Mother voiced understanding of the education shared, to call for assistance if the does not latch or if there is discomfort with . Reported to the Primary RN.
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
[2024-12-18] MEDS: SIMETHICONE 80 MG TAB.CHEW PO (16:57)
[2024-12-18] MEDS: DOCUSATE SODIUM 100 MG CAPSULE PO (16:57)
[2024-12-18] MEDS: KETOROLAC 15 MG/ML VIAL (*BKC) IV PUSH ×2 (16:59→23:30)
[2024-12-18] MEDS: DEXTROSE 5%/0.45% SOD CHL 1,000 ML 125 ML IV CONT (18:16)
[2024-12-18] MEDS: diphenhydrAMINE HCl CAP 25 MG CAPSULE PO (19:46)
--- NOTE | 2024-12-18 19:53 | PC.NURSE ---
DCFS worker Kira Denson here to see. Phone number [phone]. Baby will not be discharged to home with mother. Baby is not to be left alone in room with mother. If visitors present baby can be in room. Care Coordination Courtney ballard.
[2024-12-19 04:10] VITALS: BP 126/73; PULSE 66; RESP 18; TEMP 36.7; O2SAT 99
[2024-12-19 04:50] LABS: Hematocrit 34.9 % (37.0-47.0); Hemoglobin 11.2 g/dL (12.0-15.0); Immature Granulocyte Percent A 0.8 % (0-0.5); Lymphocytes Absolute Auto 3.72 K/mm3 (0.9-3.2); Mean Corpuscular HGB Conc 32.1 g/dl (32-36); Mean Corpuscular Hemoglobin 28.1 pg (26-34); Mean Corpuscular Volume 87.5 fl (80-100); Nucleated Red Blood Cells Absolute Auto 0.000 K/mm3 (0.0-0.012); Nucleated Red Blood Cells Perc 0.0 % (0.0-0.2); Platelet Count Result 176 k/mm3 (150-375); Red Blood Count 3.99 M/mm3 (4.2-5.4); White Blood Count 15.4 K/mm3 (4.5-10.0)
[2024-12-19] MEDS: ACETAMINOPHEN 500 MG TABLET 1000 MG PO ×4 (05:00→23:50)
[2024-12-19] MEDS: KETOROLAC 15 MG/ML VIAL (*BKC) IV PUSH (05:00)
[2024-12-19 08:13] VITALS: BP 127/63; PULSE 79; RESP 18; TEMP 36.8; O2SAT 100
--- NOTE | 2024-12-19 08:35 | PC.NURSE ---
Introductions were made. Discussed with mother her?plans to feed?her and the?experience so far. Mom will not have custody of at discharge. Resources provided for inpatient and outpatient services with the feeding sheet, mom/baby guide and name written on the communication board. Mother voiced understanding of information and will call if there is a request for assistance. Reported to the Primary RN.
[2024-12-19] MEDS: IBUPROFEN 600 MG TABLET PO ×3 (11:09→23:50)
[2024-12-19] MEDS: DOCUSATE SODIUM 100 MG CAPSULE PO ×2 (11:10→17:20)
[2024-12-19] MEDS: SIMETHICONE 80 MG TAB.CHEW PO ×2 (11:10→17:20)
[2024-12-19] MEDS: MULTIVIT/MIN/PREN/FOL AC/IRON TABLET 1 TAB PO (11:10)
--- NOTE | 2024-12-19 11:15 | PC.NURSE ---
Patient called out for feeding assistance. She states that baby will latch but won't suck. We tried baby in cross cradle hold on the right but moved her to football position instead. Mom has large, soft breasts. Baby is able to latch with a little assistance. Mom shown how to make a 'bite'. Mom is encouraged to stimulate baby to continue suckling if she pauses and does not resume nursing. Mom demonstrates that she is able to keep baby positioned well and can keep baby suckling with stimulation. Mother is talking on the phone while feeding so she is instructed to call out if she needs further assistance or if she needs help switching to the left breast. Primary RN updated.
--- NOTE | 2024-12-19 12:19 | P.PNOB_ITS ---
OB - PN: Subj Subjective Date/time seen: 12/19/24 12:19 Patient comments: no complaints, pain well controlled, tolerating diet and flatus present OB - PN: Obj Data Labs 12/19/24 04:18 Labs: Laboratory Results - last 24 hr 12/18/24 12/19/24 12:50 04:18 WBC 15.4 H RBC 3.99 L Hgb 11.2 L Hct 34.9 L MCV 87.5 MCH 28.1 MCHC 32.1 RDW 13.5 Plt Count 176 MPV 11.5 H Immature Gran % (Auto) 0.8 H Neut % (Auto) 64.3 Lymph % (Auto) 24.2 Davidson % (Auto) 10.3 H Eos % (Auto) 0.2 Baso % (Auto) 0.2 Lymph # (Auto) 3.72 H Davidson # (Auto) 1.6 H Eos # (Auto) 0.0 Baso # (Auto) 0.0 Abs Immat Gran (auto) 0.13 H Absolute Neuts (auto) 9.9 H Absolute Nucleated RBC 0.000 Nucleated RBC % 0.0 Urine Opiates Screen Negative Urine Methadone Screen Negative Ur Barbiturates Screen Negative Ur Phencyclidine Scrn Negative Ur Amphetamine Screen Negative U Benzodiazepines Scrn Negative Urine Cocaine Screen Negative U Cannabinoids Screen Negative Blood Type O Negative Antibody Screen Negative Screen Negative Baby's Blood Type A pos Baby's ALLISON Negative Doses of RhIg Required 1 OB - PN A/P Plan day: 1 Comments: Post Op LTCS - no problems, routine recovery Time Spent With Patient Time: Total time spent is greater than 50% in coordination of care (as documented) at patient's floor/unit and/or counseling patient: Exam 2 Const: General: cooperative, healthy appearing, comfortable and no acute distress Resp: Auscultation: no crackles, no rales, no rhonchi and no wheezes Cardio: Rhythm: regular rhythm Heart sounds: no click and no murmurs GI: Inspection: non-distended Auscultation: normal bowel sounds Extrem: General: normal to inspection, no pedal edema and no calf tenderness
--- NOTE | 2024-12-19 15:34 | PCCCNOTE ---
Care Coordination. Met with pt. to provide resources and discuss plan. Pt. feels she will be [facility] [place] [facility] [place] while she works to get her kids back. Provided support to pt. and her friends at bedside. Pt. upset with situation and has not felt like her adult protective caseworker with DCFS has been helpful. Her friend at bedside will transport her back to her living complex Saturday. Pt. reports wanting baby to go with her cousin, Charla Sutton. Sp[facility] with [facility] S[facility]ability Communicator, Kira Robles, this a.m. [phone]. She reports pt. can be alone with baby, but that pt. was upset last night, so she thought she needed supervison. Message left this afternoon for Kira on pt.'s behalf to find out court date and time. Plan for mother and infant [place] Saturday at this time and baby to go with Charla pt.'s cousin. Will follow.
[2024-12-19] MEDS: oxyCODONE HCL (*CRX) 5 MG TAB IR 10 MG PO ×2 (16:10→22:15)
--- NOTE | 2024-12-19 16:54 | WPDANLDPN2 ---
Anes-Prog Note L&D Date/Time: 12/19/24 16:54 Comfortable throughout: section Neuraxial method: spinal Epidural/Spinal procedure site: clean & non-tender Neuro status: Neuro function grossly intact. Cardiovascular status: normal Respiratory status: normal Airway patency: baseline Mental status: baseline Post-Op hydration status: normal Vital Signs: Last Vital Signs Temp 98.2 F 12/19/24 08:13 Pulse 79 12/19/24 08:13 Resp 18 12/19/24 08:13 BP 127/63 12/19/24 08:13 Pulse Ox 100 12/19/24 08:13 O2 Del Method Room Air 12/19/24 07:30 Pain score (VAS): 4 I/O: Intake & Output 12/19/24 12/19/24 12/19/24 07:59 15:59 23:59 Intake Total 1250 Output Total 400 800 Balance 850 -800 Post-procedural complaints: pruritis mild, no treatment Patient feedback: Patient satisfied with anesthetic care.
--- NOTE | 2024-12-19 16:55 | WPDANLDNPN2 ---
Anes-Prog Note L&D-Neuraxial Date/Time: 12/19/24 16:55 Neuraxial medications: intrathecal PF morphine Opiod-related complaints: pruritis mild, no treatment Patient feedback: Patient satisfied with post-operative pain management.
--- NOTE | 2024-12-19 16:56 | WPDANLDNPN2 ---
Anes-Prog Note L&D-Neuraxial Date/Time: 12/19/24 16:56 Neuraxial medications: intrathecal PF morphine Opiod-related complaints: pruritis Patient feedback: Patient satisfied with post-operative pain management.
--- NOTE | 2024-12-19 17:35 | PC.NURSE ---
Breast pump provided due to [maternal request]. Patient states that she already got a pump through her insurance and would like to use a hospital pump. Instructions given on cleaning, care, usage, that there should be no pain, pumping schedule for milk production, collection, and storage of human milk. Patient was assessed for correct placement, flange size (21mm), to pump for nipple stretching/stimulation for adequate milk production every 3 hours. After a few seconds of pumping mom states that there is no milk coming out. Educated on expected milk production and that drops are normal in the first few days. Mother voiced understanding of the education shared along with mom/baby guide and the pump measurement, flange fit handout for additional resource information. Reported to the Primary RN.
[2024-12-19] MEDS: RHO(D) IMMUNE GLOBULIN 300 MCG/2 ML SYRINGE IM (17:49)
[2024-12-19 19:35] VITALS: BP 133/72; PULSE 84; RESP 16; TEMP 37.2; O2SAT 99
[2024-12-19] MEDS: LIDOCAINE 5% PATCH 1 PATCH TRANSDERM (19:45)
[2024-12-20] MEDS: oxyCODONE HCL (*CRX) 5 MG TAB IR 10 MG PO ×3 (04:29→20:00)
[2024-12-20] MEDS: IBUPROFEN 600 MG TABLET PO ×4 (05:42→23:40)
[2024-12-20] MEDS: ACETAMINOPHEN 500 MG TABLET 1000 MG PO ×4 (05:42→23:40)
[2024-12-20 08:15] VITALS: BP 133/76; PULSE 94; RESP 18; TEMP 36.9; O2SAT 100
--- NOTE | 2024-12-20 09:13 | P.PNOB_ITS ---
OB - PN: Subj Subjective Date/time seen: 12/20/24 09:13 Patient comments: no complaints, pain well controlled, incisional pain, tolerating diet and flatus present OB - PN: Obj Data Labs 12/19/24 04:18 Labs: Laboratory Results - last 24 hr 12/19/24 04:18 Blood Type O Negative Antibody Screen Negative Screen Negative Baby's Blood Type A pos Baby's ALLISON Negative Doses of RhIg Required 1 OB - PN A/P Plan day: 2 Plan: routine care Comments: POD#2 LTCS - no problems, Time Spent With Patient Time: Total time spent is greater than 50% in coordination of care (as documented) at patient's floor/unit and/or counseling patient: Exam 2 Const: General: comfortable, no acute distress and alert Resp: Effort & Inspection: normal respiratory effort Auscultation: no crackles, no rales and no rhonchi Cardio: Rate: regular rate Heart sounds: no click, no murmurs and no rubs GI: Inspection: non-distended Auscultation: normal bowel sounds Other: Incision - CDI Extrem: General: normal to inspection, no pedal edema and no calf tenderness
[2024-12-20] MEDS: DOCUSATE SODIUM 100 MG CAPSULE PO ×2 (09:22→17:35)
[2024-12-20] MEDS: SIMETHICONE 80 MG TAB.CHEW PO ×3 (09:22→17:36)
[2024-12-20] MEDS: MULTIVIT/MIN/PREN/FOL AC/IRON TABLET 1 TAB PO (09:22)
--- NOTE | 2024-12-20 17:07 | PC.NURSE ---
Pt has had a lot of visitors in and out today, seems to have a good support system. Pt tearful off and on today at the thought of not getting to take baby home with her tomorrow. She has cared for baby and fed baby all day
[2024-12-20 20:00] VITALS: BP 142/85; PULSE 97; RESP 18; TEMP 36.8; O2SAT 100
[2024-12-21] MEDS: IBUPROFEN 600 MG TABLET PO ×4 (05:19→23:50)
[2024-12-21] MEDS: ACETAMINOPHEN 500 MG TABLET 1000 MG PO ×4 (05:19→23:50)
[2024-12-21 07:10] VITALS: BP 145/91; PULSE 92; RESP 16; TEMP 36.8; O2SAT 99
[2024-12-21] MEDS: DOCUSATE SODIUM 100 MG CAPSULE PO ×2 (08:31→16:24)
[2024-12-21] MEDS: MULTIVIT/MIN/PREN/FOL AC/IRON TABLET 1 TAB PO (08:31)
[2024-12-21] MEDS: SIMETHICONE 80 MG TAB.CHEW PO ×3 (08:31→16:23)
--- NOTE | 2024-12-21 08:43 | P.PNOB_ITS ---
OB - PN: Subj Subjective Date/time seen: 12/21/24 08:43 Patient comments: no complaints, pain well controlled, incisional pain, tolerating diet and flatus present OB - PN: Obj Data Labs 12/19/24 04:18 Labs: Laboratory Results - last 24 hr 12/19/24 04:18 Blood Type O Negative Antibody Screen Negative Screen Negative Baby's Blood Type A pos Baby's ALLISON Negative Doses of RhIg Required 1 OB - PN A/P Plan day: 1 Plan: routine care Comments: No problems, routine care Time Spent With Patient Time: Total time spent is greater than 50% in coordination of care (as documented) at patient's floor/unit and/or counseling patient: Exam 2 Const: General: comfortable, no acute distress and alert Resp: Effort & Inspection: normal respiratory effort Auscultation: no crackles, no rales and no rhonchi Cardio: Rate: regular rate Heart sounds: no click, no murmurs and no rubs GI: Inspection: non-distended GI Palp: No Tenderness to palpation present (GI) Auscultation: normal bowel sounds Other: Incision - CDI Extrem: General: normal to inspection, no pedal edema and no calf tenderness
--- NOTE | 2024-12-21 08:43 | P.DS_ITS ---
DS: Admitting Diagnosis Discharge Date 12/21/2024 Admitting Diagnosis Term DS: Discharge Diagnosis Discharge Diagnosis (1) delivery delivered: Code(s): O82 - Encounter for delivery without indication Status: Acute OB - DS: Summary OB Procedures : None OB Procedures Intrapartum: OB Procedures: : None Peripartum Data Procedures: Procedures Operation Date: 12/18/24 10:00 Actual Procedure Side Surgeon p Section Not Applicable Joel Garcia MD Time Spent with Patient Time attestation: Total time spent providing and/or coordinating discharge services: DS: Data Data Completed and Pending Labs on day of discharge: Labs from last 24 hours 12/19/24 04:18 Blood Type O Negative Antibody Screen Negative Screen Negative Baby's Blood Type A pos Baby's ALLISON Negative Doses of RhIg Required 1 Discharge Plan Discharge Discharging Clinician: Joel Garcia Patient Disposition: Home Activity: pelvic rest Diet: regular Patient Instructions: Antibiotic Form Patient Language: Gibraltarian Stand Alone Forms: General Discharge Information Follow-up/Referrals: Joel Garcia MD [Physician] - Discharge Medications: New hydrocodone-acetaminophen 5-325 mg tablet 1 - 2 tablet PO Q6H PRN (Reason: pain) Qty: 25 0RF Continued (DME) blood-glucose meter [OneTouch Verio Flex meter] Misc Qty: 1 0RF Rx Instructions: May substitute to in-stock meter and/or covered by insurance. Use As Directed (DME) OneTouch Verio test strips Strip Qty: 1 0RF Rx Instructions: May substitute to in-stock and/or covered by insurance strips. Use As Directed (DME) lancets [OneTouch Delica Plus Lancet] 30 gauge Misc Qty: 1 0RF Rx Instructions: May substitute to in-stock and/or covered by insurance lancets. Use As Directed Vitamin 27 mg iron- 800 mcg tablet 1 tablet PO DAILY acetaminophen [Aminofen] 325 mg tablet 650 mg PO ONCE PRN (Reason: pain) Date of admission: 12/18/24 07:33 Primary Care Provider: PHYSICIAN,IMMIGRATION CONSULTANT Admitting Provider: Joel Garcia Attending physician on admission: Joel Garcia Condition: Stable
--- NOTE | 2024-12-21 10:09 | PCCCNOTE ---
Care Coordination note. Patient and now going to be discharged 12/22. Pt. plans to return to [facility] in [place] and work to get her children back. [facility] customs investigator reports she should have court in 48 hours of ME, but will notify pt. when she knows exact date. Pt.'s cousin, Charla Sutton, should be the person infant will be staying with if all checks out with their processes today. Pt. reports her friend, Elsy, or her cousin, Charla, will transport her to [facility] at [place]. Spoke with [facility] investiagator, Kira Robles [phone] and she will contact, Mohini, search engine optimization manager tomorrow to coordinate [place]. Pt.'s case management coordinator is Emmanuel Mercer [phone], but pt. does not prefer to work with her if she can avoid it. Will follow.
[2024-12-21] MEDS: oxyCODONE HCL (*CRX) 5 MG TAB IR PO (16:24)
[2024-12-21 19:30] VITALS: BP 126/71; PULSE 92; RESP 18; TEMP 36.8; O2SAT 100
[2024-12-21] MEDS: oxyCODONE HCL (*CRX) 5 MG TAB IR 10 MG PO (22:50)
[2024-12-22 07:10] VITALS: BP 152/76; PULSE 84; RESP 16; TEMP 36.9; O2SAT 99
--- NOTE | 2024-12-22 07:45 | P.DS_ITS ---
DS: Admitting Diagnosis Discharge Date 12/22/24 Admitting Diagnosis SROM DS: Discharge Diagnosis Discharge Diagnosis (1) delivery delivered: Code(s): O82 - Encounter for delivery without indication Status: Acute OB - DS: Summary OB Procedures : None OB Procedures Intrapartum: OB Procedures: : None Peripartum Data Procedures: Procedures Operation Date: 12/18/24 10:00 Actual Procedure Side Surgeon p Section Not Applicable Joel Garcia MD Time Spent with Patient Time attestation: Total time spent providing and/or coordinating discharge services: Discharge Plan Discharge Attending physician on discharge: Joel Garcia Discharging Clinician: Joel Garcia Patient Disposition: Home Activity: pelvic rest Diet: regular Patient Instructions: Antibiotic Form Patient Language: Venezuelan Stand Alone Forms: General Discharge Information Follow-up/Referrals: Joel Garcia MD [Physician] - Discharge Medications: New hydrocodone-acetaminophen 5-325 mg tablet 1 - 2 tablet PO Q6H PRN (Reason: pain) Qty: 25 0RF clindamycin HCl 150 mg Capsule 300 mg PO BID 7 Days Qty: 28 0RF Continued (DME) blood-glucose meter [OneTouch Verio Flex meter] Misc Qty: 1 0RF Rx Instructions: May substitute to in-stock meter and/or covered by insurance. Use As Directed (DME) OneTouch Verio test strips Strip Qty: 1 0RF Rx Instructions: May substitute to in-stock and/or covered by insurance strips. Use As Directed (DME) lancets [OneTouch Delica Plus Lancet] 30 gauge Misc Qty: 1 0RF Rx Instructions: May substitute to in-stock and/or covered by insurance lancets. Use As Directed Vitamin 27 mg iron- 800 mcg tablet 1 tablet PO DAILY acetaminophen [Aminofen] 325 mg tablet 650 mg PO ONCE PRN (Reason: pain) Date of admission: 12/18/24 07:33 Primary Care Provider: PHYSICIAN,CORPORATE QUALITY ENGINEER Admitting Provider: Joel Garcia Attending physician on admission: Joel Garcia Condition: Stable
--- NOTE | 2024-12-22 07:46 | P.PNOB_ITS ---
OB - PN: Subj Subjective Date/time seen: 12/22/24 07:46 Interval history: pp day 3 pt sad this am, unable to be d/c with baby, cousin will be taking baby pain under left arm, hx of cysts underneath arms, tender, afebrile OB - PN: Obj Data Labs 12/19/24 04:18 OB - PN A/P Plan day: 3 Plan: routine care and discharge home Comments: abscess left axilla, will start clindamycin oral daily x 7 days, f/u in one week in office, refer if needs drained, precautions reviewed Time Spent With Patient Time: Total time spent is greater than 50% in coordination of care (as documented) at patient's floor/unit and/or counseling patient: Review of Systems 2 Review of Systems: All systems reviewed & are unremarkable except as noted in HPI and below Exam 2 Const: General: cooperative and healthy appearing Chest: Chest palpation & inspection: normal inspection of the chest Resp: Effort & Inspection: normal respiratory effort Cardio: Rate: regular rate GI: Inspection: normal to inspection Back/Spine/Pelvis: Back: no CVA tenderness Skin: General skin exam: normal color Neuro: General: patient oriented x3 Extrem: General: normal to inspection Psych: Appearance: grossly normal
--- NOTE | 2024-12-22 08:23 | PC.NURSE ---
Introductions were made, then consulted with patient to assess needs related to . Upon entering room, mother was tearful. Discussed her emotions and her current situation as pertains to DCFS and her children. From a standpoint - Mother states that she is independently and pumping when needed. She denies any nipple discomfort. is currently meeting outcomes for weight, output, jaundice, blood sugar and feeding frequencies of 8-12 times in 24 hours. Mother declines any additional assistance or education at this time. Mother is encouraged to call for assistance if her infant doesn?t latch, pain with latching, questions or concerns. Mother voiced understanding of information shared along with the mom/baby guide for an additional resource. Reported to the Primary RN.
[2024-12-22] MEDS: MULTIVIT/MIN/PREN/FOL AC/IRON TABLET 1 TAB PO (08:35)
[2024-12-22] MEDS: SIMETHICONE 80 MG TAB.CHEW PO ×2 (08:36→11:39)
[2024-12-22] MEDS: DOCUSATE SODIUM 100 MG CAPSULE PO (08:36)
[2024-12-22] MEDS: oxyCODONE HCL (*CRX) 5 MG TAB IR 10 MG PO (08:37)
[2024-12-22] MEDS: CLINDAMYCIN HCL 150 MG CAP 300 MG PO (09:15)
[2024-12-22] MEDS: ACETAMINOPHEN 500 MG TABLET 1000 MG PO (11:39)
[2024-12-22] MEDS: IBUPROFEN 600 MG TABLET PO (11:39)
[2024-12-23 10:29] VITALS: BP 140/72; PULSE 82; RESP 18; TEMP 37.2; O2SAT 100
== END 2024-12-22 14:10 | disposition home or self-care (01) | DRG 540 ==
LOC: ANHLDR 07:39 → ANHOB2 14:03
PROVIDERS: Admitting Provider Obstetrics & Gynecology; Visit Provider Obstetrics & Gynecology
PROC: 10D00Z1 Extraction of Products of Conception, Low, Open Approach (ICD-10-PCS; CPT 59514; principal; 2024-12-18 10:00)
DX: O34.211 Maternal care for low transverse scar from previous cesarean delivery (principal); Z37.0 Single live birth; Z3A.38 38 weeks gestation of pregnancy; O69.81X0 Labor and delivery complicated by cord around neck, without compression, not applicable or unspecified
CPT/HCPCS: 36415; 80307; 85025; 85461; 86593; 86703; 86850; 86900; 86901; 90384; A9270; G0432; J0456; J0690; J1100; J1885; J2274; J2371; J2405; J2590; J2790; J7120

== ENCOUNTER 2024-12-24 08:41 | Emergency (ER) | payer OTHER, SELFPAY ==
--- OUTSIDE RECORDS SUMMARY | 2024-12-24 08:44 | XMS_ITS | Referral Summary ---
Author Organization [facility] Address [facility] [place] [address] Care Team Providers Care Final Assembly And Packing Supervisor Name Role Phone Khanh Blackwood MD Primary Care Provider Encounters Date Type Department Care Team Description 12/19/2024 Hospital Encounter [address] [phone] Sherly Amin MD from Last 3 Months Allergies Active Allergy [...] daily. 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
--- OUTSIDE RECORDS SUMMARY | 2024-12-24 08:44 | XMS_ITS | Clinical Summary ---
Author Organization [facility] Address [address] [place] [phone] Care Team Providers Care Floorwalker Name Role Phone Khanh Blackwood MD Primary [...] daily. 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 Estimated Date of Delivery Comme nts Yes 12/19/2024 Based on Ultraso und Encounters Date Type Department Care Team Description 12/19/2024 Hospital Encounter [facility] [address] [place] [phone] Sherly Amin MD from Last 3 Months Surgical History Surgery [...] on file Legal Sex Female 9:33 PM 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 Gender Identity Not on file Sexual Orientation Not on file Obstetrics History Para Term AB IAB SAB Ectopic Multiple Livin g Live Births 2 1 1 1 1 Date Outcome GA Total Labor Labor/2nd/3rd Weight Sex Type Anes PTL Vilma A1 A5 Name Clin 2016 Term CS-Un spec Living Current Summary Episode Dates Number of Fetuses Estimated Date of Delivery 09/02/2024 - Present (12/24/2024) 12/19/2024 (set by Lorena Scales RN on [...] 09/02/2024 4:20 PM CDT Plan of Treatment Health Maintenance Due Date [...] patient's age to complete this topic Insurance [facility] [place] [address] Care Teams Floorwalker Relationship Specialty Start Date End Date Khanh Blackwood MD PCP - General 01/18/18
[2024-12-24 08:45] VITALS: BP 151/93; PULSE 77; RESP 18; TEMP 36.9; O2SAT 99
--- OUTSIDE RECORDS SUMMARY | 2024-12-24 08:45 | XMS_ITS | Encounter Summary ---
Author Organization [facility] Address [address] [place] [address] Care Team Providers Care Core Man Name Role Phone Khanh Blackwood MD Primary Care Provider [phone] Encounter Details Date Type Department Care Team (Late st Contact Info) Description 12/19/2024 Hospital Encounter [address] [phone] Sherly Amin MD [address] [place] [id number] Social History Tobacco Use Types Packs/Day Years Used Date Smoking Tobacco: Never Smokeless Tobacco: Never Alcohol Use Standard Drinks/Week Comments No 0 [...] on file Legal Sex Female 9:33 PM [employer] Gender Identity Not on file Sexual Orientation Not on file documented as of this encounter Plan of Treatment Not on file documented as of this encounter Visit Diagnoses Not on filedocumented in this encounter Care Teams Core Man Relationship Specialty Start Date End Date Khanh Blackwood MD PCP - General 01/18/18 documented as of this encounter
--- OUTSIDE RECORDS SUMMARY | 2024-12-24 08:45 | XMS_ITS | Clinical Summary ---
Author Organization [email or web address] Address [address] [facility] [place] [address] Care Team Providers Care Jailkeeper Name Role Phone Unavailable Primary Care Provider Unavailabl e Source Comments [email or web address] and Associated Physician Practices is amultiple site organization consisting of ambulatory clinics and hospital sitesin [place], [place], [place] and [place]. This disclosure is being madepursuant to the Care Everywhere program and may not contain all information available regarding this patient. Last updated 18.[email or web address] Allergies Active Allergy Reactions Criticality Noted Date [...] on file Legal Sex Female 12:14 PM VETERINARY TECHNICIAN ASSISTANT Gender Identity Not on file Sexual Orientation Not on file Last Filed Vital Signs Vital Sign Reading Time Taken Comments Blood Pressure 119/62 04/26/2015 9:11 AM VETERINARY TECHNICIAN ASSISTANT Pulse 67 04/26/2015 9:11 AM VETERINARY TECHNICIAN ASSISTANT Temperature 36.6 C (97.8 F) 04/26/2015 9:11 AM VETERINARY TECHNICIAN ASSISTANT Respiratory Rate 16 04/26/2015 9:11 AM VETERINARY TECHNICIAN ASSISTANT Oxygen Saturation 100% 04/26/2015 9:11 AM VETERINARY TECHNICIAN ASSISTANT Inhaled Oxygen Concentration - - Weight 86.6 kg (191 lb) 04/26/2015 6:29 AM VETERINARY TECHNICIAN ASSISTANT Height 170.2 cm (5' 7) 04/26/2015 6:29 AM VETERINARY TECHNICIAN ASSISTANT Body Mass Index 29.91 04/26/2015 6:29 AM VETERINARY TECHNICIAN ASSISTANT Plan of Treatment Health Maintenance Due Date [...] OF UTERINE CERVIX / Unknown 12/28/2010 Narrative [facility] - 01/08/2011 10:37 AM CDT Preferred Lab:->OTHER EXTERNAL LAB Osei Cervantes MD LAB - PATHOLOGY/CYTOLOGY ORDERAB LES Final Result [facility] [address] [place] [address], [facility] from Last 3 Months or Most Recently Relevant to Health Maintenance Insurance [facility]
--- OUTSIDE RECORDS SUMMARY | 2024-12-24 08:45 | XMS_ITS | Data Portability ---
Author Organization [place] - [facility], [employer] Address [address] [place] [address] Assessment Encounter Date Assessment Date Assessment LastModified by Organization Details LastModified Time 12/01/2020 12/01/2020 Medication Changes SELINA obtained. Records requested. Labs obtained to evaluate levels. Contacted [facility] regarding CDE who does take [place]. . Order faxed to CDE at . [...] plan. F/U 1 week, sooner if needed [email or web address] Not available 12/01/2020 14:11:47 12/06/2020 12/06/2020 Medication [...] plan. F/U 12 weeks, sooner if needed [email or web address] Not available 12/06/2020 13:57:51 Plan of Treatment Reminders Order Date Submit Date Provider Last Modified By Organization Details Last Modified Time Details Appointments None recorded. Lab vitamin D, 25-hydroxy , total, serum 2020 021 JOHN Not available 19:43:38 CMP, serum or plasma 2020 JOHN Not available 19:43:37 CBC 2020ENA Not available 19:43:38 magnesium, serum or plasma 2020 JOHN Not available 19:43:38 hemoglobin A1c, QN, blood 2020 JOHN Not available 19:43:38 lipid panel, serum 2020 JOHN Not available 19:43:37 TSH, serum, reflex free T4 2020 [email or web address] Not available 07:50:55 Referral diabetic nutrition education referral - Newly diagnosed Diabetic who needs a lot of education. 2020 ATHENAFAX [facility], [address] [place] [address] , [place] [address], [place], [address], 14:16:56 Procedures None recorded. Surgeries None recorded. Imaging None recorded. Medication Orders Vitamin D3 125 mcg (5,000 unit) tablet 2020 [id number], [address], [place], [id number], 14:56:33 metformin ER 500 mg tablet,ext ended release 24 hr 2020 [email or web address] [id number], [address], [place], [id number], 14:56:14 Patient TargetsNo targets recorded. Patient Instructions Encounter Date Encounter Id Patient Instructions Last Modified By Organization Details Last Modified Time 12/01/2020 type 2 diabetes: care instructions [email or web address] Not available 12/01/2020 14:14:06 12/06/2020 smoking cessatio n counseling, greater than 3 minutes up to 10 minutes* [email or web address] Not available 12/06/2020 13:57:54 Reason for Referral [...] total 164 mg/dL <200 normal Not Available [employer] [address] [place] [address] [place], [address], 12/02/2020 14:00:41 12/02/19 21 12/02/2020 lipid panel , serum HDL cholesterol 37 mg/dL > or = 50 low Not Available [employer] [facility] [address] [address] [place], [address], 12/02/2020 14:00:41 12/02/19 21 12/02/2020 lipid panel , serum triglyceride s 129 mg/dL <150 normal Not Available [employer] [facility] [address] [place] [address] [place], [address], 12/02/2020 14:00:41 12/02/1912/02/2020 lipid panel , serum LDL-choleste rol 104 mg/dL _(jaelyn c) high Refer ence range : <100 Jagdeep able range <100 mg/dL for prima ry preve ntion ; <70 mg/dL for patie nts with CHD or diabe tic patie nts with > or = 2 CHD risk facto rs. LDL-C is now calcu lated using the Ivy n-Hop kins calcu trever n, which is a valid ated novel tamra gerard than the Brody virk equat ion in the estim ation of LDL-C . Ivy reinoso SS et al. JOE. 2013; 310(1 9): 2061- 2068 (http ://ed ucati on.Qu estDi Origin Healthcare Solutionss. com/f aq/FA Q164) Not Available [employer] [facility] [place] [address] [place], [address], 12/02/2020 14:00:41 12/02/19 21 12/02/2020 lipid panel , serum chol/HDLC ratio 4.4 (calc ) <5.0 normal Not Available [address] [address] [place], [address], 12/02/2020 14:00:41 12/02/19 21 12/02/2020 lipid panel , serum non HDL cholesterol 127 mg/dL _(jaelyn c) <130 normal For patie nts with diabe yuri plus 1 major ASCVD risk facto r, treat ing to a non-H DL-C goal of <100 mg/dL (LDL- C of <70 mg/dL ) is consi dered a thera peuti c optio n. Not Available [address] [address] [place], [address], 12/02/2020 14:00:41 12/02/19 21 12/02/2020 magne sium, serum or plasm a magnesium 2.2 mg/dL 1.5-2. 5 normal Not Available [facility] [address] [address] [place], [address], 12/02/2020 14:00:41 12/02/1912/02/2020 CMP, serum or plasm a glucose 101 mg/dL 65-99 high Fasti ng refer ence inter nolberto For someo ne witho ut known diabe yuri, a gluco se value betwe en 100 and 125 mg/dL is consi stent with predi abete s and shoul d be confi rmed with a follo w-up test. Not Available [facility] [place] [address] [place], [address], 12/02/2020 14:00:42 12/02/1912/02/2020 CMP, serum or plasm a urea nitrogen (BUN) 13 mg/dL 7-25 normal Not Available [facility] [place] [address] [place], [address], 12/02/2020 14:00:42 12/02/19 21 12/02/2020 CMP, serum or plasm a creatinine 0.79 mg/dL 0.50-1 .10 normal Not Available [address], [address], 12/02/2020 14:00:42 12/02/19 21 12/02/2020 CMP, serum or plasm a eGFR non-afr. senegalese 98 mL/mi n/1.7 3m2 > or = 60 normal Not Available [address], [address], 12/02/2020 14:00:42 12/02/1912/02/2020 CMP, serum or plasm a eGFR 113 mL/mi n/1.7 3m2 > or = 60 normal Not Available [address], [address], 12/02/2020 14:00:42 12/02/19 21 12/02/2020 CMP, serum or plasm a BUN/creatini ne ratio NOT APPLIC ABLE (calc ) 6-22 Not Available [address], [address], 12/02/2020 14:00:42 12/02/1912/02/2020 CMP, serum or plasm a sodium 137 mmol/ L 135-14 6 normal Not Available [address], [address], 12/02/2020 14:00:42 12/02/1912/02/2020 CMP, serum or plasm a potassium 4.6 mmol/ L 3.5-5. 3 normal Not Available [address], [address], 12/02/2020 14:00:42 12/02/1912/02/2020 CMP, serum or plasm a chloride 105 mmol/ L 98-110 normal Not Available [address], [address], 12/02/2020 14:00:42 12/02/19 21 12/02/2020 CMP, serum or plasm a carbon dioxide 23 mmol/ L 20-32 normal Not Available [address], [address], 12/02/2020 14:00:42 12/02/19 21 12/02/2020 CMP, serum or plasm a calcium 9.1 mg/dL 8.6-10 .2 normal Not Available [address], [address], 12/02/2020 14:00:42 12/02/1912/02/2020 CMP, serum or plasm a protein, total 6.8 g/dL 6.1-8. 1 normal Not Available [address], [address], 12/02/2020 14:00:42 12/02/1912/02/2020 CMP, serum or plasm a albumin 4.1 g/dL 3.6-5. 1 normal Not Available [address], [address], 12/02/2020 14:00:42 12/02/1912/02/2020 CMP, serum or plasm a globulin 2.7 g/dL_ (calc ) 1.9-3. 7 normal Not Available [address], [address], 12/02/2020 14:00:42 12/02/1912/02/2020 CMP, serum or plasm a albumin/glob ulin ratio 1.5 (calc ) 1.0-2. 5 normal Not Available [address], [address], 12/02/2020 14:00:42 12/02/19 21 12/02/2020 CMP, serum or plasm a bilirubin, total 0.4 mg/dL 0.2-1. 2 normal Not Available [address], [address], 12/02/2020 14:00:42 12/02/19 21 12/02/2020 CMP, serum or plasm a alkaline phosphatase 81 U/L 31-125 normal Not Available [facility] [address], [address], 12/02/2020 14:00:42 12/02/19 21 12/02/2020 CMP, serum or plasm a AST 16 U/L 10-30 normal Not Available [address], [address], 12/02/2020 14:00:42 12/02/19 21 12/02/2020 CMP, serum or plasm a ALT 16 U/L 6-29 normal Not Available [address], [address], 12/02/2020 14:00:42 12/02/19 21 12/02/2020 CBC white blood cell count 8.2 thous and/u L 3.8-10 .8 normal Not Available [address], [address], 12/02/2020 14:00:43 12/02/19 21 12/02/2020 CBC red blood cell count 4.96 reina on/uL 3.80-5 .10 normal Not Available [address], [address], 12/02/2020 14:00:43 12/02/19 21 12/02/2020 CBC hemoglobin 13.1 g/dL 11.7-1 5.5 normal Not Available [address], [address], 12/02/2020 14:00:43 12/02/19 21 12/02/2020 CBC hematocrit 40.3 % 35.0-4 5.0 normal Not Available [address], [address], 12/02/2020 14:00:43 12/02/19 21 12/02/2020 CBC MCV 81.3 fL 80.0-1 00.0 normal Not Available [address], [address], 12/02/2020 14:00:43 12/02/19 21 12/02/2020 CBC MCH 26.4 pg 27.0-3 3.0 low Not Available [address], [address], 12/02/2020 14:00:43 12/02/1912/02/2020 CBC MCHC 32.5 g/dL 32.0-3 6.0 normal Not Available [address], [address], 12/02/2020 14:00:43 12/02/1912/02/2020 CBC RDW 14.7 % 11.0-1 5.0 normal Not Available [address], [address], 12/02/2020 14:00:43 12/02/1912/02/2020 CBC platelet count 261 thous and/u L 140-40 0 normal Not Available [address], [address], 12/02/2020 14:00:43 12/02/1912/02/2020 CBC MPV 10.6 fL 7.5-12 .5 normal Not Available [address], [address], 12/02/2020 14:00:43 12/02/1912/02/2020 TSH, serum or plasm a TSH w/reflex to FT4 1.05 mIU/L normal Refer ence Range > or = 20 Years 0.40- 4.50 Pregn shawn Range s First trime ster 0.26- 2.66 Secon d trime ster 0.55- 2.73 Third trime ster 0.43- 2.[address] [facility] [address] [place], [address], 12/02/2020 14:00:43 12/02/1912/02/2020 vitam in D, 25-hy droxy , total [...] /MS is recom asif d: order code 01511 (kriss ents >2yrs ). See Note 1 Note 1 For addit ional infor ольга souza refer to http: //[facility] campos Noble stDia gnost ics.c om/fa q/FAQ 199 (This link is being provi ded for infor alex [place]/ troy sauceda purpo ses only. ) Not Available [employer] [facility] [address] [address], [place], [address], 12/02/2020 14:00:43 12/02/1912/02/2020 HbA1c (hemo globi n [...] diabe yuri for child jaqui. Not Available [employer] [facility] [address] [facility] [place], [address], 12/02/2020 14:00:44 Result Notes None recorded. Problems Name Problem SNOMED Code Status Onset Date Resolution Date Notes Provider Name and Address Organization Details Recorded Time Elevated blood-pressure reading without diagnosis of hypertension 938121413 Active 2020 [facility] PMH[facility] [address] [place], [address], [facility] 12:22:36 Type 2 diabetes mellitus without complication 874790821 Active 2020 [facility] PMH[facility]-BC [address] [place], [address], [facility] 14:11:47 Vitamin D deficiency 32628639 Active 2020 [facility] PMH[facility]BC [address] [place], [address], [facility] 13:50:20 Problem Notes None recorded. Procedures Surgical History Date Name Laterality Status Provider Name and Address Organization Details Recorded Time section completed Lamont Mabry [facility] 11/18/2020 14:08:17 operative procedure on foot completed Lamont Mabry [facility] 11/18/2020 14:08:37 excision of cyst completed Lamont Mabry [facility] 11/18/2020 14:08:44 Imaging Results None recorded. Procedure Notes None recorded. Medical Equipment None Reported. Allergies Allergen ID Allergen Name Allergen Category Reaction Reaction Severity Criticality Documentation Date Start Date Code Code System Note Provider Name and Address Organization Details Recorded Time 3609 Product containin g penicilli n (product) medicatio n facial swelling moderate Not available 11/18/2020 25806 8001 SNOMED Lois Roberson null, [facility] 11:30:23 3611 codeine medicatio n Not available Not available Not available 11/18/2020 2670 RxNorm Lamont Mabry null, [facility] [place] [facility] 14:08:03 Medications Name Sig Start Date Stop [...] blood by Pulse oximetry Body temperature Systolic And Diastolic Provider Name and Address Organization Details Last Updated DateTime 167.64 cm 45.4 kg/m2 269450. 46 g 96 /min 18 /min 96 % 96 % 98.4 [degF] 130/78 mm[Hg] Shamyra Glenwood [facility] [place] [facility] 12:01:57 Date Recorded Body height Body temperature Respiratory rate Oxygen saturation Oxygen saturation in Arterial blood by Pulse oximetry Heart rate Body mass index (BMI) Body weight Systolic And Diastolic Provider Name and Address Organization Details Last Updated DateTime 167.64 cm 98.4 [degF] 18 /min 98 % 98 % 104 /min 45.4 kg/m2 645080. 46 g 130/82 mm[Hg] SCOTT ROMERO [facility] 13:54:51 Social History Question Answer Notes LastModified by Organizat ion Details LastModified Time Tobacco Smoking Status Current Some Day Smoker Lamont Mabry [facility], [facility] 11/18/2020 14:09:01 Do You Have An Advance [...] used smokeless tobacco? Never used smokeless tobacco [email or web address] Information not available 11/18/2020 Are you currently [...] Details LastModified Time Paternal Grandmother Diabetes mellitus [email or web address] Not available 2020 12:02:04 Paternal Grandmother Heart failure Not available 2020 12:02:20 Paternal Grandmother Heart disease Not available 2020 12:02:28 Father Diabetes mellitus [email or web address] Not available 2020 12:02:04 Unspecified Relation Malignant tumor of breast great grandm other Not available 12/01/2020 12:05:26 Medical History Condition Response Depression Y Anxiety Disorder Y Musculoskeletal Diseases / Disorders Y Cellulitis Y Cardiac Diseases / Disorders Y Diabetes Y Gynecological History Statement/Question Response Date of [...] Diagnosis ICD10 Code Diagnosis Note Flora Mabry, [employer], PMHNP-BC Main Office [address] [place] [address] 12/01/2020 11:49:48 12/01/2020 14:34:43 Elevated blood-pressure reading without diagnosis of hypertension 468090366 R03.0 Type 2 sandra betes mellitus without complication 967381731 E11.9 Fatigue 67001555 R53.83 Vitamin D deficiency 347 [address]49[address] E55.9 Flora Mabry [facility] Main Office [address] [place] [address] 12/06/2020 06:23:01 12/06/2020 15:06:51 Type 2 diabetes mellitus without complication 232209157 E11.9 Vitamin D deficiency 347 41526 E55.9 Nicotine d ependence with current use 414538326 F17.200 76018 Flora Mabry [facility] Main Office [address] [place] [address] 04/06/2021 17:22:29 04/06/2021 18:19:48 Administration of influenza vaccine [id number] Z23 Health Concerns Section Related Observation LastModified by Organization Detai ls LastModified Time None Recorded Concern Status LastModified by Organization Details LastModified Time None Recorded Advance Directives Directive N: Payers Insurance Date Sequence Insurance Name Policy Number Policy Fagan Covered Member ID Fagan Member ID Guarantor Name 08/22/2022 1 [facility] ON OR AFTER 12/22/20 (MEDICAID REPLACEMENT - HMO) Nancy Trevino [id number] Nancy Trevino 01/08/2022 1 [facility] PRIOR TO 12/22/2020 (MEDICAID REPLACEMENT - HMO) Nancy Trevino [id number] Nancy Trevino Notes Date Note Type Note [...] Not following a low diet. ZAHIDA Spence, [employer] [address] [place], [address], [facility] 12/01/2020 14:15:07 12/06/2020 text/html [...] diet;does not exercise Risk Factors:diabetes ZAHIDA Spence, [employer]-MAYITO [address] [place], [address], [facility] 12/06/2020 13:58:52 OBGyn Episode No OBEpisode recorded.
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
--- OUTSIDE RECORDS SUMMARY | 2024-12-24 08:45 | XMS_ITS | Encounter Summary ---
Author Organization [facility] Healthcare Address [address] [place] [address] Care Team Providers Care Traffic Control Supervisor Name Role Phone Khanh Blackwood MD Primary Care Provider [phone] Encounter Details Date Type Department Care Team (Late st Contact Info) Description 03/02/2024 Documentation [facility] Social Work [address] [place] [address] Trinity Swann Social History Tobacco Use Types [...] on file Legal Sex Female 9:33 PM [employer]ATE [employer] Gender Identity Not on file Sexual Orientation Not on file documented as of this encounter Plan of Treatment Not on file documented as of this encounter Visit Diagnoses Not on filedocumented in this encounter Care Teams Traffic Control Supervisor Relationship Specialty Start Date End Date hKanh Blackwood MD PCP - General 01/18/18 documented as of this encounter
--- NOTE | 2024-12-24 09:22 | ED.SKABFB ---
HPI - Skin/Abscess/Foreign Bdy General Chief complaint: Skin/Abscess/Foreign Body Stated complaint: cyst under arm is leaking Time Seen by Provider: 12/24/24 08:57 Source: patient Mode of arrival: ambulatory Limitations: no limitations History of Present Illness HPI narrative: Patient is a 39-year-old female who presents the ED with report of an abscess to her left axillary region. Patient reports she 1st noticed this on Saturday. She notes she had a on Saturday. Baby is doing well, she reports she is otherwise doing well. She has history of previous similar abscesses. Has never been diagnosed with hidradenitis suppurativa. States it began draining today. Denies fevers. Related Data Home Medications ?Medication ?Instructions ?Recorded ?Confirmed ?Last Taken ?Type acetaminophen 325 mg tablet 650 mg PO ONCE PRN pain 12/18/24 12/18/24 12/17/24 History (Aminofen) vits no.130-ferrous fum 1 tablet PO DAILY 12/18/24 12/18/24 12/17/24 History 27 mg iron-folic acid 800 mcg tablet ( Vitamin) Allergies Allergy/AdvReac Type Severity Reaction Status Date / Time Penicillins Allergy Intermediate Swelling Verified 12/24/24 08:49 codeine Allergy Unknown Verified 12/24/24 08:49 Review of Systems Review of Systems: All systems reviewed & are unremarkable except as noted in HPI. All systems reviewed & are unremarkable except as noted in HPI and below PMFSH Past Medical History Medical History Patient denies significant medical history Obesity Family History Family History Father Diabetes mellitus Social History Social History Smoking packs per day: 0.5 Smoking cigarettes per day: 10.0 Smoking status: Never smoker Tobacco type: cigarettes Second hand tobacco smoke exposure: No Alcohol intake: current Substance use: never Substance use type: does not use Do You Feel Safe in your Home?: Yes Lack of Transportation: No Lack of Food: Never True Current Housing: I Have Housing Concerned About Future Housing: No Difficulty Paying Gas/Electric Bills: No Difficulty Paying for Meds: No Currently Unemployed: No Education: High School Diploma/GED Difficulty w/ Childcare or Family Care: No Gender identity (if verbalized by the patient): Female Spiritual care concerns: No Exam Narrative: GENERAL: Well appearing, obese with BMI of 37.0, non-toxic, in no acute distress. HEAD: Normocephalic, atraumatic. RESPIRATORY: Airway patent, respirations nonlabored. CARDIOVASCULAR: Regular rate and rhythm MUSCULOSKELETAL: Moves all extremities. No gross deformities. SKIN: Warm, dry, normal color. Small 1cm area of induration/fluctuance to L axillary region. Small area draining purulent malodorous material. No bleeding. Scarring to axillary regions, seems consistent with HS. NEURO: A&O X3. Speech clear. Steady gait. No ataxic movements. PSYCHIATRIC: Appropriate mood and affect. Normal interaction. Course Vital Signs Vital signs: Vital Signs Temperature 98.4 F 12/24/24 08:45 Pulse Rate 77 12/24/24 08:45 Respiratory Rate 18 12/24/24 08:45 Blood Pressure 151/93 H 12/24/24 08:45 Pulse Oximetry 99 12/24/24 08:45 Oxygen Delivery Room Air 12/24/24 08:45 Temperature 98.4 F 12/24/24 08:45 Pulse Rate 77 12/24/24 08:45 Respiratory Rate 18 12/24/24 08:45 Blood Pressure 151/93 H 12/24/24 08:45 Pulse Oximetry 99 12/24/24 08:45 Oxygen Delivery Room Air 12/24/24 08:45 MDM - Skin/Abscess/Foreign Bdy MDM Narrative Medical decision making narrative: Abscess to L axilla, actively draining. Used gentle manipulation with hands to assist with drainage. Drained approx 5cc fluid. No I&D performed or necessary at this time. Patient feeling better. Will start on abx. Advised frequent warm compresses to abscessed region, keeping area clean/dry, avoiding shaving. Recommended close f/u with PCP. Given return precautions. D/C in stable condition. Medical Records Attestation: I reviewed the patient's medical records. Discharge Plan Discharge Clinical Impression: Cutaneous abscess of axilla Patient Disposition: Home Condition: Stable Instructions: Antibiotic Form, Abscess (ED) Additional Instructions: Take Clindamycin 450mg three times a day as prescribed. Recommend frequent warm compresses to armpit region. Recommend Tylenol as needed for pain. Follow up with primary care doctor for further evaluation if needed. Return for new or worsening concerns. Patient Language: Tuval[place] Prescriptions: New clindamycin HCl [Cleocin HCl] 150 mg capsule 450 mg PO TID 7 Days Qty: 63 0RF No Action (DME) blood-glucose meter [OneTouch Verio Flex meter] [facility] [place] Qty: 1 0RF Rx Instructions: May substitute to in-stock meter and/or covered by insurance. Use As Directed (DME) OneTouch Verio test strips Strip Qty: 1 0RF Rx Instructions: May substitute to in-stock and/or covered by insurance strips. Use As Directed (DME) lancets [OneTouch Delica Plus Lancet] 30 gauge [facility] [place] Qty: 1 0RF Rx Instructions: May substitute to in-stock and/or covered by insurance lancets. Use As Directed Vitamin 27 mg iron- 800 mcg tablet 1 tablet PO DAILY acetaminophen [Aminofen] 325 mg tablet 650 mg PO ONCE PRN (Reason: pain) hydrocodone-acetaminophen 5-325 mg tablet 1 - 2 tablet PO Q6H PRN (Reason: pain) Qty: 25 0RF clindamycin HCl 150 mg Capsule 300 mg PO BID 7 Days Qty: 28 0RF Follow-up/Referrals: PHYSICIAN,STRUCTURAL M[employer] SUPERVISOR [Primary Care Provider] - Stanford Ambrose MD [Physician] - (PRIMARY CARE) Stand Alone Forms: Work/School Release IP Time of Disposition: 09:29
== END 2024-12-24 11:22 | disposition home or self-care (01) ==
PROVIDERS: Emergency Provider Physician Assistant
DX: L02.411 Cutaneous abscess of right axilla (principal); F17.210 Nicotine dependence, cigarettes, uncomplicated
CPT/HCPCS: 99283